=== PATIENT | female | born 1975 | race Caucasian/White ===

== ENCOUNTER 2016-11-27 19:17 | Emergency (ER) | payer OTHER ==
[2016-11-27] MEDS ORDERED: HYDROmorphone 2 MG/ML 1 ML SYRINGE IM STA (20:26)
[2016-11-27] MEDS ORDERED: DIAZEPAM 5 MG/ML 2 ML SYRINGE IM ONE (20:26)
[2016-11-27] MEDS ORDERED: diphenhydrAMINE 50 MG CAP PO STA (20:26)
--- NOTE | 2016-11-27 20:39 | ED ---
Headache HPI - General Chief Complaint: Headache Stated Complaint: Headache/Nausea Time Seen by Provider: 11/27/16 19:40 Source: RN notes reviewed Mode of arrival: ambulatory Limitations: no limitations - History of Present Illness Initial Comments: Patient is a 41-year-old female presents to the emergency room for evaluation of headache. Patient has a history of pseudotumor cerebri and takes Dilaudid daily for headaches. Patient states her headache is worse today. Patient states she was taking Dilaudid, Flexeril, aspirin with no relief of symptoms today. Patient states she's having a 10 out of 10 constant headache behind her left eye. She denies dizziness or lightheadedness. Patient denies chest pain she was of breath. Patient notes or tingling extremities. Patient denies photophobia or phonophobia. Patient states she's having slight bilateral ear pain. Patient denies any fevers or chills. Patient denies any significant neck pain. Patient states symptoms are similar to what she normally experiences. - Related Data Home Medications Medication Instructions Recorded Confirmed LORazepam [Ativan] 2 mg PO DAILY PRN 03/27/14 11/27/16 clonazePAM [KlonoPIN] 1 mg PO BID 03/27/14 11/27/16 Ranitidine HCl [Zantac] 150 mg PO BID 04/17/15 11/27/16 Aspirin 325 mg PO DAILY 10/08/15 11/27/16 Cyclobenzaprine [Flexeril] 10 mg PO TID 09/22/16 11/27/16 HYDROcodone/APAP 10-325MG [[place] 1 tab PO TID PRN 09/22/16 11/27/16 10-325] Divalproex [Depakote] 250 mg PO BID 10/25/16 11/27/16 Previous Rx's Medication Instructions Recorded Ondansetron Odt [Zofran ODT] 4 mg PO Q8HR PRN #15 tab 08/09/15 HYDROmorphone HCL [Dilaudid] 4 mg PO Q8HR PRN #90 tablet 11/04/16 Allergies Allergy/AdvReac Type Severity Reaction Status Date / Time acetazolamide Allergy Rash/Hives Verified 11/27/16 19:57 [From Diamox Sequels] influenza virus vaccine, Allergy Unknown Verified 11/27/16 19:57 specific [influenza virus vacc,specific] Penicillins Allergy Rash/Hives Verified 11/27/16 19:57 topiramate [From Topamax] Allergy Rash/Hives Verified 11/27/16 19:57 codeine AdvReac Nausea Verified 11/27/16 19:57 Review of Systems ROS Statement: Those systems with pertinent positive or pertinent negative responses have been documented in the HPI. ROS Other: All systems not noted in ROS Statement are negative. Past Medical History Past Medical History: Chest Pain / Angina, GERD/Reflux, Hypertension, Mitral Valve Prolapse (MVP) Additional Past Medical History / Comment(s): PSEUDO TUMOR CEREBRI/ Medullary sponge kidney, chronic back pain, chronic headache, pt states she has never had a siezure. The pt states she takes antiepileptic for severe headaches. History of Any Multi-Drug Resistant Organisms: None Reported Past Surgical History: Cholecystectomy Additional Past Surgical History / Comment(s): LP SHUNT PLACEMENT AND REMOVAL, cholecystectomy in 2006. Past Anesthesia/Blood Transfusion Reactions: Previous Problems w/ Anesthesia, Malignant Hyperthermia, Motion Sickness Additional Past Anesthesia/Blood Transfusion Reaction / Comment(s): states difficulty breating with anesthesia Past Psychological History: Anxiety, Depression Smoking Status: Never smoker Past Alcohol Use History: None Reported Past Drug Use History: None Reported - Past Family History Sister(s) Family Medical History: Renal Disease Additional Family Medical History / Comment(s): FSGS Brother(s) Family Medical History: Renal Disease Additional Family Medical History / Comment(s): FSGS Father Family Medical History: Cancer, Coronary Artery Disease (CAD), Renal Disease Additional Family Medical History / Comment(s): renal disease-FSGS General Exam - General Exam Comments Initial Comments: Sitting in exam room, no acute distress. Limitations: no limitations General appearance: alert, in no apparent distress Head exam: Present: atraumatic, normocephalic, normal inspection Eye exam: Present: normal appearance ENT exam: Present: normal exam Neck exam: Present: normal inspection Respiratory exam: Present: normal lung sounds bilaterally. Absent: respiratory distress Cardiovascular Exam: Present: regular rate, normal rhythm, normal heart sounds Extremities exam: Present: normal inspection Back exam: Present: normal inspection Neurological exam: Present: alert, oriented X3, CN II-XII intact, normal gait Expanded Patient oriented to: Present: person, place, time Speech: Present: fluid speech Cranial nerves: EOM's Intact: Normal, Facial Sensation: Normal Sensory exam: Upper Extremity Light Touch: Normal, Lower Extremity Light Touch: Normal Motor strength exam: RUE: 5, LUE: 5, RLE: 5, LLE: 5 Eye Response: (4) open spontaneously Motor Response: (6) obeys commands Verbal Response: (5) oriented Psychiatric exam: Present: normal affect, normal mood Skin exam: Present: warm, dry, intact, normal color. Absent: rash Course Vital Signs 11/27/16 11/27/16 11/27/16 19:31 20:49 22:07 Temperature 98.6 F 99.3 F 98.5 F Pulse Rate 112 H 106 H 100 Respiratory 18 18 16 Rate Blood Pressure 159/107 157/77 151/76 O2 Sat by Pulse 98 99 99 Oximetry Medical Decision Making - Medical Decision Making Patient is a 41-year-old female since emergency room for evaluation of headache. Patient has a history of chronic headaches. Patient has no neuro deficits. Patient given pain medications and advised to follow-up with her neurologist. Patient states she understands everything that was discussed with her. Return parameters discussed. Case discussed with Dr. Barclay. Disposition Clinical Impression: Pseudotumor cerebri, Chronic headache Disposition: HOME SELF-CARE Condition: Good Instructions: Acute Headache (ED) Additional Instructions: Continue with at home medications.Please follow up with neurologist in 1-2 days. If any new symptom arises, symptoms worsen or fever develops, return to ER as soon as possible. Referrals: Chato Baldwin Jr, [Primary Care Provider] - 1-2 days Time of Disposition: 21:14
[2016-11-27 22:08] VITALS: BP 151/76; PULSE 100; RESP 16; TEMP 98.5
== END 2016-11-27 22:08 | disposition home or self-care (01) ==
LOC: EC 19:17
DX: R51 Headache (principal); G93.2 Benign intracranial hypertension; Z88.5 Allergy status to narcotic agent; Z88.0 Allergy status to penicillin; Z88.7 Allergy status to serum and vaccine; Z88.8 Allergy status to other drugs, medicaments and biological substances; Z79.899 Other long term (current) drug therapy; Z79.82 Long term (current) use of aspirin; K21.9 Gastro-esophageal reflux disease without esophagitis; I20.9 Angina pectoris, unspecified; F41.9 Anxiety disorder, unspecified; F32.9 Major depressive disorder, single episode, unspecified
CPT/HCPCS: 96372 ×2; 99284; J1170; J3360

== ENCOUNTER 2017-03-28 14:59 | Emergency (ER) | payer OTHER ==
[2017-03-28 15:04] VITALS: RESP 18
[2017-03-28] MEDS ORDERED: SODIUM CHLORIDE 0.9% 1,000 ML IV ONE (15:31)
[2017-03-28] MEDS ORDERED: KETOROLAC 30 MG/ML 1 ML VIAL IVP STA (15:31)
[2017-03-28] MEDS ORDERED: METOCLOPRAMIDE 5 MG/ML 2 ML VIAL IVP STA (15:32)
[2017-03-28] MEDS ORDERED: diphenhydrAMINE 50 MG/ML 1 ML VIAL IVP STA (15:32)
--- NOTE | 2017-03-28 15:53 | ED ---
General Adult HPI - General Chief complaint: Headache Stated complaint: headache Time Seen by Provider: 03/28/17 15:04 Source: patient Mode of arrival: ambulatory Limitations: no limitations - History of Present Illness Initial comments: 41 yo female with past medical history of pseudotumor cerebri presented for evaluation of headache. She states that headache started at 3 AM this morning and been constant on the left side behind her eye without radiation and she describes it as a pressure with intermittent sharpness. She states this is consistent with previous headaches and that she had previously been treated with Dilaudid by her former primary care physician but has a new primary care physician but hasn't seen the old one and 3 months. Since then she had a minor episode of similar pain but this is much worse. She states there are no exacerbating symptoms and nothing has been improving her pain. She states there is some decreased vision on the left side however. - Related Data Home Medications Medication Instructions Recorded Confirmed LORazepam [Ativan] 2 mg PO DAILY PRN 03/27/14 03/28/17 clonazePAM [KlonoPIN] 1 mg PO Q12H 03/27/14 03/28/17 Ranitidine HCl [Zantac] 150 mg PO BID 04/17/15 03/28/17 Cyclobenzaprine [Flexeril] 10 mg PO TID 09/22/16 03/28/17 Divalproex [Depakote] 250 mg PO BID 10/25/16 03/28/17 Aspirin [Adult Low Dose Aspirin EC] 162 mg PO DAILY 03/28/17 03/28/17 Ibuprofen [Motrin] 800 mg PO TID PRN 03/28/17 03/28/17 Ketoconazole 2% Cream [Nizoral 2%] 1 applic TOPICAL BID 03/28/17 03/28/17 diphenhydrAMINE HCL [Benadryl] 50 mg PO HS 03/28/17 03/28/17 Previous Rx's Medication Instructions Recorded Ondansetron Odt [Zofran ODT] 4 mg PO Q8HR PRN #15 tab 08/09/15 Butalb/Acetaminophen/Caffeine 1 - 2 cap PO Q4HR #10 cap 03/28/17 [Fioricet 50-300-40 mg Capsule] HYDROcodone/APAP 5-325MG [[place] 1 - 2 tab PO Q6HR PRN #10 tab 03/28/17 5325] Allergies Allergy/AdvReac Type Severity Reaction Status Date / Time acetazolamide Allergy Rash/Hives Verified 03/28/17 15:56 [From Diamox Sequels] influenza virus vaccine, Allergy Unknown Verified 03/28/17 15:56 specific [influenza virus vacc,specific] Penicillins Allergy Rash/Hives Verified 03/28/17 15:56 topiramate [From Topamax] Allergy Rash/Hives Verified 03/28/17 15:56 codeine AdvReac Nausea Verified 03/28/17 15:56 Review of Systems ROS Statement: Those systems with pertinent positive or pertinent negative responses have been documented in the HPI. ROS Other: All systems not noted in ROS Statement are negative. Constitutional: Denies: fever, chills Eyes: Reports: vision change. Denies: eye pain, eye discharge ENT: Denies: ear pain, throat pain Respiratory: Denies: cough, dyspnea Cardiovascular: Denies: chest pain, palpitations Endocrine: Denies: fatigue, heat or cold intolerance Gastrointestinal: Denies: abdominal pain, nausea, vomiting Genitourinary: Denies: urgency, dysuria Musculoskeletal: Denies: back pain, joint swelling Skin: Denies: rash, lesions Neurological: Reports: headache Psychiatric: Denies: anxiety, depression Hematological/Lymphatic: Denies: easy bleeding, easy bruising Past Medical History Past Medical History: Chest Pain / Angina, GERD/Reflux, Hypertension, Mitral Valve Prolapse (MVP) Additional Past Medical History / Comment(s): PSEUDO TUMOR CEREBRI/ Medullary sponge kidney, chronic back pain, chronic headache, pt states she has never had a siezure. The pt states she takes antiepileptic for severe headaches. History of Any Multi-Drug Resistant Organisms: None Reported Past Surgical History: Cholecystectomy Additional Past Surgical History / Comment(s): LP SHUNT PLACEMENT AND REMOVAL, cholecystectomy in 2006. Past Anesthesia/Blood Transfusion Reactions: Previous Problems w/ Anesthesia, Malignant Hyperthermia, Motion Sickness Additional Past Anesthesia/Blood Transfusion Reaction / Comment(s): states difficulty breating with anesthesia Past Psychological History: Anxiety, Depression Smoking Status: Never smoker Past Alcohol Use History: None Reported Past Drug Use History: None Reported - Past Family History Sister(s) Family Medical History: Renal Disease Additional Family Medical History / Comment(s): FSGS Brother(s) Family Medical History: Renal Disease Additional Family Medical History / Comment(s): FSGS Father Family Medical History: Cancer, Coronary Artery Disease (CAD), Renal Disease Additional Family Medical History / Comment(s): renal disease-FSGS General Exam Limitations: no limitations General appearance: alert, in no apparent distress Head exam: Present: atraumatic, normocephalic, normal inspection Eye exam: Present: normal appearance, PERRL, EOMI. Absent: scleral icterus, conjunctival injection, periorbital swelling ENT exam: Present: normal exam, mucous membranes moist Neck exam: Present: normal inspection. Absent: tenderness, meningismus, lymphadenopathy Respiratory exam: Present: normal lung sounds bilaterally. Absent: respiratory distress, wheezes, rales, rhonchi, stridor Cardiovascular Exam: Present: regular rate, normal rhythm, normal heart sounds. Absent: systolic murmur, diastolic murmur, rubs, gallop, clicks GI/Abdominal exam: Present: soft, normal bowel sounds. Absent: distended, tenderness, guarding, rebound, rigid Rectal exam: Present: deferred Extremities exam: Present: normal inspection, full ROM, normal capillary refill. Absent: tenderness, pedal edema, joint swelling, calf tenderness Back exam: Present: normal inspection Neurological exam: Present: alert, oriented X3, CN II-XII intact, normal gait, reflexes normal. Absent: motor sensory deficit (No change from baseline) Psychiatric exam: Present: normal affect, normal mood Skin exam: Present: warm, dry, intact, normal color. Absent: rash Course Vital Signs 03/28/17 03/28/17 03/28/17 15:01 15:12 17:18 Temperature 99.4 F 98.8 F 98.6 F Pulse Rate 131 H 90 101 H Respiratory 18 18 Rate Blood Pressure 193/93 145/84 O2 Sat by Pulse 100 99 Oximetry Medical Decision Making - Medical Decision Making 41-year-old female with past medical history of pseudotumor cerebri presenting for evaluation of headache started this morning at 3 AM waking her from sleep. She states that is constant on the left side behind her eye with no radiation describes it as a pressure with intermittent sharpness. She has past medical history of LP shunt placement which then malfunctioned and was readjusted but broke. She has a follow-up appointment set with a neurosurgeon to place a [employer] shunt but due to the pain she's having today came to the ED. She states this is consistent with previous headaches and that there is only a little bit of vision changes. On physical exam she has cranial nerves II through XII intact without focal neurologic deficit. Gait and station are normal. Visual acuity normal. Patient given headache cocktail with marked improvement and headache. She was offered lumbar puncture but stated that she would rather follow up with her neurosurgeon instead. She was advised of complications that could arise and further advised to return to this facility if her symptoms should worsen or persist. The patient acknowledged an understanding of this information and agreed with this plan of care. She was discharged with instructions for return and perception for pain control. Disposition Clinical Impression: Headache Disposition: HOME SELF-CARE Condition: Stable Instructions: Acute Headache (ED) Additional Instructions: Please use medication as discussed. Please follow up with family doctor if symptoms have not improved over the next two days. Please return to the emergency room if your symptoms increase or worsen or for any other concerns. Prescriptions: Butalb/Acetaminophen/Caffeine [Fioricet 50-300-40 mg Capsule] 1 - 2 cap PO Q4HR #10 cap HYDROcodone/APAP 5-325MG [[place] 5-325] 1 - 2 tab PO Q6HR PRN #10 tab PRN Reason: Analgesia Referrals: Chato Baldwin Jr, DO [Primary Care Provider] - 1-2 days Time of Disposition: 17:05
[2017-03-28 17:19] VITALS: BP 145/84; PULSE 101; TEMP 98.6
== END 2017-03-28 17:21 | disposition home or self-care (01) ==
LOC: EC 14:59
DX: R51 Headache (principal); K21.9 Gastro-esophageal reflux disease without esophagitis; Z79.82 Long term (current) use of aspirin; Z88.7 Allergy status to serum and vaccine; Z88.0 Allergy status to penicillin; Z88.5 Allergy status to narcotic agent; Z88.8 Allergy status to other drugs, medicaments and biological substances; Z79.899 Other long term (current) drug therapy
CPT/HCPCS: 99284; 96374; 96375 ×2; 96361; J1200; J2765; J1885

== ENCOUNTER 2017-10-01 18:02 | Emergency (ER) | payer OTHER ==
[2017-10-01 18:32] VITALS: TEMP 98
--- NOTE | 2017-10-01 19:16 | ED ---
General Adult HPI - General Chief complaint: Headache Stated complaint: Headache Time Seen by Provider: 10/01/17 19:06 Source: patient, family, RN notes reviewed Mode of arrival: ambulatory Limitations: no limitations - History of Present Illness Initial comments: patient is a pleasant 42-year-old female presenting to the emergency department complaining of headache. Onset of symptoms was 2 days ago. Gradual onset and symptoms have progressively worsened since that time. Headaches more left- sided. Patient does have a history of chronic headaches. Patient has had multiple evaluations. Patient has seen neurologists and had CT scans done. Discomfort is moderate to severe. Patient has some associated photophobia which is similar to her prior headaches. No weakness. Patient did start Diamox recently by her mobility scooter repairer and she feels this is making her symptoms worse. - Related Data Home Medications Medication Instructions Recorded Confirmed LORazepam [Ativan] 2 mg PO DAILY PRN 03/27/14 03/28/17 clonazePAM [KlonoPIN] 1 mg PO Q12H 03/27/14 03/28/17 Ranitidine HCl [Zantac] 150 mg PO BID 04/17/15 03/28/17 Cyclobenzaprine [Flexeril] 10 mg PO TID 09/22/16 03/28/17 Divalproex [Depakote] 250 mg PO BID 10/25/16 03/28/17 Aspirin [Adult Low Dose Aspirin EC] 162 mg PO DAILY 03/28/17 03/28/17 Ibuprofen [Motrin] 800 mg PO TID PRN 03/28/17 03/28/17 Ketoconazole 2% Cream [Nizoral 2%] 1 applic TOPICAL BID 03/28/17 03/28/17 diphenhydrAMINE HCL [Benadryl] 50 mg PO HS 03/28/17 03/28/17 Previous Rx's Medication Instructions Recorded Ondansetron Odt [Zofran ODT] 4 mg PO Q8HR PRN #15 tab 08/09/15 Butalb/Acetaminophen/Caffeine 1 - 2 cap PO Q4HR #10 cap 03/28/17 [Fioricet 50-300-40 mg Capsule] HYDROcodone/APAP 5-325MG [[place] 1 - 2 tab PO Q6HR PRN #10 tab 03/28/17 5-325] Allergies Allergy/AdvReac Type Severity Reaction Status Date / Time acetazolamide Allergy Rash/Hives Verified 10/01/17 18:32 [From Diamox Sequels] influenza virus vaccine, Allergy Unknown Verified 10/01/17 18:32 specific [influenza virus vacc,specific] Penicillins Allergy Rash/Hives Verified 10/01/17 18:32 topiramate [From Topamax] Allergy Rash/Hives Verified 10/01/17 18:32 codeine AdvReac Nausea Verified 10/01/17 18:32 Review of Systems ROS Statement: Those systems with pertinent positive or pertinent negative responses have been documented in the HPI. ROS Other: All systems not noted in ROS Statement are negative. Constitutional: Denies: fever Eyes: Denies: eye pain ENT: Denies: ear pain Respiratory: Denies: cough Cardiovascular: Denies: chest pain Endocrine: Denies: fatigue Gastrointestinal: Denies: abdominal pain Genitourinary: Denies: dysuria Musculoskeletal: Denies: back pain Skin: Denies: rash Neurological: Reports: headache. Denies: weakness, confusion Past Medical History Past Medical History: Chest Pain / Angina, GERD/Reflux, Hypertension, Mitral Valve Prolapse (MVP) Additional Past Medical History / Comment(s): PSEUDO TUMOR CEREBRI/ Medullary sponge kidney, chronic back pain, chronic headache, pt states she has never had a siezure. The pt states she takes antiepileptic for severe headaches. History of Any Multi-Drug Resistant Organisms: None Reported Past Surgical History: Cholecystectomy Additional Past Surgical History / Comment(s): LP SHUNT PLACEMENT AND REMOVAL, cholecystectomy in 2006. Past Anesthesia/Blood Transfusion Reactions: Previous Problems w/ Anesthesia, Malignant Hyperthermia, Motion Sickness Additional Past Anesthesia/Blood Transfusion Reaction / Comment(s): states difficulty breating with anesthesia Past Psychological History: Anxiety, Depression Smoking Status: Never smoker Past Alcohol Use History: None Reported Past Drug Use History: None Reported - Past Family History Sister(s) Family Medical History: Renal Disease Additional Family Medical History / Comment(s): FSGS Brother(s) Family Medical History: Renal Disease Additional Family Medical History / Comment(s): FSGS Father Family Medical History: Cancer, Coronary Artery Disease (CAD), Renal Disease Additional Family Medical History / Comment(s): renal disease-FSGS General Exam Limitations: no limitations General appearance: alert, in no apparent distress Head exam: Present: atraumatic Eye exam: Present: normal appearance, PERRL, EOMI. Absent: nystagmus ENT exam: Present: normal oropharynx Neck exam: Present: normal inspection Respiratory exam: Present: normal lung sounds bilaterally Cardiovascular Exam: Present: regular rate, normal rhythm GI/Abdominal exam: Present: soft. Absent: tenderness Extremities exam: Present: normal inspection Back exam: Present: normal inspection Neurological exam: Present: alert, CN II-XII intact. Absent: motor sensory deficit Expanded Speech: Present: fluid speech Cranial nerves: EOM's Intact: Normal, Facial Sensation: Normal Sensory exam: Upper Extremity Light Touch: Normal, Lower Extremity Light Touch: Normal Motor strength exam: RUE: 5, LUE: 5, RLE: 5, LLE: 5 Eye Response: (4) open spontaneously Motor Response: (6) obeys commands Verbal Response: (5) oriented Psychiatric exam: Present: normal affect, normal mood Skin exam: Present: normal color Course Vital Signs 10/01/17 18:28 Temperature 98.0 F Pulse Rate 107 H Respiratory 20 Rate Blood Pressure 210/117 O2 Sat by Pulse 100 Oximetry - Reevaluation(s) Reevaluation #1: 10/01/17 19:13 patient is advised to discuss Diamox use with her mobility scooter repairer. Disposition Clinical Impression: Headache Disposition: HOME SELF-CARE Condition: Stable Instructions: Acute Headache (ED) Additional Instructions: please follow-up to primary care physician and neurologist this week. Please follow-up with your mobility scooter repairer tomorrow regarding use of Diamox. Return for fever, weakness, worsening or changing symptoms or other concerns. Referrals: Chato Baldwin Jr, DO [Primary Care Provider] - 1-2 days Time of Disposition: 19:16
[2017-10-01] MEDS ORDERED: diphenhydrAMINE 50 MG/ML 1 ML VIAL IM STA (19:18)
[2017-10-01] MEDS ORDERED: KETOROLAC 60 MG/2 ML VIAL IM STA (19:18)
[2017-10-01] MEDS ORDERED: METOCLOPRAMIDE 5 MG/ML 2 ML VIAL IM STA (19:18)
[2017-10-01 19:21] VITALS: BP 183/93; PULSE 110; RESP 18
== END 2017-10-01 19:50 | disposition home or self-care (01) ==
LOC: EC 18:02
DX: R51 Headache (principal); H53.149 Visual discomfort, unspecified; K21.9 Gastro-esophageal reflux disease without esophagitis; I34.1 Nonrheumatic mitral (valve) prolapse; R40.2142 Coma scale, eyes open, spontaneous, at arrival to emergency department; R40.2252 Coma scale, best verbal response, oriented, at arrival to emergency department; R40.2362 Coma scale, best motor response, obeys commands, at arrival to emergency department; Z98.2 Presence of cerebrospinal fluid drainage device; Z79.82 Long term (current) use of aspirin; Z79.899 Other long term (current) drug therapy; Z88.7 Allergy status to serum and vaccine; Z88.0 Allergy status to penicillin; Z88.8 Allergy status to other drugs, medicaments and biological substances; Z88.5 Allergy status to narcotic agent
CPT/HCPCS: 99283; 96372 ×3; J1200; J2765; J1885

== ENCOUNTER 2017-12-20 06:28 | Emergency (ER) | payer OTHER ==
[2017-12-20] MEDS ORDERED: ACETAMINOPHEN TAB 500 MG TAB PO STA (07:18)
[2017-12-20] MEDS ORDERED: IBUPROFEN 600 MG TAB PO STA (07:18)
--- NOTE | 2017-12-20 07:23 | ED ---
General Adult HPI - General Chief complaint: Upper Respiratory Infection Stated complaint: cough Time Seen by Provider: 12/20/17 07:00 Source: patient, family, RN notes reviewed Mode of arrival: wheelchair Limitations: no limitations - History of Present Illness Initial comments: Patient is a pleasant 42-year-old female presenting to the emergency department with multiple complaints. Symptoms have been present for a day or 2. Patient has had cough. Cough has been dry and nonproductive. Patient has had fatigue and generalized malaise. Patient has headache. Patient has children that have been diagnosed with influenza. - Related Data Home Medications Medication Instructions Recorded Confirmed LORazepam [Ativan] 2 mg PO DAILY PRN 03/27/14 10/01/17 clonazePAM [KlonoPIN] 1 mg PO Q12H 03/27/14 10/01/17 Ranitidine HCl [Zantac] 150 mg PO BID 04/17/15 10/01/17 Cyclobenzaprine [Flexeril] 10 mg PO TID 09/22/16 10/01/17 Divalproex [Depakote] 250 mg PO BID 10/25/16 10/01/17 Aspirin [Adult Low Dose Aspirin EC] 162 mg PO DAILY 03/28/17 10/01/17 Ibuprofen [Motrin] 800 mg PO TID PRN 03/28/17 10/01/17 Ketoconazole 2% Cream [Nizoral 2%] 1 applic TOPICAL BID 03/28/17 10/01/17 diphenhydrAMINE HCL [Benadryl] 50 mg PO HS 03/28/17 10/01/17 Butalb/Acetaminophen/Caffeine 1 - 2 cap PO Q4HR PRN 10/01/17 10/01/17 [Fioricet 50-300-40 mg Capsule] acetaZOLAMIDE [Diamox Sequels] 500 mg PO DAILY 10/01/17 10/01/17 Previous Rx's Medication Instructions Recorded Ondansetron Odt [Zofran ODT] 4 mg PO Q8HR PRN #15 tab 08/09/15 HYDROcodone/APAP 5-325MG [[place] 1 - 2 tab PO Q6HR PRN #10 tab 03/28/17 5-325] Oseltamivir [Tamiflu] 75 mg PO Q12HR #10 cap 12/20/17 Allergies Allergy/AdvReac Type Severity Reaction Status Date / Time acetazolamide Allergy Rash/Hives Verified 12/20/17 06:34 [From Diamox Sequels] influenza virus vaccine, Allergy Unknown Verified 12/20/17 06:34 specific [influenza virus vacc,specific] Penicillins Allergy Rash/Hives Verified 12/20/17 06:34 topiramate [From Topamax] Allergy Rash/Hives Verified 12/20/17 06:34 codeine AdvReac Nausea Verified 12/20/17 06:34 Review of Systems ROS Statement: Those systems with pertinent positive or pertinent negative responses have been documented in the HPI. ROS Other: All systems not noted in ROS Statement are negative. Constitutional: Reports: fever, chills, weakness Eyes: Denies: eye pain ENT: Reports: congestion. Denies: ear pain Respiratory: Reports: cough, dyspnea Cardiovascular: Reports: chest pain (Patient states her entire body hurts including the chest) Endocrine: Reports: fatigue Gastrointestinal: Denies: abdominal pain Genitourinary: Denies: dysuria Musculoskeletal: Denies: back pain Skin: Denies: rash Neurological: Reports: headache. Denies: weakness, confusion Past Medical History Past Medical History: Chest Pain / Angina, GERD/Reflux, Hypertension, Mitral Valve Prolapse (MVP) Additional Past Medical History / Comment(s): PSEUDO TUMOR CEREBRI/ Medullary sponge kidney, chronic back pain, chronic headache, pt states she has never had a siezure. The pt states she takes antiepileptic for severe headaches. History of Any Multi-Drug Resistant Organisms: None Reported Past Surgical History: Cholecystectomy Additional Past Surgical History / Comment(s): LP SHUNT PLACEMENT AND REMOVAL, cholecystectomy in 2006. Past Anesthesia/Blood Transfusion Reactions: Previous Problems w/ Anesthesia, Malignant Hyperthermia, Motion Sickness Additional Past Anesthesia/Blood Transfusion Reaction / Comment(s): states difficulty breating with anesthesia Past Psychological History: Anxiety, Depression Smoking Status: Never smoker Past Alcohol Use History: None Reported Past Drug Use History: None Reported - Past Family History Sister(s) Family Medical History: Renal Disease Additional Family Medical History / Comment(s): FSGS Brother(s) Family Medical History: Renal Disease Additional Family Medical History / Comment(s): FSGS Father Family Medical History: Cancer, Coronary Artery Disease (CAD), Renal Disease Additional Family Medical History / Comment(s): renal disease-FSGS General Exam Limitations: no limitations General appearance: alert, in no apparent distress Head exam: Present: atraumatic Eye exam: Present: normal appearance, PERRL ENT exam: Present: normal oropharynx Neck exam: Present: normal inspection. Absent: meningismus Respiratory exam: Present: normal lung sounds bilaterally Cardiovascular Exam: Present: tachycardia Expanded Peripheral pulses: 2+: Radial (R), Radial (L), Posterior Tibialis (R), Posterior Tibialis (L) GI/Abdominal exam: Present: soft. Absent: tenderness Extremities exam: Present: normal inspection. Absent: pedal edema, calf tenderness Neurological exam: Present: alert Psychiatric exam: Present: normal affect, normal mood Skin exam: Present: normal color Course Vital Signs 12/20/17 12/20/17 12/20/17 06:31 06:51 07:29 Temperature 99.4 F 101.5 F H Pulse Rate 134 H 127 H 128 H Respiratory 22 20 18 Rate Blood Pressure 185/107 166/81 154/87 O2 Sat by Pulse 100 98 99 Oximetry 12/20/17 12/20/17 08:06 08:57 Temperature 100.3 F H Pulse Rate 125 H 119 H Respiratory 20 18 Rate Blood Pressure 157/74 136/70 O2 Sat by Pulse 100 98 Oximetry - Reevaluation(s) Reevaluation #1: 12/20/17 09:43 Patient states she does have a history of tachycardia. Prior heart rates reviewed, range between 90 and 130. 12/20/17 09:59 Repeat EKG shows sinus tachycardia 119. CA 160. QRS 88. QT 284. QTC 399. Normal axis. Poor R-wave progression. No acute ST change. Patient reevaluated and feeling much better with Tylenol and Motrin. No complaints of chest discomfort. Patient and family updated on results and plan. Both confirm onset of symptoms was yesterday morning. EKG Findings - EKG Comments: EKG Findings:: Sinus tachycardia 129. QRS 92. QT 408. QTC 597. Normal axis. Normal QRS. Nonspecific ST-T. Medical Decision Making - Lab Data Result diagrams: 12/20/17 06:45 12/20/17 06:45 Lab Results 12/20/17 12/20/17 12/20/17 Range/Units 06:45 06:45 06:45 WBC 12.0 H (3.8-10.6) k/uL RBC 5.03 (3.80-5.40) m/uL Hgb 11.5 (11.4-16.0) gm/dL Hct 38.1 (34.0-46.0) % MCV 75.8 L (80.0-100.0) fL MCH 22.9 L (25.0-35.0) pg MCHC 30.2 L (31.0-37.0) g/dL RDW 17.0 H (11.5-15.5) % Plt Count 318 (150-450) k/uL Neutrophils % 85 % Lymphocytes % 6 % Monocytes % 6 % Eosinophils % 1 % Basophils % 1 % Neutrophils # 10.2 H (1.3-7.7) k/uL Lymphocytes # 0.7 L (1.0-4.8) k/uL Monocytes # 0.7 (0-1.0) k/uL Eosinophils # 0.2 (0-0.7) k/uL Basophils # 0.1 (0-0.2) k/uL Hypochromasia Marked Anisocytosis Slight Microcytosis Slight PT (9.0-12.0) sec INR (<1.2) APTT (22.0-30.0) sec D-Dimer (<0.60) mg/L FEU Sodium 144 (137-145) mmol/L Potassium 4.1 (3.5-5.1) mmol/L Chloride 112 H (98-107) mmol/L Carbon Dioxide 18 L (22-30) mmol/L Anion Gap 14 mmol/L BUN 8 (7-17) mg/dL Creatinine 1.01 (0.52-1.04) mg/dL Est GFR (MDRD) Af Amer >60 (>60 ml/min/1.73 sqM) Est GFR (MDRD) Non-Af >60 (>60 ml/min/1.73 sqM) Glucose 122 H (74-99) mg/dL Plasma Lactic Acid [place] (0.7-2.0) mmol/L Calcium 9.1 (8.4-10.2) mg/dL Total Bilirubin 0.1 L (0.2-1.3) mg/dL AST 18 (14-36) U/L ALT 24 (9-52) U/L Alkaline Phosphatase 88 (38-126) U/L Total Creatine Kinase 39 (30-135) U/L CK-MB (CK-2) 0.3 (0.0-2.4) ng/mL CK-MB (CK-2) Rel Index 0.8 Troponin I <0.012 (0.000-0.034) ng/mL Total Protein 7.5 (6.3-8.2) g/dL Albumin 4.1 (3.5-5.0) g/dL Urine Color Urine Appearance (Clear) Urine pH (5.0-8.0) Ur Specific [place] (1.001-1.035) Urine Protein (Negative) Urine Glucose (UA) (Negative) Urine Ketones (Negative) Urine Blood (Negative) Urine Nitrite (Negative) Urine Bilirubin (Negative) Urine Urobilinogen (<2.0) mg/dL Ur Leukocyte Esterase (Negative) Urine RBC (0-5) /hpf Urine WBC (0-5) /hpf Ur Squamous Epith Cells (0-4) /hpf Urine Mucus (None) /hpf Influenza Type A RNA (Not Detectd) Influenza Type B (PCR) (Not Detectd) 12/20/17 12/20/17 12/20/17 Range/Units 06:45 06:45 06:45 WBC (3.8-10.6) k/uL RBC (3.80-5.40) m/uL Hgb (11.4-16.0) gm/dL Hct (34.0-46.0) % MCV (80.0-100.0) fL MCH (25.0-35.0) pg MCHC (31.0-37.0) g/dL RDW (11.5-15.5) % Plt Count (150-450) k/uL Neutrophils % % Lymphocytes % % Monocytes % % Eosinophils % % Basophils % % Neutrophils # (1.3-7.7) k/uL Lymphocytes # (1.0-4.8) k/uL Monocytes # (0-1.0) k/uL Eosinophils # (0-0.7) k/uL Basophils # (0-0.2) k/uL Hypochromasia Anisocytosis Microcytosis PT 9.5 (9.0-12.0) sec INR 1.0 (<1.2) APTT 25.2 (22.0-30.0) sec D-Dimer 0.45 (<0.60) mg/L FEU Sodium (137-145) mmol/L Potassium (3.5-5.1) mmol/L Chloride (98-107) mmol/L Carbon Dioxide (22-30) mmol/L Anion Gap mmol/L BUN (7-17) mg/dL Creatinine (0.52-1.04) mg/dL Est GFR (MDRD) Af Amer (>60 ml/min/1.73 sqM) Est GFR (MDRD) Non-Af (>60 ml/min/1.73 sqM) Glucose (74-99) mg/dL Plasma Lactic Acid [place] 1.4 (0.7-2.0) mmol/L Calcium (8.4-10.2) mg/dL Total Bilirubin (0.2-1.3) mg/dL AST (14-36) U/L ALT (9-52) U/L Alkaline Phosphatase (38-126) U/L Total Creatine Kinase (30-135) U/L CK-MB (CK-2) (0.0-2.4) ng/mL CK-MB (CK-2) Rel Index Troponin I (0.000-0.034) ng/mL Total Protein (6.3-8.2) g/dL Albumin (3.5-5.0) g/dL Urine Color Urine Appearance (Clear) Urine pH (5.0-8.0) Ur Specific [place] (1.001-1.035) Urine Protein (Negative) Urine Glucose (UA) (Negative) Urine Ketones (Negative) Urine Blood (Negative) Urine Nitrite (Negative) Urine Bilirubin (Negative) Urine Urobilinogen (<2.0) mg/dL Ur Leukocyte Esterase (Negative) Urine RBC (0-5) /hpf Urine WBC (0-5) /hpf Ur Squamous Epith Cells (0-4) /hpf Urine Mucus (None) /hpf Influenza Type A RNA Detected H (Not Detectd) Influenza Type B (PCR) Not Detected (Not Detectd) 12/20/17 Range/Units 08:00 WBC (3.8-10.6) k/uL RBC (3.80-5.40) m/uL Hgb (11.4-16.0) gm/dL Hct (34.0-46.0) % MCV (80.0-100.0) fL MCH (25.0-35.0) pg MCHC (31.0-37.0) g/dL RDW (11.5-15.5) % Plt Count (150-450) k/uL Neutrophils % % Lymphocytes % % Monocytes % % Eosinophils % % Basophils % % Neutrophils # (1.3-7.7) k/uL Lymphocytes # (1.0-4.8) k/uL Monocytes # (0-1.0) k/uL Eosinophils # (0-0.7) k/uL Basophils # (0-0.2) k/uL Hypochromasia Anisocytosis Microcytosis PT (9.0-12.0) sec INR (<1.2) APTT (22.0-30.0) sec D-Dimer (<0.60) mg/L FEU Sodium (137-145) mmol/L Potassium (3.5-5.1) mmol/L Chloride (98-107) mmol/L Carbon Dioxide (22-30) mmol/L Anion Gap mmol/L BUN (7-17) mg/dL Creatinine (0.52-1.04) mg/dL Est GFR (MDRD) Af Amer (>60 ml/min/1.73 sqM) Est GFR (MDRD) Non-Af (>60 ml/min/1.73 sqM) Glucose (74-99) mg/dL Plasma Lactic Acid [place] (0.7-2.0) mmol/L Calcium (8.4-10.2) mg/dL Total Bilirubin (0.2-1.3) mg/dL AST (14-36) U/L ALT (9-52) U/L Alkaline Phosphatase (38-126) U/L Total Creatine Kinase (30-135) U/L CK-MB (CK-2) (0.0-2.4) ng/mL CK-MB (CK-2) Rel Index Troponin I (0.000-0.034) ng/mL Total Protein (6.3-8.2) g/dL Albumin (3.5-5.0) g/dL Urine Color Yellow Urine Appearance Clear (Clear) Urine pH 5.5 (5.0-8.0) Ur Specific [place] 1.018 (1.001-1.035) Urine Protein Trace H (Negative) Urine Glucose (UA) Negative (Negative) Urine Ketones Negative (Negative) Urine Blood Negative (Negative) Urine Nitrite Negative (Negative) Urine Bilirubin Negative (Negative) Urine Urobilinogen <2.0 (<2.0) mg/dL Ur Leukocyte Esterase Moderate H (Negative) Urine RBC 1 (0-5) /hpf Urine WBC 5 (0-5) /hpf Ur Squamous Epith Cells 4 (0-4) /hpf Urine Mucus Few H (None) /hpf Influenza Type A RNA (Not Detectd) Influenza Type B (PCR) (Not Detectd) Disposition Clinical Impression: Influenza Disposition: HOME SELF-CARE Condition: Stable Instructions: Influenza (ED) Additional Instructions: Please follow-up with primary care physician in the next couple of days for recheck. Please follow-up with cardiology and have them review EKGs from today. Also further evaluate for chronic tachycardia. [id number] Tylenol and Motrin as needed. Return for uncontrolled fever, weakness, difficult to breathing, chest pain, worsening symptoms or other concerns. Prescriptions: Oseltamivir [Tamiflu] 75 mg PO Q12HR #10 cap Referrals: Chato Baldwin Jr, [Primary Care Provider] - 1-2 days Time of Disposition: 10:01
[2017-12-20] MEDS: SODIUM CHLORIDE 0.9% 500 ML IV SCH (07:26)
[2017-12-20 07:42] LABS: Anisocytosis Slight; Basophils # (A) 0.1 k/uL (0-0.2); Basophils % (A) 1 %; Eosinophils # (A) 0.2 k/uL (0-0.7); Eosinophils % (A) 1 %; HCT 38.1 % (34.0-46.0); HGB 11.5 gm/dL (11.4-16.0); Hypochromasia Marked; Lymphocytes # (A) 0.7 k/uL (1.0-4.8); Lymphocytes % (A) 6 %; MCH 22.9 pg (25.0-35.0); MCHC 30.2 g/dL (31.0-37.0); MCV 75.8 fL (80.0-100.0); Mean Platelet Volume 7.3; Microcytosis Slight; Monocytes # (A) 0.7 k/uL (0-1.0); Monocytes % (A) 6 %; Neutrophils # (A) 10.2 k/uL (1.3-7.7); Neutrophils % (A) 85 %; Platelet Count 318 k/uL (150-450); RBC 5.03 m/uL (3.80-5.40)
[2017-12-20 07:48] LABS: ALT 24 U/L (9-52); AST 18 U/L (14-36); Albumin 4.1 g/dL (3.5-5.0); Alkaline Phosphatase 88 U/L (38-126); Anion Gap 14 mmol/L; Blood Urea Nitrogen 8 mg/dL (7-17); Calcium 9.1 mg/dL (8.4-10.2); Carbon Dioxide 18 mmol/L (22-30); Chloride 112 mmol/L (98-107); Glucose 122 mg/dL (74-99); Potassium 4.1 mmol/L (3.5-5.1); Sodium 144 mmol/L (137-145); Total Bilirubin 0.1 mg/dL (0.2-1.3); Total Protein 7.5 g/dL (6.3-8.2)
--- NOTE | 2017-12-20 07:51 | XR ---
EXAMINATION TYPE: XR chest 2V DATE OF EXAM: 12/20/2017 HISTORY: Fever. REFERENCE: Previous study dated 09/22/2016. FINDINGS: There is some mild atelectatic change at the right lung base. Lungs otherwise clear. Pleura l space are clear. The heart is not enlarged. IMPRESSION: MILD ATELECTASIS, RIGHT LUNG BASE.
[2017-12-20 08:00] LABS: D-Dimer 0.45 mg/L FEU (<0.60); Partial Thromboplastin Time 25.2 sec (22.0-30.0); Prothrombin Time 9.5 sec (9.0-12.0)
[2017-12-20 08:09] LABS: Creatine Kinase 39 U/L (30-135)
[2017-12-20 08:22] LABS: Creatine Kinase MB 0.3 ng/mL (0.0-2.4); Troponin I <0.012 ng/mL (0.000-0.034)
[2017-12-20 08:22] LABS: Appearance,Urine Clear (Clear); Bilirubin,Urine Negative (Negative); Blood,Urine Negative (Negative); Color,Urine Yellow; Glucose,Urine (UA) Negative (Negative); Ketones,Urine Negative (Negative); Leukocyte Esterase,Urine Moderate (Negative); Mucus,Urine Few /hpf; Nitrite,Urine Negative (Negative); PH, Urine 5.5 (5.0-8.0); Protein,Urine Trace (Negative); RBC,Urine 1 /hpf (0-5); Specific Gravity,Urine 1.018 (1.001-1.035); Squamous Epithelial Cell,Urine 4 /hpf (0-4); Urobilinogen,Urine <2.0 mg/dL (<2.0); WBC,Urine 5 /hpf (0-5)
[2017-12-20] MEDS ORDERED: SODIUM CHLORIDE 0.9% 1,000 ML IV STA (08:43)
[2017-12-20 08:58] VITALS: RESP 18
[2017-12-20 10:13] VITALS: BP 142/65; PULSE 116; TEMP 99
== END 2017-12-20 10:13 | disposition home or self-care (01) ==
LOC: EC 06:28
DX: J11.1 Influenza due to unidentified influenza virus with other respiratory manifestations (principal); K21.9 Gastro-esophageal reflux disease without esophagitis; Z79.82 Long term (current) use of aspirin; Z79.899 Other long term (current) drug therapy; Z88.8 Allergy status to other drugs, medicaments and biological substances; Z88.7 Allergy status to serum and vaccine; Z88.0 Allergy status to penicillin; Z88.5 Allergy status to narcotic agent
CPT/HCPCS: 36415; 71046; 80053; 81001; 82550; 82553; 83605; 84484; 85025; 85379; 85610; 85730; 87040; 87086; 87502; 93005; 96360; 96361; 99284

== ENCOUNTER 2020-05-24 16:42 | Emergency (ER) | payer OTHER ==
[2020-05-24 16:58] VITALS: RESP 18
[2020-05-24] MEDS ORDERED: hydrALAZINE HCL 20 MG/ML 1 ML VIAL IM STA (17:17)
[2020-05-24] MEDS ORDERED: amLODIPine 5 MG TAB PO STA (17:18)
--- NOTE | 2020-05-24 17:41 | ED ---
General Adult HPI - General Chief complaint: Skin/Abscess/Foreign Body Stated complaint: itchy/irritated hands Time Seen by Provider: 05/24/20 17:04 Source: patient Mode of arrival: ambulatory Limitations: no limitations - History of Present Illness Initial comments: 45-year-old female presenting today for chief complaint of itchy tops of her hands bilaterally. 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 Patient denies any lesions on palms or feet. Patient denies fevers, new medications, vaginal lesions. patient has no additional complaints. Upon arrial patient appears well. BP elevated, states history but no meds. Patient denies any recent fever, chills, urinary changes, decreased urination, shortness of breath, chest pain, back pain, abdominal pain, nausea or vomiting, numbness or tingling, dysuria or hematuria, constipation or diarrhea, headaches or visual changes, or any other complaints. - Related Data Home Medications Medication Instructions Recorded Confirmed LORazepam [Ativan] 2 mg PO DAILY PRN 03/27/14 10/01/17 clonazePAM [KlonoPIN] 1 mg PO Q12H 03/27/14 10/01/17 Ranitidine HCl [Zantac] 150 mg PO BID 04/17/15 10/01/17 Cyclobenzaprine [Flexeril] 10 mg PO TID 09/22/16 10/01/17 Divalproex [Depakote] 250 mg PO BID 10/25/16 10/01/17 Aspirin [Adult Low Dose Aspirin EC] 162 mg PO DAILY 03/28/17 10/01/17 Ibuprofen [Motrin] 800 mg PO TID PRN 03/28/17 10/01/17 Ketoconazole 2% Cream [Nizoral 2%] 1 applic TOPICAL BID 03/28/17 10/01/17 diphenhydrAMINE HCL [Benadryl] 50 mg PO HS 03/28/17 10/01/17 Butalb/Acetaminophen/Caffeine 1 - 2 cap PO Q4HR PRN 10/01/17 10/01/17 [Fioricet 50-300-40 mg Capsule] acetaZOLAMIDE [Diamox Sequels] 500 mg PO DAILY 10/01/17 10/01/17 Previous Rx's Medication Instructions Recorded Ondansetron Odt [Zofran ODT] 4 mg PO Q8HR PRN #15 tab 08/09/15 HYDROcodone/APAP 5-325MG [[place] 1 - 2 tab PO Q6HR PRN #10 tab 03/28/17 5-325] Oseltamivir [Tamiflu] 75 mg PO Q12HR #10 cap 12/20/17 amLODIPine [Norvasc] 5 mg PO DAILY 7 Days #7 tab 05/24/20 predniSONE 50 mg PO DAILY 4 Days #4 tab 05/24/20 Allergies Allergy/AdvReac Type Severity Reaction Status Date / Time acetazolamide Allergy Rash/Hives Verified 05/24/20 16:51 [From Diamox Sequels] influenza virus vaccine, Allergy Unknown Verified 05/24/20 16:51 specific [influenza virus vacc,specific] Penicillins Allergy Rash/Hives Verified 05/24/20 16:51 topiramate [From Topamax] Allergy Rash/Hives Verified 05/24/20 16:51 codeine AdvReac Nausea Verified 05/24/20 16:51 Review of Systems ROS Statement: Those systems with pertinent positive or pertinent negative responses have been documented in the HPI. ROS Other: All systems not noted in ROS Statement are negative. Past Medical History Past Medical History: Chest Pain / Angina, GERD/Reflux, Hypertension, Mitral Valve Prolapse (MVP) Additional Past Medical History / Comment(s): PSEUDO TUMOR CEREBRI/ Medullary sponge kidney, chronic back pain, chronic headache, pt states she has never had a siezure. The pt states she takes antiepileptic for severe headaches. History of Any Multi-Drug Resistant Organisms: None Reported Past Surgical History: Cholecystectomy Additional Past Surgical History / Comment(s): LP SHUNT PLACEMENT AND REMOVAL, cholecystectomy in 2006. Past Anesthesia/Blood Transfusion Reactions: Previous Problems w/ Anesthesia, Malignant Hyperthermia, Motion Sickness Additional Past Anesthesia/Blood Transfusion Reaction / Comment(s): states d ifficulty breating with anesthesia Past Psychological History: Anxiety, Depression Smoking Status: Never smoker Past Alcohol Use History: None Reported Past Drug Use History: None Reported - Past Family History Sister(s) Family Medical History: Renal Disease Additional Family Medical History / Comment(s): FSGS Brother(s) Family Medical History: Renal Disease Additional Family Medical History / Comment(s): FSGS Father Family Medical History: Cancer, Coronary Artery Disease (CAD), Renal Disease Additional Family Medical History / Comment(s): renal disease-FSGS General Exam - General Exam Comments Initial Comments: General: The patient is awake and alert, in no distress, and does not appear acutely ill. Eye: +3 mm pupils are equal, round and reactive to light, extra-ocular movements are intact. No nystagmus. There is normal conjunctiva bilaterally. No signs of icterus. Ears, nose, mouth and throat: There are moist mucous membranes and no oral lesions. Neck: The neck is supple, there is no tenderness or JVD. Cardiovascular: There is a regular rate and rhythm. No murmur, rub or gallop is appreciated. Respiratory: Lungs are clear to auscultation, respirations are non-labored, breath sounds are equal. No wheezes, stridor, rales, or rhonchi. Gastrointestinal: Soft, non-distended, non-tender abdomen without masses or organomegaly noted. There is no rebound or guarding present. No pulsatile lesions Musculoskeletal: Normal ROM, no tenderness. Strength 5/5. Sensation intact. Pulses equal bilaterally 2+. Neurological: A&O x 3. CN II-XII intact, There are no obvious motor or sensory deficits. Coordination appears grossly intact. Speech is normal. Skin: Skin is warm and dry. Rough raised, lightly erythematous dermatitis on the back of hands b/l. No vesicular lesions, no macular lesions Psychiatric: Cooperative, appropriate mood & affect, normal judgment. Limitations: no limitations Course Vital Signs 05/24/20 05/24/20 05/24/20 16:51 18:06 18:39 Temperature 98.4 F 98.6 F Pulse Rate 111 H 90 Respiratory 18 18 Rate Blood Pressure 222/110 192/88 192/88 O2 Sat by Pulse 100 98 Oximetry Medical Decision Making - Medical Decision Making 45-year-old female presenting today for chief complaint of rash on hands. With history of physical examination findings that this is most likely contact dermatitis and recommended patient were protective gloves when at work, and change the agent used to cleanse hands. Steroids given for symptoms. Patient has elevated BP, asymptomatic. Treated in the ER, improvement. Patient states she will follow-up outpatient for blood pressure medications recommended taking blood pressure prior to taking the medications to ensure no hypotension. Discussed case with him provider Dr. Biggs who is agreeable to care plan and discharge. Disposition Clinical Impression: Contact dermatitis, Elevated blood pressure reading Disposition: HOME SELF-CARE Condition: Good Instructions (If sedation given, give patient instructions): DASH Eating Plan (ED), Hypertension (ED) Additional Instructions: Please use medication as discussed. Please follow-up with family doctor in the next 24-48 hours, please record BP prior to taking medications. Please return to emergency room if the symptoms increase or worsen or for any other concerns. Prescriptions: amLODIPine [Norvasc] 5 mg PO DAILY 7 Days #7 tab predniSONE 50 mg PO DAILY 4 Days #4 tab Is patient prescribed a controlled substance at d/c from ED?: No Referrals: Cahto Baldwin Jr, [Primary Care Provider] - 1-2 days Time of Disposition: 18:17
[2020-05-24 18:07] VITALS: BP 192/88
[2020-05-24 18:40] VITALS: PULSE 90; TEMP 98.6
== END 2020-05-24 18:40 | disposition home or self-care (01) ==
LOC: EC 16:42
DX: L25.9 Unspecified contact dermatitis, unspecified cause (principal); I10 Essential (primary) hypertension; F41.9 Anxiety disorder, unspecified; F32.9 Major depressive disorder, single episode, unspecified; Z79.82 Long term (current) use of aspirin; Z79.899 Other long term (current) drug therapy; Z88.8 Allergy status to other drugs, medicaments and biological substances; Z88.0 Allergy status to penicillin; Z88.5 Allergy status to narcotic agent; Z88.7 Allergy status to serum and vaccine; Z88.2 Allergy status to sulfonamides
CPT/HCPCS: 99283; 96372; J0360

== ENCOUNTER 2020-07-03 19:40 | Observation (INO) | payer OTHER ==
[2020-07-03] MEDS ORDERED: SODIUM CHLORIDE 0.9% 1,000 ML IV STA (19:57)
--- NOTE | 2020-07-03 20:01 | ED ---
General Adult HPI - General Chief complaint: Chest Pain Stated complaint: Chest Pain Time Seen by Provider: 07/03/20 19:43 Source: patient, EMS Mode of arrival: EMS Limitations: no limitations - History of Present Illness Initial comments: Dictation was produced using [employer] dictation software. please excuse any grammatical, word or spelling errors. This patient was cared for during a federal and state declared state of emergency secondary to Covid 19 Chief Complaint: 45-year-old female past medical history of hypertension, mitral valve prolapse, pseudotumor cerebri presents with chest pain History of Present Illness: 45-year-old female presents today with chest pain. The lacerated days she's been having chest pressure that radiates to her back. Denies any numbness and paresthesias to the arms or legs. Patient denies any history of coronary artery disease. Patient states never had symptoms like this before. She presents today to the emergency department because she feels like symptoms aren't improving. Denies any worsening symptoms with deep inspiration. She states sometimes it positions make it feel better. No associated diaphoresis. No associated nausea vomiting. No radiation to the shoulders or jaw. She has no history of DVT The ROS documented in this emergency department record has been reviewed and confirmed by me. Those systems with pertinent positive or negative responses have been documented in the HPI. All other systems are other negative and/or noncontributory. PHYSICAL EXAM: General Impression: Alert and oriented x3, not in acute distress HEENT: Normocephalic atraumatic, extra-ocular movements intact, pupils equal and reactive to light bilaterally, mucous membranes moist. Cardiovascular: Heart regular rate and rhythm Chest: Able to complete full sentences, no retractions, no tachypnea Abdomen: abdomen soft, non-tender, non-distended, no organomegaly Musculoskeletal: Pulses present and equal in all extremities, no peripheral edema Motor: no focal deficits noted Neurological: CN II-XII grossly intact, no focal motor or sensory deficits noted Skin: Intact with no visualized rashes Psych: Normal affect and mood ED course: 45-year-old female presents with atypical chest with typical features. As upon arrival are within acceptable limits. EKG does not show any signs of ischemia or infarction Laboratory evaluation obtained. CBC unremarkable. Coag panel unremarkable. D- dimer is negative. Metabolic panel is negative. Troponins negative. Chest x- ray was ordered showing no acute processes. Disposition options were discussed patient. Patient states that because of transportation issues she would prefer to be admitted observation for serial troponins. Patient given aspirin. Patient will be admitted observation for serial troponins. EKG interpretation: Ventricular rate 100, normal sinus rhythm,. 172, QRS 96, QTC 454. No AK prolongation, no QTC prolongation, no ST or T-wave changes noted. Overall, this EKG is unremarkable - Related Data Home Medications Medication Instructions Recorded Confirmed LORazepam [Ativan] 2 mg PO DAILY PRN 03/27/14 10/01/17 clonazePAM [KlonoPIN] 1 mg PO Q12H 03/27/14 10/01/17 Ranitidine HCl [Zantac] 150 mg PO BID 04/17/15 10/01/17 Cyclobenzaprine [Flexeril] 10 mg PO TID 09/22/16 10/01/17 Divalproex [Depakote] 250 mg PO BID 10/25/16 10/01/17 Aspirin [Adult Low Dose Aspirin EC] 162 mg PO DAILY 03/28/17 10/01/17 Ibuprofen [Motrin] 800 mg PO TID PRN 03/28/17 10/01/17 Ketoconazole 2% Cream [Nizoral 2%] 1 applic TOPICAL BID 03/28/17 10/01/17 diphenhydrAMINE HCL [Benadryl] 50 mg PO HS 03/28/17 10/01/17 Butalb/Acetaminophen/Caffeine 1 - 2 cap PO Q4HR PRN 10/01/17 10/01/17 [Fioricet 50-300-40 mg Capsule] acetaZOLAMIDE [Diamox Sequels] 500 mg PO DAILY 10/01/17 10/01/17 Previous Rx's Medication Instructions Recorded Ondansetron Odt [Zofran ODT] 4 mg PO Q8HR PRN #15 tab 08/09/15 HYDROcodone/APAP 5-325MG [Reading 1 - 2 tab PO Q6HR PRN #10 tab 03/28/17 5-325] Oseltamivir [Tamiflu] 75 mg PO Q12HR #10 cap 12/20/17 amLODIPine [Norvasc] 5 mg PO DAILY 7 Days #7 tab 05/24/20 predniSONE 50 mg PO DAILY 4 Days #4 tab 05/24/20 Allergies Allergy/AdvReac Type Severity Reaction Status Date / Time acetazolamide Allergy Rash/Hives Verified 07/03/20 19:48 [From Diamox Sequels] influenza virus vaccine, Allergy Unknown Verified 07/03/20 19:48 specific [influenza virus vacc,specific] Penicillins Allergy Rash/Hives Verified 07/03/20 19:48 topiramate [From Topamax] Allergy Rash/Hives Verified 07/03/20 19:48 codeine AdvReac Nausea Verified 07/03/20 19:48 Review of Systems ROS Statement: Those systems with pertinent positive or pertinent negative responses have been documented in the HPI. ROS Other: All systems not noted in ROS Statement are negative. Past Medical History Past Medical History: Chest Pain / Angina, GERD/Reflux, Hypertension, Mitral Valve Prolapse (MVP) Additional Past Medical History / Comment(s): PSEUDO TUMOR CEREBRI/ Medullary sponge kidney, chronic back pain, chronic headache, pt states she has never had a siezure. The pt states she takes antiepileptic for severe headaches. History of Any Multi-Drug Resistant Organisms: None Reported Past Surgical History: Cholecystectomy Additional Past Surgical History / Comment(s): LP SHUNT PLACEMENT AND REMOVAL, cholecystectomy in 2006. Past Anesthesia/Blood Transfusion Reactions: Previous Problems w/ Anesthesia, Malignant Hyperthermia, Motion Sickness Additional Past Anesthesia/Blood Transfusion Reaction / Comment(s): states difficulty breating with anesthesia Past Psychological History: Anxiety, Depression Smoking Status: Never smoker Past Alcohol Use History: None Reported Past Drug Use History: None Reported - Past Family History Sister(s) Family Medical History: Renal Disease Additional Family Medical History / Comment(s): FSGS Brother(s) Family Medical History: Renal Disease Additional Family Medical History / Comment(s): FSGS Father Family Medical History: Cancer, Coronary Artery Disease (CAD), Renal Disease Additional Family Medical History / Comment(s): renal disease-FSGS General Exam Limitations: no limitations Course Vital Signs 07/03/20 19:44 Temperature 98.9 F Pulse Rate 105 H Respiratory 18 Rate Blood Pressure 170/86 O2 Sat by Pulse 100 Oximetry Medical Decision Making - Lab Data Result diagrams: 07/03/20 20:05 07/03/20 20:05 Lab Results 07/03/20 07/03/20 07/03/20 Range/Units 20:05 20:05 20:05 WBC 10.2 (3.8-10.6) k/uL RBC 4.62 (3.80-5.40) m/uL Hgb 10.8 L (11.4-16.0) gm/dL Hct 34.4 (34.0-46.0) % MCV 74.4 L (80.0-100.0) fL MCH 23.3 L (25.0-35.0) pg MCHC 31.4 (31.0-37.0) g/dL RDW 17.2 H (11.5-15.5) % Plt Count 334 (150-450) k/uL Neutrophils % 70 % Lymphocytes % 23 % Monocytes % 4 % Eosinophils % 2 % Basophils % 1 % Neutrophils # 7.1 (1.3-7.7) k/uL Lymphocytes # 2.3 (1.0-4.8) k/uL Monocytes # 0.4 (0-1.0) k/uL Eosinophils # 0.2 (0-0.7) k/uL Basophils # 0.1 (0-0.2) k/uL Hypochromasia Marked Anisocytosis Slight Microcytosis Moderate PT 9.7 (9.0-12.0) sec INR 0.9 (<1.2) APTT 21.8 L (22.0-30.0) sec D-Dimer 0.21 (<0.60) mg/L FEU Sodium 137 (137-145) mmol/L Potassium 4.2 (3.5-5.1) mmol/L Chloride 106 (98-107) mmol/L Carbon Dioxide 26 (22-30) mmol/L Anion Gap 5 mmol/L BUN 17 (7-17) mg/dL Creatinine 0.88 (0.52-1.04) mg/dL Est GFR (CKD-EPI)AfAm >90 (>60 ml/min/1.73 sqM) Est GFR (CKD-EPI)NonAf 81 (>60 ml/min/1.73 sqM) Glucose 101 H (74-99) mg/dL Calcium 9.1 (8.4-10.2) mg/dL Magnesium 1.9 (1.6-2.3) mg/dL Total Bilirubin 0.2 (0.2-1.3) mg/dL AST 16 (14-36) U/L ALT 9 (4-34) U/L Alkaline Phosphatase 71 (38-126) U/L Troponin I (0.000-0.034) ng/mL Total Protein 6.5 (6.3-8.2) g/dL Albumin 3.7 (3.5-5.0) g/dL 07/03/20 Range/Units 20:05 WBC (3.8-10.6) k/uL RBC (3.80-5.40) m/uL Hgb (11.4-16.0) gm/dL Hct (34.0-46.0) % MCV (80.0-100.0) fL MCH (25.0-35.0) pg MCHC (31.0-37.0) g/dL RDW (11.5-15.5) % Plt Count (150-450) k/uL Neutrophils % % Lymphocytes % % Monocytes % % Eosinophils % % Basophils % % Neutrophils # (1.3-7.7) k/uL Lymphocytes # (1.0-4.8) k/uL Monocytes # (0-1.0) k/uL Eosinophils # (0-0.7) k/uL Basophils # (0-0.2) k/uL Hypochromasia Anisocytosis Microcytosis PT (9.0-12.0) sec INR (<1.2) APTT (22.0-30.0) sec D-Dimer (<0.60) mg/L FEU Sodium (137-145) mmol/L Potassium (3.5-5.1) mmol/L Chloride (98-107) mmol/L Carbon Dioxide (22-30) mmol/L Anion Gap mmol/L BUN (7-17) mg/dL Creatinine (0.52-1.04) mg/dL Est GFR (CKD-EPI)AfAm (>60 ml/min/1.73 sqM) Est GFR (CKD-EPI)NonAf (>60 ml/min/1.73 sqM) Glucose (74-99) mg/dL Calcium (8.4-10.2) mg/dL Magnesium (1.6-2.3) mg/dL Total Bilirubin (0.2-1.3) mg/dL AST (14-36) U/L ALT (4-34) U/L Alkaline Phosphatase (38-126) U/L Troponin I <0.012 (0.000-0.034) ng/mL Total Protein (6.3-8.2) g/dL Albumin (3.5-5.0) g/dL Disposition Clinical Impression: Chest pain Disposition: ADMITTED IP TO THIS [facility] Condition: Fair Referrals: Chato Baldwin Jr, [Primary Care Provider] - 1-2 days Decision Time: 21:09
[2020-07-03] MEDS ORDERED: KETOROLAC 30 MG/ML 1 ML VIAL IVP STA (20:06)
[2020-07-03 20:20] LABS: Anisocytosis Slight; Basophils # (A) 0.1 k/uL (0-0.2); Basophils % (A) 1 %; Eosinophils # (A) 0.2 k/uL (0-0.7); Eosinophils % (A) 2 %; HCT 34.4 % (34.0-46.0); HGB 10.8 gm/dL (11.4-16.0); Hypochromasia Marked; Lymphocytes # (A) 2.3 k/uL (1.0-4.8); Lymphocytes % (A) 23 %; MCH 23.3 pg (25.0-35.0); MCHC 31.4 g/dL (31.0-37.0); MCV 74.4 fL (80.0-100.0); Mean Platelet Volume 9.1; Microcytosis Moderate; Monocytes # (A) 0.4 k/uL (0-1.0); Monocytes % (A) 4 %; Neutrophils # (A) 7.1 k/uL (1.3-7.7); Neutrophils % (A) 70 %; Platelet Count 334 k/uL (150-450); RBC 4.62 m/uL (3.80-5.40); RDW 17.2 % (11.5-15.5); WBC 10.2 k/uL (3.8-10.6)
--- NOTE | 2020-07-03 20:35 | XR ---
EXAMINATION TYPE: XR chest 2V DATE OF EXAM: 07/03/2020 COMPARISON: Chest x-ray December 20, 2017. HISTORY: Chest pain. TECHNIQUE: Frontal and lateral views of the chest are obtained. FINDINGS: There is no focal air space opacity, pleural effusion, or pneumothorax seen. The cardiac silhouette size remains within normal limits. The osseous structures are intact. IMPRESSION: No acute cardiopulmonary process currently.
[2020-07-03 20:41] LABS: ALT 9 U/L (4-34); AST 16 U/L (14-36); African American GFR (CKD) >90 (>60 ml/min/1.73 sqM); Albumin 3.7 g/dL (3.5-5.0); Alkaline Phosphatase 71 U/L (38-126); Anion Gap 5 mmol/L; Blood Urea Nitrogen 17 mg/dL (7-17); Calcium 9.1 mg/dL (8.4-10.2); Carbon Dioxide 26 mmol/L (22-30); Chloride 106 mmol/L (98-107); Glucose 101 mg/dL (74-99); Magnesium 1.9 mg/dL (1.6-2.3); Non-African American GFR(CKD) 81 (>60 ml/min/1.73 sqM); Potassium 4.2 mmol/L (3.5-5.1); Sodium 137 mmol/L (137-145); Total Bilirubin 0.2 mg/dL (0.2-1.3); Total Protein 6.5 g/dL (6.3-8.2)
[2020-07-03 20:45] LABS: D-Dimer 0.21 mg/L FEU (<0.60); INR 0.9 (<1.2); Prothrombin Time 9.7 sec (9.0-12.0)
[2020-07-03 20:50] LABS: Partial Thromboplastin Time 21.8 sec (22.0-30.0)
[2020-07-03] MEDS ORDERED: NITROGLYCERIN SL TABS 0.4 MG TAB SUBLINGUAL PRN (20:59)
[2020-07-03] MEDS: ASPIRIN 81 MG PO STA (21:55)
[2020-07-04] MEDS ORDERED: ACETAMINOPHEN TAB 500 MG TAB PO SCH
[2020-07-04] MEDS ORDERED: ONDANSETRON 4 MG TAB PO PRN (00:26)
[2020-07-04] MEDS ORDERED: IBUPROFEN 800 MG TAB PO PRN (00:26)
[2020-07-04 02:06] LABS: Cholesterol 178 mg/dL (<200); HDL Cholesterol 43 mg/dL (40-60); LDL Cholesterol,Calculated 119 mg/dL (0-99); Triglycerides 79 mg/dL (<150)
[2020-07-04 08:38] VITALS: BP 180/88; RESP 16; TEMP 97.4
[2020-07-04] MEDS ORDERED: lisinopriL 10 MG TAB PO SCH (09:00)
[2020-07-04] MEDS ORDERED: amLODIPine 5 MG TAB PO SCH (09:00)
[2020-07-04] MEDS ORDERED: clonazePAM 1 MG TAB PO SCH (09:00)
[2020-07-04] MEDS ORDERED: ASPIRIN 325 MG TAB PO SCH (09:00)
[2020-07-04] MEDS ORDERED: CYCLOBENZAPRINE 10 MG TAB PO SCH (09:00)
[2020-07-04] MEDS ORDERED: DIVALPROEX 250 MG TABLET.DR PO SCH (09:00)
[2020-07-04 09:35] VITALS: PULSE 82
--- NOTE | 2020-07-04 12:51 | P.HPIM ---
History of Present Illness H&P Date: 07/04/20 Chief Complaint: Chest pain Hannah is a 45-year-old female patient well-known to my practice who presented to the hospital via the emergency room with chest pain. Patient states this is been radiating to her back. Denies numbness or paresthesias in the arms or legs and denies history of coronary artery disease. States symptoms do not get worse with breathing. Changing positions makes it feel better no associated diaphoresis no nausea or vomiting no radiation to the shoulders or jaw. Review of Systems Constitutional: Reports as per HPI Ears, nose, mouth and throat: Reports as per HPI Cardiovascular: Reports chest pain Respiratory: Reports as per HPI Gastrointestinal: Reports as per HPI Genitourinary: Reports as per HPI Menstruation: Reports as per HPI Musculoskeletal: Reports as per HPI Integumentary: Reports as per HPI Neurological: Reports as per HPI Psychiatric: Reports as per HPI Past Medical History Past Medical History: Chest Pain / Angina, GERD/Reflux, Hypertension, Mitral Valve Prolapse (MVP) Additional Past Medical History / Comment(s): PSEUDO TUMOR CEREBRI/ Medullary sponge kidney, chronic back pain, chronic headache, pt states she has never had a siezure. The pt states she takes antiepileptic for severe headaches. History of Any Multi-Drug Resistant Organisms: None Reported Past Surgical History: Cholecystectomy Additional Past Surgical History / Comment(s): LP SHUNT PLACEMENT AND REMOVAL, cholecystectomy in 2006. Past Anesthesia/Blood Transfusion Reactions: Previous Problems w/ Anesthesia, Malignant Hyperthermia, Motion Sickness Additional Past Anesthesia/Blood Transfusion Reaction / Comment(s): states difficulty breating with anesthesia Past Psychological History: Anxiety, Depression Smoking Status: Never smoker Past Alcohol Use History: None Reported Past Drug Use History: None Reported - Past Family History Sister(s) Family Medical History: Renal Disease Additional Family Medical History / Comment(s): FSGS Brother(s) Family Medical History: Renal Disease Additional Family Medical History / Comment(s): FSGS Father Family Medical History: Cancer, Coronary Artery Disease (CAD), Renal Disease Additional Family Medical History / Comment(s): renal disease-FSGS Medications and Allergies Home Medications Medication Instructions Recorded Confirmed Type clonazePAM [KlonoPIN] 1 mg PO BID 03/27/14 07/03/20 History Cyclobenzaprine [Flexeril] 10 mg PO TID 09/22/16 07/03/20 History Divalproex [Depakote] 250 mg PO BID 10/25/16 07/03/20 History Ibuprofen [Motrin] 800 mg PO TID PRN 03/28/17 07/03/20 History amLODIPine [Norvasc] 5 mg PO DAILY 7 Days #7 tab 05/24/20 07/03/20 Rx Acetaminophen [Tylenol Extra 500 mg PO Q6H 07/03/20 07/03/20 History Strength] Omeprazole 20 mg PO HS 07/03/20 07/03/20 History Ondansetron HCl [Zofran] 4 mg PO Q8H PRN 07/03/20 07/03/20 History lisinopriL [Zestril] 10 mg PO DAILY 07/03/20 07/03/20 History Allergies Allergy/AdvReac Type Severity Reaction Status Date / Time acetazolamide Allergy Rash/Hives Verified 07/03/20 21:20 [From Diamox Sequels] influenza virus vaccine, Allergy Unknown Verified 07/03/20 21:20 specific [influenza virus vacc,specific] Penicillins Allergy Rash/Hives Verified 07/03/20 21:20 topiramate [From Topamax] Allergy Rash/Hives Verified 07/03/20 21:20 codeine AdvReac Nausea Verified 07/03/20 21:20 Physical Exam Osteopathic Statement: *. No significant issues noted on an osteopathic structural exam other than those noted in the History and Physical/Consult. Vitals: Vital Signs Temp Pulse Pulse Pulse Resp BP BP 07/04/20 09:00 82 89 16 07/04/20 08:35 97.4 F L 89 16 180/88 07/04/20 03:00 97.6 F 82 79 18 138/84 07/04/20 00:22 164/85 07/04/20 00:03 98.1 F 100 100 18 07/03/20 21:53 98.4 F 96 16 153/84 07/03/20 21:00 92 16 154/85 07/03/20 20:00 93 16 171/93 07/03/20 19:44 98.9 F 105 H 18 170/86 Pulse Ox 07/04/20 09:00 07/04/20 08:35 99 07/04/20 03:00 99 07/04/20 00:22 07/04/20 00:03 99 07/03/20 21:53 98 07/03/20 21:00 07/03/20 20:00 97 07/03/20 19:44 100 Intake and Output 07/03/20 07/04/20 07/04/20 22:59 06:59 14:59 Intake Total 400 Balance 400 Intake: Oral 400 Other: Voiding Method Toilet Toilet # Voids 2 1 Weight 99.79 kg Vital signs are stable patient is afebrile has no current complaints General: [Patient awake, alert and oriented times 3. Patient in no acute distress.] HEENT: [PERRL. EOMI. No pharyngeal erythema or exudate.] Neck: [No adenopathy.] Cardiac: [Heart regular in rate and rhythm. No S3. No S4. No clicks, rubs. No murmur.] Lungs: [Clear to auscultation bilaterally.] Abdomen: [No mass. No organomegaly. Bowel sounds presnt and normoactive in all 4 quadrants.] Extremes: [No edema no cyanosis no claudication normal pulses] : Normal female genitalia Musculoskeletal: [No joint erythema, edema or tenderness.] Skin: [No rash.] Neurologic: [No lateralizing deficits. CN II - XII grossly intact.] Lymphatic: [No adenopathy.] Results CBC & Chem 7: 07/03/20 20:05 07/03/20 20:05 Labs: Abnormal Lab Results - Last 24 Hours (Table) 07/03/20 07/03/20 07/03/20 Range/Units 20:05 20:05 20:05 Hgb 10.8 L (11.4-16.0) gm/dL MCV 74.4 L (80.0-100.0) fL MCH 23.3 L (25.0-35.0) pg RDW 17.2 H (11.5-15.5) % APTT 21.8 L (22.0-30.0) sec Glucose 101 H (74-99) mg/dL LDL Cholesterol, Calc (0-99) mg/dL 07/04/20 Range/Units 01:29 Hgb (11.4-16.0) gm/dL MCV (80.0-100.0) fL MCH (25.0-35.0) pg RDW (11.5-15.5) % APTT (22.0-30.0) sec Glucose (74-99) mg/dL LDL Cholesterol, Calc 119 H (0-99) mg/dL Thrombosis Risk Factor Assmnt - Choose All That Apply Each Factor Represents 1 point: Age 41-60 years, Obesity (BMI >25) Thrombosis Risk Factor Assessment Total Risk Factor Score: 2 Thrombosis Risk Factor Assessment Level: Low Risk Assessment and Plan (1) Chest pain Current Visit: Yes Status: Acute Code(s): R07.9 - CHEST PAIN, UNSPECIFIED SNOMED Code(s): 83672863 (2) Abdominal pain Current Visit: No Status: Acute Code(s): R10.9 - UNSPECIFIED ABDOMINAL PAIN SNOMED Code(s): 93986079 (3) Headache Current Visit: No Status: Acute Code(s): R51 - HEADACHE SNOMED Code(s): 16609680 Plan: All 3 troponins are within normal limits Cardiac disease is not likely We will be discharging patient home Will follow up on Friday as an outpatient in the office Time with Patient: Greater than 30
--- NOTE | 2020-07-04 12:54 | P.DS ---
Providers Date of admission: 07/03/20 21:00 Expected date of discharge: 07/04/20 Attending physician: Andi Munson Primary care physician: Chato Baldwin - Discharge Diagnosis(es) (1) Chest pain Current Visit: Yes Status: Acute (2) Abdominal pain Current Visit: No Status: Acute (3) Headache Current Visit: No Status: Acute Patient Condition at Discharge: Fair Plan - Discharge Summary Discharge Rx Participant: No New Discharge Prescriptions: No Action clonazePAM [KlonoPIN] 1 mg PO BID Cyclobenzaprine [Flexeril] 10 mg PO TID Divalproex [Depakote] 250 mg PO BID Ibuprofen [Motrin] 800 mg PO TID PRN PRN Reason: Pain amLODIPine [Norvasc] 5 mg PO DAILY 7 Days #7 tab Omeprazole 20 mg PO HS lisinopriL [Zestril] 10 mg PO DAILY Ondansetron HCl [Zofran] 4 mg PO Q8H PRN PRN Reason: Nausea And Vomiting Acetaminophen [Tylenol Extra Strength] 500 mg PO Q6H Discharge Medication List clonazePAM [KlonoPIN] 1 mg PO BID 03/27/14 [History] Cyclobenzaprine [Flexeril] 10 mg PO TID 09/22/16 [History] Divalproex [Depakote] 250 mg PO BID 10/25/16 [History] Ibuprofen [Motrin] 800 mg PO TID PRN 03/28/17 [History] amLODIPine [Norvasc] 5 mg PO DAILY 7 Days #7 tab 05/24/20 [Rx] Acetaminophen [Tylenol Extra Strength] 500 mg PO Q6H 07/03/20 [History] Omeprazole 20 mg PO HS 07/03/20 [History] Ondansetron HCl [Zofran] 4 mg PO Q8H PRN 07/03/20 [History] lisinopriL [Zestril] 10 mg PO DAILY 07/03/20 [History] Follow up Appointment(s)/Referral(s): Chato Baldwin Jr, [Primary Care Provider] - 1-2 days
[2020-07-04] MEDS ORDERED: PANTOPRAZOLE 40 MG TABLET PO SCH (21:00)
== END 2020-07-04 13:23 ==
LOC: EC 19:40 → 3NCARDOBS 21:00
PROVIDERS: ADMIT Family Medicine; ATTEND Family Medicine
DX: R07.89 Other chest pain (principal); F32.9 Major depressive disorder, single episode, unspecified; F41.9 Anxiety disorder, unspecified; I10 Essential (primary) hypertension; I34.1 Nonrheumatic mitral (valve) prolapse; Z79.82 Long term (current) use of aspirin; Z79.899 Other long term (current) drug therapy; Z82.49 Family history of ischemic heart disease and other diseases of the circulatory system; Z90.49 Acquired absence of other specified parts of digestive tract; Z84.1 Family history of disorders of kidney and ureter; Z88.5 Allergy status to narcotic agent; Z88.0 Allergy status to penicillin; Z88.7 Allergy status to serum and vaccine; Z88.8 Allergy status to other drugs, medicaments and biological substances; R10.9 Unspecified abdominal pain; R51 Headache
CPT/HCPCS: 93005 ×2; 96374; 99285; 36415; 85379; 80061; 80053; 83735; 84484 ×2; 85025; 85610; 85730; 71046; G0378 ×2; J1885

== ENCOUNTER 2020-09-13 23:38 | Emergency (ER) | payer OTHER ==
[2020-09-13 23:42] VITALS: BP 175/105; PULSE 109; RESP 20; TEMP 97.9
[2020-09-14] MEDS ORDERED: MORPHINE SULFATE 4 MG/ML SYRINGE IM STA (00:08)
[2020-09-14] MEDS ORDERED: PENICILLIN VK 500MG STARTER 4 TAB BTL PO STA (00:09)
[2020-09-14] MEDS ORDERED: traMADol 50 MG STARTER PACK 3 TAB BTL PO STA (00:09)
--- NOTE | 2020-09-14 00:10 | ED ---
General Adult HPI - General Chief complaint: Dental/Oral Stated complaint: Jaw Pain Time Seen by Provider: 09/13/20 23:51 Source: patient Mode of arrival: ambulatory Limitations: no limitations - History of Present Illness Initial comments: 45-year-old female patient presents to the emergency department today for evaluation of left lower dental pain. Patient states 2 days ago she broke her molar. States she's been having pain since but is seems to be worsening. Patient states she did attempt to call dentist today and is awaiting a return call. She denies any fever or chills. Denies any trismus or difficulty swallowing. Denies nausea or vomiting. Denies any facial swelling. - Related Data Home Medications Medication Instructions Recorded Confirmed clonazePAM [KlonoPIN] 1 mg PO BID 03/27/14 07/03/20 Cyclobenzaprine [Flexeril] 10 mg PO TID 09/22/16 07/03/20 Divalproex [Depakote] 250 mg PO BID 10/25/16 07/03/20 Ibuprofen [Motrin] 800 mg PO TID PRN 03/28/17 07/03/20 Acetaminophen [Tylenol Extra 500 mg PO Q6H 07/03/20 07/03/20 Strength] Omeprazole 20 mg PO HS 07/03/20 07/03/20 Ondansetron HCl [Zofran] 4 mg PO Q8H PRN 07/03/20 07/03/20 lisinopriL [Zestril] 10 mg PO DAILY 07/03/20 07/03/20 Previous Rx's Medication Instructions Recorded amLODIPine [Norvasc] 5 mg PO DAILY 7 Days #7 tab 05/24/20 Allergies Allergy/AdvReac Type Severity Reaction Status Date / Time acetazolamide Allergy Rash/Hives Verified 09/13/20 23:42 [From Diamox Sequels] influenza virus vaccine, Allergy Unknown Verified 09/13/20 23:42 specific [influenza virus vacc,specific] topiramate [From Topamax] Allergy Rash/Hives Verified 09/13/20 23:42 codeine AdvReac Nausea Verified 09/13/20 23:42 Review of Systems ROS Statement: Those systems with pertinent positive or pertinent negative responses have been documented in the HPI. ROS Other: All systems not noted in ROS Statement are negative. Past Medical History Past Medical History: Chest Pain / Angina, GERD/Reflux, Hypertension, Mitral Valve Prolapse (MVP) Additional Past Medical History / Comment(s): PSEUDO TUMOR CEREBRI/ Medullary sponge kidney, chronic back pain, chronic headache, pt states she has never had a siezure. The pt states she takes antiepileptic for severe headaches. History of Any Multi-Drug Resistant Organisms: None Reported Past Surgical History: Cholecystectomy Additional Past Surgical History / Comment(s): LP SHUNT PLACEMENT AND REMOVAL, cholecystectomy in 2006. Past Anesthesia/Blood Transfusion Reactions: Previous Problems w/ Anesthesia, Malignant Hyperthermia, Motion Sickness Additional Past Anesthesia/Blood Transfusion Reaction / Comment(s): states difficulty breating with anesthesia Past Psychological History: Anxiety, Depression Smoking Status: Never smoker Past Alcohol Use History: None Reported Past Drug Use History: None Reported - Past Family History Sister(s) Family Medical History: Renal Disease Additional Family Medical History / Comment(s): FSGS Brother(s) Family Medical History: Renal Disease Additional Family Medical History / Comment(s): FSGS Father Family Medical History: Cancer, Coronary Artery Disease (CAD), Renal Disease Additional Family Medical History / Comment(s): renal disease-FSGS General Exam Limitations: no limitations General appearance: alert, in no apparent distress, other (Physical well- developed, well-nourished adult female patient in no acute distress. Vital signs upon presentation are temperature 97.9F, pulse 109, respirations 20, blood pressure 175/105, pulse ox 100% on room air.) ENT exam: Present: mucous membranes moist, other (There is broken tooth #17. No surrounding gingival erythema or hyperplasia. No evidence for drainable abscess.). Absent: normal exam Respiratory exam: Present: normal lung sounds bilaterally. Absent: respiratory distress, wheezes, rales, rhonchi, stridor Cardiovascular Exam: Present: regular rate, normal rhythm, normal heart sounds. Absent: systolic murmur, diastolic murmur, rubs, gallop, clicks Neurological exam: Present: alert, oriented X3, CN II-XII intact Psychiatric exam: Present: normal affect, normal mood Skin exam: Present: warm, dry, intact, normal color. Absent: rash Course Vital Signs 09/13/20 23:38 Temperature 97.9 F Pulse Rate 109 H Respiratory 20 Rate Blood Pressure 175/105 O2 Sat by Pulse 100 Oximetry Medical Decision Making - Medical Decision Making 45-year-old female patient presents to the emergency department today for evaluation of left lower dental pain. Patient did fracture her tooth #17 2 days ago. Physical examination did reveal broken tooth, no surrounding gingival erythema or hyperplasia. No evidence for drainable abscess. She does have history of mitral valve prolapse we will start penicillin prophylactically. She is given pain medications here. She be discharged to follow-up with dentistry for recheck as soon as possible. Return parameters were discussed in detail. She verbalizes understanding and agrees with this plan. Disposition Clinical Impression: Fractured tooth, Pain, dental Disposition: HOME SELF-CARE Condition: Good Instructions (If sedation given, give patient instructions): Toothache (ED) Additional Instructions: Take medications as directed. Follow-up with your dentist for recheck tomorrow. Return to the emergency department immediately for any new, worsening, or concerning symptoms. Is patient prescribed a controlled substance at d/c from ED?: No Referrals: Chato Baldwin Jr, [Primary Care Provider] - 1-2 days Time of Disposition: 00:10
== END 2020-09-14 00:30 | disposition home or self-care (01) ==
LOC: EC 23:38
DX: S02.5XXA Fracture of tooth (traumatic), initial encounter for closed fracture (principal); K08.89 Other specified disorders of teeth and supporting structures; I10 Essential (primary) hypertension; F41.9 Anxiety disorder, unspecified; F32.9 Major depressive disorder, single episode, unspecified; K21.9 Gastro-esophageal reflux disease without esophagitis; Z79.899 Other long term (current) drug therapy; Z88.5 Allergy status to narcotic agent; Z88.8 Allergy status to other drugs, medicaments and biological substances; Z88.1 Allergy status to other antibiotic agents; Z88.7 Allergy status to serum and vaccine
CPT/HCPCS: 99283; 96372; J2270

== ENCOUNTER 2020-09-16 13:29 | Emergency (ER) | payer OTHER ==
[2020-09-16 13:32] VITALS: BP 166/119; PULSE 91; RESP 18; TEMP 98
[2020-09-16] MEDS ORDERED: traMADol 50 MG STARTER PACK 3 TAB BTL PO STA (13:38)
--- NOTE | 2020-09-16 13:42 | ED ---
ENT HPI - General Chief complaint: Dental/Oral Stated complaint: dental/jaw pain Time Seen by Provider: 09/16/20 13:33 Source: patient, RN notes reviewed Mode of arrival: ambulatory Limitations: no limitations - History of Present Illness Initial comments: This a 45-year-old female presents emergency from chief complaint of dental pain. Patient states she was seen here and was given a dose of penicillin along with tramadol starter pack. She states the pain is increased. She states that the dentist did not give urine but she supposed to follow-up on Friday. Patient denies any fevers or chills no trismus no other complaints or difficulty swelling. - Related Data Home Medications Medication Instructions Recorded Confirmed clonazePAM [KlonoPIN] 1 mg PO BID 03/27/14 07/03/20 Cyclobenzaprine [Flexeril] 10 mg PO TID 09/22/16 07/03/20 Divalproex [Depakote] 250 mg PO BID 10/25/16 07/03/20 Ibuprofen [Motrin] 800 mg PO TID PRN 03/28/17 07/03/20 Acetaminophen [Tylenol Extra 500 mg PO Q6H 07/03/20 07/03/20 Strength] Omeprazole 20 mg PO HS 07/03/20 07/03/20 Ondansetron HCl [Zofran] 4 mg PO Q8H PRN 07/03/20 07/03/20 lisinopriL [Zestril] 10 mg PO DAILY 07/03/20 07/03/20 Previous Rx's Medication Instructions Recorded amLODIPine [Norvasc] 5 mg PO DAILY 7 Days #7 tab 05/24/20 Penicillin V Potassium [Pen Vee K] 500 mg PO QID #40 tablet 09/16/20 traMADol HCl [Ultram] 50 mg PO Q6H PRN #12 tab 09/16/20 Allergies Allergy/AdvReac Type Severity Reaction Status Date / Time acetazolamide Allergy Rash/Hives Verified 09/16/20 13:32 [From Diamox Sequels] influenza virus vaccine, Allergy Unknown Verified 09/16/20 13:32 specific [influenza virus vacc,specific] topiramate [From Topamax] Allergy Rash/Hives Verified 09/16/20 13:32 codeine AdvReac Nausea Verified 09/16/20 13:32 Review of Systems ROS Statement: Those systems with pertinent positive or pertinent negative responses have been documented in the HPI. ROS Other: All systems not noted in ROS Statement are negative. Past Medical History Past Medical History: Chest Pain / Angina, GERD/Reflux, Hypertension, Mitral Valve Prolapse (MVP) Additional Past Medical History / Comment(s): PSEUDO TUMOR CEREBRI/ Medullary sponge kidney, chronic back pain, chronic headache, pt states she has never had a siezure. The pt states she takes antiepileptic for severe headaches. History of Any Multi-Drug Resistant Organisms: None Reported Past Surgical History: Cholecystectomy Additional Past Surgical History / Comment(s): LP SHUNT PLACEMENT AND REMOVAL, cholecystectomy in 2006. Past Anesthesia/Blood Transfusion Reactions: Previous Problems w/ Anesthesia, Malignant Hyperthermia, Motion Sickness Additional Past Anesthesia/Blood Transfusion Reaction / Comment(s): states difficulty breating with anesthesia Past Psychological History: Anxiety, Depression Smoking Status: Never smoker Past Alcohol Use History: None Reported Past Drug Use History: None Reported - Past Family History Sister(s) Family Medical History: Renal Disease Additional Family Medical History / Comment(s): FSGS Brother(s) Family Medical History: Renal Disease Additional Family Medical History / Comment(s): FSGS Father Family Medical History: Cancer, Coronary Artery Disease (CAD), Renal Disease Additional Family Medical History / Comment(s): renal disease-FSGS General Exam Limitations: no limitations General appearance: alert, in no apparent distress Head exam: Present: atraumatic, normocephalic, normal inspection Eye exam: Present: normal appearance, PERRL, EOMI. Absent: scleral icterus, conjunctival injection, periorbital swelling ENT exam: Present: mucous membranes moist, TM's normal bilaterally, normal external ear exam, other (No abscess). Absent: normal oropharynx (Dental fracture left lower posterior) Neck exam: Present: normal inspection, full ROM. Absent: tenderness, meningismus, lymphadenopathy Respiratory exam: Present: normal lung sounds bilaterally. Absent: respiratory distress, wheezes, rales, rhonchi, stridor Cardiovascular Exam: Present: regular rate, normal rhythm, normal heart sounds. Absent: systolic murmur, diastolic murmur, rubs, gallop, clicks Course Vital Signs 09/16/20 13:30 Temperature 98.0 F Pulse Rate 91 Respiratory 18 Rate Blood Pressure 166/119 O2 Sat by Pulse 100 Oximetry Medical Decision Making - Medical Decision Making 45-year-old presented for dental pain. Patient was given tramadol prescription, she'll continue ibuprofen and penVK. Patient has an appointment on Friday and return parameters were discussed. Disposition Clinical Impression: Fractured tooth, Pain, dental Disposition: HOME SELF-CARE Condition: Stable Instructions (If sedation given, give patient instructions): Toothache (ED) Additional Instructions: Please return to the Emergency Department if symptoms worsen or any other concerns. Prescriptions: Penicillin V Potassium [Pen Vee K] 500 mg PO QID #40 tablet traMADol HCl [Ultram] 50 mg PO Q6H PRN #12 tab PRN Reason: Pain Is patient prescribed a controlled substance at d/c from ED?: Yes When asked, does pt state using other controlled substances?: No If prescribed controlled substance>3 days was MAPS reviewed?: Prescribed <3 Days If opioid is for acute pain is fill amount 7 days or less?: Yes If Rx opioid, was Start Talking consent form obtained?: Yes Referrals: Chato Baldwin Jr, [Primary Care Provider] - 1-2 days Time of Disposition: 13:41
== END 2020-09-16 13:52 | disposition home or self-care (01) ==
LOC: EC 13:29
DX: S02.5XXA Fracture of tooth (traumatic), initial encounter for closed fracture (principal); F41.9 Anxiety disorder, unspecified; F32.9 Major depressive disorder, single episode, unspecified; K21.9 Gastro-esophageal reflux disease without esophagitis; I10 Essential (primary) hypertension; I20.9 Angina pectoris, unspecified; Z79.899 Other long term (current) drug therapy; Z88.5 Allergy status to narcotic agent; Z88.7 Allergy status to serum and vaccine; Z88.8 Allergy status to other drugs, medicaments and biological substances; X58.XXXA Exposure to other specified factors, initial encounter
CPT/HCPCS: 99282

== ENCOUNTER 2020-11-21 10:08 | Emergency (ER) | payer OTHER ==
[2020-11-21 10:12] VITALS: BP 166/97; PULSE 98; RESP 18; TEMP 98.6
--- NOTE | 2020-11-21 10:35 | ED ---
Lower Extremity Injury HPI - General Chief Complaint: Extremity Injury, Lower Stated Complaint: foot injury Time Seen by Provider: 11/21/20 10:15 Source: patient, RN notes reviewed Mode of arrival: ambulatory Limitations: no limitations - History of Present Illness Initial Comments: 45-year-old female presents emergency Department with chief complaint of right ankle right foot pain. Patient states she is calming down steps do not see a can of food on the ground states that she rolled her ankle. Patient has lateral right ankle and right foot pain. Denies any paresthesias no pain proximal to her right ankle no head injury no loss conscious. - Related Data Home Medications Medication Instructions Recorded Confirmed clonazePAM [KlonoPIN] 1 mg PO BID 03/27/14 07/03/20 Cyclobenzaprine [Flexeril] 10 mg PO TID 09/22/16 07/03/20 Divalproex [Depakote] 250 mg PO BID 10/25/16 07/03/20 Ibuprofen [Motrin] 800 mg PO TID PRN 03/28/17 07/03/20 Acetaminophen [Tylenol Extra 500 mg PO Q6H 07/03/20 07/03/20 Strength] Omeprazole 20 mg PO HS 07/03/20 07/03/20 Ondansetron HCl [Zofran] 4 mg PO Q8H PRN 07/03/20 07/03/20 lisinopriL [Zestril] 10 mg PO DAILY 07/03/20 07/03/20 Previous Rx's Medication Instructions Recorded amLODIPine [Norvasc] 5 mg PO DAILY 7 Days #7 tab 05/24/20 Allergies Allergy/AdvReac Type Severity Reaction Status Date / Time acetazolamide Allergy Rash/Hives Verified 11/21/20 10:53 [From Diamox Sequels] influenza virus vaccine, Allergy Unknown Verified 11/21/20 10:53 specific [influenza virus vacc,specific] topiramate [From Topamax] Allergy Rash/Hives Verified 11/21/20 10:53 codeine AdvReac Nausea Verified 11/21/20 10:53 Review of Systems ROS Statement: Those systems with pertinent positive or pertinent negative responses have been documented in the HPI. ROS Other: All systems not noted in ROS Statement are negative. Past Medical History Past Medical History: Chest Pain / Angina, GERD/Reflux, Hypertension, Mitral Valve Prolapse (MVP) Additional Past Medical History / Comment(s): PSEUDO TUMOR CEREBRI/ Medullary sponge kidney, chronic back pain, chronic headache, pt states she has never had a siezure. The pt states she takes antiepileptic for severe headaches. History of Any Multi-Drug Resistant Organisms: None Reported Past Surgical History: Cholecystectomy Additional Past Surgical History / Comment(s): LP SHUNT PLACEMENT AND REMOVAL, cholecystectomy in 2006. Past Anesthesia/Blood Transfusion Reactions: Previous Problems w/ Anesthesia, Malignant Hyperthermia, Motion Sickness Additional Past Anesthesia/Blood Transfusion Reaction / Comment(s): states difficulty breating with anesthesia Past Psychological History: Anxiety, Depression Smoking Status: Never smoker Past Alcohol Use History: None Reported Past Drug Use History: None Reported - Past Family History Sister(s) Family Medical History: Renal Disease Additional Family Medical History / Comment(s): FSGS Brother(s) Family Medical History: Renal Disease Additional Family Medical History / Comment(s): FSGS Father Family Medical History: Cancer, Coronary Artery Disease (CAD), Renal Disease Additional Family Medical History / Comment(s): renal disease-FSGS General Exam Limitations: no limitations General appearance: alert, in no apparent distress Head exam: Present: atraumatic, normocephalic, normal inspection Eye exam: Present: normal appearance, PERRL, EOMI. Absent: scleral icterus, conjunctival injection, periorbital swelling Respiratory exam: Present: normal lung sounds bilaterally. Absent: respiratory distress, wheezes, rales, rhonchi, stridor Cardiovascular Exam: Present: regular rate, normal rhythm, normal heart sounds. Absent: systolic murmur, diastolic murmur, rubs, gallop, clicks Extremities exam: Present: other (Right lateral malleoli region, tenderness with palpation, mild swelling noted no ecchymosis lateral right foot tenderness nor deformity pulses equal bilaterally there is no proximal tib-fib tenderness) Course Vital Signs 11/21/20 10:09 Temperature 98.6 F Pulse Rate 98 Respiratory 18 Rate Blood Pressure 166/97 O2 Sat by Pulse 100 Oximetry Medical Decision Making - Medical Decision Making X-rays were reviewed by me and radiologist no acute fractures. Patient be discharged in stable condition with a right ankle sprain patient follow-up with orthopedics no improvement. Disposition Clinical Impression: Right ankle sprain Disposition: HOME SELF-CARE Condition: Stable Instructions (If sedation given, give patient instructions): Ankle Sprain (ED) Additional Instructions: Please return to the Emergency Department if symptoms worsen or any other aide rns. Is patient prescribed a controlled substance at d/c from ED?: No Referrals: Chato Baldwin Jr, DO [Primary Care Provider] - 1-2 days Goyo Oden DO [Doctor of Osteopathic Medicine] - 1-2 days Time of Disposition: 10:58
--- NOTE | 2020-11-21 10:49 | XR ---
EXAMINATION TYPE: XR ankle complete RT, XR foot complete RT DATE OF EXAM: 11/21/2020 CLINICAL HISTORY: Rolling injury with pain and swelling. TECHNIQUE: Frontal, lateral and oblique images of the right ankle and foot are obtained. COMPARISON: None. FINDINGS: There is no acute fracture/dislocation evident in the right ankle. The ankle mortise appe ars within normal limits. The overlying soft tissue appears unremarkable. There is no acute fracture or dislocation evident in the right foot. The joint spaces in the right f oot are preserved. Moderate size inferior calcaneal spur. Overlying soft tissue is unremarkable. IMPRESSION: There is no acute fracture or dislocation in the right ankle or foot.
== END 2020-11-21 11:10 | disposition home or self-care (01) ==
LOC: EC 10:08
DX: S93.401A Sprain of unspecified ligament of right ankle, initial encounter (principal); F41.9 Anxiety disorder, unspecified; F32.9 Major depressive disorder, single episode, unspecified; K21.9 Gastro-esophageal reflux disease without esophagitis; I10 Essential (primary) hypertension; I34.1 Nonrheumatic mitral (valve) prolapse; G89.29 Other chronic pain; M54.9 Dorsalgia, unspecified; Z88.8 Allergy status to other drugs, medicaments and biological substances; Z88.5 Allergy status to narcotic agent; Z88.7 Allergy status to serum and vaccine; Z79.899 Other long term (current) drug therapy; Z90.49 Acquired absence of other specified parts of digestive tract; X50.1XXA Overexertion from prolonged static or awkward postures, initial encounter; Y93.89 Activity, other specified; Y92.009 Unspecified place in unspecified non-institutional (private) residence as the place of occurrence of the external cause
CPT/HCPCS: 73610; 73630; 99283; 29515; L4350

== ENCOUNTER 2020-12-01 01:05 | Observation (INO) | payer OTHER ==
[2020-12-01] MEDS ORDERED: ALBUTEROL HFA INHALER INHALATION PRN (01:15)
[2020-12-01] MEDS ORDERED: ALBUTEROL HFA INHALER INHALATION STA (01:15)
[2020-12-01] MEDS ORDERED: ACETAMINOPHEN TAB 500 MG TAB PO STA (01:15)
--- NOTE | 2020-12-01 01:18 | ED ---
Chest Pain HPI - General Chief Complaint: Chest Pain Stated Complaint: Covid Time Seen by Provider: 12/01/20 01:15 Source: patient, EMS, RN notes reviewed, old records reviewed Mode of arrival: EMS Limitations: no limitations - History of Present Illness Initial Comments: This is a 45-year-old female DF for evaluation of chest pain chest pain shortness of breath for 2-3 days. No travel history no sick contacts patient feels like she may have coronavirus. But no fevers. No trauma noted. She has have increased cough and congestion history of high blood pressure. History of chest pain MD Complaint: chest pain, other (Increased cough and congestion) -: days(s) Onset: during rest Pain Location: substernal, left chest Pain Radiation: none Severity: mild Severity scale (1-10): 4 Quality: aching Consistency: intermittent Improves With: nothing Worsens With: nothing Anginal Symptoms: dyspnea, other (Cough) Other Symptoms: cough, palpitations Treatments Prior to Arrival: none - Related Data Home Medications Medication Instructions Recorded Confirmed clonazePAM [KlonoPIN] 1 mg PO BID 03/27/14 11/21/20 Cyclobenzaprine [Flexeril] 10 mg PO TID PRN 09/22/16 11/21/20 Divalproex [Depakote] 250 mg PO DAILY 10/25/16 11/21/20 Ibuprofen [Motrin] 800 mg PO TID PRN 03/28/17 11/21/20 Acetaminophen [Tylenol Extra 500 mg PO Q6H PRN 07/03/20 11/21/20 Strength] Omeprazole 20 mg PO HS 07/03/20 11/21/20 Ondansetron HCl [Zofran] 4 mg PO Q8H PRN 07/03/20 11/21/20 lisinopriL [Zestril] 10 mg PO DAILY 07/03/20 11/21/20 Previous Rx's Medication Instructions Recorded amLODIPine [Norvasc] 5 mg PO DAILY 7 Days #7 tab 05/24/20 Allergies Allergy/AdvReac Type Severity Reaction Status Date / Time acetazolamide Allergy Rash/Hives Verified 11/21/20 10:53 [From Diamox Sequels] influenza virus vaccine, Allergy Unknown Verified 11/21/20 10:53 specific [influenza virus vacc,specific] topiramate [From Topamax] Allergy Rash/Hives Verified 11/21/20 10:53 codeine AdvReac Nausea Verified 11/21/20 10:53 Review of Systems ROS Statement: Those systems with pertinent positive or pertinent negative responses have been documented in the HPI. ROS Other: All systems not noted in ROS Statement are negative. EKG Findings - EKG Comments: EKG Findings:: EKG is sinus rhythm 82 VT 164 QRS 88 QTc 450 Past Medical History Past Medical History: Chest Pain / Angina, GERD/Reflux, Hypertension, Mitral Valve Prolapse (MVP) Additional Past Medical History / Comment(s): PSEUDO TUMOR CEREBRI/ Medullary sponge kidney, chronic back pain, chronic headache, pt states she has never had a siezure. The pt states she takes antiepileptic for severe headaches. History of Any Multi-Drug Resistant Organisms: None Reported Past Surgical History: Cholecystectomy Additional Past Surgical History / Comment(s): LP SHUNT PLACEMENT AND REMOVAL, cholecystectomy in 2006. Past Anesthesia/Blood Transfusion Reactions: Previous Problems w/ Anesthesia, Malignant Hyperthermia, Motion Sickness Additional Past Anesthesia/Blood Transfusion Reaction / Comment(s): states difficulty breating with anesthesia Past Psychological History: Anxiety, Depression Smoking Status: Never smoker Past Alcohol Use History: None Reported Past Drug Use History: None Reported - Past Family History Sister(s) Family Medical History: Renal Disease Additional Family Medical History / Comment(s): FSGS Brother(s) Family Medical History: Renal Disease Additional Family Medical History / Comment(s): FSGS Father Family Medical History: Cancer, Coronary Artery Disease (CAD), Renal Disease Additional Family Medical History / Comment(s): renal disease-FSGS General Exam Limitations: no limitations General appearance: alert, in no apparent distress Head exam: Present: atraumatic, normocephalic, normal inspection Eye exam: Present: normal appearance, PERRL, EOMI. Absent: scleral icterus, conjunctival injection, periorbital swelling ENT exam: Present: normal exam, mucous membranes moist Neck exam: Present: normal inspection. Absent: tenderness, meningismus, lymphadenopathy Respiratory exam: Present: normal lung sounds bilaterally. Absent: respiratory distress, wheezes, rales, rhonchi, stridor Cardiovascular Exam: Present: regular rate, normal rhythm, normal heart sounds. Absent: systolic murmur, diastolic murmur, rubs, gallop, clicks GI/Abdominal exam: Present: soft, normal bowel sounds. Absent: distended, tenderness, guarding, rebound, rigid Extremities exam: Present: normal inspection, full ROM, normal capillary refill. Absent: tenderness, pedal edema, joint swelling, calf tenderness Back exam: Present: normal inspection Neurological exam: Present: alert, oriented X3, CN II-XII intact Psychiatric exam: Present: normal affect, normal mood Skin exam: Present: warm, dry, intact, normal color. Absent: rash Course Vital Signs 12/01/20 12/01/20 01:10 01:15 Temperature 98.8 F Pulse Rate 100 Respiratory 18 18 Rate Blood Pressure 145/86 O2 Sat by Pulse 98 Oximetry - Reevaluation(s) Reevaluation #1: 12/01/20 01:18 Medical records reviewed Reevaluation #2: 12/01/20 03:35 Patient does have continued cough and congestion with shortness of breath Reevaluation #3: 12/01/20 03:35 Patient informed results and questions have been answered - Consultations Consultation #1: Spoke with Dr. Munson who agrees to admit the patient Chest Pain MDM - MDM 45 female to the ER for evaluation persistent cough or congestion. Patient is positive for coronavirus and will admit for supportive care and evaluation Disposition Clinical Impression: Chest pain, Fever, Coronavirus infection Disposition: ADMITTED IP TO THIS HOSP Condition: Good Is patient prescribed a controlled substance at d/c from ED?: No Referrals: Chato Baldwin Jr, DO [Primary Care Provider] - 1-2 days
[2020-12-01] MEDS ORDERED: KETOROLAC 15 MG/ML 1 ML VIAL IVP STA (01:35)
--- NOTE | 2020-12-01 01:54 | XR ---
EXAM: XR Chest, 1 View CLINICAL HISTORY: ITS.REASON XR Reason: Suspected COVID-19 pneumonia TECHNIQUE: Frontal view of the chest. COMPARISON: July 03, 2020 FINDINGS: Lungs: Unremarkable. No consolidation. Pleural space: Unremarkable. No pneumothorax. Heart: Unremarkable. No cardiomegaly. Mediastinum: Unremarkable. Bones/joints: Unremarkable. IMPRESSION: Normal chest x-ray.
[2020-12-01 02:18] LABS: Basophils # (A) 0.2 k/uL (0-0.2); Basophils % (A) 2 %; Eosinophils # (A) 0.1 k/uL (0-0.7); Eosinophils % (A) 2 %; HCT 38.8 % (34.0-46.0); Lymphocytes # (A) 1.6 k/uL (1.0-4.8); Lymphocytes % (A) 25 %; MCH 26.6 pg (25.0-35.0); MCHC 33.5 g/dL (31.0-37.0); MCV 79.5 fL (80.0-100.0); Mean Platelet Volume 8.6; Monocytes # (A) 0.5 k/uL (0-1.0); Monocytes % (A) 8 %; Neutrophils # (A) 3.8 k/uL (1.3-7.7); Neutrophils % (A) 61 %; Platelet Count 291 k/uL (150-450); RBC 4.87 m/uL (3.80-5.40); RDW 14.6 % (11.5-15.5); WBC 6.2 k/uL (3.8-10.6)
[2020-12-01 02:41] LABS: D-Dimer <0.17 mg/L FEU (<0.60); INR 0.9 (<1.2); Partial Thromboplastin Time 23.5 sec (22.0-30.0); Prothrombin Time 9.5 sec (9.0-12.0)
[2020-12-01 02:56] LABS: ALT 12 U/L (4-34); AST 17 U/L (14-36); African American GFR (CKD) >90 (>60 ml/min/1.73 sqM); Albumin 4.2 g/dL (3.5-5.0); Alkaline Phosphatase 76 U/L (38-126); Anion Gap 7 mmol/L; Blood Urea Nitrogen 19 mg/dL (7-17); C Reactive Protein <5.0 mg/L (<10.0); Calcium 9.1 mg/dL (8.4-10.2); Carbon Dioxide 26 mmol/L (22-30); Chloride 104 mmol/L (98-107); Glucose 112 mg/dL (74-99); LDH 378 U/L (313-618); Magnesium 1.9 mg/dL (1.6-2.3); Non-African American GFR(CKD) 78 (>60 ml/min/1.73 sqM); Potassium 4.6 mmol/L (3.5-5.1); Sodium 137 mmol/L (137-145); Total Bilirubin 0.2 mg/dL (0.2-1.3); Total Protein 7.5 g/dL (6.3-8.2)
[2020-12-01] MEDS ORDERED: SODIUM CHLORIDE 0.9% 1,000 ML IV SCH (03:45)
[2020-12-01] MEDS ORDERED: ENOXAPARIN 40 MG/0.4 ML SYRINGE SQ SCH (09:00)
[2020-12-01] MEDS ORDERED: ONDANSETRON 4 MG/2 ML VIAL IVP PRN (09:51)
[2020-12-01 10:58] LABS: Basophils % (A) 1 %; Eosinophils # (A) 0.1 k/uL (0-0.7); Eosinophils % (A) 1 %; HCT 34.7 % (34.0-46.0); HGB 11.6 gm/dL (11.4-16.0); Hypochromasia Slight; Lymphocytes # (A) 1.3 k/uL (1.0-4.8); Lymphocytes % (A) 27 %; MCH 27.1 pg (25.0-35.0); MCHC 33.5 g/dL (31.0-37.0); MCV 80.8 fL (80.0-100.0); Mean Platelet Volume 8.9; Monocytes # (A) 0.3 k/uL (0-1.0); Monocytes % (A) 7 %; Neutrophils # (A) 2.8 k/uL (1.3-7.7); Neutrophils % (A) 62 %; Platelet Count 229 k/uL (150-450); RDW 14.8 % (11.5-15.5); WBC 4.6 k/uL (3.8-10.6)
[2020-12-01 11:10] LABS: ALT 10 U/L (4-34); AST 14 U/L (14-36); African American GFR (CKD) 83 (>60 ml/min/1.73 sqM); Albumin 3.6 g/dL (3.5-5.0); Albumin/Globulin Ratio 1.2; Alkaline Phosphatase 61 U/L (38-126); Anion Gap 5 mmol/L; Blood Urea Nitrogen 22 mg/dL (7-17); Calcium 8.4 mg/dL (8.4-10.2); Carbon Dioxide 25 mmol/L (22-30); Chloride 108 mmol/L (98-107); Creatine Kinase 31 U/L (30-135); Glucose 99 mg/dL (74-99); LDH 324 U/L (313-618); Magnesium 1.8 mg/dL (1.6-2.3); Non-African American GFR(CKD) 72 (>60 ml/min/1.73 sqM); Potassium 4.2 mmol/L (3.5-5.1); Sodium 138 mmol/L (137-145); Total Bilirubin 0.2 mg/dL (0.2-1.3); Total Protein 6.6 g/dL (6.3-8.2)
[2020-12-01 11:23] LABS: D-Dimer <0.17 mg/L FEU (<0.60); Fibrinogen 264 mg/dL (200-500); INR 0.9 (<1.2); Partial Thromboplastin Time 25.5 sec (22.0-30.0); Prothrombin Time 9.9 sec (9.0-12.0)
[2020-12-01 11:30] VITALS: BP 133/71; PULSE 87; RESP 15; TEMP 97.5
[2020-12-01] MEDS ORDERED: ASCORBIC ACID 500 MG TAB PO SCH (11:30)
[2020-12-01] MEDS ORDERED: ZINC SULFATE 220 MG CAP PO SCH (11:30)
[2020-12-01] MEDS ORDERED: CHOLECALCIFEROL 1,000 UNIT TAB PO SCH (11:30)
[2020-12-01 13:18] LABS: C Reactive Protein <5.0 mg/L (<10.0)
--- NOTE | 2020-12-01 15:06 | P.HPIM ---
History of Present Illness H&P Date: 12/01/20 Chief Complaint: Shortness of breath for 3 days History and Physical and Discharge Summary This is a 45-year-old female presented to the ER with complaints of shortness of breath, occasional nonproductive cough, congestion over the last 3 days, chest discomfort with cough and multiple other medical issues, in a patient with past medical history of angina, gastroesophageal reflux disease, hypertension, mitral valve prolapse, anxiety, depression. Denies fevers. no diaphoresis or paresthesias in the arms or legs. Reports symptoms worsen with breathing. Changing positions makes it feel better, no associated diaphoresis no nausea or vomiting no radiation to the shoulders or jaw.Denies travel, contact with anyone sick. Denies lightheadedness dizziness or focal deficits. Chest pain reproducible, bilateral rib cage-coughing. Currently denies chest pain, palpitations or shortness of breath. EKG reported sinus rhythm, troponins negative. Hematology, coagulation/d-dimer, chemistry unremarkable with excep tion of BUN 19-22 and creatinine 0.9-0.96. Lactate dehydrogenase 378, 324 CRP less than 5, creatinine kinase 31, ferritin pending. BNP 30. Tested positive for coronal virus. Chest x-ray reported normal chest x-ray. Vital signs stable, afebrile, maintaining O2 sats in the high 90s on room air. Consuming 75% of lunch. Ambulating to and from bathroom, tolerated exertion well. Patient is eager for discharge. Review of Systems ROS Statement: Those systems with pertinent positive or pertinent negative responses have been documented in the HPI. ROS Other: All systems not noted in ROS Statement are negative. Past Medical History Past Medical History: Chest Pain / Angina, GERD/Reflux, Hypertension, Mitral Valve Prolapse (MVP) Additional Past Medical History / Comment(s): PSEUDO TUMOR CEREBRI/ Medullary sponge kidney, chronic back pain, chronic headache, pt states she has never had a siezure. The pt states she takes antiepileptic for severe headaches. History of Any Multi-Drug Resistant Organisms: None Reported Past Surgical History: Cholecystectomy Additional Past Surgical History / Comment(s): LP SHUNT PLACEMENT AND REMOVAL, cholecystectomy in 2006. Past Anesthesia/Blood Transfusion Reactions: Previous Problems w/ Anesthesia, Malignant Hyperthermia, Motion Sickness Additional Past Anesthesia/Blood Transfusion Reaction / Comment(s): states difficulty breating with anesthesia Past Psychological History: Anxiety, Depression Smoking Status: Never smoker Past Alcohol Use History: None Reported Past Drug Use History: None Reported - Past Family History Sister(s) Family Medical History: Renal Disease Additional Family Medical History / Comment(s): FSGS Brother(s) Family Medical History: Renal Disease Additional Family Medical History / Comment(s): FSGS Father Family Medical History: Cancer, Coronary Artery Disease (CAD), Renal Disease Additional Family Medical History / Comment(s): renal disease-FSGS Medications and Allergies Home Medications Medication Instructions Recorded Confirmed Type clonazePAM [KlonoPIN] 1 mg PO BID 03/27/14 12/01/20 History Cyclobenzaprine [Flexeril] 10 mg PO TID PRN 09/22/16 12/01/20 History Divalproex [Depakote] 250 mg PO DAILY 10/25/16 12/01/20 History Ibuprofen [Motrin] 800 mg PO TID PRN 03/28/17 12/01/20 History amLODIPine [Norvasc] 5 mg PO DAILY 7 Days #7 tab 05/24/20 12/01/20 Rx Acetaminophen [Tylenol Extra 1,000 mg PO Q6H PRN 07/03/20 12/01/20 History Strength] Ondansetron HCl [Zofran] 4 mg PO Q8H PRN 07/03/20 12/01/20 History lisinopriL [Zestril] 10 mg PO DAILY 07/03/20 12/01/20 History Albuterol Inhaler [Ventolin Hfa 2 puff INHALATION RT-Q6H PRN #1 inh 12/01/20 Rx Inhaler] Ascorbic Acid [Vitamin C] 1,000 mg PO DAILY tab 12/01/20 Rx Aspirin EC [Ecotrin Low Dose] 81 mg PO DAILY #60 tablet. 12/01/20 Rx Cholecalciferol [Vitamin D3 (25 2,000 unit PO DAILY tab 12/01/20 Rx Mcg = 1000 Iu)] Famotidine [Pepcid] 20 mg PO BID #60 tablet 12/01/20 Rx Zinc Sulfate [Orazinc] 220 mg PO DAILY cap 12/01/20 Rx Allergies Allergy/AdvReac Type Severity Reaction Status Date / Time acetazolamide Allergy Rash/Hives Verified 12/01/20 08:08 [From Diamox Sequels] influenza virus vaccine, Allergy Unknown Verified 12/01/20 08:08 specific [influenza virus vacc,specific] topiramate [From Topamax] Allergy Rash/Hives Verified 12/01/20 08:08 codeine AdvReac Nausea Verified 12/01/20 08:08 Physical Exam Vitals: Vital Signs Temp Pulse Pulse Resp BP BP Pulse Ox 12/01/20 11:00 97.5 F L 87 15 133/71 97 12/01/20 05:00 98.2 F 88 18 98 12/01/20 04:01 98.2 F 84 18 148/80 100 12/01/20 01:15 18 12/01/20 01:10 98.8 F 100 18 145/86 98 Intake and Output 11/30/20 12/01/20 12/01/20 22:59 06:59 14:59 Intake Total 540 Balance 540 Intake: Intake, IV Titration 300 Amount Sodium Chloride 0.9% 1, 300 000 ml @ 100 mls/hr IV . Q10H ARNOLD Rx#:[id number] Oral 240 Other: # Voids 1 Weight 99.79 kg Vital signs are stable patient is afebrile , no current complaints General: [Patient sitting up in bed, awake, alert and oriented times 3, no acute distress.] HEENT: [PERRL. EOMI. No pharyngeal erythema or exudate.] Neck: [No adenopathy.] Cardiac: [Heart regular in rate and rhythm. No S3. No S4. No clicks, rubs. No murmur.] Lungs: [Clear to auscultation bilaterally.] Abdomen: [No mass. No organomegaly. Bowel sounds presnt and normoactive in all 4 quadrants.] Extremities: [No edema no cyanosis no claudication normal pulses] Skin: Warm and dry, [No rash.] NERVOUS SYSTEM: Cranial N 2-12 grossly normal. Moves all 4 limbs. Diffuse weakness No focal deficits. Strength and sensation grossly intact.. Lymphatic system. No LN neck axilla or groin. Results CBC & Chem 7: 12/01/20 10:10 12/01/20 10:10 Labs: Abnormal Lab Results - Last 24 Hours (Table) 12/01/20 12/01/20 12/01/20 Range/Units 01:39 01:39 01:39 MCV 79.5 L (80.0-100.0) fL Chloride (98-107) mmol/L BUN 19 H (7-17) mg/dL Glucose 112 H (74-99) mg/dL Coronavirus (PCR) Detected A (Not Detectd) 12/01/20 Range/Units 10:10 MCV (80.0-100.0) fL Chloride 108 H (98-107) mmol/L BUN 22 H (7-17) mg/dL Glucose (74-99) mg/dL Coronavirus (PCR) (Not Detectd) Thrombosis Risk Factor Assmnt - Choose All That Apply Any of the Below Risk Factors Present?: Yes Each Factor Represents 1 point: Age 41-60 years, Obesity (BMI >25) Other Risk Factors: No Other congenital or acquired thrombophilia - If yes, enter type in comment: No Thrombosis Risk Factor Assessment Total Risk Factor Score: 2 Thrombosis Risk Factor Assessment Level: Low Risk Assessment and Plan Assessment: Acute, Covid 19 infection Chest pain, troponin within normal limits, suspect musculoskeletal, bilateral rib cage with coughing. Gastroesophageal reflux disease Anxiety Depression Hypertension Plan: Continue on current medication regime ,monitoring and symptomatic treatment. Maintained on Covid regimen; patient is not a candidate at this time for Remdesivr. Patient will be discharged home today in a stable condition with guarded prognosis. Maintain Covid quarantine. Discharge Medication List clonazePAM [KlonoPIN] 1 mg PO BID 03/27/14 [History] Cyclobenzaprine [Flexeril] 10 mg PO TID PRN 09/22/16 [History] Divalproex [Depakote] 250 mg PO DAILY 10/25/16 [History] Ibuprofen [Motrin] 800 mg PO TID PRN 03/28/17 [History] amLODIPine [Norvasc] 5 mg PO DAILY 7 Days #7 tab 05/24/20 [Rx] Acetaminophen [Tylenol Extra Strength] 1,000 mg PO Q6H PRN 07/03/20 [History] Ondansetron HCl [Zofran] 4 mg PO Q8H PRN 07/03/20 [History] lisinopriL [Zestril] 10 mg PO DAILY 07/03/20 [History] Albuterol Inhaler [Ventolin Hfa Inhaler] 2 puff INHALATION RT-Q6H PRN #1 inh 12/01/20 [Rx] Ascorbic Acid [Vitamin C] 1,000 mg PO DAILY tab 12/01/20 [Rx] Aspirin EC [Ecotrin Low Dose] 81 mg PO DAILY #60 tablet. 12/01/20 [Rx] Cholecalciferol [Vitamin D3 (25 Mcg = 1000 Iu)] 2,000 unit PO DAILY tab 1 [Rx] Famotidine [Pepcid] 20 mg PO BID #60 tablet 12/01/20 [Rx] Zinc Sulfate [Orazinc] 220 mg PO DAILY cap 12/01/20 [Rx] The impression and plan of care has been dictated as directed. : I performed a history and examination of this patient, discussed the same with the dictator. I agree with the dictator's note ,documented as a scribe. Any additional findings or plans will be noted.
[2020-12-01 19:59] LABS: Ferritin 4.1 ng/mL (10.0-291.0)
== END 2020-12-01 15:52 | disposition home or self-care (01) ==
LOC: EC 01:05 → 6NMEDSUR 03:34
PROVIDERS: ADMIT Family Medicine; ATTEND Family Medicine
DX: U07.1 COVID-19 (principal); R07.89 Other chest pain; R00.2 Palpitations; R50.9 Fever, unspecified; R51.9 Headache, unspecified; K21.9 Gastro-esophageal reflux disease without esophagitis; I10 Essential (primary) hypertension; F41.9 Anxiety disorder, unspecified; F32.9 Major depressive disorder, single episode, unspecified; I34.1 Nonrheumatic mitral (valve) prolapse; G93.2 Benign intracranial hypertension; Q61.5 Medullary cystic kidney; G89.29 Other chronic pain; M54.9 Dorsalgia, unspecified; E66.9 Obesity, unspecified; Z68.41 Body mass index [BMI] 40.0-44.9, adult; Z90.49 Acquired absence of other specified parts of digestive tract; Z79.899 Other long term (current) drug therapy; Z79.1 Long term (current) use of non-steroidal anti-inflammatories (NSAID); Z79.82 Long term (current) use of aspirin; Z88.8 Allergy status to other drugs, medicaments and biological substances; Z88.5 Allergy status to narcotic agent; Z88.7 Allergy status to serum and vaccine; Z82.49 Family history of ischemic heart disease and other diseases of the circulatory system; Z80.9 Family history of malignant neoplasm, unspecified; Z84.1 Family history of disorders of kidney and ureter
CPT/HCPCS: 96372; 96375; 96374; 99285; 36415; 94640; 93005; 85379; 83880; 80053; 82728; 82550; 83605; 83615; 83735; 84484; 85025; 85384; 85610; 85730; 86140; 87040; 84145; 87635; 71045; G0378; J2405; J1650; J1885

== ENCOUNTER 2021-01-14 01:57 | Emergency (ER) | payer OTHER ==
[2021-01-14 02:03] VITALS: TEMP 98.3
[2021-01-14] MEDS ORDERED: ONDANSETRON 4 MG/2 ML VIAL IVP STA (02:15)
[2021-01-14] MEDS ORDERED: SODIUM CHLORIDE 0.9% 500 ML 500 ML IV STA (02:15)
[2021-01-14] MEDS ORDERED: MORPHINE SULFATE 4 MG/ML SYRINGE IV STA (02:15)
[2021-01-14 02:42] LABS: Basophils # (A) 0.1 k/uL (0-0.2); Basophils % (A) 1 %; Eosinophils # (A) 0.2 k/uL (0-0.7); Eosinophils % (A) 2 %; HCT 37.5 % (34.0-46.0); HGB 12.3 gm/dL (11.4-16.0); Lymphocytes # (A) 2.6 k/uL (1.0-4.8); Lymphocytes % (A) 28 %; MCHC 32.8 g/dL (31.0-37.0); MCV 79.4 fL (80.0-100.0); Monocytes # (A) 0.5 k/uL (0-1.0); Monocytes % (A) 5 %; Neutrophils # (A) 5.8 k/uL (1.3-7.7); Neutrophils % (A) 63 %; Platelet Count 287 k/uL (150-450); RBC 4.73 m/uL (3.80-5.40); RDW 14.1 % (11.5-15.5); WBC 9.3 k/uL (3.8-10.6)
--- NOTE | 2021-01-14 02:48 | ED ---
General Adult HPI - General Chief complaint: Neck Pain/Injury Stated complaint: Neck pain Time Seen by Provider: 01/14/21 02:09 Source: patient, EMS Mode of arrival: EMS Limitations: no limitations - History of Present Illness Initial comments: 45-year-old female patient presents to the emergency department today for evaluation of left-sided neck pain, left arm pain, left posterior shoulder pain. Patient states the pain started earlier today and has been constant. States that she did take a dose of ibuprofen which seemed to improve the pain for a s hort time and then it worsened again. States that she has had some shortness of breath but also was diagnosed with COVID-19 about a month ago and this was residual. Patient denies any worsening of the pain with movement. Denies any other exacerbating or relieving factors. Denies nausea or vomiting with this. Denies sweats. States that she does have a family history of coronary artery disease her father age 58 and her brother age 45. Patient denies any recent rash, fever, chills, chest pain, abdominal pain, diarrhea, constipation, back pain, numbness, tingling, dizziness, weakness, hematuria, dysuria, urinary urgency, urinary frequency, headache, visual changes, or any other complaints. - Related Data Home Medications Medication Instructions Recorded Confirmed clonazePAM [KlonoPIN] 1 mg PO BID 03/27/14 12/01/20 Cyclobenzaprine [Flexeril] 10 mg PO TID PRN 09/22/16 12/01/20 Divalproex [Depakote] 250 mg PO DAILY 10/25/16 12/01/20 Ibuprofen [Motrin] 800 mg PO TID PRN 03/28/17 12/01/20 Acetaminophen [Tylenol Extra 1,000 mg PO Q6H PRN 07/03/20 12/01/20 Strength] Ondansetron HCl [Zofran] 4 mg PO Q8H PRN 07/03/20 12/01/20 lisinopriL [Zestril] 10 mg PO DAILY 07/03/20 12/01/20 Previous Rx's Medication Instructions Recorded amLODIPine [Norvasc] 5 mg PO DAILY 7 Days #7 tab 05/24/20 Albuterol Inhaler [Ventolin Hfa 2 puff INHALATION RT-Q6H PRN #1 inh 12/01/20 Inhaler] Ascorbic Acid [Vitamin C] 1,000 mg PO DAILY tab 12/01/20 Aspirin EC [Ecotrin Low Dose] 81 mg PO DAILY #60 tablet. 12/01/20 Cholecalciferol [Vitamin D3 (25 2,000 unit PO DAILY tab 12/01/20 Mcg = 1000 Iu)] Famotidine [Pepcid] 20 mg PO BID #60 tablet 12/01/20 Zinc Sulfate [Orazinc] 220 mg PO DAILY cap 12/01/20 Orphenadrine [Norflex] 100 mg PO Q12H PRN #10 tablet.er 01/14/21 Allergies Allergy/AdvReac Type Severity Reaction Status Date / Time acetazolamide Allergy Rash/Hives Verified 12/01/20 08:08 [From Diamox Sequels] influenza virus vaccine, Allergy Unknown Verified 12/01/20 08:08 specific [influenza virus vacc,specific] topiramate [From Topamax] Allergy Rash/Hives Verified 12/01/20 08:08 codeine AdvReac Nausea Verified 12/01/20 08:08 Review of Systems ROS Statement: Those systems with pertinent positive or pertinent negative responses have been documented in the HPI. ROS Other: All systems not noted in ROS Statement are negative. Past Medical History Past Medical History: Chest Pain / Angina, GERD/Reflux, Hypertension, Mitral Valve Prolapse (MVP) Additional Past Medical History / Comment(s): PSEUDO TUMOR CEREBRI/ Medullary sponge kidney, chronic back pain, chronic headache, pt states she has never had a siezure. The pt states she takes antiepileptic for severe headaches. History of Any Multi-Drug Resistant Organisms: None Reported Past Surgical History: Cholecystectomy Additional Past Surgical History / Comment(s): LP SHUNT PLACEMENT AND REMOVAL, cholecystectomy in 2006. Past Anesthesia/Blood Transfusion Reactions: Previous Problems w/ Anesthesia, Malignant Hyperthermia, Motion Sickness Additional Past Anesthesia/Blood Transfusion Reaction / Comment(s): states difficulty breating with anesthesia Past Psychological History: Anxiety, Depression Smoking Status: Never smoker Past Alcohol Use History: None Reported Past Drug Use History: None Reported - Past Family History Sister(s) Family Medical History: Renal Disease Additional Family Medical History / Comment(s): FSGS Brother(s) Family Medical History: Renal Disease Additional Family Medical History / Comment(s): FSGS Father Family Medical History: Cancer, Coronary Artery Disease (CAD), Renal Disease Additional Family Medical History / Comment(s): renal disease-FSGS General Exam Limitations: no limitations General appearance: alert, in no apparent distress, other (This is a well- developed, well-nourished adult female patient in no acute distress. Vital signs upon presentation to return 98.3F, pulse 102, respirations 18, blood pressure 150/88, pulse ox 100% on room air.) Eye exam: Present: normal appearance, PERRL, EOMI. Absent: scleral icterus, conjunctival injection, periorbital swelling Neck exam: Present: normal inspection, full ROM. Absent: tenderness, menin gismus, lymphadenopathy Respiratory exam: Present: normal lung sounds bilaterally. Absent: respiratory distress, wheezes, rales, rhonchi, stridor Cardiovascular Exam: Present: regular rate, normal rhythm, normal heart sounds. Absent: systolic murmur, diastolic murmur, rubs, gallop, clicks GI/Abdominal exam: Present: soft, normal bowel sounds. Absent: distended, tenderness, guarding, rebound, rigid Neurological exam: Present: alert, oriented X3, CN II-XII intact Psychiatric exam: Present: normal affect, normal mood Skin exam: Present: warm, dry, intact, normal color. Absent: rash Course Vital Signs 01/14/21 01:58 Temperature 98.3 F Pulse Rate 102 H Respiratory 18 Rate Blood Pressure 150/88 O2 Sat by Pulse 100 Oximetry EKG Findings - EKG Comments: EKG Findings:: EKG obtained at 0221 shows normal sinus rhythm with prolonged QT interval. Ventricular rate is 94, IA interval 172, QRS duration 92, QT 372, QTc 465. No evidence of ST elevation or depression. Medical Decision Making - Medical Decision Making 45-year-old female patient presents to the emergency department today for evaluation of left-sided neck pain and left shoulder pain, left arm pain. Physical examination was unremarkable. Lungs are clear to auscultation. Labs reviewed and are unremarkable. Troponin negative. Vitals are unremarkable. EKG had no changes from previous. She'll be discharged home to follow-up with her primary care physician we will try muscle relaxer and anti-inflammatory medication. Patient is agreeable this plan. Case discussed with my attending Dr. Hutchins. - Lab Data Result diagrams: 01/14/21 02:30 01/14/21 02:30 Lab Results 01/14/21 01/14/21 01/14/21 Range/Units 02:30 02:30 02:30 WBC 9.3 (3.8-10.6) k/uL RBC 4.73 (3.80-5.40) m/uL Hgb 12.3 (11.4-16.0) gm/dL Hct 37.5 (34.0-46.0) % MCV 79.4 L (80.0-100.0) fL MCH 26.0 (25.0-35.0) pg MCHC 32.8 (31.0-37.0) g/dL RDW 14.1 (11.5-15.5) % Plt Count 287 (150-450) k/uL MPV 9.0 Neutrophils % 63 % Lymphocytes % 28 % Monocytes % 5 % Eosinophils % 2 % Basophils % 1 % Neutrophils # 5.8 (1.3-7.7) k/uL Lymphocytes # 2.6 (1.0-4.8) k/uL Monocytes # 0.5 (0-1.0) k/uL Eosinophils # 0.2 (0-0.7) k/uL Basophils # 0.1 (0-0.2) k/uL Sodium 138 (137-145) mmol/L Potassium 4.1 (3.5-5.1) mmol/L Chloride 104 (98-107) mmol/L Carbon Dioxide 26 (22-30) mmol/L Anion Gap 8 mmol/L BUN 20 H (7-17) mg/dL Creatinine 0.88 (0.52-1.04) mg/dL Est GFR (CKD-EPI)AfAm >90 (>60 ml/min/1.73 sqM) Est GFR (CKD-EPI)NonAf 81 (>60 ml/min/1.73 sqM) Glucose 127 H (74-99) mg/dL Calcium 9.2 (8.4-10.2) mg/dL Magnesium 1.7 (1.6-2.3) mg/dL Total Bilirubin 0.4 (0.2-1.3) mg/dL AST 18 (14-36) U/L ALT 9 (4-34) U/L Alkaline Phosphatase 59 (38-126) U/L Troponin I <0.012 (0.000-0.034) ng/mL Total Protein 7.5 (6.3-8.2) g/dL Albumin 4.2 (3.5-5.0) g/dL - Radiology Data Radiology results: report reviewed, image reviewed 2 views of the chest are obtained. Report reviewed in its entirety. Impression by Dr. Moreno shows no active disease. Disposition Clinical Impression: Neck pain, Left arm pain Disposition: HOME SELF-CARE Condition: Good Instructions (If sedation given, give patient instructions): Neck Pain (ED) Additional Instructions: Follow up with your primary care physician for recheck in 1-2 days. Return to the emergency department for any new, worsening, or concerning symptoms. Prescriptions: Orphenadrine [Norflex] 100 mg PO Q12H PRN #10 tablet.er PRN Reason: Pain Is patient prescribed a controlled substance at d/c from ED?: No Referrals: Chato Baldwin Jr, [Primary Care Provider] - 1-2 days Time of Disposition: 03:10
[2021-01-14 02:50] LABS: INR 0.9 (<1.2); Partial Thromboplastin Time 22.1 sec (22.0-30.0); Prothrombin Time 9.9 sec (9.0-12.0)
[2021-01-14 02:51] LABS: ALT 9 U/L (4-34); AST 18 U/L (14-36); African American GFR (CKD) >90 (>60 ml/min/1.73 sqM); Albumin 4.2 g/dL (3.5-5.0); Alkaline Phosphatase 59 U/L (38-126); Anion Gap 8 mmol/L; Blood Urea Nitrogen 20 mg/dL (7-17); Calcium 9.2 mg/dL (8.4-10.2); Carbon Dioxide 26 mmol/L (22-30); Chloride 104 mmol/L (98-107); Glucose 127 mg/dL (74-99); Magnesium 1.7 mg/dL (1.6-2.3); Non-African American GFR(CKD) 81 (>60 ml/min/1.73 sqM); Potassium 4.1 mmol/L (3.5-5.1); Sodium 138 mmol/L (137-145); Total Bilirubin 0.4 mg/dL (0.2-1.3); Total Protein 7.5 g/dL (6.3-8.2)
--- NOTE | 2021-01-14 03:04 | XR ---
EXAM: XR Chest, 2 Views CLINICAL HISTORY: Chest pain. TECHNIQUE: Frontal and lateral views of the chest. COMPARISON: 12/01/2020. FINDINGS: Lungs: No consolidative change. Pleural space: No pleural effusion. No pneumothorax. Heart: Cardiomediastinal silhouette unremarkable. Mediastinum: See above. Bones/joints: The ribs are unremarkable. Mild degenerative disc disease of the thoracic spine. Osteopenia. Kyphosis. Soft tissues: Soft tissues are within normal limits. Other findings: Hypoaeration. IMPRESSION: No active disease.
[2021-01-14] MEDS ORDERED: ORPHENADRINE 30 MG/ML 2 ML VIAL IVP STA (03:08)
[2021-01-14 03:18] VITALS: BP 125/68; PULSE 97; RESP 16
== END 2021-01-14 03:31 | disposition home or self-care (01) ==
LOC: EC 01:57
DX: M25.512 Pain in left shoulder (principal); M79.602 Pain in left arm; M54.2 Cervicalgia; I10 Essential (primary) hypertension; G89.29 Other chronic pain; M54.9 Dorsalgia, unspecified; F41.9 Anxiety disorder, unspecified; Z79.899 Other long term (current) drug therapy; Z88.7 Allergy status to serum and vaccine; Z88.8 Allergy status to other drugs, medicaments and biological substances; Z88.5 Allergy status to narcotic agent
CPT/HCPCS: 36415; 93005; 80053; 83735; 84484; 85025; 85610; 85730; 71046; 99284; 96374; 96375; J2270; J2360

== ENCOUNTER 2021-04-18 19:22 | Emergency (ER) | payer OTHER ==
[2021-04-18 19:32] VITALS: RESP 16
[2021-04-18] MEDS ORDERED: diphenhydrAMINE 50 MG/ML 1 ML VIAL IVP STA (20:21)
[2021-04-18] MEDS ORDERED: METOCLOPRAMIDE 5 MG/ML 2 ML VIAL IVP STA (20:21)
[2021-04-18] MEDS ORDERED: KETOROLAC 15 MG/ML 1 ML VIAL IVP STA (20:21)
--- NOTE | 2021-04-18 20:54 | ED ---
Headache HPI - General Chief Complaint: Headache Stated Complaint: headache Time Seen by Provider: 04/18/21 19:49 Mode of arrival: ambulatory Limitations: no limitations - History of Present Illness Initial Comments: 46 year-old female patient with history pseudotumor cerebri presents to the emergency department for evaluation of headache and visual disturbance. Patient states that when she waves her hand in front of her face she can see a trail behind the hand. Denies any dizziness or fainting. Denies numbness or tingling to her extremities. States that she has had these symptoms before with her pseudotumor. She does take a small dose of Diamox. Has taken Motrin today without relief. Denies any numbness or tingling. Reports some nausea no vomiting. Patient denies any recent rash, fever, chills, cough, shortness of breath, chest pain, abdominal pain, diarrhea, constipation, back pain, numbness, tingling, hematuria, dysuria, urinary urgency, urinary frequency, or any other complaints. - Related Data Home Medications Medication Instructions Recorded Confirmed clonazePAM [KlonoPIN] 1 mg PO BID 03/27/14 12/01/20 Cyclobenzaprine [Flexeril] 10 mg PO TID PRN 09/22/16 12/01/20 Divalproex [Depakote] 250 mg PO DAILY 10/25/16 12/01/20 Ibuprofen [Motrin] 800 mg PO TID PRN 03/28/17 12/01/20 Acetaminophen [Tylenol Extra 1,000 mg PO Q6H PRN 07/03/20 12/01/20 Strength] Ondansetron HCl [Zofran] 4 mg PO Q8H PRN 07/03/20 12/01/20 lisinopriL [Zestril] 10 mg PO DAILY 07/03/20 12/01/20 Previous Rx's Medication Instructions Recorded amLODIPine [Norvasc] 5 mg PO DAILY 7 Days #7 tab 05/24/20 Albuterol Inhaler [Ventolin Hfa 2 puff INHALATION RT-Q6H PRN #1 inh 12/01/20 Inhaler] Ascorbic Acid [Vitamin C] 1,000 mg PO DAILY tab 12/01/20 Aspirin EC [Ecotrin Low Dose] 81 mg PO DAILY #60 tablet. 12/01/20 Cholecalciferol [Vitamin D3 (25 2,000 unit PO DAILY tab 12/01/20 Mcg = 1000 Iu)] Famotidine [Pepcid] 20 mg PO BID #60 tablet 12/01/20 Zinc Sulfate [Orazinc] 220 mg PO DAILY cap 12/01/20 Orphenadrine [Norflex] 100 mg PO Q12H PRN #10 tablet.er 01/14/21 Allergies Allergy/AdvReac Type Severity Reaction Status Date / Time influenza virus vaccine, Allergy Unknown Verified 04/18/21 19:33 specific [influenza virus vacc,specific] topiramate [From Topamax] Allergy Rash/Hives Verified 04/18/21 19:33 codeine AdvReac Nausea Verified 04/18/21 19:33 Review of Systems ROS Statement: Those systems with pertinent positive or pertinent negative responses have been documented in the HPI. ROS Other: All systems not noted in ROS Statement are negative. Past Medical History Past Medical History: Chest Pain / Angina, GERD/Reflux, Hypertension, Mitral Valve Prolapse (MVP) Additional Past Medical History / Comment(s): PSEUDO TUMOR CEREBRI/ Medullary sponge kidney, chronic back pain, chronic headache, pt states she has never had a siezure. The pt states she takes antiepileptic for severe headaches. History of Any Multi-Drug Resistant Organisms: None Reported Past Surgical History: Cholecystectomy Additional Past Surgical History / Comment(s): LP SHUNT PLACEMENT AND REMOVAL, cholecystectomy in 2006. Past Anesthesia/Blood Transfusion Reactions: Previous Problems w/ Anesthesia, Malignant Hyperthermia, Motion Sickness Additional Past Anesthesia/Blood Transfusion Reaction / Comment(s): states difficulty breating with anesthesia Past Psychological History: Anxiety, Depression Smoking Status: Never smoker Past Alcohol Use History: None Reported Past Drug Use History: None Reported - Past Family History Sister(s) Family Medical History: Renal Disease Additional Family Medical History / Comment(s): FSGS Brother(s) Family Medical History: Renal Disease Additional Family Medical History / Comment(s): FSGS Father Family Medical History: Cancer, Coronary Artery Disease (CAD), Renal Disease Additional Family Medical History / Comment(s): renal disease-FSGS General Exam Limitations: no limitations General appearance: alert, in no apparent distress, other (This is a well- developed, well-nourished adult female patient in no acute distress. Vital signs upon presentation are temperature 98.7F, pulse 97, respirations 16, blood pressure 159/84, pulse ox 100% on room air.) ENT exam: Present: normal exam, normal oropharynx, mucous membranes moist Respiratory exam: Present: normal lung sounds bilaterally. Absent: respiratory distress, wheezes, rales, rhonchi, stridor Cardiovascular Exam: Present: regular rate, normal rhythm, normal heart sounds. Absent: systolic murmur, diastolic murmur, rubs, gallop, clicks Neurological exam: Present: alert, oriented X3, CN II-XII intact Expanded Speech: Present: fluid speech Motor strength exam: RUE: 5, LUE: 5, RLE: 5, LLE: 5 Psychiatric exam: Present: normal affect, normal mood Skin exam: Present: warm, dry, intact, normal color. Absent: rash Course Vital Signs 04/18/21 04/18/21 19:29 21:18 Temperature 98.7 F 98.2 F Pulse Rate 97 88 Respiratory 16 16 Rate Blood Pressure 159/84 148/81 O2 Sat by Pulse 100 99 Oximetry Medical Decision Making - Medical Decision Making 46-year-old female patient presents to the emergency department today for evaluation of headache and visual disturbance. Physical examination is unremarkable. She is neurologically intact with no focal deficits. IV was started she was given IV medications for migraine. Upon reevaluation she states that she is feeling better and visual deficits have resolved. She does have an appointment coming up with her radiologic electronic specialist and neurologist. She'll be discharged to follow-up as planned. Return parameters were discussed in detail. She verbalizes understanding and agrees with this plan. Case discussed with my attending Dr. [place]. Disposition Clinical Impression: Headache, Visual disturbance Disposition: HOME SELF-CARE Condition: Good Instructions (If sedation given, give patient instructions): Acute Headache (ED) Additional Instructions: Follow-up with your neurologist and radiologic electronic specialist as planned. Return to the emergency department for any new, worsening, or concerning symptoms. Is patient prescribed a controlled substance at d/c from ED?: No Referrals: Chato Baldwin Jr, DO [Primary Care Provider] - 1-2 days Time of Disposition: 21:49
[2021-04-18 21:19] VITALS: BP 148/81; PULSE 88; TEMP 98.2
== END 2021-04-18 21:55 | disposition home or self-care (01) ==
LOC: EC 19:22
DX: R51.9 Headache, unspecified (principal); H53.9 Unspecified visual disturbance; R11.0 Nausea; I10 Essential (primary) hypertension; Z88.5 Allergy status to narcotic agent; Z88.8 Allergy status to other drugs, medicaments and biological substances; Z88.7 Allergy status to serum and vaccine; Z79.899 Other long term (current) drug therapy; Z86.011 Personal history of benign neoplasm of the brain
CPT/HCPCS: 99284; 96374; 96375; J1200; J2765; J1885

== ENCOUNTER 2021-05-07 17:26 | Emergency (ER) | payer OTHER ==
[2021-05-07 17:37] VITALS: TEMP 98.8
[2021-05-07] MEDS ORDERED: KETOROLAC 15 MG/ML 1 ML VIAL IM STA (18:07)
--- NOTE | 2021-05-07 18:10 | ED ---
Extremity Problem HPI - General Chief complaint: Extremity Problem,Nontraumatic Stated complaint: lt foot pain Time Seen by Provider: 05/07/21 18:03 Source: patient Mode of arrival: ambulatory Limitations: no limitations - History of Present Illness Initial comments: 46 year-old female patient presents to the emergency department for evaluation of left foot and ankle swelling. Patient reports pain whenever she bears weight on the foot. Denies any redness, fever or chills. Denies known injury. States that the swelling started between 9pm and 11pm last night. Denies pain at rest. Denies previous injury. Denies any calf pain or swelling. Has not taken anything for pain. - Related Data Home Medications Medication Instructions Recorded Confirmed clonazePAM [KlonoPIN] 1 mg PO BID 03/27/14 12/01/20 Cyclobenzaprine [Flexeril] 10 mg PO TID PRN 09/22/16 12/01/20 Divalproex [Depakote] 250 mg PO DAILY 10/25/16 12/01/20 Ibuprofen [Motrin] 800 mg PO TID PRN 03/28/17 12/01/20 Acetaminophen [Tylenol Extra 1,000 mg PO Q6H PRN 07/03/20 12/01/20 Strength] Ondansetron HCl [Zofran] 4 mg PO Q8H PRN 07/03/20 12/01/20 lisinopriL [Zestril] 10 mg PO DAILY 07/03/20 12/01/20 Previous Rx's Medication Instructions Recorded amLODIPine [Norvasc] 5 mg PO DAILY 7 Days #7 tab 05/24/20 Albuterol Inhaler [Ventolin Hfa 2 puff INHALATION RT-Q6H PRN #1 inh 12/01/20 Inhaler] Ascorbic Acid [Vitamin C] 1,000 mg PO DAILY tab 12/01/20 Aspirin EC [Ecotrin Low Dose] 81 mg PO DAILY #60 tablet.dr 12/01/20 Cholecalciferol [Vitamin D3 (25 2,000 unit PO DAILY tab 12/01/20 Mcg = 1000 Iu)] Famotidine [Pepcid] 20 mg PO BID #60 tablet 12/01/20 Zinc Sulfate [Orazinc] 220 mg PO DAILY cap 12/01/20 Orphenadrine [Norflex] 100 mg PO Q12H PRN #10 tablet.er 01/14/21 Allergies Allergy/AdvReac Type Severity Reaction Status Date / Time influenza virus vaccine, Allergy Unknown Verified 05/07/21 17:37 specific [influenza virus vacc,specific] topiramate [From Topamax] Allergy Rash/Hives Verified 05/07/21 17:37 codeine AdvReac Nausea Verified 05/07/21 17:37 Review of Systems ROS Statement: Those systems with pertinent positive or pertinent negative responses have been documented in the HPI. ROS Other: All systems not noted in ROS Statement are negative. Past Medical History Past Medical History: Chest Pain / Angina, GERD/Reflux, Hypertension, Mitral Valve Prolapse (MVP) Additional Past Medical History / Comment(s): PSEUDO TUMOR CEREBRI/ Medullary sponge kidney, chronic back pain, chronic headache, pt states she has never had a siezure. The pt states she takes antiepileptic for severe headaches. History of Any Multi-Drug Resistant Organisms: None Reported Past Surgical History: Cholecystectomy Additional Past Surgical History / Comment(s): LP SHUNT PLACEMENT AND REMOVAL, cholecystectomy in 2006. Past Anesthesia/Blood Transfusion Reactions: Previous Problems w/ Anesthesia, Malignant Hyperthermia, Motion Sickness Additional Past Anesthesia/Blood Transfusion Reaction / Comment(s): states difficulty breating with anesthesia Past Psychological History: Anxiety, Depression Smoking Status: Never smoker Past Alcohol Use History: None Reported Past Drug Use History: None Reported - Past Family History Sister(s) Family Medical History: Renal Disease Additional Family Medical History / Comment(s): FSGS Brother(s) Family Medical History: Renal Disease Additional Family Medical History / Comment(s): FSGS Father Family Medical History: Cancer, Coronary Artery Disease (CAD), Renal Disease Additional Family Medical History / Comment(s): renal disease-FSGS General Exam Limitations: no limitations General appearance: alert, in no apparent distress, other (This is a well- developed, well-nourished adult female patient in no acute distress. Vital signs upon presentation temperature 98.8F, pulse 96, respirations 18, blood pressure 131/79, pulse ox 100% on room air.) Respiratory exam: Present: normal lung sounds bilaterally. Absent: respiratory distress, wheezes, rales, rhonchi, stridor Cardiovascular Exam: Present: regular rate, normal rhythm, normal heart sounds. Absent: systolic murmur, diastolic murmur, rubs, gallop, clicks Extremities exam: Present: full ROM, other (Swelling noted over the left lateral dorsal foot and left lateral malleolus. ). Absent: normal inspection, tenderness Neurological exam: Present: alert, oriented X3, CN II-XII intact Psychiatric exam: Present: normal affect, normal mood Skin exam: Present: warm, dry, intact, normal color. Absent: rash Course Vital Signs 05/07/21 17:33 Temperature 98.8 F Pulse Rate 96 Respiratory 18 Rate Blood Pressure 131/79 O2 Sat by Pulse 100 Oximetry Medical Decision Making - Medical Decision Making 46-year-old male patient presents to the emergency department today for evaluation of left ankle and foot swelling as well as pain with weightbearing on the left foot. Physical examination did reveal soft tissue swelling over the lateral dorsal aspect of the left foot and surrounding the left lateral malleolus. There is no bony tenderness. No overlying erythema. She is afebrile. Vital signs are within normal ranges. X-rays of the left ankle and foot did show evidence for a plantar calcaneal heel spur but no other bony abnormalities. I did discuss findings and results with the patient. We'll put ankle stirrup splint on. She is educated regarding rest, ice, elevation. Instructed to follow-up with her primary care physician for recheck in 7-10 days if symptoms aren't improved. Return parameters were discussed in detail. She verbalizes understanding and agrees with this plan. Case discussed with my attending Dr. Funk. - Radiology Data Radiology results: report reviewed, image reviewed X-ray of the left foot and ankle shows plantar calcaneal heel spur , no osseous abnormality. Disposition Clinical Impression: Heel spur, Ankle sprain Disposition: HOME SELF-CARE Condition: Good Instructions (If sedation given, give patient instructions): Ankle Sprain (ED), Heel Spur (ED) Additional Instructions: Use splint for comfort and support. Keep foot elevated apply ice. Follow-up with your primary care physician for recheck in 7-10 days if symptoms aren't improved. Return to the emergency department for any new, worsening, or concerning symptoms. Is patient prescribed a controlled substance at d/c from ED?: No Referrals: Chato Baldwin Jr, [Primary Care Provider] - 1-2 days Time of Disposition: 19:10
--- NOTE | 2021-05-07 18:50 | XR ---
EXAMINATION TYPE: XR ankle complete LT DATE OF EXAM: 05/07/2021 COMPARISON: None HISTORY: Pain, swelling TECHNIQUE: Three-view left ankle FINDINGS: Mild diffuse soft tissue swelling may be present. The ankle mortise appears intact. No acut e fractures evident. Plantar calcaneal heel spur is present. IMPRESSION: 1. No acute osseous abnormality. 2. Plantar calcaneal heel spur. 3. Follow up exams would be recommended 7-10 days from acute trauma for continued pain.
--- NOTE | 2021-05-07 18:51 | XR ---
EXAMINATION TYPE: XR foot complete LT DATE OF EXAM: 05/07/2021 COMPARISON: None HISTORY: Pain, swelling TECHNIQUE: Three-view left foot FINDINGS: Plantar calcaneal heel spur is present. Very minimal Achilles tendon calcaneal heel spurs n ot excluded. Soft tissues appear normal. No acute fractures are evident. Alignment appears normal. Joint spaces ap pear preserved. IMPRESSION: 1. Plantar calcaneal heel spur. 2. No acute osseous abnormality. 3. Follow up exams can be performed 7-10 days from acute trauma for continued pain.
[2021-05-07 19:49] VITALS: BP 124/74; PULSE 80; RESP 17
== END 2021-05-07 19:26 | disposition home or self-care (01) ==
LOC: EC 17:26
DX: S93.402A Sprain of unspecified ligament of left ankle, initial encounter (principal); M77.32 Calcaneal spur, left foot; I10 Essential (primary) hypertension; Z88.5 Allergy status to narcotic agent; Z88.7 Allergy status to serum and vaccine; Z88.8 Allergy status to other drugs, medicaments and biological substances; Z79.899 Other long term (current) drug therapy; X58.XXXA Exposure to other specified factors, initial encounter
CPT/HCPCS: 99283; 96372; 73610; 73630; J1885

== ENCOUNTER 2021-05-22 13:30 | Emergency (ER) | payer OTHER ==
--- NOTE | 2021-05-22 14:04 | XR ---
EXAMINATION TYPE: XR chest 2V DATE OF EXAM: 05/22/2021 COMPARISON: NONE TECHNIQUE: PA and lateral views submitted. HISTORY: Cough FINDINGS: The lungs are clear and there is no pneumothorax, pleural effusion, or focal pneumonia. Surgical cl ips are seen in the right upper quadrant. Mild hypertrophic change of the spine. Heart size normal. N o overt failure. IMPRESSION: 1. No acute process.
[2021-05-22 14:12] VITALS: RESP 16; TEMP 99.1
--- NOTE | 2021-05-22 14:38 | ED ---
General Adult HPI - General Chief complaint: Upper Respiratory Infection Stated complaint: SOB Source: patient, RN notes reviewed Mode of arrival: ambulatory Limitations: no limitations - History of Present Illness Initial comments: 46-year-old white female, well nourished male alert and oriented 4 presents to the emergency room with complaints of sinus congestion with runny nose and headaches for one week. Patient states that her headaches are worse when she goes from sitting to standing is a throbbing headache but resolves after being upright for a while. She states that the congestion gets better when she lays flat she denies any fevers. She states that over the past 2 days she's had 1 or 2 episodes of diarrhea which she attributes to swallowing mucous. Patient states that she does have occasional cough but it is clearing color. Patient denies any ear pain but does state that she had a sore throat earlier in the week which has resolved. Patient states that she was getting relief with sams-wuv-[id number] decongestants that states that she does get some dizziness going from laying to standing that resolves on its own. Patient has a history of hypertension, mitral valve prolapse, pseudotumor cerebri, seizure disorder, migraine headaches, surgical history of a cholecystectomy and a shunt which was removed. -: week(s) (1) Location: head Radiation: non-radiation Severity scale (1-10): 2 Quality: stabbing, aching Consistency: intermittent Improves with: medication (Ulbh-ohc-yclqolz decongestant) Worsens with: movement (Sitting to standing) Associated Symptoms: other (Diarrhea) Treatments Prior to Arrival: none - Related Data Home Medications Medication Instructions Recorded Confirmed clonazePAM [KlonoPIN] 1 mg PO BID 03/27/14 05/22/21 Cyclobenzaprine [Flexeril] 10 mg PO TID PRN 09/22/16 05/22/21 Ibuprofen [Motrin] 800 mg PO TID PRN 03/28/17 05/22/21 Ondansetron HCl [Zofran] 4 mg PO Q8H PRN 07/03/20 05/22/21 lisinopriL [Zestril] 10 mg PO DAILY 07/03/20 05/22/21 Omeprazole Magnesium [PriLOSEC OTC] 20 mg PO HS 05/22/21 05/22/21 acetaZOLAMIDE [Diamox] 250 mg PO DAILY 05/22/21 05/22/21 Previous Rx's Medication Instructions Recorded amLODIPine [Norvasc] 5 mg PO DAILY 7 Days #7 tab 05/24/20 Sulfamethox-Tmp 800-160Mg [Bactrim 1 each PO Q12HR 3 Days #6 tab 05/22/21 Ds] Allergies Allergy/AdvReac Type Severity Reaction Status Date / Time influenza virus vaccine, Allergy Unknown Verified 05/22/21 15:25 specific [influenza virus vacc,specific] codeine AdvReac Nausea Verified 05/22/21 15:25 topiramate [From Topamax] AdvReac stoke Verified 05/22/21 15:25 symptoms Review of Systems ROS Statement: Those systems with pertinent positive or pertinent negative responses have been documented in the HPI. ROS Other: All systems not noted in ROS Statement are negative. Past Medical History Past Medical History: Chest Pain / Angina, GERD/Reflux, Hypertension, Mitral Valve Prolapse (MVP) Additional Past Medical History / Comment(s): PSEUDO TUMOR CEREBRI/ Medullary sponge kidney, chronic back pain, chronic headache, pt states she has never had a siezure. The pt states she takes antiepileptic for severe headaches. History of Any Multi-Drug Resistant Organisms: None Reported Past Surgical History: Cholecystectomy Additional Past Surgical History / Comment(s): LP SHUNT PLACEMENT AND REMOVAL, cholecystectomy in 2006. Past Anesthesia/Blood Transfusion Reactions: Previous Problems w/ Anesthesia, Malignant Hyperthermia, Motion Sickness Additional Past Anesthesia/Blood Transfusion Reaction / Comment(s): states difficulty breating with anesthesia Past Psychological History: Anxiety, Depression Smoking Status: Never smoker Past Alcohol Use History: None Reported Past Drug Use History: None Reported - Past Family History Sister(s) Family Medical History: Renal Disease Additional Family Medical History / Comment(s): FSGS Brother(s) Family Medical History: Renal Disease Additional Family Medical History / Comment(s): FSGS Father Family Medical History: Cancer, Coronary Artery Disease (CAD), Renal Disease Additional Family Medical History / Comment(s): renal disease-FSGS General Exam Limitations: no limitations General appearance: alert, in no apparent distress Head exam: Present: atraumatic, normocephalic, normal inspection Eye exam: Present: normal appearance, PERRL, EOMI. Absent: scleral icterus, conjunctival injection, nystagmus, periorbital swelling Pupils: Present: normal accommodation ENT exam: Present: normal exam, normal oropharynx, mucous membranes moist, TM's normal bilaterally, normal external ear exam Neck exam: Present: normal inspection, full ROM. Absent: tenderness, men ingismus, lymphadenopathy, thyromegaly Respiratory exam: Present: normal lung sounds bilaterally. Absent: respiratory distress, wheezes, rales, rhonchi, stridor, chest wall tenderness, accessory muscle use, decreased breath sounds, prolonged expiratory Cardiovascular Exam: Present: normal rhythm, tachycardia. Absent: JVD GI/Abdominal exam: Present: soft, normal bowel sounds. Absent: distended, tenderness, guarding, rebound, rigid Rectal exam: Present: deferred Extremities exam: Present: normal inspection, full ROM, normal capillary refill. Absent: tenderness, pedal edema, joint swelling, calf tenderness Back exam: Present: normal inspection, full ROM. Absent: tenderness, CVA tenderness (R), CVA tenderness (L), muscle spasm, paraspinal tenderness, vertebral tenderness, rash noted Neurological exam: Present: alert, oriented X3, CN II-XII intact Psychiatric exam: Present: normal affect, normal mood Skin exam: Present: warm, dry, intact, normal color. Absent: rash, cyanosis, diaphoretic, erythema, petechiae, pallor, mottled Course Vital Signs 05/22/21 05/22/21 05/22/21 13:37 14:08 14:10 Temperature 98.7 F 99.1 F Pulse Rate 116 H Respiratory 20 16 Rate Blood Pressure O2 Sat by Pulse 100 Oximetry 05/22/21 14:45 Temperature Pulse Rate 89 Respiratory 16 Rate Blood Pressure 116/89 O2 Sat by Pulse 99 Oximetry Medical Decision Making - Medical Decision Making Patient has been afebrile, lung sounds are clear to auscultation oxygen saturation 99-100% on room air. Patient did get relief with sglh-xdj-evvsotw decongestants. She states that she has worsening headache with changing of position which sound orthostatic and resolves after just a few moments. Patient will be treated for urinary tract infection as UA shows moderate leukocyte esterase with 13 WBCs. Patient states that she doesn't get urinary tract infections often. Patient denies any chance of . Will be treated with Bactrim for 3 days and follow-up. Patient given oral fluids in the ER and tolerating well. Heart rate down to 89. Patient is agreeable to being discharged home with follow-up with primary care doctor. Return with worsening symptoms of increased headache, chest pain or fever. Case discussed with Dr. Spain - Lab Data Lab Results 05/22/21 05/22/21 Range/Units 13:40 14:41 Urine Color Yellow Urine Appearance Cloudy H (Clear) Urine pH 8.0 (5.0-8.0) Ur Specific [place] 1.020 (1.001-1.035) Urine Protein Trace H (Negative) Urine Glucose (UA) Negative (Negative) Urine Ketones Negative (Negative) Urine Blood Negative (Negative) Urine Nitrite Negative (Negative) Urine Bilirubin Negative (Negative) Urine Urobilinogen <2.0 (<2.0) mg/dL Ur Leukocyte Esterase Moderate H (Negative) Urine RBC 2 (0-5) /hpf Urine WBC 13 H (0-5) /hpf Ur Squamous Epith Cells 17 H (0-4) /hpf Hyaline Casts 1 (0-2) /lpf Urine Mucus Rare H (None) /hpf Coronavirus (PCR) Not Detected (Not Detectd) Disposition Clinical Impression: Dehydration, Urinary tract infection Disposition: HOME SELF-CARE Condition: Good Instructions (If sedation given, give patient instructions): Dehydration (ED), Urinary Tract Infection in Women (ED) Additional Instructions: Increase your fluid intake, continue [id number]-shp-wsceccu decongestants as needed. Follow-up with her primary care doctor in 1 week. Return to the emergency room with worsening symptoms fever, cough or chest pain. Prescriptions: Sulfamethox-Tmp 800-160Mg [Bactrim Ds] 1 each PO Q12HR 3 Days #6 tab Is patient prescribed a controlled substance at d/c from ED?: No Referrals: Chato Baldwin Jr, [Primary Care Provider] - 1-2 days Time of Disposition: 15:31
[2021-05-22 14:46] VITALS: BP 116/89; PULSE 89
[2021-05-22 15:28] LABS: Appearance,Urine Cloudy (Clear); Bilirubin,Urine Negative (Negative); Blood,Urine Negative (Negative); Color,Urine Yellow; Glucose,Urine (UA) Negative (Negative); Hyaline Casts,Urine 1 /lpf (0-2); Ketones,Urine Negative (Negative); Leukocyte Esterase,Urine Moderate (Negative); Mucus,Urine Rare /hpf; Nitrite,Urine Negative (Negative); Protein,Urine Trace (Negative); RBC,Urine 2 /hpf (0-5); Squamous Epithelial Cell,Urine 17 /hpf (0-4); Urobilinogen,Urine <2.0 mg/dL (<2.0); WBC,Urine 13 /hpf (0-5)
== END 2021-05-22 15:49 | disposition home or self-care (01) ==
LOC: EC 13:30
DX: E86.0 Dehydration (principal); N39.0 Urinary tract infection, site not specified; I10 Essential (primary) hypertension; K21.9 Gastro-esophageal reflux disease without esophagitis; Z88.7 Allergy status to serum and vaccine; Z79.899 Other long term (current) drug therapy; Z88.2 Allergy status to sulfonamides; Z88.5 Allergy status to narcotic agent; Z20.822 Contact with and (suspected) exposure to COVID-19
CPT/HCPCS: 71046; 81001; 81025; 87086; 87635; 99284; 99285

== ENCOUNTER 2021-07-18 18:15 | Emergency (ER) | payer OTHER ==
--- NOTE | 2021-07-18 20:31 | XR ---
EXAMINATION TYPE: XR chest 2V DATE OF EXAM: 07/18/2021 CLINICAL HISTORY: cough. TECHNIQUE: Frontal and lateral view of the chest. COMPARISON: 05/22/2021 FINDINGS: The cardiomediastinal silhouette is within normal limits for size. Pulmonary vasculature i s normal. There is no focal air space opacity. No pleural effusion. No pneumothorax seen. No acute d isplaced osseous fracture. IMPRESSION: No acute cardiopulmonary process.
--- NOTE | 2021-07-18 20:39 | ED ---
URI HPI - General Chief Complaint: Upper Respiratory Infection Stated Complaint: Headache/Dizziness Time Seen by Provider: 07/18/21 19:01 Source: patient, RN notes reviewed Mode of arrival: ambulatory Limitations: no limitations - History of Present Illness Initial Comments: Patient is a 46-year-old female that presents to the emergency room complaining of a cough and not feeling well for the past several days. She notes that she can emergency room to get evaluated for possible Covid. She denied any other issues or complaints at this time. She notes that she did have a mild sore throat. She was otherwise a well-appearing 46-year-old female no apparent distress or pain. She denied any chest pain headache nausea vomiting diarrhea constipation fever fatigue chills. - Related Data Home Medications Medication Instructions Recorded Confirmed Cyclobenzaprine [Flexeril] 10 mg PO TID PRN 09/22/16 07/18/21 Ibuprofen [Motrin] 800 mg PO TID PRN 03/28/17 07/18/21 Ondansetron HCl [Zofran] 4 mg PO Q8H PRN 07/03/20 07/18/21 lisinopriL [Zestril] 10 mg PO DAILY 07/03/20 07/18/21 Omeprazole Magnesium [PriLOSEC OTC] 20 mg PO HS 05/22/21 07/18/21 Sertraline HCl [Zoloft] 100 mg PO HS 07/18/21 07/18/21 busPIRone HCl [Buspar] 10 mg PO BID 07/18/21 07/18/21 Previous Rx's Medication Instructions Recorded amLODIPine [Norvasc] 5 mg PO DAILY 7 Days #7 tab 05/24/20 Allergies Allergy/AdvReac Type Severity Reaction Status Date / Time influenza virus vaccine, Allergy Unknown Verified 07/18/21 19:27 specific [influenza virus vacc,specific] codeine AdvReac Nausea Verified 07/18/21 19:27 topiramate [From Topamax] AdvReac stoke Verified 07/18/21 19:27 symptoms Review of Systems ROS Statement: Those systems with pertinent positive or pertinent negative responses have been documented in the HPI. ROS Other: All systems not noted in ROS Statement are negative. Past Medical History Past Medical History: Chest Pain / Angina, GERD/Reflux, Hypertension, Mitral Valve Prolapse (MVP) Additional Past Medical History / Comment(s): PSEUDO TUMOR CEREBRI/ Medullary sponge kidney, chronic back pain, chronic headache, pt states she has never had a siezure. The pt states she takes antiepileptic for severe headaches. History of Any Multi-Drug Resistant Organisms: None Reported Past Surgical History: Cholecystectomy Additional Past Surgical History / Comment(s): LP SHUNT PLACEMENT AND REMOVAL, cholecystectomy in 2006. Past Anesthesia/Blood Transfusion Reactions: Previous Problems w/ Anesthesia, Malignant Hyperthermia, Motion Sickness Additional Past Anesthesia/Blood Transfusion Reaction / Comment(s): states difficulty breating with anesthesia Past Psychological History: Anxiety, Depression Smoking Status: Never smoker Past Alcohol Use History: None Reported Past Drug Use History: None Reported - Past Family History Sister(s) Family Medical History: Renal Disease Additional Family Medical History / Comment(s): FSGS Brother(s) Family Medical History: Renal Disease Additional Family Medical History / Comment(s): FSGS Father Family Medical History: Cancer, Coronary Artery Disease (CAD), Renal Disease Additional Family Medical History / Comment(s): renal disease-FSGS General Exam Limitations: no limitations General appearance: alert, in no apparent distress Head exam: Present: atraumatic, normocephalic, normal inspection Eye exam: Present: normal appearance, PERRL, EOMI. Absent: scleral icterus, conjunctival injection, periorbital swelling Neck exam: Present: normal inspection Respiratory exam: Present: normal lung sounds bilaterally. Absent: respiratory distress, wheezes, rales, rhonchi, stridor Cardiovascular Exam: Present: regular rate, normal rhythm, normal heart sounds. Absent: systolic murmur, diastolic murmur, rubs, gallop, clicks Extremities exam: Present: normal inspection, full ROM, normal capillary refill. Absent: tenderness, pedal edema, joint swelling, calf tenderness Neurological exam: Present: alert, oriented X3 Psychiatric exam: Present: normal affect, normal mood Skin exam: Present: warm, dry, intact, normal color. Absent: rash Course Vital Signs 07/18/21 18:52 Temperature 98.8 F Pulse Rate 97 Respiratory 18 Rate Blood Pressure 116/73 O2 Sat by Pulse 99 Oximetry Medical Decision Making - Medical Decision Making 46-year-old female complaining of upper respiratory tract symptoms including cough and not feeling well. Covid test, strep test, chest x-ray ordered. Covid Estratest both negative. Chest x-ray negative for any acute cardiac process. Patient most likely has a acute upper respiratory tract infection. Case discussed with Dr. Gilliland, patient can discharge home. - Lab Data Lab Results 07/18/21 07/18/21 Range/Units 19:15 19:15 Coronavirus (PCR) Not Detected (Not Detectd) Group A Strep Rapid Negative (Negative) - Radiology Data Radiology results: report reviewed, image reviewed Chest x-ray: No acute cardiopulmonary process. Disposition Clinical Impression: Acute upper respiratory infection Disposition: HOME SELF-CARE Condition: Stable Instructions (If sedation given, give patient instructions): Upper Respiratory Infection (ED) Additional Instructions: Please return to the Emergency Department if symptoms worsen or any other concerns. Cpyv-mxd-[id number] decongestants and cough medicine as needed. Take, Motrin as day for a pains or fever. Follow-up primary care in 1-2 days. Is patient prescribed a controlled substance at d/c from ED?: No Referrals: None,Stated [Primary Care Provider] - 1-2 days Time of Disposition: 20:39
[2021-07-18 21:11] VITALS: BP 141/68; PULSE 63; RESP 16; TEMP 97.9
== END 2021-07-18 21:11 | disposition home or self-care (01) ==
LOC: EC 18:15
DX: J06.9 Acute upper respiratory infection, unspecified (principal); R42 Dizziness and giddiness; I10 Essential (primary) hypertension; K21.9 Gastro-esophageal reflux disease without esophagitis; Z88.5 Allergy status to narcotic agent; Z88.8 Allergy status to other drugs, medicaments and biological substances; Z88.7 Allergy status to serum and vaccine; Z79.899 Other long term (current) drug therapy; Z20.822 Contact with and (suspected) exposure to COVID-19
CPT/HCPCS: 71046; 87081; 87430; 87635; 99284

== ENCOUNTER 2021-08-13 15:08 | Emergency (ER) | payer OTHER ==
[2021-08-13 15:34] VITALS: RESP 18
[2021-08-13 15:55] LABS: Basophils # (A) 0.1 k/uL (0-0.2); Basophils % (A) 1 %; Eosinophils # (A) 0.2 k/uL (0-0.7); Eosinophils % (A) 2 %; HCT 41.4 % (34.0-46.0); HGB 13.3 gm/dL (11.4-16.0); Lymphocytes # (A) 2.2 k/uL (1.0-4.8); Lymphocytes % (A) 19 %; MCH 26.2 pg (25.0-35.0); MCHC 32.1 g/dL (31.0-37.0); MCV 81.6 fL (80.0-100.0); Mean Platelet Volume 9.3; Monocytes # (A) 0.4 k/uL (0-1.0); Monocytes % (A) 4 %; Neutrophils # (A) 8.6 k/uL (1.3-7.7); Neutrophils % (A) 74 %; Platelet Count 293 k/uL (150-450); RBC 5.07 m/uL (3.80-5.40); RDW 13.8 % (11.5-15.5); WBC 11.7 k/uL (3.8-10.6)
[2021-08-13 16:04] LABS: Calcium 9.7 mg/dL (8.4-10.2); Magnesium 1.9 mg/dL (1.6-2.3); Potassium 4.3 mmol/L (3.5-5.1); Total Bilirubin 0.4 mg/dL (0.2-1.3); Total Protein 7.2 g/dL (6.3-8.2)
[2021-08-13 16:05] LABS: INR 0.9 (<1.2); Prothrombin Time 9.8 sec (9.0-12.0)
[2021-08-13] MEDS ORDERED: IBUPROFEN 600 MG TAB PO STA (16:22)
--- NOTE | 2021-08-13 16:26 | ED ---
Chest Pain HPI - General Chief Complaint: Chest Pain Stated Complaint: chest pain, dizziness Time Seen by Provider: 08/13/21 16:11 Source: patient Mode of arrival: ambulatory Limitations: no limitations - History of Present Illness Initial Comments: Physical 6-year-old female with a history of mitral valve prolapse, pseudotumor cerebri, medullary kidney who presents emergency department for chest pressure. She states is been going on for last 2-3 days. She describes as a pressure-like sensation that is nonradiating. States is been constant. Nothing has made it better or worse. She denies any associated symptoms such as lightheadedness however does admit to having some room spinning sensation intermittently. Nothing currently. She denies any nausea, vomiting, or diarrhea. She states been having normal urinary output. She also states that she's been feeling somewhat fatigued. She states that she's been battling an upper respiratory il lness for the last month or so however is feeling somewhat improved. She does have a persistent cough however it is improved. She denies any fevers, chills. She states that she called her primary doctor who advised her to come emergency department for further evaluation. - Related Data Home Medications Medication Instructions Recorded Confirmed Cyclobenzaprine [Flexeril] 10 mg PO TID PRN 09/22/16 08/13/21 Ibuprofen [Motrin] 800 mg PO TID PRN 03/28/17 08/13/21 Ondansetron HCl [Zofran] 4 mg PO Q8H PRN 07/03/20 08/13/21 lisinopriL [Zestril] 10 mg PO DAILY 07/03/20 08/13/21 Sertraline HCl [Zoloft] 100 mg PO HS 07/18/21 08/13/21 busPIRone HCl [Buspar] 10 mg PO BID 07/18/21 08/13/21 Omeprazole 40 mg PO DAILY 08/13/21 08/13/21 guaiFENesin SYRUP 100MG/5ML 200 mg PO Q6H PRN 08/13/21 08/13/21 [Robitussin] Previous Rx's Medication Instructions Recorded amLODIPine [Norvasc] 5 mg PO DAILY 7 Days #7 tab 05/24/20 Meclizine [Antivert] 25 mg PO TID PRN #9 tab 08/13/21 Allergies Allergy/AdvReac Type Severity Reaction Status Date / Time influenza virus vaccine, Allergy Unknown Verified 08/13/21 16:40 specific [influenza virus vacc,specific] codeine AdvReac Nausea Verified 08/13/21 16:40 topiramate [From Topamax] AdvReac stoke Verified 08/13/21 16:40 symptoms Review of Systems ROS Statement: Those systems with pertinent positive or pertinent negative responses have been documented in the HPI. ROS Other: All systems not noted in ROS Statement are negative. EKG Findings - EKG Comments: EKG Findings:: EKG showing normal sinus rhythm with a rate of 78. No abnormal ST segment changes or T-wave inversions. QTC is 451. Other intervals normal. No ectopy. Past Medical History Past Medical History: Chest Pain / Angina, GERD/Reflux, Hypertension, Mitral Valve Prolapse (MVP) Additional Past Medical History / Comment(s): PSEUDO TUMOR CEREBRI/ Medullary sponge kidney, chronic back pain, chronic headache, pt states she has never had a siezure. The pt states she takes antiepileptic for severe headaches. History of Any Multi-Drug Resistant Organisms: None Reported Past Surgical History: Cholecystectomy Additional Past Surgical History / Comment(s): LP SHUNT PLACEMENT AND REMOVAL, cholecystectomy in 2006. Past Anesthesia/Blood Transfusion Reactions: Previous Problems w/ Anesthesia, Malignant Hyperthermia, Motion Sickness Additional Past Anesthesia/Blood Transfusion Reaction / Comment(s): states difficulty breating with anesthesia Past Psychological History: Anxiety, Depression Smoking Status: Never smoker Past Alcohol Use History: None Reported Past Drug Use History: None Reported - Past Family History Sister(s) Family Medical History: Renal Disease Additional Family Medical History / Comment(s): FSGS Brother(s) Family Medical History: Renal Disease Additional Family Medical History / Comment(s): FSGS Father Family Medical History: Cancer, Coronary Artery Disease (CAD), Renal Disease Additional Family Medical History / Comment(s): renal disease-FSGS General Exam - General Exam Comments Initial Comments: Constitutional: Awake alert Appears comfortable Head: Normocephalic atraumatic Eyes: no conjunctival injection No scleral icterus EOMI Neck: No JVD Supple Heart: Regular rate rhythm normal S1-S2 no murmurs, reproducible chest discomfort to the anterior chest Lungs: Clear to auscultation bilaterally No wheezing No rales Abdomen: Soft nondistended nontender Extremities: Non edematous DP pulses intact Radial pulses intact Neuro: A&Ox3, pupils are 4 mm reactive bilaterally, extra muscles are intact without any nystagmus, normal heel to roth testing and finger to nose testing, 5 out of 5 strength in upper and lower extremities bilaterally No focal neurologic deficits Psych: Appropriate mood and affect Limitations: no limitations Course Vital Signs 08/13/21 15:32 Temperature 98.3 F Pulse Rate 82 Respiratory 18 Rate Blood Pressure 145/82 O2 Sat by Pulse 98 Oximetry Chest Pain MDM - MDM This 46-year-old female who presents emergency department for the above symptoms. The patient was evaluated with blood work, EKG, chest x-ray. All these were unremarkable.: Was negative. She was given Motrin for her headache and chest discomfort which she states minimally helped. However the patient's symptoms are very atypical. I suspect they may be related to the patient's upper respiratory infection however the patient has no wheezing. At this time I do not identify any emergent pathology for her symptoms however I recommend she follow up closely with her primary doctor for further evaluation. This was discussed with the patient and she agreed. I advised her to return emergency Department if she has any worsening chest pain, lightheaded, diaphoresis, or any other concerning symptoms. All questions were answered. Disposition Clinical Impression: Chest heaviness, Vertigo Disposition: HOME SELF-CARE Condition: Stable Instructions (If sedation given, give patient instructions): Chest Pain (ED) Prescriptions: Meclizine [Antivert] 25 mg PO TID PRN #9 tab PRN Reason: Vertigo Is patient prescribed a controlled substance at d/c from ED?: No Referrals: None,Stated [REFERRING] - 1-2 days
--- NOTE | 2021-08-13 16:38 | XR ---
EXAMINATION TYPE: XR chest 2V DATE OF EXAM: 08/13/2021 COMPARISON: NONE HISTORY: Chest pain. TECHNIQUE: Frontal and lateral views of the chest are obtained. FINDINGS: There is no focal air space opacity, pleural effusion, or pneumothorax seen. The cardiac silhouette size is within normal limits. The osseous structures are intact. IMPRESSION: No acute cardiopulmonary process.
[2021-08-13 18:28] VITALS: BP 143/80; PULSE 77; TEMP 98
== END 2021-08-13 18:28 | disposition home or self-care (01) ==
LOC: EC 15:08
DX: R07.89 Other chest pain (principal); R42 Dizziness and giddiness; R05 Cough; R53.83 Other fatigue; I10 Essential (primary) hypertension; K21.9 Gastro-esophageal reflux disease without esophagitis; Z88.7 Allergy status to serum and vaccine; Z88.5 Allergy status to narcotic agent; Z88.8 Allergy status to other drugs, medicaments and biological substances; Z79.899 Other long term (current) drug therapy; Z20.822 Contact with and (suspected) exposure to COVID-19
CPT/HCPCS: 36415; 71046; 80053; 83735; 84484; 85025; 85610; 85730; 87635; 93005; 99285

== ENCOUNTER 2021-12-18 20:13 | Emergency (ER) | payer OTHER ==
[2021-12-18 20:41] VITALS: BP 146/80; PULSE 95; RESP 20; TEMP 98
[2021-12-18] MEDS ORDERED: KETOROLAC 15 MG/ML 1 ML VIAL IVP STA (23:26)
[2021-12-18] MEDS ORDERED: diphenhydrAMINE 50 MG/ML 1 ML VIAL IVP STA (23:26)
[2021-12-18] MEDS ORDERED: METOCLOPRAMIDE 5 MG/ML 2 ML VIAL IVP STA (23:26)
[2021-12-18] MEDS ORDERED: HYDROmorphone 0.5 MG/0.5 ML SYRINGE IVP STA (23:26)
[2021-12-19] MEDS ORDERED: HYDROmorphone 0.5 MG/0.5 ML SYRINGE IVP STA (00:54)
--- NOTE | 2021-12-19 00:54 | ED ---
Headache HPI - General Chief Complaint: Headache Stated Complaint: Headache,Dizziness Time Seen by Provider: 12/18/21 23:18 Mode of arrival: ambulatory Limitations: no limitations - History of Present Illness Initial Comments: 46 year-old female patient presents to the emergency department for evaluation of headache and visual disturbance. She states headache started earlier today and has been worsening. She does have a history of pseudotumor cerebri. Does not currently take medications for this. Did not take medication for her headache at home. She reports some nausea. Denies any vomiting. Denies dizziness. States she was noticing a trail in her vision. States she is having pain in her neck and down her arms. Denies any fever or chills. Denies neck stiffness. Denies fall or head injury. Denies numbness, tingling, or weakness to her extremities. Denies being the worst headache of her life. States she has been doing well until today. Denies frequent headaches. Patient denies any recent rash, cough, shortness of breath, chest pain, abdominal pain, nausea, vomiting, diarrhea, constipation, back pain, hematuria, dysuria, urinary urgency, urinary frequency, or any other complaints. - Related Data Home Medications Medication Instructions Recorded Confirmed Ondansetron HCl [Zofran] 4 mg PO Q8H PRN 07/03/20 12/18/21 lisinopriL [Zestril] 10 mg PO DAILY 07/03/20 12/18/21 Sertraline HCl [Zoloft] 100 mg PO HS 07/18/21 12/18/21 busPIRone HCl [Buspar] 10 mg PO BID 07/18/21 12/18/21 Omeprazole 40 mg PO HS 08/13/21 12/18/21 Previous Rx's Medication Instructions Recorded amLODIPine [Norvasc] 5 mg PO DAILY 7 Days #7 tab 05/24/20 Allergies Allergy/AdvReac Type Severity Reaction Status Date / Time influenza virus vaccine, Allergy Unknown Verified 12/18/21 23:39 specific [influenza virus vacc,specific] Penicillins Allergy Rash/Hives Verified 12/18/21 23:39 codeine AdvReac Nausea Verified 12/18/21 23:39 topiramate [From Topamax] AdvReac stoke Verified 12/18/21 23:39 symptoms Review of Systems ROS Statement: Those systems with pertinent positive or pertinent negative responses have been documented in the HPI. ROS Other: All systems not noted in ROS Statement are negative. Past Medical History Past Medical History: Chest Pain / Angina, GERD/Reflux, Hypertension, Mitral Valve Prolapse (MVP) Additional Past Medical History / Comment(s): PSEUDO TUMOR CEREBRI/ Medullary sponge kidney, chronic back pain, chronic headache, pt states she has never had a siezure. The pt states she takes antiepileptic for severe headaches. History of Any Multi-Drug Resistant Organisms: None Reported Past Surgical History: Cholecystectomy Additional Past Surgical History / Comment(s): LP SHUNT PLACEMENT AND REMOVAL, cholecystectomy in 2006. Past Anesthesia/Blood Transfusion Reactions: Previous Problems w/ Anesthesia, Malignant Hyperthermia, Motion Sickness Additional Past Anesthesia/Blood Transfusion Reaction / Comment(s): states difficulty breating with anesthesia Past Psychological History: Anxiety, Depression Smoking Status: Never smoker Past Alcohol Use History: None Reported Past Drug Use History: None Reported - Past Family History Sister(s) Family Medical History: Renal Disease Additional Family Medical History / Comment(s): FSGS Brother(s) Family Medical History: Renal Disease Additional Family Medical History / Comment(s): FSGS Father Family Medical History: Cancer, Coronary Artery Disease (CAD), Renal Disease Additional Family Medical History / Comment(s): renal disease-FSGS General Exam Limitations: no limitations General appearance: alert, in no apparent distress, other (This is a well developed, well nourished adult female in no acute distress.) Eye exam: Present: normal appearance, PERRL, EOMI. Absent: scleral icterus, conjunctival injection, nystagmus, periorbital swelling ENT exam: Present: normal exam, normal oropharynx, mucous membranes moist Respiratory exam: Present: normal lung sounds bilaterally. Absent: respiratory distress, wheezes, rales, rhonchi, stridor Cardiovascular Exam: Present: regular rate, normal rhythm, normal heart sounds. Absent: systolic murmur, diastolic murmur, rubs, gallop, clicks GI/Abdominal exam: Present: soft, normal bowel sounds. Absent: distended, tenderness, guarding, rebound, rigid Neurological exam: Present: alert, oriented X3, CN II-XII intact Expanded Speech: Present: fluid speech Cranial nerves: EOM's Intact: Normal, Tongue Deviation: Normal, Nystagmus: Normal Cerebellar function: Finger to Nose: Normal Motor strength exam: RUE: 5, LUE: 5, RLE: 5, LLE: 5 Eye Response: (4) open spontaneously Motor Response: (6) obeys commands Verbal Response: (5) oriented [place] Total: 15 Psychiatric exam: Present: normal affect, normal mood Skin exam: Present: warm, dry, intact, normal color. Absent: rash Course Vital Signs 12/18/21 20:36 Temperature 98.0 F Pulse Rate 95 Respiratory 20 Rate Blood Pressure 146/80 O2 Sat by Pulse 99 Oximetry Medical Decision Making - Medical Decision Making 46-year-old female patient presents to the emergency department today reporting headache and nausea. Physical examination is unremarkable. She is neurologically intact. Focal deficits. Pupils are equal and reactive. Denies it being the worst headache of her life. She was given pain medication states she does have improvement. She does have history of pseudotumor cerebri not currently on medications. Did discuss lumbar puncture. Since she is feeling better and she has not been having frequent headaches she is comfortable being discharged with LP. She is instructed to follow-up with her primary care physician for recheck in 1-2 days. She is instructed to follow up with her neurologist. Return parameters were discussed in detail. She verbalizes understanding and agrees with this plan. My attending is Dr. Hutchins. Disposition Clinical Impression: Migraine headache Disposition: HOME SELF-CARE Condition: Good Instructions (If sedation given, give patient instructions): Migraine Headache (ED) Additional Instructions: Follow-up with your primary care physician neurologist for further evaluation as soon as possible. Return to the emergency department immediately if you have any new symptoms or symptoms persist or worsen. Is patient prescribed a controlled substance at d/c from ED?: No Referrals: Ryder Gaines MD [Primary Care Provider] - 1-2 days Time of Disposition: 00:54
== END 2021-12-19 02:11 | disposition home or self-care (01) ==
LOC: EC 20:13
DX: G43.909 Migraine, unspecified, not intractable, without status migrainosus (principal); I10 Essential (primary) hypertension; K21.9 Gastro-esophageal reflux disease without esophagitis; Z88.7 Allergy status to serum and vaccine; Z88.0 Allergy status to penicillin; Z88.5 Allergy status to narcotic agent; Z88.8 Allergy status to other drugs, medicaments and biological substances; Z79.899 Other long term (current) drug therapy
CPT/HCPCS: 99284; 96374; 96375; 96376; J1200; J2765; J1885; J1170

== ENCOUNTER 2022-01-21 18:14 | Emergency (ER) | payer OTHER ==
[2022-01-21] MEDS ORDERED: LIDOCAINE 5% PATCH TOPICAL SCH (19:30)
[2022-01-21] MEDS ORDERED: KETOROLAC 15 MG/ML 1 ML VIAL IM STA (19:36)
--- NOTE | 2022-01-21 19:49 | ED ---
General Adult HPI - General Chief complaint: Back Pain/Injury Stated complaint: Lower Back Pain Time Seen by Provider: 01/21/22 18:36 Source: patient Mode of arrival: ambulatory Limitations: no limitations - History of Present Illness Initial comments: This 46-year-old female presents emergency Department with left lower back pain 3 days. Patient states 3 days ago she was lifting up a heavy case of pop at [employer] and a couple hours later she began to have tightness and pain to the left side of her lower back. Patient states since then she has had some pain radiating down the lateral side of her left leg to her knee. Patient states over the last day she has noticed the pain also in the right side of her lower back, however it is not as painful as the left side. Patient states she has been taking Flexeril and Motrin 800 at home which does slightly relieve her pain. Patient denies any saddle anesthesia, bowel or bladder incontinence/re tention. Patient denies any nausea, vomiting or IV drug use. Patient denies any chest pain, shortness of breath, abdominal pain, headache, dizziness, lightheadedness, change in vision. She denies any tingling or numbness in her legs. - Related Data Home Medications Medication Instructions Recorded Confirmed lisinopriL [Zestril] 10 mg PO DAILY 07/03/20 12/18/21 ondansetron HCL [Zofran] 4 mg PO Q8H PRN 07/03/20 12/18/21 Sertraline HCl [Zoloft] 100 mg PO HS 07/18/21 12/18/21 busPIRone HCl [Buspar] 10 mg PO BID 07/18/21 12/18/21 Omeprazole 40 mg PO HS 08/13/21 12/18/21 Previous Rx's Medication Instructions Recorded amLODIPine [Norvasc] 5 mg PO DAILY 7 Days #7 tab 05/24/20 predniSONE 50 mg PO DAILY #5 tab 01/21/22 Allergies Allergy/AdvReac Type Severity Reaction Status Date / Time influenza virus vaccine, Allergy Unknown Verified 01/21/22 18:16 specific [influenza virus vacc,specific] Penicillins Allergy Rash/Hives Verified 01/21/22 18:16 codeine AdvReac Nausea Verified 01/21/22 18:16 topiramate [From Topamax] AdvReac stoke Verified 01/21/22 18:16 symptoms Review of Systems ROS Statement: Those systems with pertinent positive or pertinent negative responses have been documented in the HPI. ROS Other: All systems not noted in ROS Statement are negative. Past Medical History Past Medical History: Chest Pain / Angina, GERD/Reflux, Hypertension, Mitral Valve Prolapse (MVP) Additional Past Medical History / Comment(s): PSEUDO TUMOR CEREBRI/ Medullary sponge kidney, chronic back pain, chronic headache, pt states she has never had a siezure. The pt states she takes antiepileptic for severe headaches. History of Any Multi-Drug Resistant Organisms: None Reported Past Surgical History: Cholecystectomy Additional Past Surgical History / Comment(s): LP SHUNT PLACEMENT AND REMOVAL, cholecystectomy in 2006. Past Anesthesia/Blood Transfusion Reactions: Previous Problems w/ Anesthesia, Malignant Hyperthermia, Motion Sickness Additional Past Anesthesia/Blood Transfusion Reaction / Comment(s): states difficulty breating with anesthesia Past Psychological History: Anxiety, Depression Smoking Status: Never smoker Past Alcohol Use History: None Reported Past Drug Use History: None Reported - Past Family History Sister(s) Family Medical History: Renal Disease Additional Family Medical History / Comment(s): FSGS Brother(s) Family Medical History: Renal Disease Additional Family Medical History / Comment(s): FSGS Father Family Medical History: Cancer, Coronary Artery Disease (CAD), Renal Disease Additional Family Medical History / Comment(s): renal disease-FSGS General Exam Limitations: no limitations General appearance: alert, in no apparent distress Head exam: Present: atraumatic, normocephalic Eye exam: Present: normal appearance, PERRL, EOMI Pupils: Present: normal accommodation ENT exam: Present: normal exam, mucous membranes moist Neck exam: Present: full ROM Respiratory exam: Present: normal lung sounds bilaterally. Absent: respiratory distress, wheezes, rales, rhonchi, stridor Cardiovascular Exam: Present: regular rate, normal rhythm, normal heart sounds. Absent: systolic murmur, diastolic murmur, rubs, gallop, clicks GI/Abdominal exam: Present: soft, normal bowel sounds. Absent: distended, tenderness, guarding, rebound, rigid Back exam: Present: full ROM, paraspinal tenderness (Lumbar paraspinal tenderness bilateral L>R. patient is tender to palpation over left iliotibial band/lateral leg. No tenderness to palpation over right lateral hip or leg). Absent: vertebral tenderness Neurological exam: Present: alert, oriented X3, CN II-XII intact Psychiatric exam: Present: normal affect, normal mood Skin exam: Present: warm, dry, intact, normal color. Absent: rash Course Vital Signs 01/21/22 01/21/22 18:17 19:56 Temperature 97.8 F 98.0 F Pulse Rate 107 H 88 Respiratory 18 20 Rate Blood Pressure 161/107 133/86 O2 Sat by Pulse 99 98 Oximetry - Reevaluation(s) Reevaluation #1: 01/21/22 19:55 After receiving Toradol injection, patient states she does have some relief to her lower back 01/21/22 20:01 Blood pressure was rechecked and blood pressure was 133/88. Patient states this is her baseline and she does take 2 hypertensive medications at home. Patient is asymptomatic Medical Decision Making - Medical Decision Making This 46-year-old female presents to the emergency department with bilateral lower back pain L>R that began 3 days ago. Lidocaine patch put on patients lefter lower back along with with Toradol injection given. That did relieve some of her pain. Patient was given Tylenol 3 prepack and steroids for home. Patient states she had he does have Flexeril and I instructed her to keep taking those for the next 2-3 days as directed. Patient likely with back muscle strain or iliotibial band syndrome. Patient to follow-up with her primary care provider next 24-48 hours. Strict return precautions were discussed. Patient verbally agreed to plan. Patient sent home in stable condition. Case discussed with my attending, Dr. Leung.. Disposition Clinical Impression: Low back strain, Iliotibial band syndrome, left leg Disposition: HOME SELF-CARE Condition: Stable Instructions (If sedation given, give patient instructions): Low Back Strain (ED), Lower Back Exercises (ED) Additional Instructions: Please follow-up with your primary care provider in next 24-48 hours. Return to the emergency department with any new, worsening, or concerning symptoms. Prescriptions: predniSONE 50 mg PO DAILY #5 tab Is patient prescribed a controlled substance at d/c from ED?: No Referrals: Ryder Gaines MD [Primary Care Provider] - 1-2 days
[2022-01-21 19:57] VITALS: BP 133/86; PULSE 88; RESP 20; TEMP 98
[2022-01-21] MEDS ORDERED: ACET/COD 300 MG/30 MG STARTER PACK 6 TAB BTL PO STA (19:57)
[2022-01-21] MEDS ORDERED: predniSONE 50 MG TAB PO STA (19:58)
== END 2022-01-21 20:21 | disposition home or self-care (01) ==
LOC: EC 18:14
DX: M76.32 Iliotibial band syndrome, left leg (principal); I10 Essential (primary) hypertension; K21.9 Gastro-esophageal reflux disease without esophagitis; Z79.890 Hormone replacement therapy; Z88.7 Allergy status to serum and vaccine; Z88.0 Allergy status to penicillin; Z88.5 Allergy status to narcotic agent; Z88.8 Allergy status to other drugs, medicaments and biological substances
CPT/HCPCS: 99283; 96374; J1885; J7512

== ENCOUNTER 2022-02-24 17:14 | Emergency (ER) | payer OTHER ==
[2022-02-24 17:33] VITALS: TEMP 98
[2022-02-24] MEDS ORDERED: ALPRAZolam 0.25 MG TAB PO STA (19:11)
--- NOTE | 2022-02-24 19:15 | ED ---
General Adult HPI - General Source: patient, RN notes reviewed Mode of arrival: wheelchair Limitations: no limitations <Rachel Villagomez - Last Filed: 02/25/22 04:09> <Laury Leung - Last Filed: 02/25/22 23:34> - General Chief complaint: Anxiety Stated complaint: Mental Health Time Seen by Provider: 02/24/22 18:59 - History of Present Illness Initial comments: 46-year-old female presents to the emergency department for evaluation after taking a marijuana complaints. Patient states she was feeling quite anxious earlier this morning and it was suggested to her to purchase marijuana to help her calm down. Patient states she purchased dummies from a store and recalls the label containing CBD and THC. Patient states her anxious symptoms worsened throughout day and she feels like she is unable settle down. States she ran out of her Zoloft and Buspar a month ago as she is in between PCPs. Denies fever, chills, headache, chest pain, shortness of breath, abdominal pain, nausea, vomiting, diarrhea, or dysuria. (Rachel Villagomez) - Related Data Home Medications Medication Instructions Recorded Confirmed lisinopriL [Zestril] 10 mg PO DAILY 07/03/20 12/18/21 ondansetron HCL [Zofran] 4 mg PO Q8H PRN 07/03/20 12/18/21 Sertraline HCl [Zoloft] 100 mg PO HS 07/18/21 12/18/21 busPIRone HCl [Buspar] 10 mg PO BID 07/18/21 12/18/21 Omeprazole 40 mg PO HS 08/13/21 12/18/21 Previous Rx's Medication Instructions Recorded amLODIPine [Norvasc] 5 mg PO DAILY 7 Days #7 tab 05/24/20 predniSONE 50 mg PO DAILY #5 tab 01/21/22 Allergies Allergy/AdvReac Type Severity Reaction Status Date / Time influenza virus vaccine, Allergy Unknown Verified 02/24/22 17:33 specific [influenza virus vacc,specific] Penicillins Allergy Rash/Hives Verified 02/24/22 17:33 codeine AdvReac Nausea Verified 02/24/22 17:33 topiramate [From Topamax] AdvReac stoke Verified 02/24/22 17:33 symptoms Review of Systems ROS Other: All systems not noted in ROS Statement are negative. <Rachel Villagomez - Last Filed: 02/25/22 04:09> ROS Other: All systems not noted in ROS Statement are negative. <Laury Leung Mary Kate - Last Filed: 02/25/22 23:34> ROS Statement: Those systems with pertinent positive or pertinent negative responses have been documented in the HPI. Past Medical History Past Medical History: Chest Pain / Angina, GERD/Reflux, Hypertension, Mitral Valve Prolapse (MVP) Additional Past Medical History / Comment(s): PSEUDO TUMOR CEREBRI/ Medullary sponge kidney, chronic back pain, chronic headache, pt states she has never had a siezure. The pt states she takes antiepileptic for severe headaches. History of Any Multi-Drug Resistant Organisms: None Reported Past Surgical History: Cholecystectomy Additional Past Surgical History / Comment(s): LP SHUNT PLACEMENT AND REMOVAL, cholecystectomy in 2006. Past Anesthesia/Blood Transfusion Reactions: Previous Problems w/ Anesthesia, Malignant Hyperthermia, Motion Sickness Additional Past Anesthesia/Blood Transfusion Reaction / Comment(s): states difficulty breating with anesthesia Past Psychological History: Anxiety, Depression Smoking Status: Never smoker Past Alcohol Use History: None Reported Past Drug Use History: None Reported - Past Family History Sister(s) Family Medical History: Renal Disease Additional Family Medical History / Comment(s): FSGS Brother(s) Family Medical History: Renal Disease Additional Family Medical History / Comment(s): FSGS Father Family Medical History: Cancer, Coronary Artery Disease (CAD), Renal Disease Additional Family Medical History / Comment(s): renal disease-FSGS <Rachel Villagomez - Last Filed: 02/25/22 04:09> General Exam Limitations: no limitations (Well-developed, well-nourished female in no acute distress. Initial temperature 98.0, pulse 116, respirations 20, blood pressure 141/81, pulse ox 100% on room air.) General appearance: alert, in no apparent distress Eye exam: Present: normal appearance. Absent: scleral icterus, conjunctival injection ENT exam: Present: normal oropharynx, mucous membranes moist Respiratory exam: Present: normal lung sounds bilaterally. Absent: respiratory distress, wheezes, rales, rhonchi, stridor, chest wall tenderness Cardiovascular Exam: Present: regular rate, normal rhythm, normal heart sounds. Absent: systolic murmur, diastolic murmur, rubs, gallop, clicks GI/Abdominal exam: Present: soft, normal bowel sounds. Absent: distended, tenderness, guarding, rebound, rigid Neurological exam: Present: alert, oriented X3, CN II-XII intact, normal gait Psychiatric exam: Present: anxious Skin exam: Present: warm, dry, intact, normal color <Rachel Villagomez - Last Filed: 02/25/22 04:09> Course <Rachel Villagomez - Last Filed: 02/25/22 04:09> Vital Signs 02/24/22 02/24/22 17:28 20:59 Temperature 98.0 F 98.0 F Pulse Rate 116 H 92 Respiratory 20 18 Rate Blood Pressure 141/81 136/78 O2 Sat by Pulse 100 98 Oximetry - Reevaluation(s) Reevaluation #1: 02/24/22 20:12 Upon reassessment, patient is resting more calmly and comfortably. States she is ready for discharge. Results reviewed. (Rachel Villagomez) Medical Decision Making - EKG Data EKG shows normal: sinus rhythm Rate: normal <Rachel Villagomez - Last Filed: 02/25/22 04:09> <Laury Leung - Last Filed: 02/25/22 23:34> - Medical Decision Making 46-year-old female with a past medical history of hypertension, angina, and chronic back pain presents to the emergency department for evaluation. Upon arrival, patient is in no acute distress. She verbalizes feeling anxious and is concerned about having a negative reaction after ingesting a marijuana gummy containing both CBD and THC. Urinalysis is positive for marijuana, THC. EKG shows normal sinus rhythm. Patient was given a Xanax and reports significant improvement. She will be discharged home with her spouse to follow up with her PCP to consider resuming mental health medications. Return parameters were discussed in detail. Patient verbalizes understanding and agrees with this plan. Attending: Madhu. (Rachel Villagomez) I was available for consultation in the emergency department. The history and physical exam were done by the midlevel provider. I was consulted for this patients care. I reviewed the case with the midlevel provider and based on their presentation of the patient, I agree with the assessment, medical decision making and plan of care as documented. Chart was dictated using [employer] dictation software. Attempts were made to correct any dictation errors however some typographical errors may persist. (Laury Leung) - Lab Data Lab Results 02/24/22 Range/Units 19:45 Urine Color Yellow Urine Appearance Clear (Clear) Urine pH 5.0 (5.0-8.0) Ur Specific [place] 1.019 (1.001-1.035) Urine Protein Negative (Negative) Urine Glucose (UA) Negative (Negative) Urine Ketones Negative (Negative) Urine Blood Negative (Negative) Urine Nitrite Negative (Negative) Urine Bilirubin Negative (Negative) Urine Urobilinogen <2.0 (<2.0) mg/dL Ur Leukocyte Esterase Small H (Negative) Urine RBC 1 (0-5) /hpf Urine WBC 7 H (0-5) /hpf Ur Squamous Epith Cells 2 (0-4) /hpf Urine Bacteria Rare H (None) /hpf Urine Mucus Rare H (None) /hpf Urine Opiates Screen Not Detected (NotDetected) Ur Oxycodone Screen Not Detected (NotDetected) Urine Methadone Screen Not Detected (NotDetected) Ur Propoxyphene Screen Not Detected (NotDetected) Ur Barbiturates Screen Not Detected (NotDetected) U Tricyclic Antidepress Not Detected (NotDetected) Ur Phencyclidine Scrn Not Detected (NotDetected) Ur Amphetamines Screen Not Detected (NotDetected) U Methamphetamines Scrn Not Detected (NotDetected) U Benzodiazepines Scrn Not Detected (NotDetected) Urine Cocaine Screen Not Detected (NotDetected) U Marijuana (THC) Screen Detected H (NotDetected) - EKG Data EKG Comments: EKG was obtained at 1941 showing sinus rhythm. Ventricular rate 97, QRS duration 94, OH interval 173, QT/QTC 360/for 15. Interpretation borderline ECG. (Rachel Villagomez) Disposition Is patient prescribed a controlled substance at d/c from ED?: No Time of Disposition: 20:34 <Rachel Villagomez - Last Filed: 02/25/22 04:09> <Laury Leung - Last Filed: 02/25/22 23:34> Clinical Impression: Anxiety reaction Disposition: HOME SELF-CARE Condition: Stable Instructions (If sedation given, give patient instructions): Anxiety (ED) Additional Instructions: Avoid use of substances containing THC. Establish with PCP to resume taking home medications. Return to the emergency department with any new, worsening, or concerning symptoms. Referrals: None,Stated [Primary Care Provider] - 1-2 days
[2022-02-24 20:22] LABS: Appearance,Urine Clear (Clear); Bacteria,Urine Rare /hpf; Bilirubin,Urine Negative (Negative); Blood,Urine Negative (Negative); Color,Urine Yellow; Glucose,Urine (UA) Negative (Negative); Ketones,Urine Negative (Negative); Leukocyte Esterase,Urine Small (Negative); Mucus,Urine Rare /hpf; Nitrite,Urine Negative (Negative); Protein,Urine Negative (Negative); RBC,Urine 1 /hpf (0-5); Specific Gravity,Urine 1.019 (1.001-1.035); Squamous Epithelial Cell,Urine 2 /hpf (0-4); Urobilinogen,Urine <2.0 mg/dL (<2.0); WBC,Urine 7 /hpf (0-5)
[2022-02-24 20:30] LABS: Amphetamine Screen,Urine Not Detected (NotDetected); Barbiturate Screen,Urine Not Detected (NotDetected); Benzodiazepines Screen,Urine Not Detected (NotDetected); Cocaine Screen,Urine Not Detected (NotDetected); Methadone Screen, Urine Not Detected (NotDetected); Opiate Screen,Urine Not Detected (NotDetected); Oxycodone Screen, Urine Not Detected (NotDetected); Phencyclidine Screen,Urine Not Detected (NotDetected); Tricyclic Antidepressant,Urine Not Detected (NotDetected); Urn Cannabinoid Scrn Detected (NotDetected)
[2022-02-24 21:00] VITALS: BP 136/78; PULSE 92; RESP 18
== END 2022-02-24 20:59 | disposition home or self-care (01) ==
LOC: EC 17:14
DX: F41.1 Generalized anxiety disorder (principal); I10 Essential (primary) hypertension; K21.9 Gastro-esophageal reflux disease without esophagitis; Z88.0 Allergy status to penicillin; Z88.5 Allergy status to narcotic agent; Z88.8 Allergy status to other drugs, medicaments and biological substances; Z88.7 Allergy status to serum and vaccine; Z79.899 Other long term (current) drug therapy
CPT/HCPCS: 80306; 81001; 93005; 99283

== ENCOUNTER 2022-04-04 01:13 | Emergency (ER) | payer OTHER ==
[2022-04-04 01:42] VITALS: BP 154/90; PULSE 95; RESP 18; TEMP 98.3
[2022-04-04] MEDS ORDERED: ACETAMINOPHEN TAB 500 MG TAB PO STA (01:57)
--- NOTE | 2022-04-04 02:19 | XR ---
EXAMINATION TYPE: XR chest 2V DATE OF EXAM: 04/04/2022 COMPARISON: 08/13/2021 HISTORY: Chest pain TECHNIQUE: 2 views FINDINGS: Heart and mediastinum are normal. Lungs are clear. Diaphragm is normal. Bony thorax appears normal IMPRESSION: Normal chest. No change.
[2022-04-04] MEDS ORDERED: IBUPROFEN 800 MG TAB PO STA (03:44)
[2022-04-04] MEDS ORDERED: DEXAMETHASONE SOD PHOSPHATE 10 MG/ML 1 ML VIAL IM STA (03:44)
[2022-04-04] MEDS ORDERED: AZITHROMYCIN 500 MG TAB PO STA (03:44)
--- NOTE | 2022-04-04 03:47 | ED ---
URI HPI - General Chief Complaint: Upper Respiratory Infection Stated Complaint: ENT Time Seen by Provider: 04/04/22 02:50 Source: patient, RN notes reviewed, old records reviewed Mode of arrival: ambulatory Limitations: no limitations - History of Present Illness Initial Comments: This is a 46-year-old female well-known to this emergency department. Patient coming in for evaluation multiple complaints cough congestion sore throat runny nose. Patient states she can't shake the cough concern for coronavirus. Denies no known sick contacts. No known travel history. Nothing recent. Patient has a coronavirus in the past. No fevers which is still bodyaches body pains. Denies nausea vomiting or diarrhea. No abdominal pain. MD Complaint: cough, sore throat, nasal congestion -: days(s) Severity: moderate Severity scale (1-10): 6 Quality: aching Consistency: constant Improves With: nothing Worsens With: nothing Context: sick contacts Associated Symptoms: chills, myalgias, nasal congestion, sore throat, cough, nausea Treatments Prior to Arrival: none - Related Data Home Medications Medication Instructions Recorded Confirmed lisinopriL [Zestril] 10 mg PO DAILY 07/03/20 12/18/21 ondansetron HCL [Zofran] 4 mg PO Q8H PRN 07/03/20 12/18/21 Sertraline HCl [Zoloft] 100 mg PO HS 07/18/21 12/18/21 busPIRone HCl [Buspar] 10 mg PO BID 07/18/21 12/18/21 Omeprazole 40 mg PO HS 08/13/21 12/18/21 Previous Rx's Medication Instructions Recorded amLODIPine [Norvasc] 5 mg PO DAILY 7 Days #7 tab 05/24/20 predniSONE 50 mg PO DAILY #5 tab 01/21/22 Allergies Allergy/AdvReac Type Severity Reaction Status Date / Time influenza virus vaccine, Allergy Unknown Verified 04/04/22 01:42 specific [influenza virus vacc,specific] Penicillins Allergy Rash/Hives Verified 04/04/22 01:42 codeine AdvReac Nausea Verified 04/04/22 01:42 topiramate [From Topamax] AdvReac stoke Verified 04/04/22 01:42 symptoms Review of Systems ROS Statement: Those systems with pertinent positive or pertinent negative responses have been documented in the HPI. ROS Other: All systems not noted in ROS Statement are negative. Past Medical History Past Medical History: Chest Pain / Angina, GERD/Reflux, Hypertension, Mitral Valve Prolapse (MVP) Additional Past Medical History / Comment(s): PSEUDO TUMOR CEREBRI/ Medullary sponge kidney, chronic back pain, chronic headache, pt states she has never had a siezure. The pt states she takes antiepileptic for severe headaches. History of Any Multi-Drug Resistant Organisms: None Reported Past Surgical History: Cholecystectomy Additional Past Surgical History / Comment(s): LP SHUNT PLACEMENT AND REMOVAL, cholecystectomy in 2006. Past Anesthesia/Blood Transfusion Reactions: Previous Problems w/ Anesthesia, Malignant Hyperthermia, Motion Sickness Additional Past Anesthesia/Blood Transfusion Reaction / Comment(s): states difficulty breating with anesthesia Past Psychological History: Anxiety, Depression Smoking Status: Never smoker Past Alcohol Use History: None Reported Past Drug Use History: None Reported - Past Family History Sister(s) Family Medical History: Renal Disease Additional Family Medical History / Comment(s): FSGS Brother(s) Family Medical History: Renal Disease Additional Family Medical History / Comment(s): FSGS Father Family Medical History: Cancer, Coronary Artery Disease (CAD), Renal Disease Additional Family Medical History / Comment(s): renal disease-FSGS General Exam General appearance: alert, in no apparent distress Head exam: Present: atraumatic, normocephalic, normal inspection Eye exam: Present: normal appearance, PERRL, EOMI. Absent: scleral icterus, conjunctival injection, periorbital swelling ENT exam: Present: normal exam, mucous membranes moist Neck exam: Present: normal inspection. Absent: tenderness, meningismus, lymphadenopathy Respiratory exam: Present: normal lung sounds bilaterally. Absent: respiratory distress, wheezes, rales, rhonchi, stridor Cardiovascular Exam: Present: regular rate, normal rhythm, normal heart sounds. Absent: systolic murmur, diastolic murmur, rubs, gallop, clicks GI/Abdominal exam: Present: soft, normal bowel sounds. Absent: distended, tenderness, guarding, rebound, rigid Extremities exam: Present: normal inspection, full ROM, normal capillary refill. Absent: tenderness, pedal edema, joint swelling, calf tenderness Back exam: Present: normal inspection Neurological exam: Present: alert, oriented X3, CN II-XII intact Psychiatric exam: Present: normal affect, normal mood Skin exam: Present: warm, dry, intact, normal color. Absent: rash Course Vital Signs 04/04/22 01:39 Temperature 98.3 F Pulse Rate 95 Respiratory 18 Rate Blood Pressure 154/90 O2 Sat by Pulse 100 Oximetry - Reevaluation(s) Reevaluation #1: 04/04/22 03:45 Medical records reviewed Reevaluation #2: 04/04/22 03:45 Patient informed of results and questions answered Reevaluation #3: 04/04/22 03:46 Patient feels improved here in the ER agrees with treatment plan can be discharged home Medical Decision Making - Medical Decision Making 46 female with cough congestion upper respiratory infection. Patient will place on antibiotics, covert test is negative chest x-rays negative patient can be discharged home - Lab Data Lab Results 04/04/22 Range/Units 02:13 Coronavirus (PCR) Not Detected (Not Detectd) - Radiology Data Radiology results: report reviewed (Chest x-rays negative for acute disease), image reviewed Disposition Clinical Impression: Fever, Acute upper respiratory infection, Bronchitis Disposition: HOME SELF-CARE Condition: Good Instructions (If sedation given, give patient instructions): Upper Respiratory Infection (ED) Is patient prescribed a controlled substance at d/c from ED?: No Referrals: Fili Davis MD [Primary Care Provider] - 1-2 days
== END 2022-04-04 04:40 | disposition home or self-care (01) ==
LOC: EC 01:13
DX: J02.9 Acute pharyngitis, unspecified (principal); I10 Essential (primary) hypertension; K21.9 Gastro-esophageal reflux disease without esophagitis; Z79.83 Long term (current) use of bisphosphonates; J40 Bronchitis, not specified as acute or chronic; Z88.8 Allergy status to other drugs, medicaments and biological substances; Z88.0 Allergy status to penicillin; Z88.5 Allergy status to narcotic agent; Z88.7 Allergy status to serum and vaccine; Z20.822 Contact with and (suspected) exposure to COVID-19
CPT/HCPCS: 87635; 71046; 99284; 96372; J1100

== ENCOUNTER 2022-06-13 22:51 | Emergency (ER) | payer OTHER ==
[2022-06-14] MEDS ORDERED: ONDANSETRON 4 MG/2 ML VIAL IVP STA (00:11)
[2022-06-14] MEDS ORDERED: KETOROLAC 15 MG/ML 1 ML VIAL IVP STA (00:11)
[2022-06-14 00:58] LABS: Basophils # (A) 0.1 k/uL (0-0.2); Basophils % (A) 1 %; Eosinophils # (A) 0.2 k/uL (0-0.7); Eosinophils % (A) 1 %; HCT 41.8 % (34.0-46.0); HGB 13.5 gm/dL (11.4-16.0); Lymphocytes # (A) 2.4 k/uL (1.0-4.8); Lymphocytes % (A) 22 %; MCH 27.2 pg (25.0-35.0); MCHC 32.3 g/dL (31.0-37.0); MCV 84.3 fL (80.0-100.0); Mean Platelet Volume 8.8; Monocytes # (A) 0.6 k/uL (0-1.0); Monocytes % (A) 5 %; Neutrophils % (A) 70 %; Platelet Count 266 k/uL (150-450); RBC 4.96 m/uL (3.80-5.40); RDW 13.4 % (11.5-15.5); WBC 11.3 k/uL (3.8-10.6)
[2022-06-14 00:59] LABS: Calcium 9.5 mg/dL (8.4-10.2); Potassium 4.3 mmol/L (3.5-5.1)
[2022-06-14] MEDS ORDERED: HYDROmorphone 0.5 MG/0.5 ML SYRINGE IVP STA (01:08)
[2022-06-14 01:12] VITALS: RESP 16; TEMP 97.8
[2022-06-14 02:34] LABS: Appearance,Urine Clear (Clear); Bacteria,Urine Rare /hpf; Bilirubin,Urine Negative (Negative); Blood,Urine Negative (Negative); Color,Urine Light Yellow; Glucose,Urine (UA) Negative (Negative); Ketones,Urine Negative (Negative); Leukocyte Esterase,Urine Small (Negative); Mucus,Urine Rare /hpf; Nitrite,Urine Negative (Negative); Protein,Urine Negative (Negative); RBC,Urine 1 /hpf (0-5); Specific Gravity,Urine 1.012 (1.001-1.035); Squamous Epithelial Cell,Urine 1 /hpf (0-4); Urobilinogen,Urine <2.0 mg/dL (<2.0); WBC,Urine 4 /hpf (0-5)
--- NOTE | 2022-06-14 02:37 | ED ---
General Adult HPI - General Chief complaint: Back Pain/Injury Stated complaint: Back Pain Time Seen by Provider: 06/13/22 23:28 Source: patient, family, RN notes reviewed Mode of arrival: wheelchair Limitations: no limitations - History of Present Illness Initial comments: 47-year-old female presents to the emergency Department with complaints of low back pain that radiates upon her spine to her neck and head. Reports history of low back pain but states it usually radiates down her legs therefore became concerned when the pain shot up her spine. No injury, fall, trauma, heavy lifting, or motor vehicle crash. Reports a history of pseudotumor cerebri for which headaches are common for her. Denies any fever, chills, dizziness, vision change, chest pain, shortness of breath, abdominal pain, nausea, vomiting, diarrhea, dysuria, loss of bowel or bladder control, saddle anesthesia, or paresthesia of the extremities. - Related Data Home Medications Medication Instructions Recorded Confirmed lisinopriL [Zestril] 10 mg PO DAILY 07/03/20 12/18/21 ondansetron HCL [Zofran] 4 mg PO Q8H PRN 07/03/20 12/18/21 Sertraline HCl [Zoloft] 100 mg PO HS 07/18/21 12/18/21 busPIRone HCl [Buspar] 10 mg PO BID 07/18/21 12/18/21 Omeprazole 40 mg PO HS 08/13/21 12/18/21 Previous Rx's Medication Instructions Recorded amLODIPine [Norvasc] 5 mg PO DAILY 7 Days #7 tab 05/24/20 predniSONE 50 mg PO DAILY #5 tab 01/21/22 Azithromycin [Zithromax Z-pack (6 0 mg PO DIRECTED #1 packet 04/04/22 tabs)] Cyclobenzaprine [Flexeril] 10 mg PO TID PRN #15 tab 06/14/22 Ibuprofen [Motrin] 600 mg PO Q8HR PRN #20 tab 06/14/22 Allergies Allergy/AdvReac Type Severity Reaction Status Date / Time influenza virus vaccine, Allergy Unknown Verified 06/13/22 23:00 specific [influenza virus vacc,specific] Penicillins Allergy Rash/Hives Verified 06/13/22 23:00 codeine AdvReac Nausea Verified 06/13/22 23:00 topiramate [From Topamax] AdvReac fatmata Verified 06/13/22 23:00 symptoms Review of Systems ROS Statement: Those systems with pertinent positive or pertinent negative responses have been documented in the HPI. ROS Other: All systems not noted in ROS Statement are negative. Past Medical History Past Medical History: Chest Pain / Angina, GERD/Reflux, Hypertension, Mitral Valve Prolapse (MVP) Additional Past Medical History / Comment(s): PSEUDO TUMOR CEREBRI/ Medullary sponge kidney, chronic back pain, chronic headache, pt states she has never had a siezure. The pt states she takes antiepileptic for severe headaches. History of Any Multi-Drug Resistant Organisms: None Reported Past Surgical History: Cholecystectomy Additional Past Surgical History / Comment(s): LP SHUNT PLACEMENT AND REMOVAL, cholecystectomy in 2006. Past Anesthesia/Blood Transfusion Reactions: Previous Problems w/ Anesthesia, Malignant Hyperthermia, Motion Sickness Additional Past Anesthesia/Blood Transfusion Reaction / Comment(s): states difficulty breating with anesthesia Past Psychological History: Anxiety, Depression Smoking Status: Never smoker Past Alcohol Use History: None Reported Past Drug Use History: None Reported - Past Family History Sister(s) Family Medical History: Renal Disease Additional Family Medical History / Comment(s): FSGS Brother(s) Family Medical History: Renal Disease Additional Family Medical History / Comment(s): FSGS Father Family Medical History: Cancer, Coronary Artery Disease (CAD), Renal Disease Additional Family Medical History / Comment(s): renal disease-FSGS General Exam Limitations: no limitations (Well-developed, well-nourished female in no acute distress. Initial temperature 97.7, pulse 89, respirations 18, blood pressure 152/97, pulse ox 100% on room air.) General appearance: alert, in no apparent distress Eye exam: Present: normal appearance, PERRL, EOMI. Absent: scleral icterus, conjunctival injection, periorbital swelling Neck exam: Present: normal inspection, full ROM. Absent: tenderness, meningismus, lymphadenopathy Respiratory exam: Present: normal lung sounds bilaterally. Absent: respiratory distress, wheezes, rales, rhonchi, stridor Cardiovascular Exam: Present: regular rate, normal rhythm, normal heart sounds. Absent: systolic murmur, diastolic murmur, rubs, gallop, clicks GI/Abdominal exam: Present: soft, normal bowel sounds. Absent: distended, tenderness, guarding, rebound, rigid Extremities exam: Present: normal inspection, full ROM, normal capillary refill. Absent: tenderness, pedal edema, joint swelling, calf tenderness Back exam: Present: normal inspection, paraspinal tenderness, vertebral tenderness (Vertebral tenderness upon palpation of the lumbar spine) Expanded Back exam: Negative Straight Leg Raising: Left, Right Neurological exam: Present: alert, oriented X3, normal gait Psychiatric exam: Present: normal affect, normal mood Skin exam: Present: warm, dry, intact, normal color. Absent: rash Course Vital Signs 06/13/22 06/14/22 06/14/22 22:57 01:00 03:35 Temperature 97.7 F 97.8 F Pulse Rate 89 80 77 Respiratory 18 16 16 Rate Blood Pressure 152/97 121/76 147/63 O2 Sat by Pulse 100 98 99 Oximetry Medical Decision Making - Medical Decision Making This is a 47-year-old female with a past medical history of chest pain, hypertension, and pseudotumor cerebri who presents to the emergency department for evaluation of back pain. Upon exam, patient is well-appearing and in no acute distress. She is neurologically intact with no focal deficits. She was given Toradol with minimal improvement therefore given Dilaudid and Zofran with which she had satisfactory improvement. Laboratory studies were obtained and are unremarkable. Imaging was deferred as patient had no acute injury. No fever, saddle anesthesia, loss of bowel or bladder control, or foot drop. She will be discharged home with Motrin and Flexeril and instructed to follow up with her PCP for a recheck. Return parameters discussed in detail. Patient verbalizes understanding and agrees with this plan. Attending: Cuong. - Lab Data Result diagrams: 06/14/22 00:35 06/14/22 00:35 Lab Results 06/14/22 06/14/22 06/14/22 Range/Units 00:35 00:35 01:07 WBC 11.3 H (3.8-10.6) k/uL RBC 4.96 (3.80-5.40) m/uL Hgb 13.5 (11.4-16.0) gm/dL Hct 41.8 (34.0-46.0) % MCV 84.3 (80.0-100.0) fL MCH 27.2 (25.0-35.0) pg MCHC 32.3 (31.0-37.0) g/dL RDW 13.4 (11.5-15.5) % Plt Count 266 (150-450) k/uL MPV 8.8 Neutrophils % 70 % Lymphocytes % 22 % Monocytes % 5 % Eosinophils % 1 % Basophils % 1 % Neutrophils # 8.0 H (1.3-7.7) k/uL Lymphocytes # 2.4 (1.0-4.8) k/uL Monocytes # 0.6 (0-1.0) k/uL Eosinophils # 0.2 (0-0.7) k/uL Basophils # 0.1 (0-0.2) k/uL Sodium 136 L (137-145) mmol/L Potassium 4.3 (3.5-5.1) mmol/L Chloride 102 (98-107) mmol/L Carbon Dioxide 31 H (22-30) mmol/L Anion Gap 3 mmol/L BUN 15 (7-17) mg/dL Creatinine 0.90 (0.52-1.04) mg/dL Est GFR (CKD-EPI)AfAm 89 (>60 ml/min/1.73 sqM) Est GFR (CKD-EPI)NonAf 77 (>60 ml/min/1.73 sqM) Glucose 103 H (74-99) mg/dL Calcium 9.5 (8.4-10.2) mg/dL Urine Color Light Yellow Urine Appearance Clear (Clear) Urine pH 6.0 (5.0-8.0) Ur Specific [place] 1.012 (1.001-1.035) Urine Protein Negative (Negative) Urine Glucose (UA) Negative (Negative) Urine Ketones Negative (Negative) Urine Blood Negative (Negative) Urine Nitrite Negative (Negative) Urine Bilirubin Negative (Negative) Urine Urobilinogen <2.0 (<2.0) mg/dL Ur Leukocyte Esterase Small H (Negative) Urine RBC 1 (0-5) /hpf Urine WBC 4 (0-5) /hpf Ur Squamous Epith Cells 1 (0-4) /hpf Urine Bacteria Rare H (None) /hpf Urine Mucus Rare H (None) /hpf Disposition Clinical Impression: Low back pain Disposition: HOME SELF-CARE Condition: Stable Instructions (If sedation given, give patient instructions): Low Back Strain (ED) Additional Instructions: Continue taking your home medications as prescribed. Motrin is prescribed for pain. Flexeril for muscle spasms. Alternate periods of rest with gentle activity. Maintain mobility with frequent ambulation. Follow-up with your PCP for a recheck as needed. Return to the emergency department with any new, worsening, or concerning sympt oms. Prescriptions: Cyclobenzaprine [Flexeril] 10 mg PO TID PRN #15 tab PRN Reason: Muscle Spasm Ibuprofen [Motrin] 600 mg PO Q8HR PRN #20 tab PRN Reason: Pain Is patient prescribed a controlled substance at d/c from ED?: No Referrals: Fili Davis MD [Primary Care Provider] - 1-2 days Time of Disposition: 03:13
[2022-06-14 03:37] VITALS: BP 147/63; PULSE 77
== END 2022-06-14 03:36 | disposition home or self-care (01) ==
LOC: EC 22:51
DX: M54.50 Low back pain, unspecified (principal); K21.9 Gastro-esophageal reflux disease without esophagitis; I10 Essential (primary) hypertension; F41.9 Anxiety disorder, unspecified; F32.A Depression, unspecified; Z88.7 Allergy status to serum and vaccine; Z88.0 Allergy status to penicillin; Z88.5 Allergy status to narcotic agent; Z88.8 Allergy status to other drugs, medicaments and biological substances; Z79.899 Other long term (current) drug therapy
CPT/HCPCS: 36415; 80048; 85025; 81001; 99283; 96374; 96375 ×2; J2405; J1885; J1170

== ENCOUNTER 2022-07-29 10:03 | Emergency (ER) | payer OTHER ==
[2022-07-29 10:22] VITALS: TEMP 98
--- NOTE | 2022-07-29 10:55 | ED ---
General Adult HPI - General Chief complaint: Dizziness Stated complaint: near syncope Time Seen by Provider: 07/29/22 10:27 Source: patient, RN notes reviewed Mode of arrival: ambulatory Limitations: no limitations - History of Present Illness Initial comments: Patient is a 47-year-old female presenting to the emergency room with complaints of dizziness, headache and nausea ongoing for the last 3 days. She states that she contacted her primary care provider who advised her to come to the emergency room due to her past medical history of a Chiari malformation and pseudotumor. She reports that she has dizziness in all positions but standing is the most severe. She has a history of chronic headaches per reports that this headache is different and more persistent than her typical headaches. She denies any focal neurological deficits but reports generalized weakness. She denies any paresthesia, blurred or double vision, chest pain, shortness of breath, abdominal pain, vomiting, diarrhea, fevers or chills. In addition to her Chiari malformation, chronic headaches and pseudo tumor cerbri she has a past medical history significant for hypertension, mitral valve prolapse, GERD, medullary sponge kidney, and chronic back pain. - Related Data Home Medications Medication Instructions Recorded Confirmed lisinopriL [Zestril] 10 mg PO DAILY 07/03/20 07/29/22 ondansetron HCL [Zofran] 4 mg PO DAILY PRN 07/03/20 07/29/22 Sertraline HCl [Zoloft] 100 mg PO HS 07/18/21 07/29/22 busPIRone HCl [Buspar] 10 mg PO BID 07/18/21 07/29/22 Omeprazole 40 mg PO DAILY 08/13/21 07/29/22 Previous Rx's Medication Instructions Recorded amLODIPine [Norvasc] 5 mg PO DAILY 7 Days #7 tab 05/24/20 Cyclobenzaprine [Flexeril] 10 mg PO TID PRN #15 tab 06/14/22 Ibuprofen [Motrin] 600 mg PO Q8HR PRN #20 tab 06/14/22 Ibuprofen [Motrin] 800 mg PO Q8H PRN 7 Days #21 tab 07/29/22 Meclizine HCl [Antivert] 25 mg PO Q8H PRN 7 Days #21 tab 07/29/22 Allergies Allergy/AdvReac Type Severity Reaction Status Date / Time influenza virus vaccine, Allergy Unknown Verified 07/29/22 11:49 specific [influenza virus vacc,specific] Penicillins Allergy Rash/Hives Verified 07/29/22 11:49 acetazolamide AdvReac "Caused Verified 07/29/22 11:49 [From Diamox Sequels] heart issues" hydrochlorothiazide AdvReac Rapid Verified 07/29/22 11:49 Heart Rate topiramate [From Topamax] AdvReac stoke Verified 07/29/22 11:49 symptoms Review of Systems ROS Statement: Those systems with pertinent positive or pertinent negative responses have been documented in the HPI. ROS Other: All systems not noted in ROS Statement are negative. Past Medical History Past Medical History: Chest Pain / Angina, GERD/Reflux, Hypertension, Mitral Valve Prolapse (MVP) Additional Past Medical History / Comment(s): Pseudo tumor cerbri, Medullary sponge kidney, chronic back pain, chronic headache History of Any Multi-Drug Resistant Organisms: None Reported Past Surgical History: Cholecystectomy Additional Past Surgical History / Comment(s): LP SHUNT PLACEMENT AND REMOVAL, cholecystectomy in 2006. Past Anesthesia/Blood Transfusion Reactions: Previous Problems w/ Anesthesia, Malignant Hyperthermia, Motion Sickness Additional Past Anesthesia/Blood Transfusion Reaction / Comment(s): states difficulty breating with anesthesia Past Psychological History: Anxiety, Depression Smoking Status: Never smoker Past Alcohol Use History: None Reported Past Drug Use History: None Reported - Past Family History Sister(s) Family Medical History: Renal Disease Additional Family Medical History / Comment(s): FSGS Brother(s) Family Medical History: Renal Disease Additional Family Medical History / Comment(s): FSGS Father Family Medical History: Cancer, Coronary Artery Disease (CAD), Renal Disease Additional Family Medical History / Comment(s): renal disease-FSGS General Exam Limitations: no limitations General appearance: alert, in no apparent distress Head exam: Present: atraumatic, normocephalic, normal inspection Eye exam: Present: normal appearance, PERRL, EOMI. Absent: scleral icterus, conjunctival injection, nystagmus, periorbital swelling Expanded Ear exam: Present: other (Bilateral canals with mild serous effusions no er ythema. Serum impaction to left canal removed without complication.) TM/Canal exam: Cerumen Impaction: Left TM Mouth exam: Present: normal external inspection Teeth exam: Present: normal inspection Throat exam: normal inspection. negative: tonsillar erythema, tonsillomegaly Neck exam: Present: normal inspection. Absent: tenderness, lymphadenopathy Respiratory exam: Present: normal lung sounds bilaterally. Absent: respiratory distress, wheezes, rales, rhonchi, stridor Cardiovascular Exam: Present: regular rate, normal rhythm, normal heart sounds. Absent: systolic murmur, diastolic murmur, rubs, gallop, clicks GI/Abdominal exam: Present: soft, normal bowel sounds. Absent: distended, tende rness, guarding, rebound, rigid Extremities exam: Present: normal inspection. Absent: pedal edema, joint swelling Back exam: Present: normal inspection Neurological exam: Present: alert, oriented X3, CN II-XII intact Expanded Motor strength exam: RUE: 5, LUE: 5, RLE: 5, LLE: 5 [place] Total: 15 Psychiatric exam: Present: normal affect, normal mood Skin exam: Present: warm, dry, intact, normal color. Absent: rash Course Vital Signs 07/29/22 07/29/22 10:20 11:37 Temperature 98 F Pulse Rate 92 Pulse Rate [ 84 Sitting Core Machine Operator] Pulse Rate [ 83 Standing Core Machine Operator ] Pulse Rate [ 79 Supine Core Machine Operator] Respiratory 16 Rate Blood Pressure 145/63 Blood Pressure 125/90 [Right Arm Sitting] Blood Pressure 135/82 [Right Arm Standing] Blood Pressure 128/78 [Right Arm Supine] O2 Sat by Pulse 100 Oximetry Medical Decision Making - Medical Decision Making 47-year-old female presenting to the emergency room at the direction of her primary care provider for dizziness headache and nausea ongoing for 3 days. 2 past medical history will obtain EKG, CT of the brain, orthostatic blood pressures along with CBC and CMP and COVID swab. Denies any anti-medic or analgesic need at this time. Will monitor closely. Orthostatic blood pressures normal, CBC unremarkable, CMP unremarkable, negative for Covid. Awaiting computed tomography scan. EKG shows sinus bradycardia with short VT interval heart rate is 58. CT of brain negative for acute process. Will give Toradol for pain and monitor response. Discussed findings with patient and plan for treatment for vertigo;no need for antibiotic therapy at this time is onset was 3 days ago and likely viral or allergy-like in nature. Headache improved with Toradol will discharge home with ibuprofen along with meclizine to utilize as needed for dizziness and primary care follow-up. Return parameters reviewed. Case discussed with Dr. Funk. - Lab Data Result diagrams: 07/29/22 11:16 07/29/22 11:16 Lab Results 07/29/22 07/29/22 07/29/22 Range/Units 11:15 11:16 11:16 WBC 8.0 (3.8-10.6) k/uL RBC 4.87 (3.80-5.40) m/uL Hgb 13.9 (11.4-16.0) gm/dL Hct 41.4 (34.0-46.0) % MCV 84.9 (80.0-100.0) fL MCH 28.6 (25.0-35.0) pg MCHC 33.7 (31.0-37.0) g/dL RDW 13.5 (11.5-15.5) % Plt Count 275 (150-450) k/uL MPV 8.4 Neutrophils % 74 % Lymphocytes % 19 % Monocytes % 4 % Eosinophils % 2 % Basophils % 1 % Neutrophils # 5.9 (1.3-7.7) k/uL Lymphocytes # 1.5 (1.0-4.8) k/uL Monocytes # 0.3 (0-1.0) k/uL Eosinophils # 0.1 (0-0.7) k/uL Basophils # 0.1 (0-0.2) k/uL Sodium 139 (137-145) mmol/L Potassium 4.3 (3.5-5.1) mmol/L Chloride 103 (98-107) mmol/L Carbon Dioxide 27 (22-30) mmol/L Anion Gap 9 mmol/L BUN 15 (7-17) mg/dL Creatinine 0.94 (0.52-1.04) mg/dL Est GFR (CKD-EPI)AfAm 84 (>60 ml/min/1.73 sqM) Est GFR (CKD-EPI)NonAf 73 (>60 ml/min/1.73 sqM) Glucose 102 H (74-99) mg/dL Calcium 8.7 (8.4-10.2) mg/dL Total Bilirubin 0.2 (0.2-1.3) mg/dL AST 18 (14-36) U/L ALT 18 (4-34) U/L Alkaline Phosphatase 80 (38-126) U/L Total Protein 6.9 (6.3-8.2) g/dL Albumin 3.9 (3.5-5.0) g/dL Urine Color Light Yellow Urine Appearance Clear (Clear) Urine pH 5.5 (5.0-8.0) Ur Specific [place] 1.015 (1.001-1.035) Urine Protein Negative (Negative) Urine Glucose (UA) Negative (Negative) Urine Ketones Negative (Negative) Urine Blood Negative (Negative) Urine Nitrite Negative (Negative) Urine Bilirubin Negative (Negative) Urine Urobilinogen <2.0 (<2.0) mg/dL Ur Leukocyte Esterase Moderate H (Negative) Urine RBC 2 (0-5) /hpf Urine WBC 2 (0-5) /hpf Ur Squamous Epith Cells 3 (0-4) /hpf Urine Mucus Rare H (None) /hpf Coronavirus (PCR) (Not Detectd) 07/29/22 Range/Units 11:16 WBC (3.8-10.6) k/uL RBC (3.80-5.40) m/uL Hgb (11.4-16.0) gm/dL Hct (34.0-46.0) % MCV (80.0-100.0) fL MCH (25.0-35.0) pg MCHC (31.0-37.0) g/dL RDW (11.5-15.5) % Plt Count (150-450) k/uL MPV Neutrophils % % Lymphocytes % % Monocytes % % Eosinophils % % Basophils % % Neutrophils # (1.3-7.7) k/uL Lymphocytes # (1.0-4.8) k/uL Monocytes # (0-1.0) k/uL Eosinophils # (0-0.7) k/uL Basophils # (0-0.2) k/uL Sodium (137-145) mmol/L Potassium (3.5-5.1) mmol/L Chloride (98-107) mmol/L Carbon Dioxide (22-30) mmol/L Anion Gap mmol/L BUN (7-17) mg/dL Creatinine (0.52-1.04) mg/dL Est GFR (CKD-EPI)AfAm (>60 ml/min/1.73 sqM) Est GFR (CKD-EPI)NonAf (>60 ml/min/1.73 sqM) Glucose (74-99) mg/dL Calcium (8.4-10.2) mg/dL Total Bilirubin (0.2-1.3) mg/dL AST (14-36) U/L ALT (4-34) U/L Alkaline Phosphatase (38-126) U/L Total Protein (6.3-8.2) g/dL Albumin (3.5-5.0) g/dL Urine Color Urine Appearance (Clear) Urine pH (5.0-8.0) Ur Specific [place] (1.001-1.035) Urine Protein (Negative) Urine Glucose (UA) (Negative) Urine Ketones (Negative) Urine Blood (Negative) Urine Nitrite (Negative) Urine Bilirubin (Negative) Urine Urobilinogen (<2.0) mg/dL Ur Leukocyte Esterase (Negative) Urine RBC (0-5) /hpf Urine WBC (0-5) /hpf Ur Squamous Epith Cells (0-4) /hpf Urine Mucus (None) /hpf Coronavirus (PCR) Not Detected (Not Detectd) - EKG Data EKG Comments: Sinus rhythm, ventricular rate 77 bpm, VT interval 188 ms, QRS duration 101 ms, QT/QTC 378/410 ms PRT axes 53, 34, 49 Disposition Clinical Impression: Vertigo, benign positional Disposition: HOME SELF-CARE Condition: Stable Instructions (If sedation given, give patient instructions): Dizziness (ED), General Headache (ED) Additional Instructions: Please utilize ibuprofen as needed for headache and meclizine as needed for dizziness. Change positions slowly. Follow up with your primary care provider. Please return to the Emergency Department if symptoms worsen or any other concerns. Prescriptions: Meclizine HCl [Antivert] 25 mg PO Q8H PRN 7 Days #21 tab PRN Reason: Vertigo Ibuprofen [Motrin] 800 mg PO Q8H PRN 7 Days #21 tab PRN Reason: Pain Is patient prescribed a controlled substance at d/c from ED?: No Referrals: Fili Davis MD [Primary Care Provider] - 1-2 days Time of Disposition: 12:52
[2022-07-29 11:21] LABS: Basophils # (A) 0.1 k/uL (0-0.2); Basophils % (A) 1 %; Eosinophils # (A) 0.1 k/uL (0-0.7); Eosinophils % (A) 2 %; HCT 41.4 % (34.0-46.0); HGB 13.9 gm/dL (11.4-16.0); Lymphocytes # (A) 1.5 k/uL (1.0-4.8); Lymphocytes % (A) 19 %; MCH 28.6 pg (25.0-35.0); MCHC 33.7 g/dL (31.0-37.0); MCV 84.9 fL (80.0-100.0); Mean Platelet Volume 8.4; Monocytes # (A) 0.3 k/uL (0-1.0); Monocytes % (A) 4 %; Neutrophils # (A) 5.9 k/uL (1.3-7.7); Neutrophils % (A) 74 %; Platelet Count 275 k/uL (150-450); RBC 4.87 m/uL (3.80-5.40); RDW 13.5 % (11.5-15.5)
[2022-07-29 11:35] LABS: Albumin 3.9 g/dL (3.5-5.0); Calcium 8.7 mg/dL (8.4-10.2); Potassium 4.3 mmol/L (3.5-5.1); Total Bilirubin 0.2 mg/dL (0.2-1.3); Total Protein 6.9 g/dL (6.3-8.2)
[2022-07-29 11:36] LABS: Appearance,Urine Clear (Clear); Bilirubin,Urine Negative (Negative); Blood,Urine Negative (Negative); Color,Urine Light Yellow; Glucose,Urine (UA) Negative (Negative); Ketones,Urine Negative (Negative); Leukocyte Esterase,Urine Moderate (Negative); Mucus,Urine Rare /hpf; Nitrite,Urine Negative (Negative); PH, Urine 5.5 (5.0-8.0); Protein,Urine Negative (Negative); RBC,Urine 2 /hpf (0-5); Specific Gravity,Urine 1.015 (1.001-1.035); Squamous Epithelial Cell,Urine 3 /hpf (0-4); Urobilinogen,Urine <2.0 mg/dL (<2.0); WBC,Urine 2 /hpf (0-5)
--- NOTE | 2022-07-29 12:19 | CT ---
EXAMINATION TYPE: CT brain wo/w con CT DLP: 2228.4 mGycm, Automated exposure control for dose reduction was used. DATE OF EXAM: 07/29/2022 12:06 PM COMPARISON: CT head 03/19/2016. CLINICAL INDICATION:Female, 47 years old with history of dizziness, Chiari malformation, pseudotumor, castellano; PHH, Near syncope TECHNIQUE: Axial CT images of the brain were obtained followed by contrast enhanced axial images of t he brain with 100 cc of ISO-view 300 IV contrast. One or more CT dose reduction strategies were utili zed during this examination. FINDINGS: Extra-axial spaces: No abnormal extra-axial fluid collections. Ventricular system: Within normal limits Cerebral parenchyma: No acute intraparenchymal hemorrhage or mass effect. The olivera-white junction is well differentiated. No abnormal enhancement is seen after the administration of intravenous contras t. Cerebellum: Unremarkable. No cerebellar ectopia/herniation. Mass effect: No evidence of midline shift. Intracranial vasculature: unremarkable Soft tissues: Normal. Calvarium/osseous structures: No depressed skull fracture. Paranasal sinuses and mastoid air cells: Clear. Visualized orbits: Orbital contents are intact. No distention or distortion of the optic nerve sheath . IMPRESSION: 1. No acute intracranial process. 2. No abnormal contrast enhancement.
[2022-07-29] MEDS ORDERED: KETOROLAC 15 MG/ML 1 ML VIAL IVP STA (12:32)
[2022-07-29 13:05] VITALS: BP 114/69; PULSE 73; RESP 18
== END 2022-07-29 13:05 | disposition home or self-care (01) ==
LOC: EC 10:03
DX: R42 Dizziness and giddiness (principal); K21.9 Gastro-esophageal reflux disease without esophagitis; I10 Essential (primary) hypertension; Z79.83 Long term (current) use of bisphosphonates; Z79.899 Other long term (current) drug therapy; Z88.7 Allergy status to serum and vaccine; Z88.0 Allergy status to penicillin; Z88.8 Allergy status to other drugs, medicaments and biological substances; Z88.6 Allergy status to analgesic agent
CPT/HCPCS: 36415; 93005; 80053; 85025; 81001; 87635; 70470; 99285; 96374; J1885; Q9967

== ENCOUNTER 2022-08-04 00:33 | Emergency (ER) | payer OTHER ==
[2022-08-04 00:44] VITALS: TEMP 98
--- NOTE | 2022-08-04 00:53 | ED ---
Anxiety HPI - General Chief Complaint: Anxiety Stated Complaint: Anxiety, Dizziness Time Seen by Provider: 08/04/22 00:38 Source: patient, EMS, RN notes reviewed, old records reviewed Mode of arrival: EMS Limitations: no limitations - History of Present Illness Initial Comments: This is a 47-year-old female to the emergency department for evaluation. Today patient presents for for evaluation regards to dizziness and vertiginous symptoms lightheadedness weakness. Patient has no chest pain or shortness of breath. Patient has no recent travel history or sick contacts. No recent change in medications. No fevers cough or congestion MD Complaint: anxiety, other (Vertigo dizziness) -: hour(s) Symptoms: palpitations Place: home Previous History of Same: Yes Severity: mild Quality: constant, improving Provoking factors: none known Improves With: nothing Worsens With: nothing Associated symptoms: palpitations, weakness - Related Data Home Medications: Home Medications Medication Instructions Recorded Confirmed lisinopriL [Zestril] 10 mg PO DAILY 07/03/20 07/29/22 ondansetron HCL [Zofran] 4 mg PO DAILY PRN 07/03/20 07/29/22 Sertraline HCl [Zoloft] 100 mg PO HS 07/18/21 07/29/22 busPIRone HCl [Buspar] 10 mg PO BID 07/18/21 07/29/22 Omeprazole 40 mg PO DAILY 08/13/21 07/29/22 Previous Rx's Medication Instructions Recorded amLODIPine [Norvasc] 5 mg PO DAILY 7 Days #7 tab 05/24/20 Cyclobenzaprine [Flexeril] 10 mg PO TID PRN #15 tab 06/14/22 Ibuprofen [Motrin] 600 mg PO Q8HR PRN #20 tab 06/14/22 Ibuprofen [Motrin] 800 mg PO Q8H PRN 7 Days #21 tab 07/29/22 Meclizine HCl [Antivert] 25 mg PO Q8H PRN 7 Days #21 tab 07/29/22 Allergies/Adverse Reactions: Allergies Allergy/AdvReac Type Severity Reaction Status Date / Time influenza virus vaccine, Allergy Unknown Verified 08/04/22 00:43 specific [influenza virus vacc,specific] Penicillins Allergy Rash/Hives Verified 08/04/22 00:43 acetazolamide AdvReac "Caused Verified 08/04/22 00:43 [From Diamox Sequels] heart issues" hydrochlorothiazide AdvReac Rapid Verified 08/04/22 00:43 Heart Rate topiramate [From Topamax] AdvReac stoke Verified 08/04/22 00:43 symptoms Review of Systems ROS Statement: Those systems with pertinent positive or pertinent negative responses have been documented in the HPI. ROS Other: All systems not noted in ROS Statement are negative. Past Medical History Past Medical History: Chest Pain / Angina, GERD/Reflux, Hypertension, Mitral Valve Prolapse (MVP) Additional Past Medical History / Comment(s): Pseudo tumor cerbri, Medullary sponge kidney, chronic back pain, chronic headache History of Any Multi-Drug Resistant Organisms: None Reported Past Surgical History: Cholecystectomy Additional Past Surgical History / Comment(s): LP SHUNT PLACEMENT AND REMOVAL, cholecystectomy in 2006. Past Anesthesia/Blood Transfusion Reactions: Previous Problems w/ Anesthesia, Malignant Hyperthermia, Motion Sickness Additional Past Anesthesia/Blood Transfusion Reaction / Comment(s): states difficulty breating with anesthesia Past Psychological History: Anxiety, Depression Smoking Status: Never smoker Past Alcohol Use History: None Reported Past Drug Use History: None Reported - Past Family History Sister(s) Family Medical History: Renal Disease Additional Family Medical History / Comment(s): FSGS Brother(s) Family Medical History: Renal Disease Additional Family Medical History / Comment(s): FSGS Father Family Medical History: Cancer, Coronary Artery Disease (CAD), Renal Disease Additional Family Medical History / Comment(s): renal disease-FSGS General Exam General appearance: anxious Head exam: Present: atraumatic, normocephalic, normal inspection Eye exam: Present: normal appearance, PERRL, EOMI. Absent: scleral icterus, conjunctival injection, periorbital swelling ENT exam: Present: normal exam, mucous membranes moist Neck exam: Present: normal inspection. Absent: tenderness, meningismus, lymphadenopathy Respiratory exam: Present: normal lung sounds bilaterally. Absent: respiratory distress, wheezes, rales, rhonchi, stridor Cardiovascular Exam: Present: regular rate, normal rhythm, normal heart sounds. Absent: systolic murmur, diastolic murmur, rubs, gallop, clicks GI/Abdominal exam: Present: soft, normal bowel sounds. Absent: distended, tenderness, guarding, rebound, rigid Extremities exam: Present: normal inspection, full ROM, normal capillary refill. Absent: tenderness, pedal edema, joint swelling, calf tenderness Back exam: Present: normal inspection Neurological exam: Present: alert, oriented X3, CN II-XII intact Psychiatric exam: Present: normal affect, normal mood Skin exam: Present: warm, dry, intact, normal color. Absent: rash Course Vital Signs 08/04/22 00:41 Temperature 98 F Pulse Rate 90 Respiratory 18 Rate Blood Pressure 136/81 O2 Sat by Pulse 100 Oximetry - Reevaluation(s) Reevaluation #1: 08/04/22 03:34 Medical record is reviewed Reevaluation #2: 08/04/22 03:35 Patient is informed results and questions answered Reevaluation #3: 08/04/22 03:35 Symptoms are improved here in the ER Medical Decision Making - Medical Decision Making 47 female to the emergency department for evaluation patient presents today for for evaluation of anxiety dizziness and lightheadedness, symptoms improved here in the ER she can be discharged home Disposition Clinical Impression: Panic attack, Acute anxiety, Vertigo, benign positional Disposition: HOME SELF-CARE Condition: Good Instructions (If sedation given, give patient instructions): Generalized Anxiety Disorder (ED) Is patient prescribed a controlled substance at d/c from ED?: No Referrals: Fili Davis MD [Primary Care Provider] - 1-2 days Time of Disposition: 03:30
[2022-08-04] MEDS ORDERED: PROCHLORPERAZINE 5 MG TAB PO STA (01:42)
[2022-08-04] MEDS ORDERED: LORazepam 1 MG TAB PO STA (01:42)
[2022-08-04 03:55] VITALS: BP 124/65; PULSE 70; RESP 17
== END 2022-08-04 03:58 | disposition home or self-care (01) ==
LOC: EC 00:33
DX: F41.9 Anxiety disorder, unspecified (principal); K21.9 Gastro-esophageal reflux disease without esophagitis; I10 Essential (primary) hypertension; F32.A Depression, unspecified; R42 Dizziness and giddiness; F41.0 Panic disorder [episodic paroxysmal anxiety]; E07.9 Disorder of thyroid, unspecified; Z88.7 Allergy status to serum and vaccine; Z88.8 Allergy status to other drugs, medicaments and biological substances; Z88.0 Allergy status to penicillin; Z88.2 Allergy status to sulfonamides
CPT/HCPCS: 99284; S0183

== ENCOUNTER 2022-11-25 10:08 | Emergency (ER) | payer OTHER ==
[2022-11-25 10:17] VITALS: BP 123/84; PULSE 83; RESP 20; TEMP 97.8
--- NOTE | 2022-11-25 10:17 | ED ---
Upper Extremity HPI - General Source: patient, RN notes reviewed Mode of arrival: ambulatory Limitations: no limitations <Tacho Torres - Last Filed: 11/25/22 10:16> <Roque Leyva - Last Filed: 11/25/22 15:35> - General Stated Complaint: Hand injury Time Seen by Provider: 11/25/22 10:16 - History of Present Illness Initial Comments: This a 47-year-old female presents emergency Department chief complaint left hand second digit pain. Patient is just reaching back states her finger caught, bent sideways toward the other fingers. Patient complains of pain in her second MCP region. Patient is right-hand dominant. No paresthesias. Patient has limited range of motion secondary to pain. Patient states pain shooting up her arm and there is mild swelling. (Tacho Torres) - Related Data Home Medications Medication Instructions Recorded Confirmed lisinopriL [Zestril] 10 mg PO DAILY 07/03/20 07/29/22 ondansetron HCL [Zofran] 4 mg PO DAILY PRN 07/03/20 07/29/22 Sertraline HCl [Zoloft] 100 mg PO HS 07/18/21 07/29/22 busPIRone HCl [Buspar] 10 mg PO BID 07/18/21 07/29/22 Omeprazole 40 mg PO DAILY 08/13/21 07/29/22 Previous Rx's Medication Instructions Recorded amLODIPine [Norvasc] 5 mg PO DAILY 7 Days #7 tab 05/24/20 Cyclobenzaprine [Flexeril] 10 mg PO TID PRN #15 tab 06/14/22 Ibuprofen [Motrin] 600 mg PO Q8HR PRN #20 tab 06/14/22 Ibuprofen [Motrin] 800 mg PO Q8H PRN 7 Days #21 tab 07/29/22 Meclizine HCl [Antivert] 25 mg PO Q8H PRN 7 Days #21 tab 07/29/22 Ibuprofen [Motrin] 600 mg PO Q8HR PRN #30 tab 11/25/22 Allergies Allergy/AdvReac Type Severity Reaction Status Date / Time influenza virus vaccine, Allergy Unknown Verified 11/25/22 10:17 specific [influenza virus vacc,specific] Penicillins Allergy Rash/Hives Verified 11/25/22 10:17 acetazolamide AdvReac "Caused Verified 11/25/22 10:17 [From Diamox Sequels] heart issues" hydrochlorothiazide AdvReac Rapid Verified 11/25/22 10:17 Heart Rate topiramate [From Topamax] AdvReac stoke Verified 11/25/22 10:17 symptoms Review of Systems ROS Other: All systems not noted in ROS Statement are negative. <Tacho Torres - Last Filed: 11/25/22 10:16> ROS Other: All systems not noted in ROS Statement are negative. <Roque Leyva - Last Filed: 11/25/22 15:35> ROS Statement: Those systems with pertinent positive or pertinent negative responses have been documented in the HPI. Past Medical History Past Medical History: Chest Pain / Angina, GERD/Reflux, Hypertension, Mitral Valve Prolapse (MVP) Additional Past Medical History / Comment(s): Pseudo tumor cerbri, Medullary sponge kidney, chronic back pain, chronic headache History of Any Multi-Drug Resistant Organisms: None Reported Past Surgical History: Cholecystectomy Additional Past Surgical History / Comment(s): LP SHUNT PLACEMENT AND REMOVAL, cholecystectomy in 2006. Past Anesthesia/Blood Transfusion Reactions: Previous Problems w/ Anesthesia, Malignant Hyperthermia, Motion Sickness Additional Past Anesthesia/Blood Transfusion Reaction / Comment(s): states difficulty breating with anesthesia Past Psychological History: Anxiety, Depression Smoking Status: Never smoker Past Alcohol Use History: None Reported Past Drug Use History: None Reported - Past Family History Sister(s) Family Medical History: Renal Disease Additional Family Medical History / Comment(s): FSGS Brother(s) Family Medical History: Renal Disease Additional Family Medical History / Comment(s): FSGS Father Family Medical History: Cancer, Coronary Artery Disease (CAD), Renal Disease Additional Family Medical History / Comment(s): renal disease-FSGS <Tacho Torres - Last Filed: 11/25/22 10:16> General Exam General appearance: alert, in no apparent distress Head exam: Present: atraumatic Eye exam: Absent: scleral icterus, conjunctival injection Respiratory exam: Present: normal lung sounds bilaterally. Absent: respiratory distress, accessory muscle use Cardiovascular Exam: Present: regular rate Left Hand Wrist exam: Present: tenderness (left index finger). Absent: swelling, abrasion, laceration, ecchymosis, deformity, crepitus, dislocation, erythema Neuro motor exam: Present: wrist extension intact, thumb opposition intact, thumb IP flexion intact, thumb adduction intact, fingers 2-5 abduction intact Neurosensory exam: Present: radial nerve intact, ulnar nerve intact, median nerve intact Vascular: Present: normal capillary refill, radial pulse. Absent: vascular compromise Neurological exam: Present: alert, oriented X3 Psychiatric exam: Present: normal affect, normal mood Skin exam: Present: warm, dry, normal color. Absent: cyanosis, diaphoretic, petechiae, pallor <Roque Leyva - Last Filed: 11/25/22 15:35> Course Vital Signs 11/25/22 10:15 Temperature 97.8 F Pulse Rate 83 Respiratory 20 Rate Blood Pressure 123/84 O2 Sat by Pulse 99 Oximetry Medical Decision Making <Roque Leyva - Last Filed: 11/25/22 15:35> - Medical Decision Making Physical exam shows no deformity. X-ray interpreted by me shows no evidence of fracture or dislocation. Radiologist's interpretation no acute osseous abnormality seen. Patient was given Tylenol and Motrin for pain . This is likely a finger sprain. Instructed to rest ice and elevate hand. Follow-up with her primary care doctor this week. Take Tylenol or Motrin as needed for pain, ice for discomfort and swelling. She is agreeable to this plan of care. Case discussed with Dr. Funk Was pt. sent in by a medical professional or institution? @ No Did you speak to anyone other than the patient for history? @ No Did you review nursing and triage notes? @ Yes I agree Were old charts reviewed? @ No Differential Diagnosis? @ Finger sprain, fracture, cellulitis, arthritis EKG interpreted by me (3pts min.)? @ [none] X-rays interpreted by me (1pt min.)? @ Yes as above CT interpreted by me (1pt min.)? @ [none] U/S interpreted by me (1pt. min.)? @ [none] What testing was considered but not performed? (CT, X-rays, U/S, labs)? Why? @ None What meds were considered but not given? Why? @ None Did you discuss the management of the patient with other professionals? @ No Did you reconcile home meds? @ No Was smoking cessation discussed for >3mins.? @ Nonsmoker Was critical care preformed (if so, how long)? @ No Were there social determinants of health that impacted care today? How? (Ho melessness, low income, unemployed, alcoholism, drug addiction, transportation, low edu. Level, literacy, decrease access to med. care, residential, rehab)? @ None Was there de-escalation of care discussed even if they declined? (Discuss DNR or withdrawal of care, Hospice)? @ No What co-morbidities impacted this encounter? (DM, HTN, Smoking, COPD, CAD, Cancer, CVA, Hep., AIDS, mental health diagnosis, sleep apnea, morbid obesity)? @ Hypertension Was patient admitted / discharged? @ Discharged Undiagnosed new problem with uncertain prognosis? @ [none] Drug Therapy requiring intensive monitoring for toxicity (Heparin, Nitro, Insulin, Cardizem)? @ No Were any procedures done? @ No Diagnosis/symptom? @ Finger sprain Acute, or Chronic, or Acute on Chronic? @ Acute Uncomplicated (without systemic symptoms) or Complicated (systemic symptoms)? @ Uncomplicated Side effects of treatment? @ [none] Exacerbation, Progression, or Severe Exacerbation] @ [no] Poses a threat to life or bodily function? @ [no] (Roque Leyva) Disposition <Tacho Torres - Last Filed: 11/25/22 10:16> Is patient prescribed a controlled substance at d/c from ED?: No Time of Disposition: 11:40 <Roque Leyva - Last Filed: 11/25/22 15:35> Clinical Impression: Sprain, finger Disposition: HOME SELF-CARE Condition: Good Instructions (If sedation given, give patient instructions): Finger Sprain (ED) Additional Instructions: Rest, ice and take Tylenol and Motrin for pain or discomfort. Follow-up with primary care doctor this week as needed. Return to the emergency room with any new or concerning symptoms. Prescriptions: Ibuprofen [Motrin] 600 mg PO Q8HR PRN #30 tab PRN Reason: Pain Referrals: Fili Davis MD [Primary Care Provider] - 1-2 days
--- NOTE | 2022-11-25 10:30 | XR ---
EXAMINATION TYPE: XR hand complete LT DATE OF EXAM: 11/25/2022 Comparison: 05/13/2016 Clinical History: 47-year-old female pain 2nd MCP, trauma Findings: No acute fracture, subluxation, dislocation seen. Joint spaces throughout are maintained. Impression: No acute osseous abnormality seen.
[2022-11-25] MEDS ORDERED: IBUPROFEN 600 MG TAB PO STA (11:38)
[2022-11-25] MEDS ORDERED: ACETAMINOPHEN TAB 500 MG TAB PO STA (11:38)
== END 2022-11-25 12:05 | disposition home or self-care (01) ==
LOC: EC 10:08
DX: S63.611A Unspecified sprain of left index finger, initial encounter (principal); K21.9 Gastro-esophageal reflux disease without esophagitis; I10 Essential (primary) hypertension; F41.9 Anxiety disorder, unspecified; F32.A Depression, unspecified; Z88.7 Allergy status to serum and vaccine; Z88.0 Allergy status to penicillin; Z88.8 Allergy status to other drugs, medicaments and biological substances; Z79.899 Other long term (current) drug therapy; W23.0XXA Caught, crushed, jammed, or pinched between moving objects, initial encounter
CPT/HCPCS: 99284

== ENCOUNTER 2022-12-07 01:17 | Emergency (ER) | payer OTHER ==
[2022-12-07 01:33] VITALS: BP 134/100; PULSE 115; RESP 22; TEMP 97
[2022-12-07] MEDS ORDERED: ONDANSETRON 4 MG/2 ML VIAL IVP STA (01:52)
[2022-12-07] MEDS ORDERED: MORPHINE SULFATE 4 MG/ML SYRINGE IVP STA (01:52)
--- NOTE | 2022-12-07 01:56 | ED ---
Abdominal Pain HPI - General Chief Complaint: Abdominal Pain Stated Complaint: abd pain Time Seen by Provider: 12/07/22 01:32 Source: patient, RN notes reviewed Mode of arrival: ambulatory - History of Present Illness Initial Comments: Patient is a 47-year-old female presenting to the emergency room with complaints of abdominal pain nausea and vomiting ongoing since approximately 1:00 in the afternoon yesterday. The symptoms started approximately 2 hours after eating food brought to her from her spouse from [employer]. She reports the inability to take oral medications or eat or drink without vomiting since that food was ingested. She reports hot and cold flashes but has not checked her temperature to evaluate for fevers. She denies any diarrhea or lower abdominal pain. She denies any chest pain, shortness of breath, palpitations, headache, dizziness, urinary frequency or dysuria. She denies any known exposure to COVID or influenza. She has a past medical history significant for chronic headaches, chronic back pain, hypertension and GERD. She reports that her abdominal pain is not like her previous GERD symptoms. She has had a previous cholecystectomy. - Related Data Home Medications Medication Instructions Recorded Confirmed lisinopriL [Zestril] 10 mg PO DAILY 07/03/20 07/29/22 ondansetron HCL [Zofran] 4 mg PO DAILY PRN 07/03/20 07/29/22 Sertraline HCl [Zoloft] 100 mg PO HS 07/18/21 07/29/22 busPIRone HCl [Buspar] 10 mg PO BID 07/18/21 07/29/22 Omeprazole 40 mg PO DAILY 08/13/21 07/29/22 Previous Rx's Medication Instructions Recorded amLODIPine [Norvasc] 5 mg PO DAILY 7 Days #7 tab 05/24/20 Cyclobenzaprine [Flexeril] 10 mg PO TID PRN #15 tab 06/14/22 Ibuprofen [Motrin] 600 mg PO Q8HR PRN #20 tab 06/14/22 Ibuprofen [Motrin] 800 mg PO Q8H PRN 7 Days #21 tab 07/29/22 Meclizine HCl [Antivert] 25 mg PO Q8H PRN 7 Days #21 tab 07/29/22 Ibuprofen [Motrin] 600 mg PO Q8HR PRN #30 tab 11/25/22 Allergies Allergy/AdvReac Type Severity Reaction Status Date / Time influenza virus vaccine, Allergy Unknown Verified 12/07/22 01:33 specific [influenza virus vacc,specific] Penicillins Allergy Rash/Hives Verified 12/07/22 01:33 acetazolamide AdvReac "Caused Verified 12/07/22 01:33 [From Diamox Sequels] heart issues" hydrochlorothiazide AdvReac Rapid Verified 12/07/22 01:33 Heart Rate topiramate [From Topamax] AdvReac stoke Verified 12/07/22 01:33 symptoms Review of Systems ROS Statement: Those systems with pertinent positive or pertinent negative responses have been documented in the HPI. ROS Other: All systems not noted in ROS Statement are negative. Past Medical History Past Medical History: Chest Pain / Angina, GERD/Reflux, Hypertension, Mitral Valve Prolapse (MVP) Additional Past Medical History / Comment(s): Pseudo tumor cerbri, Medullary sponge kidney, chronic back pain, chronic headache History of Any Multi-Drug Resistant Organisms: None Reported Past Surgical History: Cholecystectomy Additional Past Surgical History / Comment(s): LP SHUNT PLACEMENT AND REMOVAL, cholecystectomy in 2006. Past Anesthesia/Blood Transfusion Reactions: Previous Problems w/ Anesthesia, Malignant Hyperthermia, Motion Sickness Additional Past Anesthesia/Blood Transfusion Reaction / Comment(s): states difficulty breating with anesthesia Past Psychological History: Anxiety, Depression Smoking Status: Never smoker Past Alcohol Use History: None Reported Past Drug Use History: None Reported - Past Family History Sister(s) Family Medical History: Renal Disease Additional Family Medical History / Comment(s): FSGS Brother(s) Family Medical History: Renal Disease Additional Family Medical History / Comment(s): FSGS Father Family Medical History: Cancer, Coronary Artery Disease (CAD), Renal Disease Additional Family Medical History / Comment(s): renal disease-FSGS General Exam - General Exam Comments Initial Comments: GENERAL: No acute distress, well developed, well nourished. Obese. HEENT: Normocephalic, atraumatic. Pupils equal, round, reactive to light. Moist mucous membranes. LUNGS: No respiratory distress. Clear to auscultation, no adventitious sounds, no use of accessory muscles. HEART: Mild tachycardia. Regular rhythm without murmur, rub, or gallop. ABDOMEN: Normal bowel sounds. Soft, non-distended. Mild epigastric region tenderness. Emesis with bile and food products noted. No blood. BACK: Normal inspection. EXTREMITIES: No edema. No tenderness. Moves all extremities. NEUROLOGIC: Alert & oriented x 3. CN II-XII grossly intact. PSYCHIATRIC: Normal affect and behavior. DERMATOLOGIC: Skin intact, without rashes or lesions noted. Limitations: no limitations Course Vital Signs 12/07/22 01:30 Temperature 97 F L Pulse Rate 115 H Respiratory 22 Rate Blood Pressure 134/100 O2 Sat by Pulse 98 Oximetry Medical Decision Making - Medical Decision Making Was pt. sent in by a medical professional or institution (, PA, LEVEL VIAL INSPECTOR, urgent care, hospital, or snf...) When possible be specific @ -No Did you speak to anyone other than the patient for history (EMS, parent, family, police, friend...)? What history was obtained from this source @ -No Did you review nursing and triage notes (agree or disagree)? Why? @ -I reviewed and agree with nursing and triage notes Were old charts reviewed (outside hosp., previous admission, EMS record, old EKG, old radiological studies, urgent care reports/EKG's, snf records)? Report findings @ -No old charts were reviewed Differential Diagnosis (chest pain, altered mental status, abdominal pain women, abdominal pain men, vaginal bleeding, weakness, fever, dyspnea, syncope, headache, dizziness, GI bleed, back pain, seizure, CVA, palpatations, mental h ealth)? @ -Differential Abdominal Pain Women: Appendicitis, Cholecystitis, diverticulosis, ischemic bowel, pancreatitis, hepatitis, UTI, gastroenteritis, AAA, incarcerated hernia, bowel obstruction, constipation, inflammatory bowel, hepatitis, peptic ulcer disease, splenic infar ction, perforated viscus, vulvitis, ovarian torsion, PID, kidney stone, placenta abruption, this is not meant to be an all-inclusive list EKG interpreted by me (3pts min.). @ -None done X-rays interpreted by me (1pt min.). @ -None done CT interpreted by me (1pt min.). @ -None done U/S interpreted by me (1pt. min.). @ -None done What testing was considered but not performed or refused? (CT, X-rays, U/S, labs)? Why? @ -None What meds were considered but not given or refused? Why? @ -None Did you discuss the management of the patient with other professionals (professionals i.e. , PA, LEVEL VIAL INSPECTOR, lab, RT, psych nurse, social services director, chief minister, teacher, personnel officer, family service caseworker)? Give summary @ -No Was smoking cessation discussed for >3mins.? @ -No Was critical care preformed (if so, how long)? @ -No Were there social determinants of health that impacted care today? How? (Homelessness, low income, unemployed, alcoholism, drug addiction, transportation, low edu. Level, literacy, decrease access to med. care, fci, rehab)? @ -No Was there de-escalation of care discussed even if they declined (Discuss DNR or withdrawal of care, Hospice)? DNR status @ -No What co-morbidities impacted this encounter? (DM, HTN, Smoking, COPD, CAD, Cancer, CVA, ARF, Chemo, Hep., AIDS, mental health diagnosis, sleep apnea, morbid obesity)? @ -None Was patient admitted / discharged? Hospital course, mention meds given and route, prescriptions, significant lab abnormalities, going to OR and other pertinent info. @ -Acute onset of abdominal pain with nausea and vomiting along with hot and cold flashes after eating fast food with history of cholecystectomy high probability for viral etiology/ food poisoning. Will obtain CBC, CMP along with 4 plex swab. Will give IV hydration, Zofran and morphine for pain. In the setting of acute onset with associated nausea vomiting no indication for diagnostic imaging. Will monitor. CBC with leukocytosis, BMP demonstrates some dehydration BUN 22 creatinine normal. No other significant lab abnormalities on CMP. Amylase and lipase normal. No further episodes of vomiting after Zofran still with abdominal pain after 1 L of fluid and morphine. Will give additional 1 L of IV fluids and 1 mg of Dilaudid. Will monitor for response. Symptoms improved after second liter bolus and Dilaudid. Laboratory results discussed with patient. No indication for further workup. Will give Zofran starter pack to utilize for nausea as needed. Discussed typical course of gastroenteritis. Encouraged good oral hydration. Return parameters discussed. Will discharge home in stable condition with oral Zofran to utilize as needed and follow-up with primary care provider. Undiagnosed new problem with uncertain prognosis? @ -No Drug Therapy requiring intensive monitoring for toxicity (Heparin, Nitro, Insulin, Cardizem)? @ -No Were any procedures done? @ -No Diagnosis/symptom? @ -Gastroenteritis Acute, or Chronic, or Acute on Chronic? @ -Acute Uncomplicated (without systemic symptoms) or Complicated (systemic symptoms)? @ -Uncomplicated Side effects of treatment? @ -No Exacerbation, Progression, or Severe Exacerbation? @ -No Poses a threat to life or bodily function? How? (Chest pain, [place], [place], pneumonia, PE, COPD, DKA, ARF, appy, cholecystitis, CVA, Diverticulitis, Homicidal, Suicidal, threat to staff... and all critical care pts) @ -No Case discussed with Dr. Barclay - Lab Data Result diagrams: 12/07/22 01:50 12/07/22 01:50 Lab Results 12/07/22 12/07/22 12/07/22 Range/Units 01:50 01:50 02:12 WBC 16.8 H (3.8-10.6) k/uL RBC 5.46 H (3.80-5.40) m/uL Hgb 15.3 (11.4-16.0) gm/dL Hct 45.0 (34.0-46.0) % MCV 82.4 (80.0-100.0) fL MCH 28.0 (25.0-35.0) pg MCHC 33.9 (31.0-37.0) g/dL RDW 13.3 (11.5-15.5) % Plt Count 307 (150-450) k/uL MPV 9.0 Neutrophils % 84 % Lymphocytes % 9 % Monocytes % 4 % Eosinophils % 1 % Basophils % 1 % Neutrophils # 14.1 H (1.3-7.7) k/uL Lymphocytes # 1.5 (1.0-4.8) k/uL Monocytes # 0.6 (0-1.0) k/uL Eosinophils # 0.2 (0-0.7) k/uL Basophils # 0.1 (0-0.2) k/uL Sodium 140 (137-145) mmol/L Potassium 4.5 (3.5-5.1) mmol/L Chloride 107 (98-107) mmol/L Carbon Dioxide 23 (22-30) mmol/L Anion Gap 10 mmol/L BUN 22 H (7-17) mg/dL Creatinine 0.97 (0.52-1.04) mg/dL Est GFR (CKD-EPI)AfAm 81 (>60 ml/min/1.73 sqM) Est GFR (CKD-EPI)NonAf 71 (>60 ml/min/1.73 sqM) Glucose 136 H (74-99) mg/dL Calcium 9.1 (8.4-10.2) mg/dL Total Bilirubin 0.3 (0.2-1.3) mg/dL AST 22 (14-36) U/L ALT 27 (4-34) U/L Alkaline Phosphatase 101 (38-126) U/L Total Protein 7.4 (6.3-8.2) g/dL Albumin 4.2 (3.5-5.0) g/dL Amylase 48 (30-110) U/L Lipase 117 (23-300) U/L Influenza Type A (PCR) Not Detected (Not Detectd) Influenza Type B (PCR) Not Detected (Not Detectd) RSV (PCR) Not Detected (Not Detectd) SARS-CoV-2 (PCR) Not Detected (Not Detectd) Disposition Clinical Impression: Gastroenteritis Disposition: HOME SELF-CARE Condition: Stable Instructions (If sedation given, give patient instructions): Gastroenteritis (ED), Acute Nausea and Vomiting (ED) Additional Instructions: Please utilize Zofran starter pack as needed for nausea. Maintain good oral hydration. Please follow-up with your primary care provider. Please return to the Emergency Department if symptoms worsen or any other concerns. Is patient prescribed a controlled substance at d/c from ED?: No Referrals: Fili Davis MD [Primary Care Provider] - 1-2 days Time of Disposition: 03:36
[2022-12-07 01:57] LABS: Basophils # (A) 0.1 k/uL (0-0.2); Basophils % (A) 1 %; Eosinophils # (A) 0.2 k/uL (0-0.7); Eosinophils % (A) 1 %; HGB 15.3 gm/dL (11.4-16.0); Lymphocytes # (A) 1.5 k/uL (1.0-4.8); Lymphocytes % (A) 9 %; MCHC 33.9 g/dL (31.0-37.0); MCV 82.4 fL (80.0-100.0); Monocytes # (A) 0.6 k/uL (0-1.0); Monocytes % (A) 4 %; Neutrophils # (A) 14.1 k/uL (1.3-7.7); Neutrophils % (A) 84 %; Platelet Count 307 k/uL (150-450); RBC 5.46 m/uL (3.80-5.40); RDW 13.3 % (11.5-15.5); WBC 16.8 k/uL (3.8-10.6)
[2022-12-07] MEDS ORDERED: SODIUM CHLORIDE 0.9% 1,000 ML IV STA (02:04)
[2022-12-07 02:08] LABS: Albumin 4.2 g/dL (3.5-5.0); Calcium 9.1 mg/dL (8.4-10.2); Potassium 4.5 mmol/L (3.5-5.1); Total Bilirubin 0.3 mg/dL (0.2-1.3); Total Protein 7.4 g/dL (6.3-8.2)
[2022-12-07] MEDS ORDERED: HYDROmorphone 1 MG/ML 1 ML SYRINGE IVP STA (02:52)
[2022-12-07] MEDS ORDERED: ONDANSETRON 4 MG ODT STARTER PACK 2 TAB BTL PO STA (03:35)
[2022-12-07 04:13] LABS: Appearance,Urine Cloudy (Clear); Bacteria,Urine Rare /hpf; Bilirubin,Urine Negative (Negative); Blood,Urine Negative (Negative); Color,Urine Yellow; Glucose,Urine (UA) Negative (Negative); Ketones,Urine Negative (Negative); Leukocyte Esterase,Urine Moderate (Negative); Mucus,Urine Few /hpf; Nitrite,Urine Negative (Negative); PH, Urine 5.5 (5.0-8.0); Protein,Urine Trace (Negative); RBC,Urine 2 /hpf (0-5); Specific Gravity,Urine 1.024 (1.001-1.035); Squamous Epithelial Cell,Urine 3 /hpf (0-4); Urobilinogen,Urine <2.0 mg/dL (<2.0); WBC,Urine 8 /hpf (0-5)
== END 2022-12-07 03:57 | disposition home or self-care (01) ==
LOC: EC 01:17 → SUPCPDRO 01:17 → EC 03:57
DX: K52.9 Noninfective gastroenteritis and colitis, unspecified (principal); K21.9 Gastro-esophageal reflux disease without esophagitis; I10 Essential (primary) hypertension; F41.9 Anxiety disorder, unspecified; F32.A Depression, unspecified; Z79.899 Other long term (current) drug therapy; Z20.822 Contact with and (suspected) exposure to COVID-19; Z88.0 Allergy status to penicillin; Z88.2 Allergy status to sulfonamides; Z88.7 Allergy status to serum and vaccine; Z88.8 Allergy status to other drugs, medicaments and biological substances
CPT/HCPCS: 36415; 80053; 82150; 83690; 85025; 81001; 87636; 99284; 96374; 96375 ×2; 96361; J2270; J2405; J1170; S0119

== ENCOUNTER 2023-02-27 22:23 | Emergency (ER) | payer OTHER ==
[2023-02-27 22:44] VITALS: RESP 18; TEMP 98.1
[2023-02-27] MEDS ORDERED: SODIUM CHLORIDE 0.9% 1,000 ML IV STA (23:13)
[2023-02-27] MEDS ORDERED: FAMOTIDINE 20 MG/2 ML VIAL IV STA (23:13)
--- NOTE | 2023-02-27 23:30 | ED ---
Abdominal Pain HPI - General Chief Complaint: Abdominal Pain Stated Complaint: abd pain Time Seen by Provider: 02/27/23 22:50 Source: patient Mode of arrival: ambulatory Limitations: no limitations - History of Present Illness Initial Comments: Patient is a 47-year-old female presenting with chief complaint of abdominal pain. She is complaining of epigastric pain that "feels like someone is punching me in the stomach". Surgical history includes cholecystectomy. Patient states that the pain is also going up into the chest and is making it difficult to take a deep breath. Pain is worse with exertion and laying flat. It improves with sitting upright. Admits to nausea with no vomiting. No palpitations. No lower abdominal pain. No fevers or chills. No weakness. She has taken Tums at home. - Related Data Home Medications Medication Instructions Recorded Confirmed lisinopriL [Zestril] 10 mg PO DAILY 07/03/20 07/29/22 ondansetron HCL [Zofran] 4 mg PO DAILY PRN 07/03/20 07/29/22 Sertraline HCl [Zoloft] 100 mg PO HS 07/18/21 07/29/22 busPIRone HCl [Buspar] 10 mg PO BID 07/18/21 07/29/22 Omeprazole 40 mg PO DAILY 08/13/21 07/29/22 Previous Rx's Medication Instructions Recorded amLODIPine [Norvasc] 5 mg PO DAILY 7 Days #7 tab 05/24/20 Cyclobenzaprine [Flexeril] 10 mg PO TID PRN #15 tab 06/14/22 Ibuprofen [Motrin] 600 mg PO Q8HR PRN #20 tab 06/14/22 Ibuprofen [Motrin] 800 mg PO Q8H PRN 7 Days #21 tab 07/29/22 Meclizine HCl [Antivert] 25 mg PO Q8H PRN 7 Days #21 tab 07/29/22 Ibuprofen [Motrin] 600 mg PO Q8HR PRN #30 tab 11/25/22 Allergies Allergy/AdvReac Type Severity Reaction Status Date / Time influenza virus vaccine, Allergy Unknown Verified 02/27/23 22:40 specific [influenza virus vacc,specific] Penicillins Allergy Rash/Hives Verified 02/27/23 22:40 acetazolamide AdvReac "Caused Verified 02/27/23 22:40 [From Diamox Sequels] heart issues" hydrochlorothiazide AdvReac Rapid Verified 02/27/23 22:40 Heart Rate topiramate [From Topamax] AdvReac stoke Verified 02/27/23 22:40 symptoms Review of Systems ROS Statement: Those systems with pertinent positive or pertinent negative responses have been documented in the HPI. ROS Other: All systems not noted in ROS Statement are negative. Past Medical History Past Medical History: Chest Pain / Angina, GERD/Reflux, Hypertension, Mitral Valve Prolapse (MVP) Additional Past Medical History / Comment(s): Pseudo tumor cerbri, Medullary sponge kidney, chronic back pain, chronic headache History of Any Multi-Drug Resistant Organisms: None Reported Past Surgical History: Cholecystectomy Additional Past Surgical History / Comment(s): LP SHUNT PLACEMENT AND REMOVAL, cholecystectomy in 2006. Past Anesthesia/Blood Transfusion Reactions: Previous Problems w/ Anesthesia, Malignant Hyperthermia, Motion Sickness Additional Past Anesthesia/Blood Transfusion Reaction / Comment(s): states difficulty breating with anesthesia Past Psychological History: Anxiety, Depression Smoking Status: Never smoker Past Alcohol Use History: None Reported Past Drug Use History: None Reported - Past Family History Sister(s) Family Medical History: Renal Disease Additional Family Medical History / Comment(s): FSGS Brother(s) Family Medical History: Renal Disease Additional Family Medical History / Comment(s): FSGS Father Family Medical History: Cancer, Coronary Artery Disease (CAD), Renal Disease Additional Family Medical History / Comment(s): renal disease-FSGS General Exam Limitations: no limitations General appearance: alert, in no apparent distress Head exam: Present: atraumatic, normocephalic, normal inspection Eye exam: Present: normal appearance Neck exam: Present: normal inspection, full ROM Respiratory exam: Present: normal lung sounds bilaterally. Absent: respiratory distress, wheezes, rales, rhonchi, stridor Cardiovascular Exam: Present: regular rate, normal rhythm, normal heart sounds. Absent: systolic murmur, diastolic murmur, rubs, gallop, clicks GI/Abdominal exam: Present: soft. Absent: distended, tenderness, guarding, rebound, rigid Neurological exam: Present: alert, oriented X3, CN II-XII intact Psychiatric exam: Present: normal affect, normal mood Skin exam: Present: warm, dry, intact, normal color. Absent: rash Course Vital Signs 02/27/23 02/28/23 22:41 02:55 Temperature 98.1 F Pulse Rate 89 80 Respiratory 18 Rate Blood Pressure 137/88 127/78 O2 Sat by Pulse 98 Oximetry Medical Decision Making - Medical Decision Making Was pt. sent in by a medical professional or institution (ASHER Zazueta, ENAMEL MACHINE OPERATOR, urgent care, hospital, or fdc...) When possible be specific @ -No Did you speak to anyone other than the patient for history (EMS, parent, family, police, friend...)? What history was obtained from this source @ -No Did you review nursing and triage notes (agree or disagree)? Why? @ -I reviewed and agree with nursing and triage notes Were old charts reviewed (outside hosp., previous admission, EMS record, old EKG, old radiological studies, urgent care reports/EKG's, fdc records)? Report findings @ -No old charts were reviewed Differential Diagnosis (chest pain, altered mental status, abdominal pain women, abdominal pain men, vaginal bleeding, weakness, fever, dyspnea, syncope, headache, dizziness, GI bleed, back pain, seizure, CVA, palpatations, mental health, musculoskeletal)? @ -MDM Differential Abdominal Pain Women: Appendicitis, Cholecystitis, diverticulosis, ischemic bowel, pancreatitis, hepatitis, UTI, gastroenteritis, AAA, incarcerated hernia, bowel obstruction, constipation, inflammatory bowel, hepatitis, peptic ulcer disease, splenic infarction, perforated viscus, vulvitis, ovarian torsion, PID, kidney stone, placenta abruption... This is not meant to be an all-inclusive list EKG interpreted by me (3pts min.). @ -As above X-rays interpreted by me (1pt min.). @ -Chest x-ray shows no acute process CT interpreted by me (1pt min.). @ -None done U/S interpreted by me (1pt. min.). @ -None done What testing was considered but not performed or refused? (CT, X-rays, U/S, labs)? Why? @ -None What meds were considered but not given or refused? Why? @ -None Did you discuss the management of the patient with other professionals (professionals i.e. ASHER Zazueta, ENAMEL MACHINE OPERATOR, lab, RT, psych nurse, social media campaign manager, polishing wheel repairer, teacher, police officer crime prevention, manager case)? Give summary @ -No Was smoking cessation discussed for >3mins.? @ -No Was critical care preformed (if so, how long)? @ -No Were there social determinants of health that impacted care today? How? (Homelessness, low income, unemployed, alcoholism, drug addiction, transp ortation, low edu. Level, literacy, decrease access to med. care, custodial, rehab)? @ -No Was there de-escalation of care discussed even if they declined (Discuss DNR or withdrawal of care, Hospice)? DNR status @ -No What co-morbidities impacted this encounter? (DM, HTN, Smoking, COPD, CAD, Cancer, CVA, ARF, Chemo, Hep., AIDS, mental health diagnosis, sleep apnea, morbid obesity)? @ -None Was patient admitted / discharged? Hospital course, mention meds given and route, prescriptions, significant lab abnormalities, going to OR and other pertinent info. @ -Patient is a 47-year-old female presenting with chief complaint of epigastric pain. Patient states that the pain radiates from the epigastrium into the chest. On physical examination heart and lungs are clear to auscultation, abdomen is soft, nondistended, no guarding or rebound. Lab work shows WBC 10.8. Creatinine 1.13 and glucose 119. Troponin is negative and EKG shows no ischemic changes. Urine shows no evidence of infection and chest x-ray is negative. Patient states that her symptoms responded well to GI cocktail. Symptoms are likely related to gastritis or ulcer. Patient is instructed to follow-up with her PCP. Follow-up with PCP. Report back to ER with any new or worsening symptoms. Discussed return parameters and answered all questions. Patient conveyed verbal understanding and agreed to the plan. I discussed this case in detail with my attending Dr. Funk Undiagnosed new problem with uncertain prognosis? @ -No Drug Therapy requiring intensive monitoring for toxicity (Heparin, Nitro, Insulin, Cardizem)? @ -No Were any procedures done? @ -No Diagnosis/symptom? @ -Gastritis Acute, or Chronic, or Acute on Chronic? @ -Acute Uncomplicated (without systemic symptoms) or Complicated (systemic symptoms)? @ -Uncomplicated Side effects of treatment? @ -No Exacerbation, Progression, or Severe Exacerbation? @ -No Poses a threat to life or bodily function? How? (Chest pain, [place], [place], pneumonia, PE, COPD, DKA, ARF, appy, cholecystitis, CVA, Diverticulitis, Homicidal, Suicidal, threat to staff... and all critical care pts) @ -No - Lab Data Result diagrams: 02/27/23 23:28 02/27/23 23:28 Lab Results 02/27/23 02/27/23 02/27/23 Range/Units 23:28 23:28 23:28 WBC 10.8 H (3.8-10.6) k/uL RBC 5.08 (3.80-5.40) m/uL Hgb 14.4 (11.4-16.0) gm/dL Hct 42.4 (34.0-46.0) % MCV 83.5 (80.0-100.0) fL MCH 28.3 (25.0-35.0) pg MCHC 34.0 (31.0-37.0) g/dL RDW 12.8 (11.5-15.5) % Plt Count 282 (150-450) k/uL MPV 8.6 Neutrophils % 70 % Lymphocytes % 22 % Monocytes % 5 % Eosinophils % 2 % Basophils % 1 % Neutrophils # 7.5 (1.3-7.7) k/uL Lymphocytes # 2.3 (1.0-4.8) k/uL Monocytes # 0.5 (0-1.0) k/uL Eosinophils # 0.2 (0-0.7) k/uL Basophils # 0.1 (0-0.2) k/uL Sodium 138 (137-145) mmol/L Potassium 4.4 (3.5-5.1) mmol/L Chloride 100 (98-107) mmol/L Carbon Dioxide 29 (22-30) mmol/L Anion Gap 9 mmol/L BUN 14 (7-17) mg/dL Creatinine 1.13 H (0.52-1.04) mg/dL Est GFR (CKD-EPI)AfAm 68 (>60 ml/min/1.73 sqM) Est GFR (CKD-EPI)NonAf 59 (>60 ml/min/1.73 sqM) Glucose 119 H (74-99) mg/dL Plasma Lactic Acid [place] (0.7-2.0) mmol/L Calcium 9.8 (8.4-10.2) mg/dL Total Bilirubin 0.3 (0.2-1.3) mg/dL AST 25 (14-36) U/L ALT 36 H (4-34) U/L Alkaline Phosphatase 91 (38-126) U/L Troponin I (0.000-0.034) ng/mL Total Protein 7.3 (6.3-8.2) g/dL Albumin 4.1 (3.5-5.0) g/dL Amylase 50 (30-110) U/L Lipase 91 (23-300) U/L Urine Color Yellow Urine Appearance Clear (Clear) Urine pH 5.0 (5.0-8.0) Ur Specific [place] 1.016 (1.001-1.035) Urine Protein Negative (Negative) Urine Glucose (UA) Negative (Negative) Urine Ketones Negative (Negative) Urine Blood Negative (Negative) Urine Nitrite Negative (Negative) Urine Bilirubin Negative (Negative) Urine Urobilinogen <2.0 (<2.0) mg/dL Ur Leukocyte Esterase Negative (Negative) 02/27/23 02/27/23 Range/Units 23:28 23:28 WBC (3.8-10.6) k/uL RBC (3.80-5.40) m/uL Hgb (11.4-16.0) gm/dL Hct (34.0-46.0) % MCV (80.0-100.0) fL MCH (25.0-35.0) pg MCHC (31.0-37.0) g/dL RDW (11.5-15.5) % Plt Count (150-450) k/uL MPV Neutrophils % % Lymphocytes % % Monocytes % % Eosinophils % % Basophils % % Neutrophils # (1.3-7.7) k/uL Lymphocytes # (1.0-4.8) k/uL Monocytes # (0-1.0) k/uL Eosinophils # (0-0.7) k/uL Basophils # (0-0.2) k/uL Sodium (137-145) mmol/L Potassium (3.5-5.1) mmol/L Chloride (98-107) mmol/L Carbon Dioxide (22-30) mmol/L Anion Gap mmol/L BUN (7-17) mg/dL Creatinine (0.52-1.04) mg/dL Est GFR (CKD-EPI)AfAm (>60 ml/min/1.73 sqM) Est GFR (CKD-EPI)NonAf (>60 ml/min/1.73 sqM) Glucose (74-99) mg/dL Plasma Lactic Acid [place] 1.7 (0.7-2.0) mmol/L Calcium (8.4-10.2) mg/dL Total Bilirubin (0.2-1.3) mg/dL AST (14-36) U/L ALT (4-34) U/L Alkaline Phosphatase (38-126) U/L Troponin I <0.012 (0.000-0.034) ng/mL Total Protein (6.3-8.2) g/dL Albumin (3.5-5.0) g/dL Amylase (30-110) U/L Lipase (23-300) U/L Urine Color Urine Appearance (Clear) Urine pH (5.0-8.0) Ur Specific [place] (1.001-1.035) Urine Protein (Negative) Urine Glucose (UA) (Negative) Urine Ketones (Negative) Urine Blood (Negative) Urine Nitrite (Negative) Urine Bilirubin (Negative) Urine Urobilinogen (<2.0) mg/dL Ur Leukocyte Esterase (Negative) Disposition Clinical Impression: Gastritis Disposition: HOME SELF-CARE Condition: Good Instructions (If sedation given, give patient instructions): Gastritis (ED), Diet for Stomach Ulcers and Gastritis (ED) Additional Instructions: Follow-up with PCP. Report back to ER with any new or worsening symptoms. Is patient prescribed a controlled substance at d/c from ED?: No Referrals: Fili Davis MD [Primary Care Provider] - 1-2 days Time of Disposition: 02:52
[2023-02-27 23:45] LABS: Basophils # (A) 0.1 k/uL (0-0.2); Basophils % (A) 1 %; Eosinophils # (A) 0.2 k/uL (0-0.7); Eosinophils % (A) 2 %; HCT 42.4 % (34.0-46.0); HGB 14.4 gm/dL (11.4-16.0); Lymphocytes # (A) 2.3 k/uL (1.0-4.8); Lymphocytes % (A) 22 %; MCH 28.3 pg (25.0-35.0); MCV 83.5 fL (80.0-100.0); Mean Platelet Volume 8.6; Monocytes # (A) 0.5 k/uL (0-1.0); Monocytes % (A) 5 %; Neutrophils # (A) 7.5 k/uL (1.3-7.7); Neutrophils % (A) 70 %; Platelet Count 282 k/uL (150-450); RBC 5.08 m/uL (3.80-5.40); RDW 12.8 % (11.5-15.5); WBC 10.8 k/uL (3.8-10.6)
[2023-02-27 23:48] LABS: Appearance,Urine Clear (Clear); Bilirubin,Urine Negative (Negative); Blood,Urine Negative (Negative); Color,Urine Yellow; Glucose,Urine (UA) Negative (Negative); Ketones,Urine Negative (Negative); Leukocyte Esterase,Urine Negative (Negative); Nitrite,Urine Negative (Negative); Protein,Urine Negative (Negative); Specific Gravity,Urine 1.016 (1.001-1.035); Urobilinogen,Urine <2.0 mg/dL (<2.0)
[2023-02-28 00:01] LABS: Albumin 4.1 g/dL (3.5-5.0); Calcium 9.8 mg/dL (8.4-10.2); Potassium 4.4 mmol/L (3.5-5.1); Total Bilirubin 0.3 mg/dL (0.2-1.3); Total Protein 7.3 g/dL (6.3-8.2)
[2023-02-28] MEDS ORDERED: KETOROLAC 15 MG/ML 1 ML VIAL IVP STA (00:35)
[2023-02-28] MEDS ORDERED: PANTOPRAZOLE 40 MG/10 ML VIAL IVP STA (00:36)
[2023-02-28] MEDS ORDERED: MAG HYDROX/AL HYDROX/SIMETH 30 ML, HYOSCYAMINE ELIXIR 10 ML, LIDOCAINE VISCOUS 2% 10 ML PO STA ×3 (00:56)
--- NOTE | 2023-02-28 02:48 | XR ---
EXAM: XR Chest, 2 Views CLINICAL HISTORY: ITS.REASON XR Reason: chest discomfort TECHNIQUE: Frontal and lateral views of the chest. COMPARISON: 04/04/2022 FINDINGS: Lungs: Unremarkable. No consolidation. Pleural space: Unremarkable. No pneumothorax. No pleural effusions. Heart: Unremarkable. No cardiomegaly. Mediastinum: Unremarkable. Bones/joints: No acute osseous abnormalities. IMPRESSION: Normal chest.
[2023-02-28 02:55] VITALS: BP 127/78; PULSE 80
== END 2023-02-28 03:00 | disposition home or self-care (01) ==
LOC: EC 22:23
DX: K29.70 Gastritis, unspecified, without bleeding (principal); I10 Essential (primary) hypertension; F32.A Depression, unspecified; F41.9 Anxiety disorder, unspecified; K21.9 Gastro-esophageal reflux disease without esophagitis; Z79.899 Other long term (current) drug therapy; Z88.0 Allergy status to penicillin; Z88.2 Allergy status to sulfonamides; Z88.7 Allergy status to serum and vaccine; Z88.8 Allergy status to other drugs, medicaments and biological substances; Z90.49 Acquired absence of other specified parts of digestive tract
CPT/HCPCS: 36415; 93005; 80053; 82150; 83605; 83690; 84484; 85025; 81003; 71046; 99284; 96374; 96375 ×2; 96361 ×2; J1885; C9113

== ENCOUNTER 2024-03-01 18:20 | Emergency (ER) | payer OTHER ==
--- NOTE | 2024-03-01 19:12 | ED ---
General Adult HPI - General Chief complaint: Shortness of Breath Stated complaint: Difficulty breathing Time Seen by Provider: 03/01/24 18:34 Source: patient, RN notes reviewed Mode of arrival: ambulatory Limitations: no limitations - History of Present Illness Initial comments: Patient is a 48-year-old female presenting to the emergency department with difficulty breathing. Onset of symptoms was today. Patient feels feels this across her upper thorax. Front and back and both sides. Patient feels short of breath worse with exertion. Minimal cough. No fever. No calf pain. No leg swelling. - Related Data Home Medications Medication Instructions Recorded Confirmed lisinopriL [Zestril] 10 mg PO DAILY 07/03/20 09/04/23 ondansetron HCL [Zofran] 4 mg PO DAILY PRN 07/03/20 09/04/23 Sertraline HCl [Zoloft] 100 mg PO HS 07/18/21 09/04/23 busPIRone HCl [Buspar] 10 mg PO BID 07/18/21 09/04/23 Omeprazole 40 mg PO DAILY 08/13/21 09/04/23 hydroCHLOROthiazide [Hydrodiuril] 25 mg PO DAILY 09/04/23 09/04/23 Previous Rx's Medication Instructions Recorded amLODIPine [Norvasc] 5 mg PO DAILY 7 Days #7 tab 05/24/20 Ibuprofen [Motrin] 600 mg PO Q8HR PRN #20 tab 06/14/22 Allergies Allergy/AdvReac Type Severity Reaction Status Date / Time influenza virus vaccine, Allergy Unknown Verified 03/01/24 18:33 specific [influenza virus vacc,specific] Penicillins Allergy Rash/Hives Verified 03/01/24 18:33 acetazolamide AdvReac "Caused Verified 03/01/24 18:33 [From Diamox Sequels] heart issues" hydrochlorothiazide AdvReac Rapid Verified 03/01/24 18:33 Heart Rate topiramate [From Topamax] AdvReac stoke Verified 03/01/24 18:33 symptoms Review of Systems ROS Statement: Those systems with pertinent positive or pertinent negative responses have been documented in the HPI. ROS Other: All systems not noted in ROS Statement are negative. Constitutional: Denies: fever Eyes: Denies: eye pain Respiratory: Reports: as per HPI, cough, dyspnea Cardiovascular: Reports: as per HPI Endocrine: Denies: fatigue Gastrointestinal: Denies: abdominal pain Past Medical History Past Medical History: Chest Pain / Angina, GERD/Reflux, Hypertension, Mitral Valve Prolapse (MVP) Additional Past Medical History / Comment(s): Pseudo tumor cerebri, Medullary sponge kidney, chronic back pain, chronic headache History of Any Multi-Drug Resistant Organisms: None Reported Past Surgical History: Cholecystectomy Additional Past Surgical History / Comment(s): LP SHUNT PLACEMENT AND REMOVAL, cholecystectomy in 2006. Past Anesthesia/Blood Transfusion Reactions: Previous Problems w/ Anesthesia, Malignant Hyperthermia, Motion Sickness Additional Past Anesthesia/Blood Transfusion Reaction / Comment(s): states difficulty breating with anesthesia Past Psychological History: Anxiety, Depression Smoking Status: Never smoker Past Alcohol Use History: None Reported Past Drug Use History: None Reported - Past Family History Sister(s) Family Medical History: Renal Disease Additional Family Medical History / Comment(s): FSGS Brother(s) Family Medical History: Renal Disease Additional Family Medical History / Comment(s): FSGS Father Family Medical History: Cancer, Coronary Artery Disease (CAD), Renal Disease Additional Family Medical History / Comment(s): renal disease-FSGS General Exam Limitations: no limitations General appearance: alert, in no apparent distress Head exam: Present: normocephalic Eye exam: Present: normal appearance Neck exam: Present: normal inspection Respiratory exam: Present: normal lung sounds bilaterally. Absent: respiratory distress, wheezes Cardiovascular Exam: Present: regular rate, normal rhythm Expanded Peripheral pulses: 2+: Radial (R), Radial (L), Posterior Tibialis (R), Posterior Tibialis (L) GI/Abdominal exam: Present: soft. Absent: tenderness Extremities exam: Present: normal inspection. Absent: pedal edema, calf tenderness Neurological exam: Present: alert Psychiatric exam: Present: normal affect, normal mood Skin exam: Present: normal color Course Vital Signs 03/01/24 03/01/24 18:31 18:52 Temperature 98.0 F 97.9 F Pulse Rate 74 79 Respiratory 18 20 Rate Blood Pressure 141/85 137/69 O2 Sat by Pulse 100 99 Oximetry EKG Findings - EKG Results: EKG: interpreted by ERMD, sinus rhythm, normal axis, normal QRS, normal ST/T Medical Decision Making - Medical Decision Making Was pt. sent in by a medical professional or institution (, PA, INTERVENTION ANALYST, urgent care, hospital, or retirement...) When possible be specific @ -No Did you speak to anyone other than the patient for history (EMS, parent, family, police, friend...)? What history was obtained from this source @ -No Did you review nursing and triage notes (agree or disagree)? Why? @ -I reviewed and agree with nursing and triage notes Were old charts reviewed (outside hosp., previous admission, EMS record, old EKG, old radiological studies, urgent care reports/EKG's, retirement records)? Report findings @ -Previous chest x-ray with similar finding Differential Diagnosis (chest pain, altered mental status, abdominal pain women, abdominal pain men, vaginal bleeding, weakness, fever, dyspnea, syncope, headache, dizziness, GI bleed, back pain, seizure, CVA, palpatations, mental health, musculoskeletal)? @ -Differential Dyspnea: Coronary syndrome, arrhythmia, tamponade, asthma, COPD, pulmonary embolism, pneumonia, pneumothorax, pulmonary effusion, anaphylaxis, diabetic ketoacidosis, flailed chest, pulmonary contusion, diaphragmatic rupture, anemia, neuromuscular, this is not meant to be an all-inclusive list. EKG interpreted by me (3pts min.). @ -As above X-rays interpreted by me (1pt min.). @ -Chest x-ray shows no acute process CT interpreted by me (1pt min.). @ -None done U/S interpreted by me (1pt. min.). @ -None done What testing was considered but not performed or refused? (CT, X-rays, U/S, labs)? Why? @ -None What meds were considered but not given or refused? Why? @ -None Did you discuss the management of the patient with other professionals (professionals i.e. Dr. PA, INTERVENTION ANALYST, lab, RT, psych nurse, social staff worker, financial sales professional, teacher, credit risk officer, bottle caser)? Give summary @ -No Was smoking cessation discussed for >3mins.? @ -No Was critical care preformed (if so, how long)? @ -No Were there social determinants of health that impacted care today? How? (Homelessness, low income, unemployed, alcoholism, drug addiction, transportation, low edu. Level, literacy, decrease access to med. care, shelter, rehab)? @ -No Was there de-escalation of care discussed even if they declined (Discuss DNR or withdrawal of care, Hospice)? DNR status @ -No What co-morbidities impacted this encounter? (DM, HTN, Smoking, COPD, CAD, Cancer, CVA, ARF, Chemo, Hep., AIDS, mental health diagnosis, sleep apnea, morbid obesity)? @ -None Was patient admitted / discharged? Hospital course, mention meds given and route, prescriptions, significant lab abnormalities, going to OR and other pertinent info. @ -Patient reevaluated and resting comfortably in bed. Patient improved with Ativan. Patient is updated on results and need for follow-up. Undiagnosed new problem with uncertain prognosis? @ -No Drug Therapy requiring intensive monitoring for toxicity (Heparin, Nitro, Insulin, Cardizem)? @ -No Were any procedures done? @ -No Diagnosis/symptom? @ -Dyspnea Acute, or Chronic, or Acute on Chronic? @ -Acute Uncomplicated (without systemic symptoms) or Complicated (systemic symptoms)? @ -Default Side effects of treatment? @ -No Exacerbation, Progression, or Severe Exacerbation? @ -No Poses a threat to life or bodily function? How? (Chest pain, [place], [place], pneumonia, PE, COPD, DKA, ARF, appy, cholecystitis, CVA, Diverticulitis, Homicidal, Suicidal, threat to staff... and all critical care pts) @ -No - Lab Data Result diagrams: 03/01/24 19:09 03/01/24 19:09 Lab Results 03/01/24 03/01/24 03/01/24 Range/Units 19:09 19:09 19:09 WBC 8.2 (3.8-10.6) k/uL RBC 4.83 (3.80-5.40) m/uL Hgb 13.5 (11.4-16.0) gm/dL Hct 41.7 (34.0-46.0) % MCV 86.3 (80.0-100.0) fL MCH 27.9 (25.0-35.0) pg MCHC 32.3 (31.0-37.0) g/dL RDW 13.1 (11.5-15.5) % Plt Count 222 (150-450) k/uL MPV 9.0 Neutrophils % 65 % Lymphocytes % 26 % Monocytes % 5 % Eosinophils % 2 % Basophils % 1 % Neutrophils # 5.3 (1.3-7.7) k/uL Lymphocytes # 2.1 (1.0-4.8) k/uL Monocytes # 0.4 (0-1.0) k/uL Eosinophils # 0.1 (0-0.7) k/uL Basophils # 0.1 (0-0.2) k/uL PT 9.7 L (10.0-12.5) sec INR 0.9 (<1.2) APTT 25.6 (22.0-30.0) sec D-Dimer 0.26 (<0.60) mg/L FEU Sodium 141 (137-145) mmol/L Potassium 4.2 (3.5-5.1) mmol/L Chloride 106 (98-107) mmol/L Carbon Dioxide 27 (22-30) mmol/L Anion Gap 8 mmol/L BUN 15 (7-17) mg/dL Creatinine 1.08 H (0.52-1.04) mg/dL Est GFR (CKD-EPI)AfAm 71 (>60 ml/min/1.73 sqM) Est GFR (CKD-EPI)NonAf 61 (>60 ml/min/1.73 sqM) Glucose 91 (74-99) mg/dL Calcium 9.3 (8.4-10.2) mg/dL Magnesium 1.9 (1.6-2.3) mg/dL Total Bilirubin 0.3 (0.2-1.3) mg/dL AST 23 (14-36) U/L ALT 33 (4-34) U/L Alkaline Phosphatase 88 (38-126) U/L Troponin I (0.000-0.034) ng/mL NT-Pro-B Natriuret Pep 66 pg/mL Total Protein 6.8 (6.3-8.2) g/dL Albumin 3.9 (3.5-5.0) g/dL Influenza Type A (PCR) (Not Detectd) Influenza Type B (PCR) (Not Detectd) RSV (PCR) (Not Detectd) SARS-CoV-2 (PCR) (Not Detectd) 03/01/24 03/01/24 Range/Units 19:09 19:10 WBC (3.8-10.6) k/uL RBC (3.80-5.40) m/uL Hgb (11.4-16.0) gm/dL Hct (34.0-46.0) % MCV (80.0-100.0) fL MCH (25.0-35.0) pg MCHC (31.0-37.0) g/dL RDW (11.5-15.5) % Plt Count (150-450) k/uL MPV Neutrophils % % Lymphocytes % % Monocytes % % Eosinophils % % Basophils % % Neutrophils # (1.3-7.7) k/uL Lymphocytes # (1.0-4.8) k/uL Monocytes # (0-1.0) k/uL Eosinophils # (0-0.7) k/uL Basophils # (0-0.2) k/uL PT (10.0-12.5) sec INR (<1.2) APTT (22.0-30.0) sec D-Dimer (<0.60) mg/L FEU Sodium (137-145) mmol/L Potassium (3.5-5.1) mmol/L Chloride (98-107) mmol/L Carbon Dioxide (22-30) mmol/L Anion Gap mmol/L BUN (7-17) mg/dL Creatinine (0.52-1.04) mg/dL Est GFR (CKD-EPI)AfAm (>60 ml/min/1.73 sqM) Est GFR (CKD-EPI)NonAf (>60 ml/min/1.73 sqM) Glucose (74-99) mg/dL Calcium (8.4-10.2) mg/dL Magnesium (1.6-2.3) mg/dL Total Bilirubin (0.2-1.3) mg/dL AST (14-36) U/L ALT (4-34) U/L Alkaline Phosphatase (38-126) U/L Troponin I <0.012 (0.000-0.034) ng/mL NT-Pro-B Natriuret Pep pg/mL Total Protein (6.3-8.2) g/dL Albumin (3.5-5.0) g/dL Influenza Type A (PCR) Not Detected (Not Detectd) Influenza Type B (PCR) Not Detected (Not Detectd) RSV (PCR) Not Detected (Not Detectd) SARS-CoV-2 (PCR) Not Detected (Not Detectd) Disposition Clinical Impression: Dyspnea Disposition: HOME SELF-CARE Condition: Stable Instructions (If sedation given, give patient instructions): Dyspnea (ED), Anxiety (ED) Additional Instructions: Please do follow-up with your primary care physician in the next day or 2 for recheck. Return for chest pain, difficulty breathing, fevers, worsening symptoms or any other concerns Is patient prescribed a controlled substance at d/c from ED?: No Referrals: Fili Davis MD [Primary Care Provider] - 1-2 days Time of Disposition: 20:35
[2024-03-01] MEDS: LORazepam 2 MG/ML INJ IV STA (19:18)
[2024-03-01 19:22] LABS: Basophils # (A) 0.1 k/uL (0-0.2); Basophils % (A) 1 %; Eosinophils # (A) 0.1 k/uL (0-0.7); Eosinophils % (A) 2 %; HCT 41.7 % (34.0-46.0); HGB 13.5 gm/dL (11.4-16.0); Lymphocytes # (A) 2.1 k/uL (1.0-4.8); Lymphocytes % (A) 26 %; MCH 27.9 pg (25.0-35.0); MCHC 32.3 g/dL (31.0-37.0); MCV 86.3 fL (80.0-100.0); Monocytes # (A) 0.4 k/uL (0-1.0); Monocytes % (A) 5 %; Neutrophils # (A) 5.3 k/uL (1.3-7.7); Neutrophils % (A) 65 %; Platelet Count 222 k/uL (150-450); RBC 4.83 m/uL (3.80-5.40); RDW 13.1 % (11.5-15.5); WBC 8.2 k/uL (3.8-10.6)
[2024-03-01 19:30] VITALS: TEMP 97.9
--- NOTE | 2024-03-01 19:35 | XR ---
EXAMINATION TYPE: XR chest 2V DATE OF EXAM: 03/01/2024 COMPARISON: 09/03/2023 HISTORY: Difficulty breathing TECHNIQUE: Frontal and lateral views of the chest are obtained. FINDINGS: There is no focal air space opacity, pleural effusion, or pneumothorax seen. The cardiac silhouette size is within normal limits. The osseous structures are intact. IMPRESSION: No acute cardiopulmonary process.
[2024-03-01 19:36] LABS: INR 0.9 (<1.2); Partial Thromboplastin Time 25.6 sec (22.0-30.0); Prothrombin Time 9.7 sec (10.0-12.5)
[2024-03-01 19:38] LABS: ALT 33 U/L (4-34); AST 23 U/L (14-36); African American GFR (CKD) 71 (>60 ml/min/1.73 sqM); Albumin 3.9 g/dL (3.5-5.0); Alkaline Phosphatase 88 U/L (38-126); Anion Gap 8 mmol/L; Blood Urea Nitrogen 15 mg/dL (7-17); Calcium 9.3 mg/dL (8.4-10.2); Carbon Dioxide 27 mmol/L (22-30); Chloride 106 mmol/L (98-107); Glucose 91 mg/dL (74-99); Magnesium 1.9 mg/dL (1.6-2.3); Non-African American GFR(CKD) 61 (>60 ml/min/1.73 sqM); Potassium 4.2 mmol/L (3.5-5.1); Sodium 141 mmol/L (137-145); Total Bilirubin 0.3 mg/dL (0.2-1.3); Total Protein 6.8 g/dL (6.3-8.2)
[2024-03-01 19:47] LABS: NT-Pro-B-Type Natriuretic Pept 66 pg/mL
[2024-03-01 20:43] VITALS: BP 132/68; PULSE 71; RESP 18
== END 2024-03-01 20:42 | disposition home or self-care (01) ==
LOC: EC 18:20
DX: R06.00 Dyspnea, unspecified (principal); Z88.0 Allergy status to penicillin; Z88.2 Allergy status to sulfonamides; Z88.7 Allergy status to serum and vaccine; Z88.8 Allergy status to other drugs, medicaments and biological substances; Z90.49 Acquired absence of other specified parts of digestive tract
CPT/HCPCS: 36415; 93005; 85379; 83880; 80053; 83735; 84484; 85025; 85610; 85730; 87636; 71046; 99285; 96374; J2060

== ENCOUNTER 2024-07-20 06:34 | Emergency (ER) | payer OTHER ==
--- NOTE | 2024-07-20 06:53 | ED ---
URI HPI - General Chief Complaint: Upper Respiratory Infection Stated Complaint: Pain, cough Time Seen by Provider: 07/20/24 06:39 Source: patient, RN notes reviewed Mode of arrival: wheelchair Limitations: no limitations - History of Present Illness Initial Comments: 49-year-old female presents emergency department complaint of fever chills cough congestion and bodyaches. Symptoms started overnight. Patient states she had no sick contacts. She denies any prior lung disease denies any nausea vomit diarrhea constipation no rashes she states she had a sore throat that resolved. Denies any ear pain. Patient offers no other associated symptoms. - Related Data Home Medications Medication Instructions Recorded Confirmed lisinopriL [Zestril] 10 mg PO DAILY 07/03/20 09/04/23 ondansetron HCL [Zofran] 4 mg PO DAILY PRN 07/03/20 09/04/23 Sertraline HCl [Zoloft] 100 mg PO HS 07/18/21 09/04/23 busPIRone HCl [Buspar] 10 mg PO BID 07/18/21 09/04/23 Omeprazole 40 mg PO DAILY 08/13/21 09/04/23 hydroCHLOROthiazide [Hydrodiuril] 25 mg PO DAILY 09/04/23 09/04/23 Previous Rx's Medication Instructions Recorded amLODIPine [Norvasc] 5 mg PO DAILY 7 Days #7 tab 05/24/20 Ibuprofen [Motrin] 600 mg PO Q8HR PRN #20 tab 06/14/22 Allergies Allergy/AdvReac Type Severity Reaction Status Date / Time influenza virus vaccine, Allergy Unknown Verified 07/20/24 06:38 specific [influenza virus vacc,specific] Penicillins Allergy Rash/Hives Verified 07/20/24 06:38 acetazolamide AdvReac "Caused Verified 07/20/24 06:38 [From Diamox Sequels] heart issues" hydrochlorothiazide AdvReac Rapid Verified 07/20/24 06:38 Heart Rate topiramate [From Topamax] AdvReac stoke Verified 07/20/24 06:38 symptoms Review of Systems ROS Statement: Those systems with pertinent positive or pertinent negative responses have been documented in the HPI. ROS Other: All systems not noted in ROS Statement are negative. Past Medical History Past Medical History: Chest Pain / Angina, GERD/Reflux, Hypertension, Mitral Valve Prolapse (MVP) Additional Past Medical History / Comment(s): Pseudo tumor cerebri, Medullary sponge kidney, chronic back pain, chronic headache History of Any Multi-Drug Resistant Organisms: None Reported Past Surgical History: Cholecystectomy Additional Past Surgical History / Comment(s): LP SHUNT PLACEMENT AND REMOVAL, cholecystectomy in 2006. Past Anesthesia/Blood Transfusion Reactions: Previous Problems w/ Anesthesia, Malignant Hyperthermia, Motion Sickness Additional Past Anesthesia/Blood Transfusion Reaction / Comment(s): states difficulty breating with anesthesia Past Psychological History: Anxiety, Depression Smoking Status: Never smoker Past Alcohol Use History: None Reported Past Drug Use History: None Reported - Past Family History Sister(s) Family Medical History: Renal Disease Additional Family Medical History / Comment(s): FSGS Brother(s) Family Medical History: Renal Disease Additional Family Medical History / Comment(s): FSGS Father Family Medical History: Cancer, Coronary Artery Disease (CAD), Renal Disease Additional Family Medical History / Comment(s): renal disease-FSGS General Exam Limitations: no limitations General appearance: alert, in no apparent distress Head exam: Present: atraumatic, normocephalic, normal inspection Eye exam: Present: normal appearance, PERRL, EOMI. Absent: scleral icterus, conjunctival injection, periorbital swelling ENT exam: Present: normal exam, mucous membranes moist Neck exam: Present: normal inspection. Absent: tenderness, meningismus, lymphadenopathy Respiratory exam: Present: normal lung sounds bilaterally. Absent: respiratory distress, wheezes, rales, rhonchi, stridor Cardiovascular Exam: Present: normal rhythm, tachycardia, normal heart sounds. Absent: systolic murmur, diastolic murmur, rubs, gallop, clicks GI/Abdominal exam: Present: soft, normal bowel sounds. Absent: distended, tenderness, guarding, rebound, rigid Course Vital Signs 07/20/24 07/20/24 07/20/24 06:35 07:39 08:13 Temperature 100.4 F H 100.2 F H 100 F H Pulse Rate 113 H 107 H 104 H Respiratory 20 16 16 Rate Blood Pressure 123/79 128/79 125/78 O2 Sat by Pulse 97 97 97 Oximetry Medical Decision Making - Medical Decision Making Was pt. sent in by a medical professional or institution (, PA, ELECTRICIAN SUPERVISOR, urgent care, hospital, or jail...) When possible be specific @ -No Did you speak to anyone other than the patient for history (EMS, parent, family, police, friend...)? What history was obtained from this source @ -No Did you review nursing and triage notes (agree or disagree)? Why? @ -I reviewed and agree with nursing and triage notes Were old charts reviewed (outside hosp., previous admission, EMS record, old EKG, old radiological studies, urgent care reports/EKG's, jail records)? Report findings @ -No old charts were reviewed Differential Diagnosis (chest pain, altered mental status, abdominal pain women, abdominal pain men, vaginal bleeding, weakness, fever, dyspnea, syncope, headache, dizziness, GI bleed, back pain, seizure, CVA, palpatations, mental health, musculoskeletal)? @ -[COVID 19, RSV, influenza, pneumonia, acute bronchitis, URI, this list is not all inclusive EKG interpreted by me (3pts min.). @ -None none X-rays interpreted by me (1pt min.). @ -None done CT interpreted by me (1pt min.). @ -None done U/S interpreted by me (1pt. min.). @ -None done What testing was considered but not performed or refused? (CT, X-rays, U/S, labs)? Why? @ -None What meds were considered but not given or refused? Why? @ -None Did you discuss the management of the patient with other professionals (professionals i.e. , PA, ELECTRICIAN SUPERVISOR, lab, RT, psych nurse, social science instructor, polymer tester, teacher, executive vice president and chief financial officer, transplant case manager)? Give summary @ -No Was smoking cessation discussed for >3mins.? @ -No Was critical care preformed (if so, how long)? @ -No Were there social determinants of health that impacted care today? How? (Homelessness, low income, unemployed, alcoholism, drug addiction, transportation, low edu. Level, literacy, decrease access to med. care, [facility], rehab)? @ -No Was there de-escalation of care discussed even if they declined (Discuss DNR or withdrawal of care, Hospice)? DNR status @ -No What co-morbidities impacted this encounter? (DM, HTN, Smoking, COPD, CAD, Cancer, CVA, ARF, Chemo, Hep., AIDS, mental health diagnosis, sleep apnea, morbid obesity)? @ -None Was patient admitted / discharged? Hospital course, mention meds given and route, prescriptions, significant lab abnormalities, going to OR and other pertinent info. @ -Discharge patient is COVID-19 positive. Patient is well-appearing in no signs of distress, s did receive ibuprofen and acetaminophen will be discharged with supportive treatment return parens discussed. Undiagnosed new problem with uncertain prognosis? @ -No Drug Therapy requiring intensive monitoring for toxicity (Heparin, Nitro, Insulin, Cardizem)? @ -No Were any procedures done? @ -No Diagnosis/symptom? @ -COVID-19 Acute, or Chronic, or Acute on Chronic? @ -Acute Uncomplicated (without systemic symptoms) or Complicated (systemic symptoms)? @ -uncomplicated Side effects of treatment? @ -No Exacerbation, Progression, or Severe Exacerbation? @ -No Poses a threat to life or bodily function? How? (Chest pain, [place], [place], pneumonia, PE, COPD, DKA, ARF, appy, cholecystitis, CVA, Diverticulitis, Homicidal, Suicidal, threat to staff... and all critical care pts) @ -No - Lab Data Lab Results 07/20/24 Range/Units 06:48 Influenza Type A (PCR) Not Detected (Not Detectd) Influenza Type B (PCR) Not Detected (Not Detectd) RSV (PCR) Not Detected (Not Detectd) SARS-CoV-2 (PCR) Detected A (Not Detectd) Disposition Clinical Impression: COVID-19 Disposition: HOME SELF-CARE Condition: Stable Instructions (If sedation given, give patient instructions): COVID-19 (Coronavirus Disease 2019) (ED) Additional Instructions: Please return to the Emergency Department if symptoms worsen or any other concerns. Is patient prescribed a controlled substance at d/c from ED?: No Referrals: Fili Davis MD [Primary Care Provider] - 1-2 days Time of Disposition: 08:07
[2024-07-20] MEDS: ACETAMINOPHEN TAB 500 MG TAB PO STA (06:58)
[2024-07-20] MEDS: IBUPROFEN 600 MG TAB PO STA (06:59)
[2024-07-20 07:41] VITALS: RESP 16
[2024-07-20 08:16] VITALS: BP 125/78; PULSE 104; TEMP 100
== END 2024-07-20 08:15 | disposition home or self-care (01) ==
LOC: EC 06:34
CPT/HCPCS: 87636; 99285

== ENCOUNTER 2024-07-28 23:25 | Observation (INO) | payer OTHER ==
[2024-07-28 23:34] VITALS: TEMP 97.8
[2024-07-29 00:01] LABS: Basophils # (A) 0.1 k/uL (0-0.2); Basophils % (A) 1 %; Eosinophils # (A) 0.2 k/uL (0-0.7); Eosinophils % (A) 2 %; HCT 41.2 % (34.0-46.0); Lymphocytes # (A) 2.4 k/uL (1.0-4.8); Lymphocytes % (A) 25 %; MCH 28.8 pg (25.0-35.0); MCHC 33.9 g/dL (31.0-37.0); MCV 84.8 fL (80.0-100.0); Mean Platelet Volume 8.9; Monocytes # (A) 0.5 k/uL (0-1.0); Monocytes % (A) 5 %; Neutrophils # (A) 6.3 k/uL (1.3-7.7); Neutrophils % (A) 67 %; Platelet Count 297 k/uL (150-450); RBC 4.85 m/uL (3.80-5.40); RDW 13.3 % (11.5-15.5); WBC 9.4 k/uL (3.8-10.6)
[2024-07-29 00:18] LABS: ALT 33 U/L (4-34); AST 26 U/L (14-36); African American GFR (CKD) 74 (>60 ml/min/1.73 sqM); Albumin 3.9 g/dL (3.5-5.0); Alkaline Phosphatase 72 U/L (38-126); Anion Gap 5 mmol/L; Blood Urea Nitrogen 13 mg/dL (7-17); Calcium 9.5 mg/dL (8.4-10.2); Carbon Dioxide 28 mmol/L (22-30); Chloride 106 mmol/L (98-107); Glucose 109 mg/dL (74-99); INR 0.9 (<1.2); Magnesium 1.8 mg/dL (1.6-2.3); Non-African American GFR(CKD) 64 (>60 ml/min/1.73 sqM); Partial Thromboplastin Time 25.4 sec (22.0-30.0); Potassium 4.3 mmol/L (3.5-5.1); Prothrombin Time 10.1 sec (10.0-12.5); Sodium 139 mmol/L (137-145); Total Bilirubin 0.4 mg/dL (0.2-1.3); Total Protein 6.7 g/dL (6.3-8.2)
--- NOTE | 2024-07-29 00:36 | XR ---
EXAM: XR Chest, 2 Views CLINICAL HISTORY: ITS.REASON XR Reason: Chest Pain TECHNIQUE: Frontal and lateral views of the chest. COMPARISON: No relevant prior studies available. FINDINGS: Lungs: Unremarkable. No consolidation. Pleural space: Unremarkable. No pneumothorax. Heart: Unremarkable. No cardiomegaly. Mediastinum: Unremarkable. Normal mediastinal contour. Bones/joints: Unremarkable. No acute fracture. IMPRESSION: No consolidation.
--- NOTE | 2024-07-29 01:36 | ED ---
Chest Pain HPI - General Chief Complaint: Chest Pain Stated Complaint: Chest pressure Time Seen by Provider: 07/29/24 00:21 Source: patient, RN notes reviewed, old records reviewed Mode of arrival: ambulatory Limitations: no limitations - History of Present Illness Initial Comments: This is a 49-year-old female to the ER for evaluation of chest pain anterior heaviness chest pain here in the emergency department. No nausea no vomiting no travel no sick contact no fevers. Patient has no history of heart disease but recent coronavirus diagnosis about 10 days ago and severe chest pain today patient does have history of high blood pressure and mitral valve prolapse MD Complaint: chest pain -: days(s) Onset: during rest, during exertion Pain Location: substernal, left chest Pain Radiation: back Severity: moderate Severity scale (1-10): 5 Quality: heaviness Consistency: constant Improves With: nothing Worsens With: nothing Anginal Symptoms: diaphoresis, dyspnea, sense of impending doom Other Symptoms: palpitations Treatments Prior to Arrival: none - Related Data Home Medications Medication Instructions Recorded Confirmed lisinopriL [Zestril] 10 mg PO DAILY 07/03/20 07/29/24 ondansetron HCL [Zofran] 4 mg PO Q8H PRN 07/03/20 07/29/24 Sertraline HCl [Zoloft] 100 mg PO HS 07/18/21 07/29/24 busPIRone HCl [Buspar] 10 mg PO BID 07/18/21 07/29/24 Omeprazole 40 mg PO DAILY 08/13/21 07/29/24 Ergocalciferol (Vitamin D2) 1,250 mcg PO TH 07/29/24 07/29/24 [Drisdol (50,000 Iu)] Previous Rx's Medication Instructions Recorded Acetaminophen Tab [Tylenol] 650 mg PO Q6HR PRN #16 tab 07/29/24 Atorvastatin [Lipitor] 20 mg PO HS #30 tab 07/29/24 Metoprolol Tartrate [Lopressor] 12.5 mg PO DAILY tab 07/29/24 Allergies Allergy/AdvReac Type Severity Reaction Status Date / Time influenza virus vaccine, Allergy Unknown Verified 07/29/24 06:50 specific [influenza virus vacc,specific] Penicillins Allergy Rash/Hives Verified 07/29/24 06:50 acetazolamide AdvReac "Caused Verified 07/29/24 06:50 [From Diamox Sequels] heart issues" hydrochlorothiazide AdvReac Rapid Verified 07/29/24 06:50 Heart Rate topiramate [From Topamax] AdvReac stoke Verified 07/29/24 06:50 symptoms Review of Systems ROS Statement: Those systems with pertinent positive or pertinent negative responses have been documented in the HPI. ROS Other: All systems not noted in ROS Statement are negative. EKG Findings - EKG Comments: EKG Findings:: EKG is sinus 84 MD 186 QRS 98 QTc 422 - EKG Results: EKG: interpreted by ERMD Past Medical History Past Medical History: Chest Pain / Angina, GERD/Reflux, Hypertension, Mitral Valve Prolapse (MVP) Additional Past Medical History / Comment(s): Pseudo tumor cerebri, Medullary sponge kidney, chronic back pain, chronic headache History of Any Multi-Drug Resistant Organisms: None Reported Past Surgical History: Cholecystectomy Additional Past Surgical History / Comment(s): LP SHUNT PLACEMENT AND REMOVAL, cholecystectomy in 2006. Past Anesthesia/Blood Transfusion Reactions: Previous Problems w/ Anesthesia, Malignant Hyperthermia, Motion Sickness Additional Past Anesthesia/Blood Transfusion Reaction / Comment(s): states difficulty breating with anesthesia Past Psychological History: Anxiety, Depression Smoking Status: Never smoker Past Alcohol Use History: None Reported Past Drug Use History: None Reported - Past Family History Sister(s) Family Medical History: Renal Disease Additional Family Medical History / Comment(s): FSGS Brother(s) Family Medical History: Renal Disease Additional Family Medical History / Comment(s): FSGS Father Family Medical History: Cancer, Coronary Artery Disease (CAD), Renal Disease Additional Family Medical History / Comment(s): renal disease-FSGS General Exam Limitations: no limitations General appearance: alert, in no apparent distress, anxious Head exam: Present: atraumatic, normocephalic, normal inspection Eye exam: Present: normal appearance, PERRL, EOMI. Absent: scleral icterus, conjunctival injection, periorbital swelling ENT exam: Present: normal exam, mucous membranes moist Neck exam: Present: normal inspection. Absent: tenderness, meningismus, lymphadenopathy Respiratory exam: Present: normal lung sounds bilaterally. Absent: respiratory distress, wheezes, rales, rhonchi, stridor Cardiovascular Exam: Present: regular rate, normal rhythm, normal heart sounds. Absent: systolic murmur, diastolic murmur, rubs, gallop, clicks GI/Abdominal exam: Present: soft, normal bowel sounds. Absent: distended, tenderness, guarding, rebound, rigid Extremities exam: Present: normal inspection, full ROM, normal capillary refill. Absent: tenderness, pedal edema, joint swelling, calf tenderness Back exam: Present: normal inspection Neurological exam: Present: alert, oriented X3, CN II-XII intact Psychiatric exam: Present: normal affect, normal mood Skin exam: Present: warm, dry, intact, normal color. Absent: rash Course Vital Signs 07/28/24 07/29/24 07/29/24 23:33 01:50 02:45 Temperature 97.8 F Pulse Rate 91 80 81 Respiratory 18 16 18 Rate Blood Pressure 163/98 143/73 134/72 O2 Sat by Pulse 97 98 100 Oximetry 07/29/24 07/29/24 07/29/24 04:03 05:00 06:00 Temperature Pulse Rate 70 77 65 Respiratory 18 16 16 Rate Blood Pressure 126/93 138/88 132/76 O2 Sat by Pulse 98 96 98 Oximetry 07/29/24 07/29/24 07/29/24 07:35 11:20 14:19 Temperature Pulse Rate 75 96 78 Respiratory 18 18 18 Rate Blood Pressure 127/63 131/69 128/76 O2 Sat by Pulse 98 96 98 Oximetry - Reevaluation(s) Reevaluation #1: 07/29/24 01:35 Medical records reviewed Reevaluation #2: 07/29/24 01:35 Patient symptoms unchanged Reevaluation #3: Patient informed of results and questions answered Reevaluation #4: Was pt. sent in by a medical professional or institution (, PA, DENTAL FLOSS PACKER, urgent care, hospital, or snf...) When possible be specific @ -no Did you speak to anyone other than the patient for history (EMS, parent, family, police, friend...)? What history was obtained from this source @ -no Did you review nursing and triage notes (agree or disagree)? Why? @ -agree Are old charts reviewed (outside hosp., previous admission, EMS record, old EKG, old radiological studies, urgent care reports/EKG's, snf records)? Report findings @ -yes Differential Diagnosis (chest pain, altered mental status, abdominal pain women, abdominal pain men, vaginal bleeding, weakness, fever, dyspnea, syncope, headache, dizziness, GI bleed, back pain, seizure, CVA, palpatations, mental health, musculoskeletal)? @ -prior EKG interpreted by me (3pts min.). @ -yes X-rays interpreted by me (1pt min.). @ -yes negative for acute disease CT interpreted by me (1pt min.). @ -no U/S interpreted by me (1pt. min.). @ -no What testing was considered but not performed or refused? (CT, X-rays, U/S, labs)? Why? @ -none What meds were considered but not given or refused? Why? @ -none Did you discuss the management of the patient with other professionals (professionals i.e. , PA, DENTAL FLOSS PACKER, lab, RT, psych nurse, social sciences instructor, web development director, teacher, production officer, onsite case manager)? Give summary @ -no Was smoking cessation discussed for >3mins.? @ -no Was critical care preformed (if so, how long)? @ -no Were there social determinants of health that impacted care today? How? (Homelessness, low income, unemployed, alcoholism, drug addiction, transportation, low edu. Level, literacy, decrease access to med. care, [facility], rehab)? @ -none Was there de-escalation of care discussed even if they declined (Discuss DNR or withdrawal of care, Hospice)? DNR status @ -no What co-morbidities impacted this encounter? (DM, HTN, Smoking, COPD, CAD, Cancer, CVA, ARF, Chemo, Hep., AIDS, mental health diagnosis, sleep apnea, morbid obesity)? @ -none Was patient admitted / discharged? Hospital course, mention meds given and route, prescriptions, significant lab abnormalities, going to OR and other pertinent info. @ - 49 female to ER with heaviness anterior chest wall heaviness and chest pain. Patient admitted for chest pain observation Admitted Undiagnosed new problem with uncertain prognosis? @ -no Drug Therapy requiring intensive monitoring for toxicity (Heparin, Nitro, Insulin, Cardizem)? @ -no Were any procedures done? @ -no Diagnosis/symptom? @ -chest pain Acute, or Chronic, or Acute on Chronic? @ -Acute Uncomplicated (without systemic symptoms) or Complicated (systemic symptoms)? @ -Complicated Side effects of treatment? @ -no Exacerbation, Progression, or Severe Exacerbation? @ -exacerbation Poses a threat to life or bodily function? How? (Chest pain, [place], [place], pneumonia, PE, COPD, DKA, ARF, appy, cholecystitis, CVA, Diverticulitis, Homicidal, Suicidal, threat to staff... and all critical care pts) @ -yes chest pain Reevaluation #5: Differential Chest Pain: Stable Angina, Unstable Angina, STEMI, NSTEMI Aortic Dissection, Pneumothorax, Musculoskeletal, Esophageal Spasm GERD, Cholecystitis, Pancreatitis, Zoster, this is not meant to be an all-inclusive list. - Consultations Consultation #1: Admitting physicians who agreed admit this patient Chest Pain MDM - MDM 49 female to ER with heaviness anterior chest wall heaviness and chest pain. Patient admitted for chest pain observation Disposition Clinical Impression: Chest pain Disposition: ADMITTED IP TO THIS HOSP Condition: Stable Is patient prescribed a controlled substance at d/c from ED?: No Time of Disposition: 03:15
[2024-07-29] MEDS: HYDROmorphone 1 MG/ML 1 ML SYRINGE IVP STA (02:10)
[2024-07-29] MEDS: KETOROLAC 15 MG/ML 1 ML VIAL IVP STA (02:11)
[2024-07-29] MEDS: SODIUM CHLORIDE 0.9% 1,000 ML IV STA (02:11)
--- NOTE | 2024-07-29 03:06 | CT ---
EXAM: CT Angiography Chest With Intravenous Contrast CLINICAL HISTORY: ITS.REASON CT Reason: pe TECHNIQUE: Axial computed tomographic angiography images of the chest with intravenous contrast. CTDI is 24.7 mGy and DLP is 764 mGy-cm. This CT exam was performed using one or more of the following dose reduction techniques: automated exposure control, adjustment of the mA and/or kV according to patient size, and/or use of iterative reconstruction technique. MIP reconstructed images were created and reviewed. COMPARISON: No relevant prior studies available. FINDINGS: Pulmonary arteries: Unremarkable. No pulmonary embolism. Aorta: No acute findings. No thoracic aortic aneurysm. Lungs: Unremarkable. No mass. No consolidation. Pleural space: Unremarkable. No focal consolidation, pleural effusion, or pneumothorax. Heart: Unremarkable. No cardiomegaly. No significant pericardial effusion. No evidence of RV dysfunction. Bones/joints: No acute fracture. No dislocation. Soft tissues: Unremarkable. Lymph nodes: Unremarkable. No enlarged lymph nodes. Liver: Hepatic steatosis. Gallbladder and bile ducts: Cholecystectomy. IMPRESSION: 1. No pulmonary embolism. 2. No focal consolidation, pleural effusion, or pneumothorax. 3. Hepatic steatosis. 4. Cholecystectomy.
[2024-07-29] MEDS ORDERED: NALOXONE 0.4 MG/ML 1 ML VIAL IV PRN (03:26)
[2024-07-29] MEDS: SODIUM CHLORIDE 0.9% 1,000 ML IV SCH (03:35)
[2024-07-29] MEDS: HYDROmorphone 0.5 MG/0.5 ML SYRINGE IVP PRN (06:12)
[2024-07-29 07:39] VITALS: RESP 18
[2024-07-29] MEDS: METOPROLOL TARTRATE 12.5 MG TAB PO SCH (09:48)
--- NOTE | 2024-07-29 11:12 | P.CRDCN ---
History of Present Illness Consult date: 07/29/24 Consult reason: chest pain History of present illness: This is a 49-year-old female with past medical history of hypertension, gastroesophageal reflux disease. Patient presented to the emergency center due to chest pain heaviness in the chest. She denies nausea or vomiting. No fever or chills. She did have COVID-19 diagnosed 10 days ago. Patient has a breakfast tray in front of her but she states she only had a little juice this morning. Patient was seen in the hospital in August 2023 and she states she did not follow-up because she was spending most of her time in [place]. Blood pressure 127/63, heart rate 75, pulse ox 98% on room air. EKG: Sinus rhythm with no acute ST changes. Chest x-ray: No consolidation CTA of the chest no PE. Hepatic steatosis. Laboratory studies: Troponin negative x 3. Potassium 4.3, creatinine 1.04. D- dimer 0.22. WBC 9.4, hemoglobin 14. proBNP 32. Home cardiac medications: Lisinopril 10 mg daily Stress echocardiogram performed at [facility] 03/26/2022 revealed that she walked 3 minutes 31 seconds with a heart rate of 160 and was a negative stress test. Echocardiogram performed 09/04/2023 revealed normal LV size and systolic function. RV enlargement with preserved systolic function. Thickened pericardium with small exudative effusion. Review Of Systems: At the time of my exam: CONSTITUTIONAL: Denies fever or chills. HEENT: Denies blurred vision, vision changes, or eye pain. Denies hemoptysis CARDIOVASCULAR: Denies chest pain. Denies orthopnea. Denies PND. Denies palpitations RESPIRATORY: Denies shortness of breath. GASTROINTESTINAL: Denies abdominal pain. Denies nausea or vomiting. HEMATOLOGIC: Denies bleeding disorders. GENITOURINARY: Denies any blood in urine. SKIN: Denies puritis. Denies rash. Physical examination: Gen: This is a 49-year-old morbidly obese female in no acute distress VS: reviewed HEENT: Head is atraumatic, normocephalic. Pupils equal, round. Sclerae is anicteric. NECK: Supple. No JVD. LUNGS: Clear to auscultation. No wheezes or rhonchi. No intercostal retractions. HEART: Regular rate and rhythm. No murmur. ABDOMEN: Soft No tenderness. EXTREMITIES: No pedal edema. No calf tenderness. NEUROLOGICAL: Patient is awake, alert and oriented x3. Assessment: Atypical chest pain Hypertension Gastroesophageal reflux disease Morbid obesity with BMI of 45 Plan: Resume patient's home cardiac medications Start patient on Lipitor 20 mg daily, Lopressor 12.5 mg daily Discontinue IV fluids Obtain 2-D echocardiogram and Doppler study to assess cardiac structure and function Obtain stress echocardiogram If testing is unremarkable, patient is cleared for discharge from cardiology. Patient may follow-up with Dr. Maria in 1 to 2 weeks. Further recommendations to follow based upon clinical course Thank you kindly for this consultation. Nurse practitioner note has been reviewed, I agree with documented findings and plan of care. Patient was seen and examined. Past Medical History Past Medical History: Chest Pain / Angina, GERD/Reflux, Hypertension, Mitral Valve Prolapse (MVP) Additional Past Medical History / Comment(s): Pseudo tumor cerebri, Medullary sponge kidney, chronic back pain, chronic headache History of Any Multi-Drug Resistant Organisms: None Reported Past Surgical History: Cholecystectomy Additional Past Surgical History / Comment(s): LP SHUNT PLACEMENT AND REMOVAL, cholecystectomy in 2006. Past Anesthesia/Blood Transfusion Reactions: Previous Problems w/ Anesthesia, Malignant Hyperthermia, Motion Sickness Additional Past Anesthesia/Blood Transfusion Reaction / Comment(s): states difficulty breating with anesthesia Past Psychological History: Anxiety, Depression Smoking Status: Never smoker Past Alcohol Use History: None Reported Past Drug Use History: None Reported - Past Family History Sister(s) Family Medical History: Renal Disease Additional Family Medical History / Comment(s): FSGS Brother(s) Family Medical History: Renal Disease Additional Family Medical History / Comment(s): FSGS Father Family Medical History: Cancer, Coronary Artery Disease (CAD), Renal Disease Additional Family Medical History / Comment(s): renal disease-FSGS Medications and Allergies Home Medications Medication Instructions Recorded Confirmed Type lisinopriL [Zestril] 10 mg PO DAILY 07/03/20 07/29/24 History ondansetron HCL [Zofran] 4 mg PO Q8H PRN 07/03/20 07/29/24 History Sertraline HCl [Zoloft] 100 mg PO HS 07/18/21 07/29/24 History busPIRone HCl [Buspar] 10 mg PO BID 07/18/21 07/29/24 History Omeprazole 40 mg PO DAILY 08/13/21 07/29/24 History Ergocalciferol (Vitamin D2) 1,250 mcg PO TH 07/29/24 07/29/24 History [Drisdol (50,000 Iu)] Allergies Allergy/AdvReac Type Severity Reaction Status Date / Time influenza virus vaccine, Allergy Unknown Verified 07/29/24 06:50 specific [influenza virus vacc,specific] Penicillins Allergy Rash/Hives Verified 07/29/24 06:50 acetazolamide AdvReac "Caused Verified 07/29/24 06:50 [From Diamox Sequels] heart issues" hydrochlorothiazide AdvReac Rapid Verified 07/29/24 06:50 Heart Rate topiramate [From Topamax] AdvReac stoke Verified 07/29/24 06:50 symptoms Physical Exam Vitals: Vital Signs Temp Pulse Resp BP Pulse Ox 07/29/24 07:35 75 18 127/63 98 07/29/24 06:00 65 16 132/76 98 07/29/24 05:00 77 16 138/88 96 07/29/24 04:03 70 18 126/93 98 07/29/24 02:45 81 18 134/72 100 07/29/24 01:50 80 16 143/73 98 07/28/24 23:33 97.8 F 91 18 163/98 97 Intake and Output 07/28/24 07/29/24 07/29/24 22:59 06:59 14:59 Other: Weight 113.398 kg Results 07/28/24 23:46 07/28/24 23:46 Cardiac Enzymes 07/28/24 07/28/24 07/29/24 Range/Units 23:46 23:46 05:50 AST 26 (14-36) U/L Troponin I <0.012 <0.012 (0.000-0.034) ng/mL Coagulation 07/28/24 Range/Units 23:46 PT 10.1 (10.0-12.5) sec APTT 25.4 (22.0-30.0) sec CBC 07/28/24 Range/Units 23:46 WBC 9.4 (3.8-10.6) k/uL RBC 4.85 (3.80-5.40) m/uL Hgb 14.0 (11.4-16.0) gm/dL Hct 41.2 (34.0-46.0) % Plt Count 297 (150-450) k/uL Comprehensive Metabolic Panel 07/28/24 Range/Units 23:46 Sodium 139 (137-145) mmol/L Potassium 4.3 (3.5-5.1) mmol/L Chloride 106 (98-107) mmol/L Carbon Dioxide 28 (22-30) mmol/L BUN 13 (7-17) mg/dL Creatinine 1.04 (0.52-1.04) mg/dL Glucose 109 H (74-99) mg/dL Calcium 9.5 (8.4-10.2) mg/dL AST 26 (14-36) U/L ALT 33 (4-34) U/L Alkaline Phosphatase 72 (38-126) U/L Total Protein 6.7 (6.3-8.2) g/dL Albumin 3.9 (3.5-5.0) g/dL Current Medications Generic Name Dose Route Start Last Admin Trade Name Freq PRN Reason Stop Dose Admin Hydromorphone HCl 0.5 mg 07/29/24 03:26 07/29/24 06:12 Hydromorphone 0.5 Mg/0.5 Ml Syringe IVP 0.5 mg Q3HR PRN Administration Moderate Pain (Scale 4 to 6) Sodium Chloride 1,000 mls @ 75 mls/hr 07/29/24 03:30 07/29/24 03:35 Saline 0.9% IV 75 mls/hr .[id number] ARNOLD Administration Naloxone HCl 0.2 mg 07/29/24 03:26 Naloxone 0.4 Mg/Ml 1 Ml Vial IV Q2M PRN Opioid Reversal Ondansetron HCl 4 mg 07/29/24 03:26 Ondansetron 4 Mg/2 Ml Vial IVP Q8HR PRN Nausea And Vomiting Intake and Output 07/28/24 07/29/24 07/29/24 22:59 06:59 14:59 Other: Weight 113.398 kg 07/28/24 23:46 07/28/24 23:46
[2024-07-29] MEDS: ONDANSETRON 4 MG/2 ML VIAL IVP PRN (11:19)
--- NOTE | 2024-07-29 11:25 | CA ---
Stress Echo Report Pat Hale Age: 49 Gender: F : 1975 Exam Date: 07/29/2024 10:36 Exam Location: [facility] Stress Ht (in): 62 Wt (lb): 250 Ordering Physician: Katt Bloom Referring Physician: [id number] Clearance Cutter: Cory Valiente Technologist Procedure CPT: Indication: chesst pain ICD-9 Codes: Rhythm: Patient History: Cardiac Medications: SEE CHART Medications in past 24 hours: Contrast: Definity Stress Results Protocol: Kirit Total dose(mL): NA Exercise Duration (min:sec): 5:[address] Depression (mm): Angina Score: Keith Score: METS: 7.1 Resting HR: 81 Resting BP: 152 / 94 Peak HR: 155 Peak BP: 201 / 98 Max Predicted HR: 172 90 % Max Predicted HR Target HR: 146 Double Product: 11091 Stress Summary: BP Response: Reason for Termination: Reached target heart rate or work-load Cardiac Symptoms: Dyspnea ECG Analysis Resting ECG: Stress ECG: Arrhythmia: Echo Analysis Resting Echo: Peak Echo Analysis: MEASUREMENTS (Male/Female) Normal Values CONCLUSIONS At baseline EKG revealed normal sinus rhythm without significant ST-T changes. Patient walked on a standard Kirit protocol for 5 and half minutes and achieved a maximal heart rate of 152 bpm. There were no EKG changes to indicate ischemia. Patient had shortness of breath but did not have angina. There was a lot of artifact on the EKG tracings making it difficult to interpret but available tracings suggest that there is no ischemia and no significant arrhythmia. Negative stress test with limited exercise capacity. Baseline echo images revealed normal wall motion and wall thickening of all segments. Echo contrast was used to optimize image quality. At peak exercise there was good augmentation of left ventricle wall motion wall thickening of all segments suggesting that there is no evidence of stress-induced ischemia on the study Final impression: Normal stress test by EKG criteria with fair exercise capacity and a normal stress echocardiogram Dr. Angella Paul MD (Electronically Signed) Final Date: 29 July 2024 11:25
[2024-07-29] MEDS: ACETAMINOPHEN TAB 325 MG TAB PO PRN (13:26)
--- NOTE | 2024-07-29 13:42 | P.HPIM ---
History of Present Illness H&P Date: 07/29/24 Patient is a 89-year-old female with a history of hypertension, GERD, MVP who came in for chest pain that is substernal, 8 out of 10 in intensity at maximum was constant that radiates to the back. She has associated shortness of breath that is pleuritic, sweating, and palpitations. She denies any new onset cough, fevers, nausea and vomiting, new leg pain, recent travel, abd pain, changes in vision, or weakness. Chest x-ray shows no acute process no consolidation. CT angio of the chest shows is negative for pulmonary embolism, any focal consolation, effusion, pneumothorax. EKG normal sinus rhythm with a rate of [address]-T changes good R wave progression QTc 422. Troponin negative at less than 0.0 12 on 2 occasions. proBNP 32 D-dimer negative at 0.22. Vitals were unremarkable except for blood pressure 163/98 on admission. ED documentation reviewed. Review of systems: Pertinent positives and negatives as discussed in HPI, a complete review of systems was performed and all other systems are negative. Physical examination: Vital signs reviewed General: non toxic, no distress, appears at stated age, normal weight Derm: no unusual rashes/lesions, warm Head: atraumatic, normocephalic, symmetric Eyes: EOMI, no lid lag, anicteric sclera, pupils equal round reactive to light ENT: Nose and ears atraumatic Neck: No cervical lymphadenopathy, trachea midline, supple Mouth: no lip lesion, mucus membranes moist Cardiovascular: S1S2 reg, no murmur, Lungs: CTA bilateral, no rhonchi, no rales, no accessory muscle use, pain on palpation of area of noted chest pain Abdominal: soft, nontender to palpation, no guarding Ext: muscle strength 5 out of 5 in all 4 extremities grossly, no gross muscle atrophy, no contractures, positive dorsalis pedis pulse bilateral, no edema Neuro: CN II-XI grossly intact, no gross focal neuro deficits Psych: Alert, oriented, appropriate affect and mood Assessment/Plan: #. Chest pain rule out ACS, costochondritis, PE CT angio, chest x-ray and EKG is unremarkable. Troponins negative. D-dimer negative. -Pain control with Tylenol 650 p.o. every 6 hours as needed for pain -Continue with cardiac monitoring -Consult cardiology Chronic conditions: Hypertension, GERD, MVP, anxiety, depression, obesity DVT prophylaxis: Routine The patient is admitted with an anticipated less than 2 midnight stay for evaluation of chest pain CODE STATUS: Full Discussed with: Patient and family Anticipated discharge place: Home Past Medical History Past Medical History: Chest Pain / Angina, GERD/Reflux, Hypertension, Mitral Valve Prolapse (MVP) Additional Past Medical History / Comment(s): Pseudo tumor cerebri, Medullary sponge kidney, chronic back pain, chronic headache History of Any Multi-Drug Resistant Organisms: None Reported Past Surgical History: Cholecystectomy Additional Past Surgical History / Comment(s): LP SHUNT PLACEMENT AND REMOVAL, cholecystectomy in 2006. Past Anesthesia/Blood Transfusion Reactions: Previous Problems w/ Anesthesia, Malignant Hyperthermia, Motion Sickness Additional Past Anesthesia/Blood Transfusion Reaction / Comment(s): states difficulty breating with anesthesia Past Psychological History: Anxiety, Depression Smoking Status: Never smoker Past Alcohol Use History: None Reported Past Drug Use History: None Reported - Past Family History Sister(s) Family Medical History: Renal Disease Additional Family Medical History / Comment(s): FSGS Brother(s) Family Medical History: Renal Disease Additional Family Medical History / Comment(s): FSGS Father Family Medical History: Cancer, Coronary Artery Disease (CAD), Renal Disease Additional Family Medical History / Comment(s): renal disease-FSGS Medications and Allergies Home Medications Medication Instructions Recorded Confirmed Type lisinopriL [Zestril] 10 mg PO DAILY 07/03/20 07/29/24 History ondansetron HCL [Zofran] 4 mg PO Q8H PRN 07/03/20 07/29/24 History Sertraline HCl [Zoloft] 100 mg PO HS 07/18/21 07/29/24 History busPIRone HCl [Buspar] 10 mg PO BID 07/18/21 07/29/24 History Omeprazole 40 mg PO DAILY 08/13/21 07/29/24 History Ergocalciferol (Vitamin D2) 1,250 mcg PO TH 07/29/24 07/29/24 History [Drisdol (50,000 Iu)] Allergies Allergy/AdvReac Type Severity Reaction Status Date / Time influenza virus vaccine, Allergy Unknown Verified 07/29/24 06:50 specific [influenza virus vacc,specific] Penicillins Allergy Rash/Hives Verified 07/29/24 06:50 acetazolamide AdvReac "Caused Verified 07/29/24 06:50 [From Diamox Sequels] heart issues" hydrochlorothiazide AdvReac Rapid Verified 07/29/24 06:50 Heart Rate topiramate [From Topamax] AdvReac stoke Verified 07/29/24 06:50 symptoms Physical Exam Vitals: Vital Signs Temp Pulse Resp BP Pulse Ox 07/29/24 07:35 75 18 127/63 98 07/29/24 06:00 65 16 132/76 98 07/29/24 05:00 77 16 138/88 96 07/29/24 04:03 70 18 126/93 98 07/29/24 02:45 81 18 134/72 100 07/29/24 01:50 80 16 143/73 98 07/28/24 23:33 97.8 F 91 18 163/98 97 Intake and Output 07/28/24 07/29/24 07/29/24 22:59 06:59 14:59 Other: Weight 113.398 kg Results CBC & Chem 7: 07/28/24 23:46 07/28/24 23:46 Labs: Abnormal Lab Results - Last 24 Hours (Table) 07/28/24 Range/Units 23:46 Glucose 109 H (74-99) mg/dL
--- NOTE | 2024-07-29 13:56 | P.DS ---
Providers Date of admission: 07/29/24 03:26 Attending physician: Ana Delatorre Consults: 07/29/24 03:26 Consult Physician Routine Consulting Provider: Tang Singh Consult Reason/Comments: cp Do you want consulting provider notified?: Yes Primary care physician: Fili Davis Hospital Course: Hospital Course: Patient is a 89-year-old female with a history of hypertension, GERD, MVP who came in for chest pain that is substernal, 8 out of 10 in intensity at maximum was constant that radiates to the back. She has associated shortness of breath that is pleuritic, sweating, and palpitations. She denies any new onset cough, fevers, nausea and vomiting, new leg pain, recent travel, abd pain, changes in vision, or weakness. Imaging was unremarkable for any obstruction or pulmonary embolism. EKG normal sinus rhythm with a rate of [address]-T changes good R wave progression QTc 422. Troponin negative at less than 0.0 12 on 2 occasions. proBNP 32 D-dimer negative at 0.22. Vitals were unremarkable except for blood pressure 163/98 on admission. Patient was observed for chest pain to rule out ACS, costochondritis, and PE. Cardiology was consulted and she was observed overnight and given pain control medication. Patient was stable and asymptomatic during her stay. Medications were added to address her blood pressure. Stress echo done was unremarkable. Patient advised to continue home medication, and to follow-up with PCP and cardiology. Final Diagnosis: #. Costochondritis #. Hypertension, uncontrolled Chronic conditions: Hypertension, GERD, MVP, anxiety, depression, obesity Physical examination: Vital signs reviewed General: non toxic, no distress, appears at stated age, normal weight Derm: no unusual rashes/lesions, warm Head: atraumatic, normocephalic, symmetric Eyes: EOMI, no lid lag, anicteric sclera, pupils equal round reactive to light ENT: Nose and ears atraumatic Neck: No cervical lymphadenopathy, trachea midline, supple Mouth: no lip lesion, mucus membranes moist Cardiovascular: S1S2 reg, no murmur, Lungs: CTA bilateral, no rhonchi, no rales, no accessory muscle use Abdominal: soft, nontender to palpation, no guarding Ext: muscle strength 5 out of 5 in all 4 extremities grossly, no gross muscle atrophy, no contractures, positive dorsalis pedis pulse bilateral, no edema Neuro: CN II-XI grossly intact, no gross focal neuro deficits Psych: Alert, oriented, appropriate affect and mood Patient Condition at Discharge: Stable Plan - Discharge Summary New Discharge Prescriptions: New Acetaminophen Tab [Tylenol] 650 mg PO Q6HR PRN #16 tab PRN Reason: Fever And/Or Moderate Pain Atorvastatin [Lipitor] 20 mg PO HS #30 tab Metoprolol Tartrate [Lopressor] 12.5 mg PO DAILY tab Continue lisinopriL [Zestril] 10 mg PO DAILY ondansetron HCL [Zofran] 4 mg PO Q8H PRN PRN Reason: Nausea And Vomiting Omeprazole 40 mg PO DAILY Ergocalciferol (Vitamin D2) [Drisdol (50,000 Iu)] 1,250 mcg PO TH busPIRone HCl [Buspar] 10 mg PO BID Sertraline HCl [Zoloft] 100 mg PO HS Discharge Medication List lisinopriL [Zestril] 10 mg PO DAILY 07/03/20 [History] ondansetron HCL [Zofran] 4 mg PO Q8H PRN 07/03/20 [History] Sertraline HCl [Zoloft] 100 mg PO HS 07/18/21 [History] busPIRone HCl [Buspar] 10 mg PO BID 07/18/21 [History] Omeprazole 40 mg PO DAILY 08/13/21 [History] Acetaminophen Tab [Tylenol] 650 mg PO Q6HR PRN #16 tab 07/29/24 [Rx] Atorvastatin [Lipitor] 20 mg PO HS #30 tab 07/29/24 [Rx] Ergocalciferol (Vitamin D2) [Drisdol (50,000 Iu)] 1,250 mcg PO TH 07/29/24 [History] Metoprolol Tartrate [Lopressor] 12.5 mg PO DAILY tab 07/29/24 [Rx] Follow up Appointment(s)/Referral(s): Fili Davis MD [Primary Care Provider] - 1-2 days Aston Maria MD [STAFF PHYSICIAN] - 1 Week Discharge Disposition: HOME SELF-CARE
[2024-07-29 14:21] VITALS: BP 128/76; PULSE 78
[2024-07-29] MEDS ORDERED: ATORVASTATIN 20 MG TAB PO SCH (21:00)
== END 2024-07-29 18:32 | disposition home or self-care (01) ==
LOC: EC 23:25 → 6NMEDSUR 07-29 03:26
PROVIDERS: ADMIT Hospitalist; ATTEND Hospitalist
DX: M94.0 Chondrocostal junction syndrome [Tietze] (principal); I34.1 Nonrheumatic mitral (valve) prolapse; I10 Essential (primary) hypertension; K21.9 Gastro-esophageal reflux disease without esophagitis; E66.01 Morbid (severe) obesity due to excess calories; Z68.42 Body mass index [BMI] 45.0-49.9, adult; K76.0 Fatty (change of) liver, not elsewhere classified; F32.A Depression, unspecified; F41.9 Anxiety disorder, unspecified; Z79.899 Other long term (current) drug therapy; Z88.0 Allergy status to penicillin; Z88.7 Allergy status to serum and vaccine; Z88.8 Allergy status to other drugs, medicaments and biological substances; Z86.16 Personal history of COVID-19
CPT/HCPCS: 36415; 71046; 71275; 80053; 83735; 83880; 84484; 85025; 85379; 85610; 85730; 93005; 93351; 96361; 96374; 96375; 96376; 99285

== ENCOUNTER 2024-08-25 09:46 | Emergency (ER) | payer OTHER ==
--- NOTE | 2024-08-25 10:25 | ED ---
Abdominal Pain HPI - General Chief Complaint: Abdominal Pain Stated Complaint: abd pain/blood in stool Time Seen by Provider: 08/25/24 09:58 Source: patient, RN notes reviewed Mode of arrival: ambulatory Limitations: no limitations - History of Present Illness Initial Comments: This is a 49-year-old female presenting for lower abdominal pain (6 out of 10) and bright red blood per rectum x 2 days. Patient initially endorses upper abdominal pain before pain moved inferiorly. States symptoms started yesterday afternoon with associated dizziness and syncopal episode. Denies any ongoing dizziness or altered mental status. Endorses occasional sharp lower abdominal pain every 30 to 60 minutes followed by more blood past. Patient denies history of external/internal hemorrhoids ulcerative colitis, diverticulitis, Crohn's disease, IBS. Patient states she has been n.p.o. since yesterday afternoon. MD Complaint: abdominal pain, other (Bright red blood per rectum) -: days(s) (2) Location: suprapubic - Related Data Home Medications Medication Instructions Recorded Confirmed lisinopriL [Zestril] 10 mg PO DAILY 07/03/20 07/29/24 ondansetron HCL [Zofran] 4 mg PO Q8H PRN 07/03/20 07/29/24 Sertraline HCl [Zoloft] 100 mg PO HS 07/18/21 07/29/24 busPIRone HCl [Buspar] 10 mg PO BID 07/18/21 07/29/24 Omeprazole 40 mg PO DAILY 08/13/21 07/29/24 Ergocalciferol (Vitamin D2) 1,250 mcg PO TH 07/29/24 07/29/24 [Drisdol (50,000 Iu)] Previous Rx's Medication Instructions Recorded Acetaminophen Tab [Tylenol] 650 mg PO Q6HR PRN #16 tab 07/29/24 Atorvastatin [Lipitor] 20 mg PO HS #30 tab 07/29/24 Metoprolol Tartrate [Lopressor] 12.5 mg PO DAILY tab 07/29/24 Allergies Allergy/AdvReac Type Severity Reaction Status Date / Time influenza virus vaccine, Allergy Unknown Verified 08/25/24 09:51 specific [influenza virus vacc,specific] Penicillins Allergy Rash/Hives Verified 08/25/24 09:51 acetazolamide AdvReac "Caused Verified 08/25/24 09:51 [From Diamox Sequels] heart issues" hydrochlorothiazide AdvReac Rapid Verified 08/25/24 09:51 Heart Rate topiramate [From Topamax] AdvReac stoke Verified 08/25/24 09:51 symptoms Review of Systems ROS Statement: Those systems with pertinent positive or pertinent negative responses have been documented in the HPI. ROS Other: All systems not noted in ROS Statement are negative. Past Medical History Past Medical History: Chest Pain / Angina, GERD/Reflux, Hypertension, Mitral Valve Prolapse (MVP) Additional Past Medical History / Comment(s): Pseudo tumor cerebri, Medullary sponge kidney, chronic back pain, chronic headache History of Any Multi-Drug Resistant Organisms: None Reported Past Surgical History: Cholecystectomy Additional Past Surgical History / Comment(s): LP SHUNT PLACEMENT AND REMOVAL, cholecystectomy in 2006. Past Anesthesia/Blood Transfusion Reactions: Previous Problems w/ Anesthesia, Malignant Hyperthermia, Motion Sickness Additional Past Anesthesia/Blood Transfusion Reaction / Comment(s): states difficulty breating with anesthesia Past Psychological History: Anxiety, Depression Smoking Status: Never smoker Past Alcohol Use History: None Reported Past Drug Use History: None Reported - Past Family History Sister(s) Family Medical History: Renal Disease Additional Family Medical History / Comment(s): FSGS Brother(s) Family Medical History: Renal Disease Additional Family Medical History / Comment(s): FSGS Father Family Medical History: Cancer, Coronary Artery Disease (CAD), Renal Disease Additional Family Medical History / Comment(s): renal disease-FSGS General Exam Limitations: no limitations General appearance: alert, in no apparent distress Head exam: Present: atraumatic, normocephalic, normal inspection Eye exam: Present: normal appearance, PERRL, EOMI. Absent: scleral icterus, conjunctival injection, periorbital swelling ENT exam: Present: normal exam, mucous membranes moist Neck exam: Present: normal inspection. Absent: tenderness, meningismus, lymphadenopathy Respiratory exam: Present: normal lung sounds bilaterally. Absent: respiratory distress, wheezes, rales, rhonchi, stridor Cardiovascular Exam: Present: regular rate, normal rhythm, normal heart sounds. Absent: systolic murmur, diastolic murmur, rubs, gallop, clicks GI/Abdominal exam: Present: soft, normal bowel sounds. Absent: distended, tenderness, guarding, rebound, rigid Extremities exam: Present: normal inspection, full ROM, normal capillary refill. Absent: tenderness, pedal edema, joint swelling, calf tenderness Back exam: Present: normal inspection Neurological exam: Present: alert, oriented X3, CN II-XII intact Psychiatric exam: Present: normal affect, normal mood Skin exam: Present: warm, dry, intact, normal color. Absent: rash Course Vital Signs 08/25/24 08/25/24 08/25/24 09:49 11:49 12:46 Temperature 97.9 F 98.5 F 98.0 F Pulse Rate 95 76 69 Respiratory 18 17 18 Rate Blood Pressure 138/84 114/80 114/77 O2 Sat by Pulse 99 98 99 Oximetry Medical Decision Making - Medical Decision Making Was pt. sent in by a medical professional or institution (, ASHER, AERIAL ERECTOR, urgent care, hospital, or retirement...) When possible be specific @ -No Did you speak to anyone other than the patient for history (EMS, parent, family, police, friend...)? What history was obtained from this source @ -No Did you review nursing and triage notes (agree or disagree)? Why? @ -I reviewed and agree with nursing and triage notes Were old charts reviewed (outside hosp., previous admission, EMS record, old EKG, old radiological studies, urgent care reports/EKG's, retirement records)? Report findings @ -No old charts were reviewed Differential Diagnosis (chest pain, altered mental status, abdominal pain women, abdominal pain men, vaginal bleeding, weakness, fever, dyspnea, syncope, headache, dizziness, GI bleed, back pain, seizure, CVA, palpatations, mental health, musculoskeletal)? @ -Differential Abdominal Pain Women: Appendicitis, Cholecystitis, diverticulosis, ischemic bowel, pancreatitis, hepatitis, UTI, gastroenteritis, AAA, incarcerated hernia, bowel obstruction, constipation, inflammatory bowel, hepatitis, peptic ulcer disease, splenic infarction, perforated viscus, vulvitis, ovarian torsion, PID, kidney stone, placenta abruption, this is not meant to be an all-inclusive list EKG interpreted by me (3pts min.). @ -Twelve-lead shows sinus rhythm without ST elevation, ST depression, T wave inversion. Ventricular rate 75 bpm, MN interval 182 ms, QRS duration 96 ms, QT/QTc 382/411 ms. X-rays interpreted by me (1pt min.). @ -None done CT interpreted by me (1pt min.). @ -None done U/S interpreted by me (1pt. min.). @ -None done What testing was considered but not performed or refused? (CT, X-rays, U/S, labs)? Why? @ -None What meds were considered but not given or refused? Why? @ -None Did you discuss the management of the patient with other professionals (professionals i.e. DrLenore, PA, AERIAL ERECTOR, lab, RT, psych nurse, health care social worker, head field hockey coach, teacher, life science technical officer, returned case inspector)? Give summary @ -No Was smoking cessation discussed for >3mins.? @ -No Was critical care preformed (if so, how long)? @ -No Were there social determinants of health that impacted care today? How? (H omelessness, low income, unemployed, alcoholism, drug addiction, transportation, low edu. Level, literacy, decrease access to med. care, snf, rehab)? @ -No Was there de-escalation of care discussed even if they declined (Discuss DNR or withdrawal of care, Hospice)? DNR status @ -No What co-morbidities impacted this encounter? (DM, HTN, Smoking, COPD, CAD, Cancer, CVA, ARF, Chemo, Hep., AIDS, mental health diagnosis, sleep apnea, morbid obesity)? @ -None Was patient admitted / discharged? Hospital course, mention meds given and route, prescriptions, significant lab abnormalities, going to OR and other pertinent info. @ -Discharge. Labs showed no significant abnormal findings, red blood cell s/hemoglobin levels normal. Patient states she is otherwise feeling well without dizziness or near syncope. Advised return to ER if symptoms return or worsen. Undiagnosed new problem with uncertain prognosis? @ -Yes Drug Therapy requiring intensive monitoring for toxicity (Heparin, Nitro, Insulin, Cardizem)? @ -No Were any procedures done? @ -No Diagnosis/symptom? @ -Idiopathic bright red blood per rectum Acute, or Chronic, or Acute on Chronic? @ -Acute Uncomplicated (without systemic symptoms) or Complicated (systemic symptoms)? @ -Uncomplicated scratch that complicated Side effects of treatment? @ -No Exacerbation, Progression, or Severe Exacerbation? @ -No Poses a threat to life or bodily function? How? (Chest pain, [place], HI, pneumonia, PE, COPD, DKA, ARF, appy, cholecystitis, CVA, Diverticulitis, Homicidal, Suicidal, threat to staff... and all critical care pts) @ -No - Lab Data Result diagrams: 08/25/24 11:47 08/25/24 11:47 Lab Results 08/25/24 08/25/24 08/25/24 Range/Units 11:47 11:47 11:47 WBC 10.9 H (3.8-10.6) k/uL RBC 5.06 (3.80-5.40) m/uL Hgb 15.0 (11.4-16.0) gm/dL Hct 42.9 (34.0-46.0) % MCV 84.8 (80.0-100.0) fL MCH 29.6 (25.0-35.0) pg MCHC 34.8 (31.0-37.0) g/dL RDW 13.3 (11.5-15.5) % Plt Count 256 (150-450) k/uL MPV 9.2 Neutrophils % 75 % Lymphocytes % 18 % Monocytes % 5 % Eosinophils % 1 % Basophils % 1 % Neutrophils # 8.1 H (1.3-7.7) k/uL Lymphocytes # 1.9 (1.0-4.8) k/uL Monocytes # 0.5 (0-1.0) k/uL Eosinophils # 0.1 (0-0.7) k/uL Basophils # 0.1 (0-0.2) k/uL PT 10.2 (10.0-12.5) sec INR 0.9 (<1.2) APTT 26.6 (22.0-30.0) sec Sodium 139 (137-145) mmol/L Potassium 4.6 (3.5-5.1) mmol/L Chloride 106 (98-107) mmol/L Carbon Dioxide 27 (22-30) mmol/L Anion Gap 6 mmol/L BUN 18 H (7-17) mg/dL Creatinine 1.07 H (0.52-1.04) mg/dL Est GFR (CKD-EPI)AfAm 71 (>60 ml/min/1.73 sqM) Est GFR (CKD-EPI)NonAf 62 (>60 ml/min/1.73 sqM) Glucose 104 H (74-99) mg/dL Calcium 9.9 (8.4-10.2) mg/dL Total Bilirubin 0.7 (0.2-1.3) mg/dL AST 27 (14-36) U/L ALT 27 (4-34) U/L Alkaline Phosphatase 85 (38-126) U/L Total Protein 7.3 (6.3-8.2) g/dL Albumin 4.4 (3.5-5.0) g/dL Disposition Clinical Impression: Hematochezia, Bright red blood per rectum Disposition: HOME SELF-CARE Condition: Good Is patient prescribed a controlled substance at d/c from ED?: No Referrals: Fili Davis MD [Primary Care Provider] - 1-2 days Time of Disposition: 12:35
[2024-08-25 11:54] LABS: Basophils # (A) 0.1 k/uL (0-0.2); Basophils % (A) 1 %; Eosinophils # (A) 0.1 k/uL (0-0.7); Eosinophils % (A) 1 %; HCT 42.9 % (34.0-46.0); Lymphocytes # (A) 1.9 k/uL (1.0-4.8); Lymphocytes % (A) 18 %; MCH 29.6 pg (25.0-35.0); MCHC 34.8 g/dL (31.0-37.0); MCV 84.8 fL (80.0-100.0); Mean Platelet Volume 9.2; Monocytes # (A) 0.5 k/uL (0-1.0); Monocytes % (A) 5 %; Neutrophils # (A) 8.1 k/uL (1.3-7.7); Neutrophils % (A) 75 %; Platelet Count 256 k/uL (150-450); RBC 5.06 m/uL (3.80-5.40); RDW 13.3 % (11.5-15.5); WBC 10.9 k/uL (3.8-10.6)
[2024-08-25 12:05] LABS: INR 0.9 (<1.2); Partial Thromboplastin Time 26.6 sec (22.0-30.0); Prothrombin Time 10.2 sec (10.0-12.5)
[2024-08-25 12:13] LABS: ALT 27 U/L (4-34); AST 27 U/L (14-36); African American GFR (CKD) 71 (>60 ml/min/1.73 sqM); Albumin 4.4 g/dL (3.5-5.0); Alkaline Phosphatase 85 U/L (38-126); Anion Gap 6 mmol/L; Blood Urea Nitrogen 18 mg/dL (7-17); Calcium 9.9 mg/dL (8.4-10.2); Carbon Dioxide 27 mmol/L (22-30); Chloride 106 mmol/L (98-107); Glucose 104 mg/dL (74-99); Non-African American GFR(CKD) 62 (>60 ml/min/1.73 sqM); Potassium 4.6 mmol/L (3.5-5.1); Sodium 139 mmol/L (137-145); Total Bilirubin 0.7 mg/dL (0.2-1.3); Total Protein 7.3 g/dL (6.3-8.2)
[2024-08-25 12:49] VITALS: BP 114/77; PULSE 69; RESP 18; TEMP 98
== END 2024-08-25 12:48 | disposition home or self-care (01) ==
LOC: EC 09:46
CPT/HCPCS: 36415; 80053; 85025; 85610; 85730; 93005; 99284

== ENCOUNTER 2024-12-01 22:46 | Emergency (ER) | payer OTHER ==
[2024-12-01 22:55] VITALS: RESP 18; TEMP 98.6
[2024-12-01 23:09] LABS: Glucose,Whole Blood 116 mg/dL (70-110)
[2024-12-01] MEDS: SODIUM CHLORIDE 0.9% 1,000 ML IV STA (23:30)
[2024-12-01] MEDS: ONDANSETRON 4 MG/2 ML VIAL IVP STA (23:31)
[2024-12-01] MEDS: MAG HYDROX/AL HYDROX/SIMETH 30 ML CUP PO PRN (23:34)
[2024-12-01] MEDS: LIDOCAINE VISCOUS 2% 15 ML CUP PO ONE (23:34)
--- NOTE | 2024-12-01 23:34 | ED ---
General Adult HPI - General Chief complaint: Neuro Symptoms/Deficit Stated complaint: parasthesias Time Seen by Provider: 12/01/24 23:00 Source: patient, RN notes reviewed, old records reviewed Mode of arrival: ambulatory - History of Present Illness Initial comments: Patient is a 49-year-old female presents emergency department complaining of waking up with left arm paresthesias. States she was sleeping this evening when she awoke she had a tingling sensation in her left arm. No significant pain. No chest pain. Was experiencing some epigastric abdominal discomfort last night after dinner. No significant discomfort at this time. Denies any shortness of breath. No cardiac history. Denies any known neck issues. States she has the radiating kind of paresthesias from her neck down her left arm. No pain associated with it. Stated feels slightly weaker but no significant weakness documented on exam. No history of stroke. Is not on thinners. No other acute complaints at this time. Presents for further evaluation at this time. Per chart, patient does have a history of angina as well as mitral valve prolapse. - Related Data Home Medications Medication Instructions Recorded Confirmed lisinopriL [Zestril] 10 mg PO DAILY 07/03/20 07/29/24 ondansetron HCL [Zofran] 4 mg PO Q8H PRN 07/03/20 07/29/24 Sertraline HCl [Zoloft] 100 mg PO HS 07/18/21 07/29/24 busPIRone HCl [Buspar] 10 mg PO BID 07/18/21 07/29/24 Omeprazole 40 mg PO DAILY 08/13/21 07/29/24 Ergocalciferol (Vitamin D2) 1,250 mcg PO TH 07/29/24 07/29/24 [Drisdol (50,000 Iu)] Previous Rx's Medication Instructions Recorded Acetaminophen Tab [Tylenol] 650 mg PO Q6HR PRN #16 tab 07/29/24 Atorvastatin [Lipitor] 20 mg PO HS #30 tab 07/29/24 Metoprolol Tartrate [Lopressor] 12.5 mg PO DAILY tab 07/29/24 Allergies Allergy/AdvReac Type Severity Reaction Status Date / Time influenza virus vaccine, Allergy Unknown Verified 12/01/24 22:55 specific [influenza virus vacc,specific] Penicillins Allergy Rash/Hives Verified 12/01/24 22:55 acetazolamide AdvReac "Caused Verified 12/01/24 22:55 [From Diamox Sequels] heart issues" hydrochlorothiazide AdvReac Rapid Verified 12/01/24 22:55 Heart Rate topiramate [From Topamax] AdvReac stoke Verified 12/01/24 22:55 symptoms Review of Systems ROS Statement: Those systems with pertinent positive or pertinent negative responses have been documented in the HPI. Review of Systems: CONST: Denies fever EYES: Denies blurry vision ENT: Denies nasal congestion C/V: Denies Chest pain RESP: Denies shortness of breath GI: Denies abdominal pain : Denies dysuria SKIN: Denies rash. MSK: Denies joint pain. NEURO: Denies headache ROS Other: All systems not noted in ROS Statement are negative. Past Medical History Past Medical History: Chest Pain / Angina, GERD/Reflux, Hypertension, Mitral Valve Prolapse (MVP) Additional Past Medical History / Comment(s): Pseudo tumor cerebri, Medullary sponge kidney, chronic back pain, chronic headache History of Any Multi-Drug Resistant Organisms: None Reported Past Surgical History: Cholecystectomy Additional Past Surgical History / Comment(s): LP SHUNT PLACEMENT AND REMOVAL, cholecystectomy in 2006. Past Anesthesia/Blood Transfusion Reactions: Previous Problems w/ Anesthesia, Malignant Hyperthermia, Motion Sickness Additional Past Anesthesia/Blood Transfusion Reaction / Comment(s): states difficulty breating with anesthesia Past Psychological History: Anxiety, Depression Smoking Status: Never smoker Past Alcohol Use History: None Reported Past Drug Use History: None Reported - Past Family History Sister(s) Family Medical History: Renal Disease Additional Family Medical History / Comment(s): FSGS Brother(s) Family Medical History: Renal Disease Additional Family Medical History / Comment(s): FSGS Father Family Medical History: Cancer, Coronary Artery Disease (CAD), Renal Disease Additional Family Medical History / Comment(s): renal disease-FSGS General Exam - General Exam Comments Initial Comments: General: Appears in no acute distress. HEAD: Normal with no signs of head trauma. EYES: PERRLA, EOMI, conjunctiva normal, no discharge. Pupils are 3 mm and equal bilaterally. ENT: Hearing grossly intact, normal oropharynx. RESPIRATORY: Clear breath sounds bilaterally. No wheezes, rales, or rhonchi. C/V: Regular rate and rhythm. S1 and S2 auscultated, no edema, peripheral pulses 2+ and intact throughout ABD: Abd is soft, nontender, nondistended EXT: Normal range of motion, no obvious deformity. No significant tenderness to palpation of the cervical spine, left shoulder, left arm. SKIN: No rashes or lesions observed on exposed skin. NEURO: Alert and oriented x 4. Cranial nerves II-XII intact. No focal sensory or strength deficits. NIH is 0. Subjective paresthesias to the left upper extremity that are not reproducible on exam at this time. Course Vital Signs 12/01/24 22:53 Temperature 98.6 F Pulse Rate 99 Respiratory 18 Rate Blood Pressure 141/75 O2 Sat by Pulse 100 Oximetry Medical Decision Making - Medical Decision Making Was pt. sent in by a medical professional or institution (, PA, MATHEMATICAL STATISTICIAN, urgent care, hospital, or [facility]...) When possible be specific @ -No Did you speak to anyone other than the patient for history (EMS, parent, family, police, friend...)? What history was obtained from this source @ -No Did you review nursing and triage notes (agree or disagree)? Why? @ -I reviewed and agree with nursing and triage notes Were old charts reviewed (outside hosp., previous admission, EMS record, old EKG, old radiological studies, urgent care reports/EKG's, [facility] records)? Report findings @ -Reviewed including EKG from August 2024 and when compared with today's EKG, no obvious acute change. Differential Diagnosis (chest pain, altered mental status, abdominal pain women, abdominal pain men, vaginal bleeding, weakness, fever, dyspnea, syncope, headache, dizziness, GI bleed, back pain, seizure, CVA, palpatations, mental health, musculoskeletal)? @ -Cervical radiculopathy, ACS, paresthesias, electrolyte abnormality. This list is not all inclusive. EKG interpreted by me (3pts min.). @ -As above X-rays interpreted by me (1pt min.). @ -Chest x-ray reveals no obvious acute cardiopulmonary process. CT interpreted by me (1pt min.). @ -CT brain and C-spine revealed no obvious acute traumatic injury or process. Patient does have what appears to be degenerative changes throughout the cervical spine. U/S interpreted by me (1pt. min.). @ -None done What testing was considered but not performed or refused? (CT, X-rays, U/S, labs)? Why? @ -None What meds were considered but not given or refused? Why? @ -None Did you discuss the management of the patient with other professionals (professionals i.e. , PA, MATHEMATICAL STATISTICIAN, lab, RT, psych nurse, social science professor, traveling freight agent, teacher, ship's electronic warfare officer, insurance case manager)? Give summary @ -No Was smoking cessation discussed for >3mins.? @ -No Was critical care preformed (if so, how long)? @ -No Were there social determinants of health that impacted care today? How? (Homelessness, low income, unemployed, alcoholism, drug addiction, transportation, low edu. Level, literacy, decrease access to med. care, skilled nursing, rehab)? @ -No Was there de-escalation of care discussed even if they declined (Discuss DNR or withdrawal of care, Hospice)? DNR status @ -No What co-morbidities impacted this encounter? (DM, HTN, Smoking, COPD, CAD, Cancer, CVA, ARF, Chemo, Hep., AIDS, mental health diagnosis, sleep apnea, morbid obesity)? @ -None Was patient admitted / discharged? Hospital course, mention meds given and route, prescriptions, significant lab abnormalities, going to OR and other pertinent info. @ -Patient presents with what appears to be left arm paresthesias third not reproducible on exam. NIH is 0. Does not meet criteria for stroke activation at this time. Isolated left upper extremity paresthesias. No obvious weakness appreciated. We will obtain CT imaging the brain and C-spine in addition to other labs including cardiac workup. She was in agreement this plan. She states she did have some epigastric discomfort indigestion type symptoms earlier and she will be given Maalox and viscous lidocaine in addition to IV Zofran and fluids. No significant pain at this time. No significant weakness. Patient was in agreement this plan. Vital signs are within acceptable limits. Accu- Chek within acceptable limits. EKG shows no signs of acute ischemia.Patient's imaging unremarkable for any obvious acute process. There is diffuse degeneration throughout the cervical spine. Laboratory studies returned negative for any obvious acute process. This includes troponin that was undetectable. On reevaluation, I discussed results with the patient. Stroke scale remains 0 at this time. I discussed that her symptoms are likely related to cervical radiculopathy with the paresthesias. She has no other symptoms or findings to warrant an additional at this time. Recommended follow-up with her PCP for possible diabetes solutions specialist which will be provided information for. She will be given dose of steroids. Recommended stretching, as well as monitoring symptoms. Strict return precautions discussed. She was in agreement this plan. I instructed the patient to follow up with their PCP in the next 1-3 days. I explained that the patient should return to the emergency department if they experience any worsening symptoms. Strict return precautions were discussed with the patient. The patient expressed understanding of these instructions. I answered all questions that the patient had. The patient was discharged home in good condition with their prescriptions and follow up information. Undiagnosed new problem with uncertain prognosis? @ -No Drug Therapy requiring intensive monitoring for toxicity (Heparin, Nitro, Insulin, Cardizem)? @ -No Were any procedures done? @ -No Diagnosis/symptom? @ -Cervical radiculopathy, left arm paresthesia Acute, or Chronic, or Acute on Chronic? @ -Acute Uncomplicated (without systemic symptoms) or Complicated (systemic symptoms)? @ -Uncomplicated Side effects of treatment? @ -None Exacerbation, Progression, or Severe Exacerbation] @ -No Poses a threat to life or bodily function? @ -Unlikely at this time - Lab Data Result diagrams: 12/01/24 23:10 12/01/24 23:10 Lab Results 12/01/24 12/01/24 12/01/24 Range/Units 23:07 23:10 23:10 WBC 10.1 (3.8-10.6) k/uL RBC 4.99 (3.80-5.40) m/uL Hgb 14.6 (11.4-16.0) gm/dL Hct 42.6 (34.0-46.0) % MCV 85.4 (80.0-100.0) fL MCH 29.2 (25.0-35.0) pg MCHC 34.2 (31.0-37.0) g/dL RDW 13.2 (11.5-15.5) % Plt Count 237 (150-450) k/uL MPV 9.6 Neutrophils % 68 % Lymphocytes % 24 % Monocytes % 5 % Eosinophils % 2 % Basophils % 1 % Neutrophils # 6.8 (1.3-7.7) k/uL Lymphocytes # 2.4 (1.0-4.8) k/uL Monocytes # 0.5 (0-1.0) k/uL Eosinophils # 0.2 (0-0.7) k/uL Basophils # 0.1 (0-0.2) k/uL APTT 25.1 (22.0-30.0) sec Sodium (137-145) mmol/L Potassium (3.5-5.1) mmol/L Chloride (98-107) mmol/L Carbon Dioxide (22-30) mmol/L Anion Gap mmol/L BUN (7-17) mg/dL Creatinine (0.52-1.04) mg/dL Est GFR (CKD-EPI)AfAm (>60 ml/min/1.73 sqM) Est GFR (CKD-EPI)NonAf (>60 ml/min/1.73 sqM) Glucose (74-99) mg/dL POC Glucose (mg/dL) 116 H (70-110) mg/dL POC Glu Water Conservationist ID Anthony Ruelas Plasma Lactic Acid [place] (0.7-2.0) mmol/L Calcium (8.4-10.2) mg/dL Magnesium (1.6-2.3) mg/dL Total Bilirubin (0.2-1.3) mg/dL AST (14-36) U/L ALT (4-34) U/L Alkaline Phosphatase (38-126) U/L Troponin I (0.000-0.034) ng/mL Total Protein (6.3-8.2) g/dL Albumin (3.5-5.0) g/dL 12/01/24 12/01/24 12/01/24 Range/Units 23:10 23:10 23:10 WBC (3.8-10.6) k/uL RBC (3.80-5.40) m/uL Hgb (11.4-16.0) gm/dL Hct (34.0-46.0) % MCV (80.0-100.0) fL MCH (25.0-35.0) pg MCHC (31.0-37.0) g/dL RDW (11.5-15.5) % Plt Count (150-450) k/uL MPV Neutrophils % % Lymphocytes % % Monocytes % % Eosinophils % % Basophils % % Neutrophils # (1.3-7.7) k/uL Lymphocytes # (1.0-4.8) k/uL Monocytes # (0-1.0) k/uL Eosinophils # (0-0.7) k/uL Basophils # (0-0.2) k/uL APTT (22.0-30.0) sec Sodium 139 (137-145) mmol/L Potassium 4.5 (3.5-5.1) mmol/L Chloride 101 (98-107) mmol/L Carbon Dioxide 28 (22-30) mmol/L Anion Gap 10 mmol/L BUN 25 H (7-17) mg/dL Creatinine 1.13 H (0.52-1.04) mg/dL Est GFR (CKD-EPI)AfAm 67 (>60 ml/min/1.73 sqM) Est GFR (CKD-EPI)NonAf 58 (>60 ml/min/1.73 sqM) Glucose 107 H (74-99) mg/dL POC Glucose (mg/dL) (70-110) mg/dL POC Glu Water Conservationist ID Plasma Lactic Acid [place] 1.1 (0.7-2.0) mmol/L Calcium 9.4 (8.4-10.2) mg/dL Magnesium 1.9 (1.6-2.3) mg/dL Total Bilirubin 0.4 (0.2-1.3) mg/dL AST 30 (14-36) U/L ALT 35 H (4-34) U/L Alkaline Phosphatase 86 (38-126) U/L Troponin I <0.012 (0.000-0.034) ng/mL Total Protein 7.4 (6.3-8.2) g/dL Albumin 4.5 (3.5-5.0) g/dL - EKG Data -: EKG Interpreted by Me EKG Comments: 12-lead Electrocardiogram Interpretation Note EKG was reviewed and interpreted by myself. 12-lead ECG performed at 2307 is interpreted by me as revealing normal sinus rhythm at a rate of 91 beats per minute. Edroy is normal. GA interval is 195 ms, QRS durations 96 ms, QTc is 407 ms.. There were no ST or T wave abnormalities to suggest myocardial ischemia or injury. R wave progression across the precordium was satisfactory. By my interpretation this EKG is non-diagnostic for acute ischemia. Disposition Clinical Impression: Cervical radiculopathy, Arm paresthesia, left Disposition: HOME SELF-CARE Condition: Good Instructions (If sedation given, give patient instructions): Cervical Radiculopathy (ED) Additional Instructions: I suspect you have cervical radiculopathy with left arm paresthesias. Your workup today in the ER was unremarkable. Follow-up with your PCP in the next 1 to 3 days. You may need to have an MRI obtained if symptoms persist. Return to the ER if any worsening symptoms. Is patient prescribed a controlled substance at d/c from ED?: No Referrals: Fili Davis MD [Primary Care Provider] - 1-2 days Merline Esposito DO [Doctor of Osteopathic Medicine] - 1-2 days Time of Disposition: 01:35
--- NOTE | 2024-12-01 23:53 | CT ---
EXAM: CT Head Without Intravenous Contrast CLINICAL HISTORY: ITS.REASON CT Reason: weakness TECHNIQUE: Axial computed tomography images of the head/brain without intravenous contrast. CTDI is 45.3 mGy and DLP is 1052 mGy-cm. This CT exam was performed using one or more of the following dose reduction techniques: automated exposure control, adjustment of the mA and/or kV according to patient size, and/or use of iterative reconstruction technique. COMPARISON: No relevant prior studies available. FINDINGS: Brain: Unremarkable. No hemorrhage. No significant white matter disease. No edema. Ventricles: Unremarkable. No ventriculomegaly. Bones/joints: Unremarkable. No acute fracture. Soft tissues: Unremarkable. Sinuses: Unremarkable as visualized. No acute sinusitis. Mastoid air cells: Unremarkable as visualized. No mastoid effusion. IMPRESSION: Normal head/brain CT. EXAM: CT Cervical Spine Without Intravenous Contrast CLINICAL HISTORY: ITS.REASON CT Reason: weakness TECHNIQUE: Axial computed tomography images of the cervical spine without intravenous contrast. CTDI is 27.4 mGy and DLP is 709.6 mGy-cm. This CT exam was performed using one or more of the following dose reduction techniques: automated exposure control, adjustment of the mA and/or kV according to patient size, and/or use of iterative reconstruction technique. COMPARISON: No relevant prior studies available. FINDINGS: The vertebral body heights are maintained. The craniocervical junction is intact. The atlanto-dens interval is maintained. The dens is intact. There is no spondylolisthesis. Multilevel cervical spondylosis and degenerative disc disease. Straightening of the cervical lordosis. The unenhanced neck soft tissues are grossly unremarkable. The visualized lung apices are grossly clear. IMPRESSION: No acute fracture or subluxation of the cervical spine.
[2024-12-02 00:12] LABS: ALT 35 U/L (4-34); AST 30 U/L (14-36); African American GFR (CKD) 67 (>60 ml/min/1.73 sqM); Albumin 4.5 g/dL (3.5-5.0); Alkaline Phosphatase 86 U/L (38-126); Anion Gap 10 mmol/L; Blood Urea Nitrogen 25 mg/dL (7-17); Calcium 9.4 mg/dL (8.4-10.2); Carbon Dioxide 28 mmol/L (22-30); Chloride 101 mmol/L (98-107); Glucose 107 mg/dL (74-99); Magnesium 1.9 mg/dL (1.6-2.3); Non-African American GFR(CKD) 58 (>60 ml/min/1.73 sqM); Potassium 4.5 mmol/L (3.5-5.1); Sodium 139 mmol/L (137-145); Total Bilirubin 0.4 mg/dL (0.2-1.3); Total Protein 7.4 g/dL (6.3-8.2)
--- NOTE | 2024-12-02 00:21 | XR ---
EXAM: XR Chest, 2 Views CLINICAL HISTORY: ITS.REASON XR Reason: Weakness TECHNIQUE: Frontal and lateral views of the chest. COMPARISON: No relevant prior studies available. FINDINGS: Lungs: Unremarkable. No consolidation. Pleural space: Unremarkable. No pneumothorax. Heart: Unremarkable. No cardiomegaly. Mediastinum: Unremarkable. Normal mediastinal contour. Bones/joints: Unremarkable. No acute fracture. IMPRESSION: Normal chest x-rays.
[2024-12-02 00:28] LABS: Basophils # (A) 0.1 k/uL (0-0.2); Basophils % (A) 1 %; Eosinophils # (A) 0.2 k/uL (0-0.7); Eosinophils % (A) 2 %; HCT 42.6 % (34.0-46.0); HGB 14.6 gm/dL (11.4-16.0); Lymphocytes # (A) 2.4 k/uL (1.0-4.8); Lymphocytes % (A) 24 %; MCH 29.2 pg (25.0-35.0); MCHC 34.2 g/dL (31.0-37.0); MCV 85.4 fL (80.0-100.0); Mean Platelet Volume 9.6; Monocytes # (A) 0.5 k/uL (0-1.0); Monocytes % (A) 5 %; Neutrophils # (A) 6.8 k/uL (1.3-7.7); Neutrophils % (A) 68 %; Platelet Count 237 k/uL (150-450); RBC 4.99 m/uL (3.80-5.40); RDW 13.2 % (11.5-15.5); WBC 10.1 k/uL (3.8-10.6)
[2024-12-02] MEDS: methylPREDNISolone SOD SUCCI 125 MG/2 ML VIAL IV STA (02:11)
[2024-12-02 02:13] VITALS: BP 131/82; PULSE 83
== END 2024-12-02 02:23 | disposition home or self-care (01) ==
LOC: EC 22:46
DX: M54.12 Radiculopathy, cervical region (principal); R20.2 Paresthesia of skin; Z88.0 Allergy status to penicillin; Z88.7 Allergy status to serum and vaccine; Z88.8 Allergy status to other drugs, medicaments and biological substances
CPT/HCPCS: 36415; 93005; 80053; 83605; 83735; 84484; 85025; 85730; 71046; 72125; 70450; 99285; 96375; 96361; 96374; J2405

== ENCOUNTER 2024-12-15 02:59 | Emergency (ER) | payer OTHER ==
[2024-12-15] MEDS: ORPHENADRINE 30 MG/ML 2 ML VIAL IM STA (03:24)
[2024-12-15] MEDS: KETOROLAC 15 MG/ML 1 ML VIAL IM STA (03:24)
[2024-12-15] MEDS: LIDOCAINE 4% PATCH TOPICAL ONE (03:25)
--- NOTE | 2024-12-15 03:40 | ED ---
Back Pain HPI - General Chief Complaint: Back Pain/Injury Stated Complaint: Rib pain Time Seen by Provider: 12/15/24 03:09 Source: patient Limitations: no limitations - History of Present Illness Initial Comments: 49-year-old female presenting with chief complaint of back pain. Patient reports that she was stretching and slightly twisting her torso at the same time when she felt a sudden pain in the left-sided posterior ribs. Patient has increased pain with motion. States that she was having some tingling in the left arm, she thinks that she may just be anxious though. No loss of bowel or bladder control or saddle paresthesia. No shortness of breath. No cough or fever. No weakness. - Related Data Home Medications Medication Instructions Recorded Confirmed lisinopriL [Zestril] 10 mg PO DAILY 07/03/20 07/29/24 ondansetron HCL [Zofran] 4 mg PO Q8H PRN 07/03/20 07/29/24 Sertraline HCl [Zoloft] 100 mg PO HS 07/18/21 07/29/24 busPIRone HCl [Buspar] 10 mg PO BID 07/18/21 07/29/24 Omeprazole 40 mg PO DAILY 08/13/21 07/29/24 Ergocalciferol (Vitamin D2) 1,250 mcg PO TH 07/29/24 07/29/24 [Drisdol (50,000 Iu)] Previous Rx's Medication Instructions Recorded Acetaminophen Tab [Tylenol] 650 mg PO Q6HR PRN #16 tab 07/29/24 Atorvastatin [Lipitor] 20 mg PO HS #30 tab 07/29/24 Metoprolol Tartrate [Lopressor] 12.5 mg PO DAILY tab 07/29/24 Cyclobenzaprine [Flexeril] 10 mg PO TID PRN #15 tab 12/15/24 Allergies Allergy/AdvReac Type Severity Reaction Status Date / Time influenza virus vaccine, Allergy Unknown Verified 12/15/24 03:05 specific [influenza virus vacc,specific] Penicillins Allergy Rash/Hives Verified 12/15/24 03:05 acetazolamide AdvReac "Caused Verified 12/15/24 03:05 [From Diamox Sequels] heart issues" hydrochlorothiazide AdvReac Rapid Verified 12/15/24 03:05 Heart Rate topiramate [From Topamax] AdvReac stoke Verified 12/15/24 03:05 symptoms Review of Systems ROS Statement: Those systems with pertinent positive or pertinent negative responses have been documented in the HPI. ROS Other: All systems not noted in ROS Statement are negative. Past Medical History Past Medical History: Chest Pain / Angina, GERD/Reflux, Hypertension, Mitral Valve Prolapse (MVP) Additional Past Medical History / Comment(s): Pseudo tumor cerebri, Medullary sponge kidney, chronic back pain, chronic headache History of Any Multi-Drug Resistant Organisms: None Reported Past Surgical History: Cholecystectomy Additional Past Surgical History / Comment(s): LP SHUNT PLACEMENT AND REMOVAL, cholecystectomy in 2006. Past Anesthesia/Blood Transfusion Reactions: Previous Problems w/ Anesthesia, Malignant Hyperthermia, Motion Sickness Additional Past Anesthesia/Blood Transfusion Reaction / Comment(s): states difficulty breating with anesthesia Past Psychological History: Anxiety, Depression Smoking Status: Never smoker Past Alcohol Use History: None Reported Past Drug Use History: None Reported - Past Family History Sister(s) Family Medical History: Renal Disease Additional Family Medical History / Comment(s): FSGS Brother(s) Family Medical History: Renal Disease Additional Family Medical History / Comment(s): FSGS Father Family Medical History: Cancer, Coronary Artery Disease (CAD), Renal Disease Additional Family Medical History / Comment(s): renal disease-FSGS General Exam Limitations: no limitations General appearance: alert, in no apparent distress Head exam: Present: atraumatic, normocephalic, normal inspection Eye exam: Present: normal appearance, EOMI Neck exam: Present: normal inspection. Absent: meningismus Respiratory exam: Present: normal lung sounds bilaterally. Absent: respiratory distress, wheezes, rales, rhonchi, stridor Cardiovascular Exam: Present: regular rate, normal rhythm, normal heart sounds. Absent: systolic murmur, diastolic murmur, rubs, gallop, clicks Back exam: Present: normal inspection, tenderness Neurological exam: Present: alert, oriented X3 Psychiatric exam: Present: normal affect, normal mood Skin exam: Present: warm, dry Course Vital Signs 12/15/24 12/15/24 03:05 04:16 Temperature 98.7 F 98.3 F Pulse Rate 88 81 Respiratory 18 19 Rate Blood Pressure 132/78 129/75 O2 Sat by Pulse 100 99 Oximetry Medical Decision Making - Medical Decision Making Was pt. sent in by a medical professional or institution (ASHER Zazueta, IT COMPLIANCE MANAGER, urgent care, hospital, or detention...) When possible be specific @ -No Did you speak to anyone other than the patient for history (EMS, parent, family, police, friend...)? What history was obtained from this source @ -No Did you review nursing and triage notes (agree or disagree)? Why? @ -I reviewed and agree with nursing and triage notes Were old charts reviewed (outside hosp., previous admission, EMS record, old EKG, old radiological studies, urgent care reports/EKG's, detention records)? Report findings @ -No old charts were reviewed Differential Diagnosis (chest pain, altered mental status, abdominal pain women, abdominal pain men, vaginal bleeding, weakness, fever, dyspnea, syncope, headache, dizziness, GI bleed, back pain, seizure, CVA, palpatations, mental health, musculoskeletal)? @ - MDM Differential Back Pain: Strain, zoster, cauda equina syndrome, epidural abscess, vertebral osteomyelitis, discitis, fracture, subluxation, disc herniation, DJD, spinal stenosis, dissection, AAA, pancreatitis, peptic ulcer disease, pyelonephritis, kidney stone this is not meant to be an all-inclusive list. EKG interpreted by me (3pts min.). @ -As above X-rays interpreted by me (1pt min.). @ -Normal chest x-ray no acute findings of the bones or joints unremarkable lungs and pleural spaces CT interpreted by me (1pt min.). @ -None done U/S interpreted by me (1pt. min.). @ -None done What testing was considered but not performed or refused? (CT, X-rays, U/S, labs)? Why? @ -None What meds were considered but not given or refused? Why? @ -None Did you discuss the management of the patient with other professionals (professionals i.e. ASHER Zazueta, IT COMPLIANCE MANAGER, lab, RT, psych nurse, psychiatric social worker, track greaser, teacher, banking services officer, rifle case repairer)? Give summary @ -No Was smoking cessation discussed for >3mins.? @ -No Was critical care preformed (if so, how long)? @ -No Were there social determinants of health that impacted care today? How? (Homelessness, low income, unemployed, alcoholism, drug addiction, transportation, low edu. Level, literacy, decrease access to med. care, halfway, rehab)? @ -No Was there de-escalation of care discussed even if they declined (Discuss DNR or withdrawal of care, Hospice)? DNR status @ -No What co-morbidities impacted this encounter? (DM, HTN, Smoking, COPD, CAD, Cancer, CVA, ARF, Chemo, Hep., AIDS, mental health diagnosis, sleep apnea, morbid obesity)? @ -None Was patient admitted / discharged? Hospital course, mention meds given and route, prescriptions, significant lab abnormalities, going to OR and other pertinent info. @ -49-year-old female presenting with chief complaint of rib/back pain. Tonight when she was stretching and twisting pain mainly over the left posterior ribs. No red flag symptoms. History and physical examination are conducted. X-ray is negative. Patient is treated with pain medication and educated on today's findings and supportive management at home. Follow-up with PCP. Report back to ER with any new or worsening symptoms. Discussed return parameters and answered all questions. Patient conveyed verbal understanding and agreed to the plan. I discussed this case in detail with my attending Dr. Singer Undiagnosed new problem with uncertain prognosis? @ -No Drug Therapy requiring intensive monitoring for toxicity (Heparin, Nitro, Insulin, Cardizem)? @ -No Were any procedures done? @ -No Diagnosis/symptom? @ -Thoracic back strain Acute, or Chronic, or Acute on Chronic? @ -Acute Uncomplicated (without systemic symptoms) or Complicated (systemic symptoms)? @ -Uncomplicated Side effects of treatment? @ -No Exacerbation, Progression, or Severe Exacerbation? @ -No Poses a threat to life or bodily function? How? (Chest pain, [place], [place], pneumonia, PE, COPD, DKA, ARF, appy, cholecystitis, CVA, Diverticulitis, Homicidal, Suicidal, threat to staff... and all critical care pts) @ -Low likelihood Disposition Clinical Impression: Strain of thoracic back region Disposition: HOME SELF-CARE Condition: Good Instructions (If sedation given, give patient instructions): Thoracic Back Strain (ED) Additional Instructions: Follow-up with PCP. Report back to ER with any new or worsening symptoms. Take Motrin and Tylenol as needed for pain control. Do not take cyclobenzaprine before driving or operating heavy machinery as it may cause drowsiness. Prescriptions: Cyclobenzaprine [Flexeril] 10 mg PO TID PRN #15 tab PRN Reason: Spasms Is patient prescribed a controlled substance at d/c from ED?: No Referrals: Fili Davis MD [Primary Care Provider] - 1-2 days Time of Disposition: 04:01
--- NOTE | 2024-12-15 03:59 | XR ---
EXAM: XR Chest, 1 View CLINICAL HISTORY: L rib pain TECHNIQUE: Frontal view of the chest. COMPARISON: 12/01/24 FINDINGS: Lungs: Unremarkable. No consolidation. Pleural space: Unremarkable. Mediastinum: Unremarkable. Normal mediastinal contour. Bones/joints: No acute findings. IMPRESSION: Normal chest x-ray.
[2024-12-15] MEDS: Acetaminophen-Codeine 300-30mg TAB PO STA (04:13)
[2024-12-15 04:17] VITALS: BP 129/75; PULSE 81; RESP 19; TEMP 98.3
== END 2024-12-15 04:17 | disposition home or self-care (01) ==
LOC: EC 02:59
DX: S29.012A Strain of muscle and tendon of back wall of thorax, initial encounter (principal); Z88.0 Allergy status to penicillin; Z88.7 Allergy status to serum and vaccine; Z88.8 Allergy status to other drugs, medicaments and biological substances; X58.XXXA Exposure to other specified factors, initial encounter
CPT/HCPCS: 71045; 99283; 96372; J2360

== ENCOUNTER 2025-01-25 03:45 | Emergency (ER) | payer OTHER ==
[2025-01-25 03:53] VITALS: TEMP 97.8
--- NOTE | 2025-01-25 03:55 | ED ---
Abdominal Pain HPI - General Chief Complaint: Abdominal Pain Stated Complaint: abd pain Time Seen by Provider: 01/25/25 03:49 Source: patient, RN notes reviewed, old records reviewed Mode of arrival: ambulatory - History of Present Illness Initial Comments: This is a 49-year-old female to the ER for epigastric abdominal pain. Patient does have history of cholecystectomy. Patient has had episodic epigastric abdominal pain for 5 days worse today worse when she lays down. Patient was unable to get to sleep clinic secondary to this pain. No nausea vomiting no fevers no diarrhea MD Complaint: abdominal pain -: hour(s) Location: epigastric Radiation: epigastric Migration to: periumbilical, epigastric Severity: moderate Severity scale (1-10): 7 Quality: fullness, sharp Consistency: intermittent Improves With: nothing Worsens With: nothing Associated Symptoms: nausea, vomiting - Related Data Home Medications Medication Instructions Recorded Confirmed lisinopriL [Zestril] 10 mg PO DAILY 07/03/20 07/29/24 ondansetron HCL [Zofran] 4 mg PO Q8H PRN 07/03/20 07/29/24 Sertraline HCl [Zoloft] 100 mg PO HS 07/18/21 07/29/24 busPIRone HCl [Buspar] 10 mg PO BID 07/18/21 07/29/24 Omeprazole 40 mg PO DAILY 08/13/21 07/29/24 Ergocalciferol (Vitamin D2) 1,250 mcg PO TH 07/29/24 07/29/24 [Drisdol (50,000 Iu)] Previous Rx's Medication Instructions Recorded Acetaminophen Tab [Tylenol] 650 mg PO Q6HR PRN #16 tab 07/29/24 Atorvastatin [Lipitor] 20 mg PO HS #30 tab 07/29/24 Metoprolol Tartrate [Lopressor] 12.5 mg PO DAILY tab 07/29/24 Cyclobenzaprine [Flexeril] 10 mg PO TID PRN #15 tab 12/15/24 Allergies Allergy/AdvReac Type Severity Reaction Status Date / Time influenza virus vaccine, Allergy Unknown Verified 01/25/25 03:52 specific [influenza virus vacc,specific] Penicillins Allergy Rash/Hives Verified 01/25/25 03:52 acetazolamide AdvReac "Caused Verified 01/25/25 03:52 [From Diamox Sequels] heart issues" hydrochlorothiazide AdvReac Rapid Verified 01/25/25 03:52 Heart Rate topiramate [From Topamax] AdvReac stoke Verified 01/25/25 03:52 symptoms Review of Systems ROS Statement: Those systems with pertinent positive or pertinent negative responses have been documented in the HPI. ROS Other: All systems not noted in ROS Statement are negative. Past Medical History Past Medical History: Chest Pain / Angina, GERD/Reflux, Hypertension, Mitral Valve Prolapse (MVP) Additional Past Medical History / Comment(s): Pseudo tumor cerebri, Medullary sponge kidney, chronic back pain, chronic headache History of Any Multi-Drug Resistant Organisms: None Reported Past Surgical History: Cholecystectomy Additional Past Surgical History / Comment(s): LP SHUNT PLACEMENT AND REMOVAL, cholecystectomy in 2006. Past Anesthesia/Blood Transfusion Reactions: Previous Problems w/ Anesthesia, Malignant Hyperthermia, Motion Sickness Additional Past Anesthesia/Blood Transfusion Reaction / Comment(s): states difficulty breating with anesthesia Past Psychological History: Anxiety, Depression Smoking Status: Never smoker Past Alcohol Use History: None Reported Past Drug Use History: None Reported - Past Family History Sister(s) Family Medical History: Renal Disease Additional Family Medical History / Comment(s): FSGS Brother(s) Family Medical History: Renal Disease Additional Family Medical History / Comment(s): FSGS Father Family Medical History: Cancer, Coronary Artery Disease (CAD), Renal Disease Additional Family Medical History / Comment(s): renal disease-FSGS General Exam General appearance: alert, in no apparent distress Head exam: Present: atraumatic, normocephalic, normal inspection Eye exam: Present: normal appearance, PERRL, EOMI. Absent: scleral icterus, conjunctival injection, periorbital swelling ENT exam: Present: normal exam, mucous membranes moist Neck exam: Present: normal inspection. Absent: tenderness, meningismus, lymphadenopathy Respiratory exam: Present: normal lung sounds bilaterally. Absent: respiratory distress, wheezes, rales, rhonchi, stridor Cardiovascular Exam: Present: regular rate, normal rhythm, normal heart sounds. Absent: systolic murmur, diastolic murmur, rubs, gallop, clicks GI/Abdominal exam: Present: soft, normal bowel sounds. Absent: distended, tenderness, guarding, rebound, rigid Extremities exam: Present: normal inspection, full ROM, normal capillary refill. Absent: tenderness, pedal edema, joint swelling, calf tenderness Back exam: Present: normal inspection Neurological exam: Present: alert, oriented X3, CN II-XII intact Psychiatric exam: Present: normal affect, normal mood Skin exam: Present: warm, dry, intact, normal color. Absent: rash Course Vital Signs 01/25/25 01/25/25 03:50 05:01 Temperature 97.8 F Pulse Rate 87 84 Respiratory 18 16 Rate Blood Pressure 149/77 105/72 O2 Sat by Pulse 99 97 Oximetry - Reevaluation(s) Reevaluation #1: 01/25/25 04:11 Medical records reviewed Reevaluation #4: Was pt. sent in by a medical professional or institution (ASHER Zazueta, CABLE ENGINEER [employer]ANT, urgent care, hospital, or jail...) When possible be specific @ -no Did you speak to anyone other than the patient for history (EMS, parent, family, police, friend...)? What history was obtained from this source @ -no Did you review nursing and triage notes (agree or disagree)? Why? @ -agree Are old charts reviewed (outside hosp., previous admission, EMS record, old EKG, old radiological studies, urgent care reports/EKG's, jail records)? Report findings @ -yes Differential Diagnosis (chest pain, altered mental status, abdominal pain women, abdominal pain men, vaginal bleeding, weakness, fever, dyspnea, syncope, headache, dizziness, GI bleed, back pain, seizure, CVA, palpatations, mental health, musculoskeletal)? @ -prior EKG interpreted by me (3pts min.). @ -yes X-rays interpreted by me (1pt min.). @ -yes negative for acute disease CT interpreted by me (1pt min.). @ -no U/S interpreted by me (1pt. min.). @ -no What testing was considered but not performed or refused? (CT, X-rays, U/S, labs)? Why? @ -none What meds were considered but not given or refused? Why? @ -none Did you discuss the management of the patient with other professionals (professionals i.e. ASHER Zazueta, CABLE ENGINEER [employer], lab, RT, psych nurse, social service director, silo worker, teacher, audit officer, ed case manager)? Give summary @ -no Was smoking cessation discussed for >3mins.? @ -no Was critical care preformed (if so, how long)? @ -no Were there social determinants of health that impacted care today? How? (Homelessness, low income, unemployed, alcoholism, drug addiction, transportation, low edu. Level, literacy, decrease access to med. care, usp, rehab)? @ -none Was there de-escalation of care discussed even if they declined (Discuss DNR or withdrawal of care, Hospice)? DNR status @ -no What co-morbidities impacted this encounter? (DM, HTN, Smoking, COPD, CAD, Cancer, CVA, ARF, Chemo, Hep., AIDS, mental health diagnosis, sleep apnea, morbid obesity)? @ -none Was patient admitted / discharged? Hospital course, mention meds given and route, prescriptions, significant lab abnormalities, going to OR and other pert inent info. @ - Undiagnosed new problem with uncertain prognosis? @ -no Drug Therapy requiring intensive monitoring for toxicity (Heparin, Nitro, Insulin, Cardizem)? @ -no Were any procedures done? @ -no Diagnosis/symptom? @ - Acute, or Chronic, or Acute on Chronic? @ -Acute Uncomplicated (without systemic symptoms) or Complicated (systemic symptoms)? @ -Complicated Side effects of treatment? @ -no Exacerbation, Progression, or Severe Exacerbation? @ -exacerbation Poses a threat to life or bodily function? How? (Chest pain, [place], [place], pneumonia, PE, COPD, DKA, ARF, appy, cholecystitis, CVA, Diverticulitis, Homicidal, Suicidal, threat to staff... and all critical care pts) @ -yes Reevaluation #5: Differential Abdominal Pain Women: Appendicitis, Cholecystitis, diverticulosis, ischemic bowel, pancreatitis, hepatitis, UTI, gastroenteritis, AAA, incarcerated hernia, bowel obstruction, constipation, inflammatory bowel, hepatitis, peptic ulcer disease, splenic infarction, perforated viscus, vulvitis, ovarian torsion, PID, kidney stone, placenta abruption, this is not meant to be an all-inclusive list Medical Decision Making - Lab Data Result diagrams: 01/25/25 04:03 01/25/25 04:03 Lab Results 01/25/25 01/25/25 01/25/25 Range/Units 04:03 04:03 04:03 WBC 10.4 (3.8-10.6) k/uL RBC 5.05 (3.80-5.40) m/uL Hgb 14.4 (11.4-16.0) gm/dL Hct 43.8 (34.0-46.0) % MCV 86.8 (80.0-100.0) fL MCH 28.4 (25.0-35.0) pg MCHC 32.8 (31.0-37.0) g/dL RDW 12.6 (11.5-15.5) % Plt Count 277 (150-450) k/uL MPV 8.5 Neutrophils % 68 % Lymphocytes % 23 % Monocytes % 5 % Eosinophils % 2 % Basophils % 1 % Neutrophils # 7.1 (1.3-7.7) k/uL Lymphocytes # 2.4 (1.0-4.8) k/uL Monocytes # 0.5 (0-1.0) k/uL Eosinophils # 0.2 (0-0.7) k/uL Basophils # 0.1 (0-0.2) k/uL PT (10.0-12.5) sec INR (<1.2) APTT (22.0-30.0) sec Sodium 137 (137-145) mmol/L Potassium 4.4 (3.5-5.1) mmol/L Chloride 98 (98-107) mmol/L Carbon Dioxide 29 (22-30) mmol/L Anion Gap 10 mmol/L BUN 18 H (7-17) mg/dL Creatinine 1.04 (0.52-1.04) mg/dL Est GFR (CKD-EPI)AfAm 74 (>60 ml/min/1.73 sqM) Est GFR (CKD-EPI)NonAf 64 (>60 ml/min/1.73 sqM) Glucose 113 H (74-99) mg/dL Plasma Lactic Acid [place] 1.5 (0.7-2.0) mmol/L Calcium 9.4 (8.4-10.2) mg/dL Total Bilirubin 0.5 (0.2-1.3) mg/dL AST 22 (14-36) U/L ALT 24 (4-34) U/L Alkaline Phosphatase 97 (38-126) U/L Troponin I (0.000-0.034) ng/mL Total Protein 7.1 (6.3-8.2) g/dL Albumin 4.2 (3.5-5.0) g/dL Amylase 51 (30-110) U/L Lipase 160 (23-300) U/L Urine Color Urine Appearance (Clear) Urine pH (5.0-8.0) Ur Specific [place] (1.001-1.035) Urine Protein (Negative) Urine Glucose (UA) (Negative) Urine Ketones (Negative) Urine Blood (Negative) Urine Nitrite (Negative) Urine Bilirubin (Negative) Urine Urobilinogen (<2.0) mg/dL Ur Leukocyte Esterase (Negative) Urine RBC (0-5) /hpf Urine WBC (0-5) /hpf Ur Squamous Epith Cells (0-4) /hpf Urine Bacteria (None) /hpf Urine Mucus (None) /hpf 01/25/25 01/25/25 01/25/25 Range/Units 04:03 04:03 04:13 WBC (3.8-10.6) k/uL RBC (3.80-5.40) m/uL Hgb (11.4-16.0) gm/dL Hct (34.0-46.0) % MCV (80.0-100.0) fL MCH (25.0-35.0) pg MCHC (31.0-37.0) g/dL RDW (11.5-15.5) % Plt Count (150-450) k/uL MPV Neutrophils % % Lymphocytes % % Monocytes % % Eosinophils % % Basophils % % Neutrophils # (1.3-7.7) k/uL Lymphocytes # (1.0-4.8) k/uL Monocytes # (0-1.0) k/uL Eosinophils # (0-0.7) k/uL Basophils # (0-0.2) k/uL PT 9.8 L (10.0-12.5) sec INR 0.9 (<1.2) APTT 24.9 (22.0-30.0) sec Sodium (137-145) mmol/L Potassium (3.5-5.1) mmol/L Chloride (98-107) mmol/L Carbon Dioxide (22-30) mmol/L Anion Gap mmol/L BUN (7-17) mg/dL Creatinine (0.52-1.04) mg/dL Est GFR (CKD-EPI)AfAm (>60 ml/min/1.73 sqM) Est GFR (CKD-EPI)NonAf (>60 ml/min/1.73 sqM) Glucose (74-99) mg/dL Plasma Lactic Acid [place] (0.7-2.0) mmol/L Calcium (8.4-10.2) mg/dL Total Bilirubin (0.2-1.3) mg/dL AST (14-36) U/L ALT (4-34) U/L Alkaline Phosphatase (38-126) U/L Troponin I <0.012 (0.000-0.034) ng/mL Total Protein (6.3-8.2) g/dL Albumin (3.5-5.0) g/dL Amylase (30-110) U/L Lipase (23-300) U/L Urine Color Light Yellow Urine Appearance Cloudy H (Clear) Urine pH 5.5 (5.0-8.0) Ur Specific [place] 1.020 (1.001-1.035) Urine Protein Trace H (Negative) Urine Glucose (UA) Negative (Negative) Urine Ketones Negative (Negative) Urine Blood Negative (Negative) Urine Nitrite Negative (Negative) Urine Bilirubin Negative (Negative) Urine Urobilinogen <2.0 (<2.0) mg/dL Ur Leukocyte Esterase Small H (Negative) Urine RBC 2 (0-5) /hpf Urine WBC 12 H (0-5) /hpf Ur Squamous Epith Cells 18 H (0-4) /hpf Urine Bacteria Many H (None) /hpf Urine Mucus Occasional H (None) /hpf - EKG Data -: EKG Interpreted by Me (EKG is sinus 84 [place] 188 QRS 88 QTc 413) Disposition Clinical Impression: Abdominal pain Disposition: HOME SELF-CARE Condition: Good Instructions (If sedation given, give patient instructions): Abdominal Pain (ED) Is patient prescribed a controlled substance at d/c from ED?: No Referrals: Fili Davis MD [Primary Care Provider] - 1-2 days Time of Disposition: 07:00
[2025-01-25] MEDS: ONDANSETRON 4 MG/2 ML VIAL IVP STA (04:13)
[2025-01-25] MEDS: SODIUM CHLORIDE 0.9% 1,000 ML IV STA (04:13)
[2025-01-25 04:15] LABS: Basophils # (A) 0.1 k/uL (0-0.2); Basophils % (A) 1 %; Eosinophils # (A) 0.2 k/uL (0-0.7); Eosinophils % (A) 2 %; HCT 43.8 % (34.0-46.0); HGB 14.4 gm/dL (11.4-16.0); Lymphocytes # (A) 2.4 k/uL (1.0-4.8); Lymphocytes % (A) 23 %; MCH 28.4 pg (25.0-35.0); MCHC 32.8 g/dL (31.0-37.0); MCV 86.8 fL (80.0-100.0); Mean Platelet Volume 8.5; Monocytes # (A) 0.5 k/uL (0-1.0); Monocytes % (A) 5 %; Neutrophils # (A) 7.1 k/uL (1.3-7.7); Neutrophils % (A) 68 %; Platelet Count 277 k/uL (150-450); RBC 5.05 m/uL (3.80-5.40); RDW 12.6 % (11.5-15.5); WBC 10.4 k/uL (3.8-10.6)
[2025-01-25 04:38] LABS: ALT 24 U/L (4-34); AST 22 U/L (14-36); African American GFR (CKD) 74 (>60 ml/min/1.73 sqM); Albumin 4.2 g/dL (3.5-5.0); Alkaline Phosphatase 97 U/L (38-126); Amylase 51 U/L (30-110); Anion Gap 10 mmol/L; Blood Urea Nitrogen 18 mg/dL (7-17); Calcium 9.4 mg/dL (8.4-10.2); Carbon Dioxide 29 mmol/L (22-30); Chloride 98 mmol/L (98-107); Glucose 113 mg/dL (74-99); Lipase 160 U/L (23-300); Non-African American GFR(CKD) 64 (>60 ml/min/1.73 sqM); Potassium 4.4 mmol/L (3.5-5.1); Sodium 137 mmol/L (137-145); Total Bilirubin 0.5 mg/dL (0.2-1.3); Total Protein 7.1 g/dL (6.3-8.2)
[2025-01-25 04:40] LABS: INR 0.9 (<1.2); Partial Thromboplastin Time 24.9 sec (22.0-30.0); Prothrombin Time 9.8 sec (10.0-12.5)
[2025-01-25] MEDS: MORPHINE SULFATE 4 MG/ML SYRINGE IVP STA (05:07)
[2025-01-25 05:22] LABS: Appearance,Urine Cloudy (Clear); Bacteria,Urine Many /hpf; Bilirubin,Urine Negative (Negative); Blood,Urine Negative (Negative); Color,Urine Light Yellow; Glucose,Urine (UA) Negative (Negative); Ketones,Urine Negative (Negative); Leukocyte Esterase,Urine Small (Negative); Mucus,Urine Occasional /hpf; Nitrite,Urine Negative (Negative); PH, Urine 5.5 (5.0-8.0); Protein,Urine Trace (Negative); RBC,Urine 2 /hpf (0-5); Squamous Epithelial Cell,Urine 18 /hpf (0-4); Urobilinogen,Urine <2.0 mg/dL (<2.0); WBC,Urine 12 /hpf (0-5)
[2025-01-25] MEDS: MAG HYDROX/AL HYDROX/SIMETH 30 ML CUP PO STA (05:52)
[2025-01-25] MEDS: FAMOTIDINE 20 MG/2 ML VIAL IV STA (05:53)
--- NOTE | 2025-01-25 07:04 | CT ---
EXAMINATION TYPE: CT abdomen pelvis w con DATE OF EXAM: 01/25/2025 5:51 AM COMPARISON: CT abdomen pelvis most recent from 02/06/2016 CLINICAL INDICATION: Female, 49 years old with history of pain; TECHNIQUE: Axial CT abdomen pelvis w con;Sagittal and coronal reformats were created on a separate w orkstation. Contrast used:100 mL of Isovue 300 with IV Contrast, (none if empty) Oral contrast used: (none if empty) CT DLP: 2197 mGycm, Automated exposure control for dose reduction was used. FINDINGS: LOWER CHEST: Unremarkable ABDOMEN LIVER: Diffusely hypoattenuating parenchyma. GALLBLADDER AND BILE DUCTS: The gallbladder is surgically absent. PANCREAS: Unremarkable. SPLEEN: Unremarkable. ADRENAL GLANDS: Unremarkable. KIDNEYS AND URETERS: No evidence of hydronephrosis or renal calculus. The ureters are unremarkable. The kidney measured due to are symmetric without increased density. PELVIS BLADDER: No evidence for wall thickening or mass given limitations of exam. REPRODUCTIVE: Bicornuate versus arcuate versus septate uterus. ABDOMEN & PELVIS STOMACH AND BOWEL: No evidence of bowel obstruction. Scattered colonic diverticula. Moderate to large amount stool in the colon PERITONEUM/RETROPERITONEUM: No evidence of pneumoperitoneum or free fluid. VASCULATURE: No evidence of aortic aneurysm. MUSCULOSKELETAL: No acute osseous abnormalities LYMPH NODES: No gross evidence for lymphadenopathy. SOFT TISSUE/ABDOMINAL WALL: Fat-containing umbilical hernia. IMPRESSION: 1. No evidence for acute abdominal process. 2. No CT evidence to support medullary sponge kidney. 3. Hepatic steatosis. 4. Fat-containing umbilical hernia. 5. Colonic diverticulosis. 6. Mild cardiomegaly. 7. Bicornuate versus septate versus acute uterine morphology. [facility], , 01/25/2025 7:02 AM
[2025-01-25 07:25] VITALS: BP 105/74; PULSE 87; RESP 18
== END 2025-01-25 07:25 | disposition home or self-care (01) ==
LOC: EC 03:45
DX: R10.13 Epigastric pain (principal); Z88.7 Allergy status to serum and vaccine; Z88.0 Allergy status to penicillin; Z88.8 Allergy status to other drugs, medicaments and biological substances
CPT/HCPCS: 36415; 80053; 82150; 83605; 83690; 84484; 85025; 85610; 85730; 81001; 74177; 99284; 96374; 96375 ×2; 96361; J2270; J2405; J3490; Q9967

== ENCOUNTER 2025-04-08 03:32 | Emergency (ER) | payer OTHER ==
[2025-04-08 03:40] VITALS: RESP 18
--- NOTE | 2025-04-08 03:56 | ED ---
General Adult HPI - General Chief complaint: Weakness Stated complaint: pain Time Seen by Provider: 04/08/25 03:40 Source: patient Mode of arrival: ambulatory - History of Present Illness Initial comments: Dictation was produced using [employer] dictation software. please excuse any gra mmatical, word or spelling errors. Chief Complaint: 49-year-old female with total body pain History of Present Illness: Patient is a 49-year-old female presents with total body pain. Patient states that she is having total body pain that has been ongoing for a couple weeks. She has been seeing her primary care doctor for this. States that Tylenol and Motrin [id number] preparations are not working. Denies any fever, chills or night sweats. Patient states that all of her joints hurt The ROS documented in this emergency department record has been reviewed and confirmed by me. Those systems with pertinent positive or negative responses have been documented in the HPI. All other systems are other negative and/or noncontributory. - Related Data Home Medications Medication Instructions Recorded Confirmed lisinopriL [Zestril] 10 mg PO DAILY 07/03/20 07/29/24 ondansetron HCL [Zofran] 4 mg PO Q8H PRN 07/03/20 07/29/24 Sertraline HCl [Zoloft] 100 mg PO HS 07/18/21 07/29/24 busPIRone HCl [Buspar] 10 mg PO BID 07/18/21 07/29/24 Omeprazole 40 mg PO DAILY 08/13/21 07/29/24 Ergocalciferol (Vitamin D2) 1,250 mcg PO TH 07/29/24 07/29/24 [Drisdol (50,000 Iu)] Previous Rx's Medication Instructions Recorded Acetaminophen Tab [Tylenol] 650 mg PO Q6HR PRN #16 tab 07/29/24 Atorvastatin [Lipitor] 20 mg PO HS #30 tab 07/29/24 Metoprolol Tartrate [Lopressor] 12.5 mg PO DAILY tab 07/29/24 Cyclobenzaprine [Flexeril] 10 mg PO TID PRN #15 tab 12/15/24 Allergies Allergy/AdvReac Type Severity Reaction Status Date / Time influenza virus vaccine, Allergy Unknown Verified 04/08/25 03:40 specific [influenza virus vacc,specific] Penicillins Allergy Rash/Hives Verified 04/08/25 03:40 acetazolamide AdvReac "Caused Verified 04/08/25 03:40 [From Diamox Sequels] heart issues" hydrochlorothiazide AdvReac Rapid Verified 04/08/25 03:40 Heart Rate topiramate [From Topamax] AdvReac stoke Verified 04/08/25 03:40 symptoms Review of Systems ROS Statement: Those systems with pertinent positive or pertinent negative responses have been documented in the HPI. ROS Other: All systems not noted in ROS Statement are negative. Past Medical History Past Medical History: Chest Pain / Angina, GERD/Reflux, Hypertension, Mitral Valve Prolapse (MVP) Additional Past Medical History / Comment(s): Pseudo tumor cerebri, Medullary sponge kidney, chronic back pain, chronic headache History of Any Multi-Drug Resistant Organisms: None Reported Past Surgical History: Cholecystectomy Additional Past Surgical History / Comment(s): LP SHUNT PLACEMENT AND REMOVAL, cholecystectomy in 2006. Past Anesthesia/Blood Transfusion Reactions: Previous Problems w/ Anesthesia, Malignant Hyperthermia, Motion Sickness Additional Past Anesthesia/Blood Transfusion Reaction / Comment(s): states difficulty breating with anesthesia Past Psychological History: Anxiety, Depression Smoking Status: Never smoker Past Alcohol Use History: None Reported Past Drug Use History: None Reported - Past Family History Sister(s) Family Medical History: Renal Disease Additional Family Medical History / Comment(s): FSGS Brother(s) Family Medical History: Renal Disease Additional Family Medical History / Comment(s): FSGS Father Family Medical History: Cancer, Coronary Artery Disease (CAD), Renal Disease Additional Family Medical History / Comment(s): renal disease-FSGS General Exam - General Exam Comments Initial Comments: PHYSICAL EXAM: General Impression: Alert and oriented x3, not in acute distress HEENT: Normocephalic atraumatic, extra-ocular movements intact, pupils equal and reactive to light bilaterally, mucous membranes moist. Cardiovascular: Heart regular rate and rhythm Chest: Able to complete full sentences, no retractions, no tachypnea Abdomen: abdomen soft, non-tender, non-distended, no organomegaly Musculoskeletal: Pulses present and equal in all extremities, no peripheral edema Motor: no focal deficits noted Neurological: CN II-XII grossly intact, no focal motor or sensory deficits noted Skin: Intact with no visualized rashes Psych: Normal affect and mood Course Vital Signs 04/08/25 03:36 Temperature 97.7 F Pulse Rate 89 Respiratory 18 Rate Blood Pressure 152/91 O2 Sat by Pulse 100 Oximetry Medical Decision Making - Medical Decision Making Was pt. sent in by a medical professional or institution (, ASHER, NEWSCAST DIRECTOR, urgent care, hospital, or residential...) When possible be specific @ -No Did you speak to anyone other than the patient for history (EMS, parent, family, police, friend...)? What history was obtained from this source @ -No Did you review nursing and triage notes (agree or disagree)? Why? @ -I reviewed and agree with nursing and triage notes Were old charts reviewed (outside hosp., previous admission, EMS record, old EKG, old radiological studies, urgent care reports/EKG's, residential records)? Report findings @ -No old charts were reviewed Differential Diagnosis (chest pain, altered mental status, abdominal pain women, abdominal pain men, vaginal bleeding, musculoskeletal, weakness, fever, dyspnea, syncope, headache, dizziness, GI bleed, back pain, seizure, CVA, palpatations, mental health)? @ -Differential Musculoskeletal: Muscular strain, contusion, ligament sprain, fracture, arthritis, septic arthritis, bursitis, cellulitis, muscle spasm, nerve compression, DVT, arterial occlusion, herpes zoster, electrolyte abnormality, tumor.... This is not meant to be in all inclusive list EKG interpreted by me (3pts min.). @ -None done X-rays interpreted by me (1pt min.). @ -None done CT interpreted by me (1pt min.). @ -None done U/S interpreted by me (1pt. min.). @ -None done What testing was considered but not performed or refused? (CT, X-rays, U/S, labs)? Why? @ -None What meds were considered but not given or refused? Why? @ -None Was smoking cessation discussed for >3mins.? @ -No Were there social determinants of health that impacted care today? How? (Homelessness, low income, unemployed, alcoholism, drug addiction, transportation, low edu. Level, literacy, decrease access to med. care, half-way, rehab)? @ -No Was there de-escalation of care discussed even if they declined (Discuss DNR or withdrawal of care, Hospice)? DNR status @ -No What co-morbidities impacted this encounter? (DM, HTN, Smoking, COPD, CAD, Cancer, CVA, ARF, Chemo, Hep., AIDS, mental health diagnosis, sleep apnea, morbid obesity)? @ -None Was patient admitted / discharged? Hospital course, mention meds given and route, prescriptions, significant lab abnormalities, going to OR and other pertinent info. @ -49-year-old female total body pain. Vital signs stable. Physical examination is benign. Vital signs are stable. Labs unremarkable. Patient given analgesics. Discharged with starter pack for Tylenol 3. Did you discuss the management of the patient with other professionals (professionals i.e. , PA, NEWSCAST DIRECTOR, lab, RT, psych nurse, social secretary, residential real estate agent, teacher, founder and chief executive officer, caser)? Give summary @ -No Was critical care preformed (if so, how long)? @ -No Undiagnosed new problem with uncertain prognosis? @ -No Drug Therapy requiring intensive monitoring for toxicity (Heparin, Nitro, Insulin, Cardizem)? @ -No Were any procedures done? @ -No Diagnosis/symptom? Acute, or Chronic, or Acute on Chronic? Uncomplicated (without systemic symptoms) or Complicated (systemic symptoms)? @ -Musculoskeletal pain Side effects of treatment? @ -No Exacerbation, Progression, or Severe Exacerbation? @ -No Poses a threat to life or bodily function? How? (Chest pain, [place], AR, pneumonia, PE, COPD, DKA, ARF, appy, cholecystitis, CVA, Diverticulitis, Homicidal, Suicidal, threat to staff... and all critical care pts) @ -No - Lab Data Result diagrams: 04/08/25 04:06 04/08/25 04:06 Lab Results 04/08/25 04/08/25 Range/Units 04:06 04:06 WBC 8.88 (4.50-10.00) 10*3/uL RBC 4.78 (4.10-5.20) 10*6/uL Hgb 13.9 (12.0-15.0) g/dL Hct 40.9 (37.2-46.3) % MCV 85.6 (80.0-97.0) fL MCH 29.1 (27.0-32.0) pg MCHC 34.0 (32.0-37.0) g/dL Plt Count 242 (140-440) 10*3/uL MPV 11.3 (9.5-12.2) fL Immature Gran % (Auto) 0.3 % Neutrophils % 59.3 % Lymphocytes % 29.6 % Monocytes % 7.7 % Eosinophils % 2.0 % Basophils % 1.1 % Immature Gran # 0.03 (0.00-0.04) 10*3/uL Neutrophils # 5.26 (1.80-7.70) 10*3/uL Lymphocytes # 2.63 (0.90-5.00) 10*3/uL Monocytes # 0.68 (0.20-1.00) 10*3/uL Eosinophils # 0.18 (0.04-0.35) 10*3/uL Basophils # 0.10 (0.00-0.10) 10*3/uL Sodium 139 (137-145) mmol/L Potassium 4.4 (3.5-5.1) mmol/L Chloride 106 (98-107) mmol/L Carbon Dioxide 26 (22-30) mmol/L Anion Gap 7 mmol/L BUN 17 (7-17) mg/dL Creatinine 1.03 (0.52-1.04) mg/dL Est GFR (CKD-EPI)AfAm 74 (>60 ml/min/1.73 sqM) Est GFR (CKD-EPI)NonAf 65 (>60 ml/min/1.73 sqM) Glucose 115 H (74-99) mg/dL Calcium 9.4 (8.4-10.2) mg/dL Disposition Clinical Impression: Arthralgia Disposition: HOME SELF-CARE Condition: Good Instructions (If sedation given, give patient instructions): Acetaminophen/Codeine (By mouth) Is patient prescribed a controlled substance at d/c from ED?: No Referrals: None,Stated [Primary Care Provider] - 1-2 days Time of Disposition: 06:12
[2025-04-08 04:16] LABS: Basophils % (A) 1.1 %; Eosinophils # (A) 0.18 10*3/uL (0.04-0.35); HCT 40.9 % (37.2-46.3); HGB 13.9 g/dL (12.0-15.0); Lymphocytes # (A) 2.63 10*3/uL (0.90-5.00); Lymphocytes % (A) 29.6 %; MCH 29.1 pg (27.0-32.0); MCV 85.6 fL (80.0-97.0); Mean Platelet Volume 11.3 fL (9.5-12.2); Monocytes # (A) 0.68 10*3/uL (0.20-1.00); Monocytes % (A) 7.7 %; Neutrophils # (A) 5.26 10*3/uL (1.80-7.70); Neutrophils % (A) 59.3 %; Platelet Count 242 10*3/uL (140-440); RBC 4.78 10*6/uL (4.10-5.20); RDW 12.3 % (11.5-14.5); WBC 8.88 10*3/uL (4.50-10.00)
[2025-04-08] MEDS: HYDROmorphone 1 MG/ML 1 ML SYRINGE IVP STA (04:23)
[2025-04-08 05:03] LABS: African American GFR (CKD) 74 (>60 ml/min/1.73 sqM); Anion Gap 7 mmol/L; Blood Urea Nitrogen 17 mg/dL (7-17); Calcium 9.4 mg/dL (8.4-10.2); Carbon Dioxide 26 mmol/L (22-30); Chloride 106 mmol/L (98-107); Glucose 115 mg/dL (74-99); Non-African American GFR(CKD) 65 (>60 ml/min/1.73 sqM); Potassium 4.4 mmol/L (3.5-5.1); Sodium 139 mmol/L (137-145)
[2025-04-08] MEDS: ACET/COD 300 MG/30 MG STARTER PACK 6 TAB BTL PO STA (06:31)
[2025-04-08 06:35] VITALS: BP 123/58; PULSE 80; TEMP 98.1
== END 2025-04-08 06:42 | disposition home or self-care (01) ==
LOC: EC 03:32
DX: M25.50 Pain in unspecified joint (principal); Z88.0 Allergy status to penicillin; Z88.7 Allergy status to serum and vaccine; Z88.8 Allergy status to other drugs, medicaments and biological substances
CPT/HCPCS: 36415; 80048; 85025; 99284; 96374; J1171

== ENCOUNTER 2025-05-26 23:30 | Emergency (ER) | payer OTHER ==
[2025-05-26 23:52] LABS: Basophils # (A) 0.09 10*3/uL (0.00-0.10); Basophils % (A) 0.9 %; Eosinophils # (A) 0.18 10*3/uL (0.04-0.35); Eosinophils % (A) 1.9 %; HCT 42.4 % (37.2-46.3); HGB 14.4 g/dL (12.0-15.0); Lymphocytes # (A) 2.75 10*3/uL (0.90-5.00); Lymphocytes % (A) 28.4 %; MCH 29.1 pg (27.0-32.0); MCHC 34.0 g/dL (32.0-37.0); MCV 85.7 fL (80.0-97.0); Monocytes # (A) 0.59 10*3/uL (0.20-1.00); Monocytes % (A) 6.1 %; Neutrophils # (A) 6.02 10*3/uL (1.80-7.70); Neutrophils % (A) 62.3 %; Platelet Count 266 10*3/uL (140-440); RBC 4.95 10*6/uL (4.10-5.20); RDW 12.5 % (11.5-14.5); WBC 9.67 10*3/uL (4.50-10.00)
[2025-05-27 00:02] LABS: INR 0.9 (<1.2); Partial Thromboplastin Time 25.2 sec (22.0-30.0); Prothrombin Time 9.9 sec (10.0-12.5)
[2025-05-27 00:05] LABS: ALT 28 U/L (4-34); AST 24 U/L (14-36); African American GFR (CKD) 80 (>60 ml/min/1.73 sqM); Albumin 4.2 g/dL (3.5-5.0); Alkaline Phosphatase 82 U/L (38-126); Anion Gap 12 mmol/L; Blood Urea Nitrogen 15 mg/dL (7-17); Calcium 9.6 mg/dL (8.4-10.2); Carbon Dioxide 25 mmol/L (22-30); Chloride 104 mmol/L (98-107); Glucose 122 mg/dL (74-99); Magnesium 1.9 mg/dL (1.6-2.3); Non-African American GFR(CKD) 70 (>60 ml/min/1.73 sqM); Potassium 4.4 mmol/L (3.5-5.1); Sodium 141 mmol/L (137-145); Total Protein 7.0 g/dL (6.3-8.2)
--- NOTE | 2025-05-27 00:47 | ED ---
Chest Pain HPI - General Chief Complaint: Chest Pain Stated Complaint: Chest Pain, Syncope Time Seen by Provider: 05/27/25 00:31 Source: patient Mode of arrival: ambulatory Limitations: no limitations - History of Present Illness MD Complaint: chest pain Onset/Timin -: hour(s) Onset: during rest Pain Location: substernal, epigastric Pain Radiation: none Severity: moderate Quality: aching Consistency: constant Improves With: nothing Worsens With: nothing Anginal Symptoms: dyspnea Treatments Prior to Arrival: none - Related Data Home Medications Medication Instructions Recorded Confirmed lisinopriL [Zestril] 10 mg PO DAILY 07/03/20 07/29/24 ondansetron HCL [Zofran] 4 mg PO Q8H PRN 07/03/20 07/29/24 Sertraline HCl [Zoloft] 100 mg PO HS 07/18/21 07/29/24 busPIRone HCl [Buspar] 10 mg PO BID 07/18/21 07/29/24 Omeprazole 40 mg PO DAILY 08/13/21 07/29/24 Ergocalciferol (Vitamin D2) 1,250 mcg PO TH 07/29/24 07/29/24 [Drisdol (50,000 Iu)] Previous Rx's Medication Instructions Recorded Acetaminophen Tab [Tylenol] 650 mg PO Q6HR PRN #16 tab 07/29/24 Atorvastatin [Lipitor] 20 mg PO HS #30 tab 07/29/24 Metoprolol Tartrate [Lopressor] 12.5 mg PO DAILY tab 07/29/24 Cyclobenzaprine [Flexeril] 10 mg PO TID PRN #15 tab 12/15/24 Allergies Allergy/AdvReac Type Severity Reaction Status Date / Time influenza virus vaccine, Allergy Unknown Verified 05/26/25 23:35 specific [influenza virus vacc,specific] Penicillins Allergy Rash/Hives Verified 05/26/25 23:35 acetazolamide AdvReac "Caused Verified 05/26/25 23:35 [From Diamox Sequels] heart issues" hydrochlorothiazide AdvReac Rapid Verified 05/26/25 23:35 Heart Rate topiramate [From Topamax] AdvReac stoke Verified 05/26/25 23:35 symptoms Review of Systems ROS Statement: Those systems with pertinent positive or pertinent negative responses have been documented in the HPI. ROS Other: All systems not noted in ROS Statement are negative. Constitutional: Denies: fever, chills, weakness Respiratory: Reports: dyspnea. Denies: cough Cardiovascular: Reports: chest pain. Denies: palpitations, orthopnea, edema, syncope Gastrointestinal: Reports: abdominal pain. Denies: nausea, vomiting, diarrhea Genitourinary: Denies: dysuria, hematuria Skin: Denies: rash Neurological: Denies: headache, weakness, numbness EKG Findings - EKG Results: EKG: sinus rhythm (Rate 88 bpm), normal axis, normal ST/T - Blocks, [place], Hypertrophy, ST Abn: QRS axis and voltage: low voltage (<0.5 MV total QRS and <1.0 MV in each precordial lead) Past Medical History Past Medical History: Chest Pain / Angina, GERD/Reflux, Hypertension, Mitral Valve Prolapse (MVP) Additional Past Medical History / Comment(s): Pseudo tumor cerebri, Medullary sponge kidney, chronic back pain, chronic headache History of Any Multi-Drug Resistant Organisms: None Reported Past Surgical History: Cholecystectomy Additional Past Surgical History / Comment(s): LP SHUNT PLACEMENT AND REMOVAL, cholecystectomy in 2006. Past Anesthesia/Blood Transfusion Reactions: Previous Problems w/ Anesthesia, Malignant Hyperthermia, Motion Sickness Additional Past Anesthesia/Blood Transfusion Reaction / Comment(s): states difficulty breating with anesthesia Past Psychological History: Anxiety, Depression Smoking Status: Never smoker Past Alcohol Use History: None Reported Past Drug Use History: None Reported - Past Family History Sister(s) Family Medical History: Renal Disease Additional Family Medical History / Comment(s): FSGS Brother(s) Family Medical History: Renal Disease Additional Family Medical History / Comment(s): FSGS Father Family Medical History: Cancer, Coronary Artery Disease (CAD), Renal Disease Additional Family Medical History / Comment(s): renal disease-FSGS General Exam Limitations: no limitations General appearance: alert, in no apparent distress Head exam: Present: atraumatic, normocephalic Eye exam: Present: normal appearance. Absent: scleral icterus, conjunctival injection ENT exam: Present: normal oropharynx Neck exam: Present: normal inspection Respiratory exam: Present: normal lung sounds bilaterally. Absent: respiratory distress, wheezes, rales, rhonchi, stridor, accessory muscle use Cardiovascular Exam: Present: regular rate, normal rhythm, normal heart sounds. Absent: systolic murmur, diastolic murmur, rubs, gallop GI/Abdominal exam: Present: soft. Absent: distended, tenderness, guarding, rebound, rigid, mass Extremities exam: Present: normal inspection, normal capillary refill. Absent: pedal edema, calf tenderness Back exam: Present: normal inspection. Absent: CVA tenderness (R), CVA ten derness (L) Neurological exam: Present: alert Skin exam: Present: warm, dry, intact, normal color. Absent: rash Course Vital Signs 05/26/25 05/27/25 05/27/25 23:32 00:56 00:58 Temperature 97.7 F 98.0 F Pulse Rate 92 80 Pulse Rate [ 80 Left Supine Pulse Oximetery ] Respiratory 18 20 Rate Blood Pressure 152/89 126/68 O2 Sat by Pulse 100 97 Oximetry 05/27/25 02:34 Temperature 98.4 F Pulse Rate 89 Pulse Rate [ Left Supine Pulse Oximetery ] Respiratory 19 Rate Blood Pressure 124/78 O2 Sat by Pulse 97 Oximetry Chest Pain MDM - MDM The patient had chest x-ray that I interpreted as negative for acute infiltrate, pneumothorax, congestive heart failure Disposition Clinical Impression: Chest pain Disposition: HOME SELF-CARE Condition: Good Instructions (If sedation given, give patient instructions): Chest Pain (ED) Is patient prescribed a controlled substance at d/c from ED?: No Referrals: None,Stated [REFERRING] - 1-2 days Jose Woodward MD [Medical Doctor] - 1-2 days
[2025-05-27] MEDS: MORPHINE SULFATE 4 MG/ML SYRINGE IV STA ×2 (01:08→02:40)
[2025-05-27] MEDS: ONDANSETRON 4 MG/2 ML VIAL IVP STA (01:10)
--- NOTE | 2025-05-27 03:23 | XR ---
EXAM: XR Chest, 2 Views CLINICAL HISTORY: Chest Pain TECHNIQUE: Frontal and lateral views of the chest. COMPARISON: 12/15/2024 FINDINGS: Lungs: Unremarkable. No consolidation. Pleural space: Unremarkable. Mediastinum: Unremarkable. Normal mediastinal contour. Bones/joints: No acute findings. Upper abdomen: Cholecystectomy clips. IMPRESSION: No acute findings in the chest.
[2025-05-27 04:15] VITALS: BP 140/84; PULSE 95; RESP 18; TEMP 98.1
== END 2025-05-27 04:16 | disposition home or self-care (01) ==
LOC: EC 23:30
DX: R07.9 Chest pain, unspecified (principal); Z88.7 Allergy status to serum and vaccine; Z88.0 Allergy status to penicillin; Z88.8 Allergy status to other drugs, medicaments and biological substances
CPT/HCPCS: 36415 ×2; 93005; 85379; 80053; 83735; 84484 ×2; 85025; 85610; 85730; 71046; 99285; 96374; 96375; 96376; J2270; J2405